=== PATIENT | male | born 1970 | race African-American/Black ===

== ENCOUNTER 2018-01-23 18:02 | Emergency (ER) | payer MEDICAID, OTHER ==
[2018-01-23] MEDS ORDERED: RINGERS SOLUTION,LACTATED 1,000 ML IV ONE (18:21)
[2018-01-23 18:41] LABS: ALANINE AMINOTRANSFERASE 54 U/L (21-72); ALBUMIN 3.8 g/dL (3.5-5.0); ALKALINE PHOSPHATASE 127 U/L (38-126); ASPARTATE AMINO TRANSFERASE 200 U/L (17-59); BILIRUBIN,DIRECT 0.5 mg/dL (0.0-0.4); BILIRUBIN,TOTAL 1.2 mg/dL (0.2-1.3); BLOOD UREA NITROGEN 5 mg/dL (7-20); CALCIUM 9.3 mg/dL (8.4-10.2); CARBON DIOXIDE 20 mmol/L (22-30); CHLORIDE 96 mmol/L (98-107); CREATINE KINASE 194 U/L (55-170); GLUCOSE 164 mg/dL (75-110); LIPASE 333.2 U/L (23-300); POTASSIUM 3.7 mmol/L (3.6-5.0); SODIUM 141.2 mmol/L (137-145)
--- NOTE | 2018-01-23 18:46 | ER Document Report ---
ED General - General Chief Complaint: Heat Exposure Stated Complaint: WEAKNESS Time Seen by Provider: 01/23/18 18:20 Notes: Patient is a 47-year-old male who presents by EMS after apparently having a witnessed seizure just prior to arrival. The patient does not recall any of the events and is unable to provide any additional meaningful the details. States only the last thing that he recalls is being loaded into the back of the EMS truck. He denies any history of prodromal symptoms. He states his last seizure was approximately 3 months ago. He has been taking his Keppra as directed. No missed doses. He states that he typically has a seizure once every several months. The patient does also report that he had diarrhea and nausea yesterday as well as abdominal cramping all of which have since resolved. He denies any symptoms at the time of my assessment. He denies any weakness, numbness, headache, neck pain, chest pain or shortness of breath. He states he feels well and would like to go home. TRAVEL OUTSIDE OF THE [place] IN LAST 30 DAYS: No - Related Data Allergies/Adverse Reactions: morphine [Morphine] Adverse Reaction (Severe, Verified 07/01/15 23:40) resp depression Past Medical History - General Information source: Patient - Social History Smoking Status: Never Smoker Frequency of alcohol use: None Drug Abuse: None Lives with: Family Family History: Reviewed & Not Pertinent - Past Medical History Cardiac Medical History: Reports: Hx Hypertension Neurological Medical History: Reports: Hx Seizures Past Surgical History: Reports: Hx Tonsillectomy - Immunizations Hx Diphtheria, Pertussis, Tetanus Vaccination: Yes Review of Systems - Review of Systems Notes: Constitutional: Negative for fever. HENT: Negative for sore throat. Eyes: Negative for visual changes. Cardiovascular: Negative for chest pain. Respiratory: Negative for shortness of breath. Gastrointestinal: Negative for abdominal pain, vomiting or diarrhea. Genitourinary: Negative for dysuria. Musculoskeletal: Negative for back pain. Skin: Negative for rash. Neurological: Negative for headaches, weakness or numbness. Positive for a seizure 10 point ROS negative except as marked above and in HPI. Physical Exam - Vital signs Vitals: Pulse Ox 96 01/23/18 18:06 Interpretation: Normal Notes: PHYSICAL EXAMINATION: GENERAL: Well-appearing, well-nourished and in no acute distress. HEAD: Atraumatic, normocephalic. EYES: Pupils equal round and reactive to light, extraocular movements intact, sclera anicteric, conjunctiva are normal. ENT: nares patent, oropharynx clear without exudates. Moist mucous membranes. NECK: Normal range of motion, supple without lymphadenopathy LUNGS: Breath sounds clear to auscultation bilaterally and equal. No wheezes rales or rhonchi. HEART: Regular rate and rhythm without murmurs ABDOMEN: Soft, nontender, normoactive bowel sounds. No guarding, no rebound. No masses appreciated. EXTREMITIES: Normal range of motion, no pitting or edema. No cyanosis. NEUROLOGICAL: Face symmetric. Tongue protrudes midline. Extraocular motions intact. Pupils are 2 mm and equally reactive. Normal speech, normal gait. 5 out of 5 strength in both the distal and proximal upper and lower extremities bilaterally. Sensation is grossly intact throughout. Finger to nose testing normal. Pronator drift normal. PSYCH: Normal mood, normal affect. SKIN: Warm, Dry, normal turgor, no rashes or lesions noted. Course - Re-evaluation Re-evalutation: 01/23/18 18:45 Presentation of well-appearing patient after having a seizure. Patient has a known history of seizures. No obvious trigger for today's episode. The patient has returned to baseline without intervention. No focal neurologic deficits. No infectious symptoms, vital sign abnormalities, or evidence of trauma. No indication for laboratories or imaging based on reassuring evaluation and known history of seizures. Patient does complain of feeling dehydrated as he apparently had diarrhea 2 days ago and was out in the heat for the majority of the past 24 hours. Will obtain basic laboratories to ensure that he has not sustained an acute kidney injury or acute rhabdomyolysis. 01/23/18 19:18 Labs do show moderate dehydration, elevation of AST but no additional liver dysfunctions. Patient has tolerated oral intake without difficulty. No vomiting. He denies any abdominal pain. Clinical history and exam are not consistent with an acute hepatitis, cholecystitis, or acute pancreatitis. I have emphasized with the patient that he needs to follow-up with his general doctor for recheck of labs in the next 1 week. Labs overall most consistent with a mild acidosis in the setting of a recent seizure. At this time will discharge with return precautions and follow-up recommendations. Verbal discharge instructions given a the bedside and opportunity for questions given. Medication warnings reviewed. Patient is in agreement with this plan and has verbalized understanding of return precautions and the need for primary care follow-up in the next 24-72 hours. - Vital Signs Vital signs: Temp Pulse Resp BP Pulse Ox 98 F 20 153/114 H 98 01/23/18 18:21 01/23/18 19:39 01/23/18 19:39 01/23/18 19:39 - Laboratory Result Diagrams: 01/23/18 18:13 Laboratory results interpreted by me: 01/23/18 18:13 Chloride 96 L Carbon Dioxide 20 L Anion Gap 25 H BUN 5 L Glucose 164 H Direct Bilirubin 0.5 H AST 200 H Alkaline Phosphatase 127 H Creatine Kinase 194 H Lipase 333.2 H Discharge - Discharge Clinical Impression: Seizure, Dehydration, Elevated AST (SGOT) Condition: Good Disposition: HOME, SELF-CARE Additional Instructions: Today you had a seizure. It is very important that you do not engage in any activities that could result in severe injury should you have a seizure. Specifically, do not drive a vehicle, go into a body of water, take a bath, climb ladders, or operate any heavy machinery until you have been cleared by your neurologist. Please return to the ED immediately if you have multiple seizures close together, develop a severe headache, weakness, numbness, difficulty speaking, have a seizure in which you do not return to normal within 1 hour of the seizure, or have any other symptoms that are concerning to you. Please follow-up with your general doctor regarding your labs. Please have a recheck of your liver function labs and kidney labs within the next 1 week. please also return if you develop nausea, vomiting, abdominal pain, chest pain , shortness of breath or any other symptoms that are worrisome to you.
[2018-01-23 18:48] LABS: ANION GAP 25 (5-19)
[2018-01-23 19:42] VITALS: BP 153/114
== END 2018-01-23 19:47 | disposition home or self-care (01) ==
LOC: ER 18:02
DX: R56.9 Unspecified convulsions (principal); E86.0 Dehydration; R74.0 Nonspecific elevation of levels of transaminase and lactic acid dehydrogenase [LDH]; Z79.899 Other long term (current) drug therapy; I10 Essential (primary) hypertension
CPT/HCPCS: 99284; 96365; 36415; 82550; 83690; 80053; J7120

== ENCOUNTER 2018-05-06 12:47 | Emergency (ER) | payer MEDICAID ==
[2018-05-06] MEDS ORDERED: ONDANSETRON HCL INJ/PF 4 MG/2 ML SDV IV ONE (13:12)
[2018-05-06] MEDS ORDERED: RINGERS SOLUTION,LACTATED 1,000 ML IV PRN (13:12)
[2018-05-06] MEDS ORDERED: LEVETIRACETAM 1000 MG/NACL-ISO 1,000 MG/100 ML RTUPB IV ONE (13:12)
--- NOTE | 2018-05-06 13:14 | ER Document Report ---
ED Medical Screen (RME) - General Chief Complaint: Nausea/Vomiting Stated Complaint: BACK PAIN Time Seen by Provider: 05/06/18 13:11 Mode of Arrival: Ambulatory Information source: Patient Notes: 48-year-old man with a history of seizures, gout, hypertension presented to emergency room with 3 days worth of nausea vomiting and diarrhea. Patient states he does not think he was holding down some of his seizure medicines. Patient reports nausea now. He denies fever. He denies chest pain or abdominal pain. TRAVEL OUTSIDE OF THE [place] IN LAST 30 DAYS: No - Related Data Allergies/Adverse Reactions: morphine [Morphine] Adverse Reaction (Severe, Verified 07/01/15 23:40) resp depression Past Medical History - Past Medical History Cardiac Medical History: Reports: Hx Hypertension Neurological Medical History: Reports: Hx Seizures Renal/ Medical History: Denies: Hx Peritoneal Dialysis Past Surgical History: Reports: Hx Tonsillectomy - Immunizations Hx Diphtheria, Pertussis, Tetanus Vaccination: Yes Physical Exam - Vital signs Vitals: Temp Pulse Resp BP Pulse Ox 97.9 F 84 18 147/100 H 98 05/06/18 12:55 05/06/18 12:55 05/06/18 12:55 05/06/18 12:55 05/06/18 12:55 Course - Vital Signs Vital signs: Temp Pulse Resp BP Pulse Ox 97.9 F 84 18 147/100 H 98 05/06/18 12:55 05/06/18 12:55 05/06/18 12:55 05/06/18 12:55 05/06/18 12:55
[2018-05-06 13:53] LABS: ABSOLUTE LYMPHOCYTES (AUTO) 0.9 10^3/uL (0.5-4.7); ABSOLUTE MONOCYTES (AUTO) 0.5 10^3/uL (0.1-1.4); BASOPHILS % (AUTO) 0.4 % (0-2); HEMATOCRIT 50.6 % (37.9-51.0); HEMOGLOBIN 17.3 g/dL (13.5-17.0); LYMPHOCYTES % (AUTO) 9.1 % (13-45); MEAN CORPUSCULAR HEMOGLOBIN 36.3 pg (27.0-33.4); MEAN CORPUSCULAR HGB CONC 34.3 g/dL (32.0-36.0); MEAN CORPUSCULAR VOLUME 106 fl (80-97); MONOCYTES % (AUTO) 5.3 % (3-13); RED BLOOD COUNT 4.77 10^6/uL (4.35-5.55); RED CELL DISTRIBUTION WIDTH 16.8 % (11.5-14.0); SEGMENTED NEUTROPHILS % (AUTO) 85.2 % (42-78); TOTAL CELLS COUNTED % (AUTO) 100 %; WHITE BLOOD COUNT 9.4 10^3/uL (4.0-10.5)
[2018-05-06 14:43] LABS: PLATELET COUNT 47 10^3/uL (150-450)
[2018-05-06 14:55] LABS: ALANINE AMINOTRANSFERASE 48 U/L (21-72); ALBUMIN 3.5 g/dL (3.5-5.0); ALKALINE PHOSPHATASE 152 U/L (38-126); ANION GAP 17 (5-19); ASPARTATE AMINO TRANSFERASE 179 U/L (17-59); BILIRUBIN,DIRECT 0.5 mg/dL (0.0-0.4); BILIRUBIN,TOTAL 1.7 mg/dL (0.2-1.3); BLOOD UREA NITROGEN 3 mg/dL (7-20); CALCIUM 8.5 mg/dL (8.4-10.2); CARBON DIOXIDE 31 mmol/L (22-30); CHLORIDE 91 mmol/L (98-107); GLUCOSE 100 mg/dL (75-110); SODIUM 138.5 mmol/L (137-145); TOTAL PROTEIN 6.6 g/dL (6.3-8.2)
[2018-05-06 15:00] LABS: POTASSIUM 2.8 mmol/L (3.6-5.0)
--- NOTE | 2018-05-06 15:04 | ER Document Report ---
ED GI/ - General Chief Complaint: Nausea/Vomiting Stated Complaint: BACK PAIN Time Seen by Provider: 05/06/18 13:11 Mode of Arrival: Ambulatory Notes: 48-year-old male who presents today with around 3 days of nausea, vomiting, and diarrhea. He denies any fevers. He denies any abdominal pain. He denies any runny nose, congestion, or cough. Patient also states he has some mild lower back pain he believes secondary to the vomiting. He was seen at his primary care physician's office today and sent here for further evaluation. There was a report that he had some radiation to his right foot with a history of gout. Patient denies any and all pain to the right foot at this time. He denies any weakness or numbness of his legs. Denies any incontinence. Patient believes he may have had some "food poisoning". TRAVEL OUTSIDE OF THE [place] IN LAST 30 DAYS: No - HPI Patient complains to provider of: Other - See above Onset: Other - See above Timing/Duration: Gradual Quality of pain: No pain Severity at maximum: Moderate Severity in ED: None Pain Level: Denies Associated symptoms: Other - See above Exacerbated by: Denies Relieved by: Denies Similar symptoms previously: No Recently seen / treated by doctor: No - Related Data Allergies/Adverse Reactions: morphine [Morphine] Adverse Reaction (Severe, Verified 07/01/15 23:40) resp depression Past Medical History - General Information source: Patient - Social History Smoking Status: Current Every Day Smoker Chew tobacco use (# tins/day): No Frequency of alcohol use: None Drug Abuse: None Family History: Reviewed & Not Pertinent Patient has suicidal ideation: No Patient has homicidal ideation: No - Past Medical History Cardiac Medical History: Reports: Hx Hypertension Neurological Medical History: Reports: Hx Seizures Renal/ Medical History: Denies: Hx Peritoneal Dialysis Past Surgical History: Reports: Hx Tonsillectomy - Immunizations Hx Diphtheria, Pertussis, Tetanus Vaccination: Yes Review of Systems - Review of Systems Constitutional: denies: Fever Respiratory: denies: Short of breath Genitourinary: denies: Dysuria Musculoskeletal: denies: Leg swelling Skin: Other - no hives. denies: Rash Neurological/Psychological: Other - no slurred speech -: Yes All other systems reviewed and negative Physical Exam - Vital signs Vitals: Temp Pulse Resp BP Pulse Ox 97.9 F 84 18 147/100 H 98 05/06/18 12:55 05/06/18 12:55 05/06/18 12:55 05/06/18 12:55 05/06/18 12:55 Notes: Reviewed vital signs and nursing note as charted by RN. CONSTITUTIONAL: Alert and oriented and responds appropriately to questions. Well -appearing; well-nourished HEAD: Normocephalic; atraumatic EYES: PERRL; Conjunctivae clear, sclerae non-icteric ENT: Normal nose; no rhinorrhea; moist mucous membranes NECK: Supple without meningismus; non-tender; no cervical lymphadenopathy CARD: Regular rate and rhythm; no murmurs; symmetric distal pulses RESP: Normal chest excursion without splinting or tachypnea; breath sounds clear and equal bilaterally ABD/GI: Normal bowel sounds; non-distended; soft, nontender to deep palpation of all 4 quadrants of the abdomen BACK: The back appears normal and is non-tender to palpation EXT: Normal ROM in all joints; non-tender to palpation; no edema SKIN: No acute lesions noted NEURO: CN 2-12 intact; 5/5 bilateral upper and lower extremity strength with sensation intact to light touch PSYCH: The patient's mood and manner are appropriate. Grooming and personal hygiene are appropriate. Course - Re-evaluation Re-evalutation: Given the above history and physical examination, we will obtain basic labs, liver panel and lipase, and reassess the patient. I do not believe that the patient requires any imaging of the abdomen at this time given the lack of fever or abdominal discomfort. We will reassess the abdomen. 05/06/18 15:03 Labs as recorded. I will replace the potassium. Patient still denies any pain. 05/06/18 15:36 Labs as recorded. No abdominal pain here. No vomiting here. I am replacing potassium and adding another liter of fluid. 05/06/18 16:58 Patient has some chronically elevated transaminitis and bilirubin. Patient still denies any abdominal pain. No vomiting here. Patient is able to eat at this time. 05/06/18 17:31 Patient still has no abdominal pain. He states he takes potassium tablets at home. We have replaced the patient's potassium and magnesium and provided 2 L of fluid. Patient has chronically elevated bilirubin, low platelets, and transaminitis. We have provided a gram of Keppra. Patient states he does have all his medications at home. Patient still has no focal neurological deficits or weakness of the legs. Patient will be discharged home with strict return precautions and follow-up with the primary care provider as well as a course of antinausea medications. - Vital Signs Vital signs: Temp Pulse Resp BP Pulse Ox 97.9 F 84 18 147/100 H 98 05/06/18 12:55 05/06/18 12:55 05/06/18 12:55 05/06/18 12:55 05/06/18 12:55 - Laboratory Result Diagrams: 05/06/18 13:30 05/06/18 14:20 Laboratory results interpreted by me: 05/06/18 05/06/18 13:30 14:20 Hgb 17.3 H MCV 106 H MCH 36.3 H RDW 16.8 H Plt Count 47 L Seg Neutrophils % 85.2 H Lymphocytes % 9.1 L Potassium 2.8 L* Chloride 91 L Carbon Dioxide 31 H BUN 3 L Magnesium 1.3 L Total Bilirubin 1.7 H Direct Bilirubin 0.5 H AST 179 H Alkaline Phosphatase 152 H Discharge - Discharge Clinical Impression: Nausea vomiting and diarrhea, Low blood potassium, Low magnesium level Condition: Good Disposition: HOME, SELF-CARE Additional Instructions: Come back immediately with any repeat vomiting, diarrhea, blood in the vomit or diarrhea, pain to the abdomen, fevers, or any other acute problems. Please make sure that you take your medications as recorded and please follow-up with your primary care physician for reassessment of your potassium and magnesium levels. Prescriptions: Ondansetron HCl [Zofran 4 mg Tablet] 1 - 2 tab PO Q4H PRN #10 tablet PRN Reason:
[2018-05-06] MEDS ORDERED: POTASSI CL 20 MEQ/50 ML RIDER 20 MEQ/50 ML RTUPB IV ONE (15:35)
[2018-05-06] MEDS ORDERED: NORMAL SALINE 1000 ML 1,000 ML IV ONE (15:36)
[2018-05-06] MEDS ORDERED: MAGNESIUM SULFATE/D5W 1 GM/100 ML RTUPB IV ONE (17:31)
[2018-05-06 19:36] VITALS: BP 152/107
--- NOTE | 2018-05-07 14:09 | EKG REPORT ---
SEVERITY:- OTHERWISE NORMAL ECG - SINUS RHYTHM ATRIAL PREMATURE COMPLEX : Confirmed by: Jesica Kyle 07-May-2018 14:08:01
== END 2018-05-06 19:34 | disposition home or self-care (01) ==
LOC: ER 12:47
DX: R11.2 Nausea with vomiting, unspecified (principal); R19.7 Diarrhea, unspecified; E87.6 Hypokalemia; E83.42 Hypomagnesemia; M54.9 Dorsalgia, unspecified; D69.6 Thrombocytopenia, unspecified; F17.200 Nicotine dependence, unspecified, uncomplicated; I10 Essential (primary) hypertension; Z88.6 Allergy status to analgesic agent
CPT/HCPCS: 93005; 99284; 96375; 96365; 96366; 96367; 36415; 83735; 85025; 80053; 93010; J3475; J2405; J3480; J7030; J7120; J1953

== ENCOUNTER 2018-07-28 08:54 | Inpatient (IN) | payer MEDICAID ==
[2018-07-28] MEDS ORDERED: NORMAL SALINE 1000 ML 1,000 ML IV ONE ×2 (09:33→11:40)
[2018-07-28] MEDS ORDERED: LEVETIRACETAM 1000 MG/NACL-ISO 1,000 MG/100 ML RTUPB IV ONE (09:34)
[2018-07-28] MEDS ORDERED: ONDANSETRON 4 MG TAB.RAPDIS PO ONE (09:34)
--- NOTE | 2018-07-28 09:35 | ER Document Report ---
ED Medical Screen (RME) - General Chief Complaint: Vomiting/Diarrhea Stated Complaint: VOMITING Time Seen by Provider: 07/28/18 09:33 Mode of Arrival: Ambulatory Information source: Patient Notes: This is a 48-year-old man with a history of hypertension (metoprolol, amlodipine), seizures (Keppra) and gout (allopurinol, ibuprofen). Patient presents to the emergency room with nausea, vomiting, diarrhea. He reports nausea now. He states that he is not been holding down his seizure medicines. He does report that he is been having blood in his stool as well. He does report some abdominal cramping. TRAVEL OUTSIDE OF THE [place] IN LAST 30 DAYS: No - Related Data Allergies/Adverse Reactions: morphine [Morphine] Adverse Reaction (Severe, Verified 07/01/15 23:40) resp depression Past Medical History - Past Medical History Cardiac Medical History: Reports: Hx Hypertension Neurological Medical History: Reports: Hx Seizures Renal/ Medical History: Denies: Hx Peritoneal Dialysis Past Surgical History: Reports: Hx Tonsillectomy - Immunizations Hx Diphtheria, Pertussis, Tetanus Vaccination: Yes Physical Exam - Vital signs Vitals: Temp Pulse Resp BP Pulse Ox 98.4 F 136 H 16 140/85 H 100 07/28/18 08:59 07/28/18 08:59 07/28/18 08:59 07/28/18 08:59 07/28/18 08:59 Course - Vital Signs Vital signs: Temp Pulse Resp BP Pulse Ox 98.4 F 136 H 16 140/85 H 100 07/28/18 08:59 07/28/18 08:59 07/28/18 08:59 07/28/18 08:59 07/28/18 08:59
[2018-07-28 10:24] LABS: HEMATOCRIT 32.7 % (37.9-51.0); HEMOGLOBIN 11.1 g/dL (13.5-17.0); MEAN CORPUSCULAR HEMOGLOBIN 35.5 pg (27.0-33.4); MEAN CORPUSCULAR VOLUME 105 fl (80-97); RED BLOOD COUNT 3.13 10^6/uL (4.35-5.55); RED CELL DISTRIBUTION WIDTH 17.4 % (11.5-14.0); WHITE BLOOD COUNT 11.2 10^3/uL (4.0-10.5)
[2018-07-28 10:33] LABS: PLATELET COUNT 78 10^3/uL (150-450)
[2018-07-28] MEDS ORDERED: PANTOPRAZOLE SODIUM 40 MG VIAL IV ONE (10:43)
--- NOTE | 2018-07-28 10:45 | ER Document Report ---
ED General - General Chief Complaint: Vomiting/Diarrhea Stated Complaint: VOMITING Time Seen by Provider: 07/28/18 09:33 Mode of Arrival: Ambulatory TRAVEL OUTSIDE OF THE [place] IN LAST 30 DAYS: No - HPI Notes: Patient is a 48-year-old male that presents to the emergency department for chief complaint of nausea vomiting and diarrhea. Patient reports poor oral intake and decreased appetite for the last 2 weeks. He states for 2 weeks he has had a constant nausea with vomiting. He states he vomits 6-7 times a day. Anytime he eats something he has vomiting. He reports over the last 3 days he has had melanotic diarrhea. He states it is a dark red color. He denies history of GI bleed in the past. He states occasionally he will get it epigastric abdominal discomfort that is achy and mild. He does not currently have any abdominal pain. He denies any lightheadedness or near syncope, palpitations, chest pain and shortness of breath. He denies any blood thinning medications. He denies ever having a history of GI bleeding in the past. Patient states that he does drink alcohol frequently but has not had any in the last 2 weeks. Past Medical History: Seizures, hypertension, gout Past Surgical History: Negative Social History: Daily tobacco, frequent alcohol, denies drug use Family History: Reviewed and noncontributory for presenting illness Allergies: Reviewed, see documented allergy list. REVIEW OF SYSTEMS: CONSTITUTIONAL : No fever No chills No diaphoresis No recent illness EENT: No vision changes No congestion No sore throat CARDIOVASCULAR: No chest pain No palpitations RESPIRATORY: No shortness of breath No cough No difficulty breathing GASTROINTESTINAL: abdominal pain nausea vomiting diarrhea Bloody stools GENITOURINARY: No dysuria No hematuria No difficulty urinating MUSCULOSKELETAL: No back pain No leg pain No arm pain SKIN: No rashes No lesions LYMPHATIC: No swollen, enlarged glands. NEUROLOGICAL: No lightheadedness No headache No weakness No paresthesias PSYCHIATRIC: No anxiety No depression PHYSICAL EXAMINATION: Vital signs reviewed, nursing noted reviewed. GENERAL: Well-appearing, well-nourished and in no acute distress. HEAD: Atraumatic, normocephalic. EYES: Eyes appear normal, extraocular movements intact, scleral icterus, conjunctiva are mildly pale. ENT: nares patent, oropharynx clear without exudates. Mildly dry mucous membranes. NECK: Normal range of motion, supple without lymphadenopathy LUNGS: Breath sounds clear to auscultation bilaterally and equal. No wheezes rales or rhonchi. HEART: Tachycardic rate and regular rhythm without murmurs ABDOMEN: Protuberant, soft, nontender, normoactive bowel sounds. No rebound, guarding, or rigidity. No masses appreciated. EXTREMITIES: Nontender, good range of motion, no pitting or edema. NEUROLOGICAL: No focal neurological deficits. Moves all extremities spontaneously Motor and sensory grossly intact on exam. PSYCH: Normal mood, normal affect. SKIN: Warm, Dry, normal turgor, no rashes or lesions noted on exposed skin - Related Data Allergies/Adverse Reactions: morphine [Morphine] Adverse Reaction (Severe, Verified 07/01/15 23:40) resp depression Past Medical History - General Information source: Patient - Social History Smoking Status: Current Every Day Smoker Chew tobacco use (# tins/day): No Frequency of alcohol use: Occasional Drug Abuse: None Family History: Reviewed & Not Pertinent Patient has suicidal ideation: No Patient has homicidal ideation: No - Past Medical History Cardiac Medical History: Reports: Hx Hypertension Neurological Medical History: Reports: Hx Seizures Renal/ Medical History: Denies: Hx Peritoneal Dialysis Past Surgical History: Reports: Hx Tonsillectomy - Immunizations Hx Diphtheria, Pertussis, Tetanus Vaccination: Yes Physical Exam - Vital signs Vitals: Temp Pulse Resp BP Pulse Ox 98.4 F 136 H 16 140/85 H 100 07/28/18 08:59 07/28/18 08:59 07/28/18 08:59 07/28/18 08:59 07/28/18 08:59 Course - Re-evaluation Re-evalutation: 07/28/18 10:50 Vitals reviewed. Nursing notes reviewed. Patient given IV fluids, Zofran and Protonix for symptomatic management. He did have an episode of emesis in the emergency room that was clear without gross blood or coffee-ground appearance. 07/28/18 12:05 Patient reevaluated. Despite 1 L of IV hydration he is still tachycardic, he will be ordered a second liter of fluids. His blood pressure has remained stable and is currently 111/66. He has not had any bleeding while in the ED. Patient's lab work shows hypokalemia which will be replaced IV and oral. Patient also is hyponatremic. These are consistent with his continued vomiting. Patient's hemoglobin is stable at 11 however chart review shows that he is usually between 15-17 so this is a change for him. I talked to Dr. Sosa who will evaluate him and do EGD/colonoscopy as needed for his GI hemorrhage. Case discussed with Shaina Stacy who will admit him to the hospital for further management. Patient in agreement with this plan and stable at time of admission. Laboratory 07/28/18 07/28/18 07/28/18 09:50 09:50 09:50 WBC 11.2 H RBC 3.13 L Hgb 11.1 L Hct 32.7 L MCV 105 H MCH 35.5 H MCHC 34.0 RDW 17.4 H Plt Count 78 L Total Counted 100 Seg Neutrophils % Not Reportable Seg Neuts % (Manual) 73 Band Neutrophils % 1 L Lymphocytes % Not Reportable Lymphocytes % (Manual) 16 Atypical Lymphs % 7 Monocytes % Not Reportable Monocytes % (Manual) 2 L Eosinophils % Not Reportable Eosinophils % (Manual) 1 Basophils % Not Reportable Basophils % (Manual) 0 Absolute Neutrophils Not Reportable Abs Neuts (Manual) 8.3 H Absolute Lymphocytes Not Reportable Abs Lymphs (Manual) 2.6 Absolute Monocytes Not Reportable Abs Monocytes (Manual) 0.2 Absolute Eosinophils Not Reportable Absolute Eos (Manual) 0.1 Absolute Basophils Not Reportable Abs Basophils (Manual) 0.0 Platelet Comment DECREASED Poikilocytosis 1+ Anisocytosis 1+ Macrocytosis 2+ Target Cells SLIGHT Tear Drop Cells SLIGHT Ovalocytes SLIGHT Sodium 127.6 L Potassium 1.9 L* Chloride 74 L Carbon Dioxide 32 H Anion Gap 22 H BUN 8 Creatinine 0.62 Est GFR ( Amer) > 60 Est GFR (Non-Af Amer) > 60 Glucose 141 H Calcium 7.2 L Total Bilirubin 3.0 H Direct Bilirubin 1.1 H Neonat Total Bilirubin Not Reportable Neonat Direct Bilirubin Not Reportable Neonat Indirect Bili Not Reportable AST 159 H ALT 24 Alkaline Phosphatase 193 H Total Protein 7.0 Albumin 3.7 Lipase 343.8 H Serum Alcohol < 10 Blood Type Antibody Screen 07/28/18 11:16 WBC RBC Hgb Hct MCV MCH MCHC RDW Plt Count Total Counted Seg Neutrophils % Seg Neuts % (Manual) Band Neutrophils % Lymphocytes % Lymphocytes % (Manual) Atypical Lymphs % Monocytes % Monocytes % (Manual) Eosinophils % Eosinophils % (Manual) Basophils % Basophils % (Manual) Absolute Neutrophils Abs Neuts (Manual) Absolute Lymphocytes Abs Lymphs (Manual) Absolute Monocytes Abs Monocytes (Manual) Absolute Eosinophils Absolute Eos (Manual) Absolute Basophils Abs Basophils (Manual) Platelet Comment Poikilocytosis Anisocytosis Macrocytosis Target Cells Tear Drop Cells Ovalocytes Sodium Potassium Chloride Carbon Dioxide Anion Gap BUN Creatinine Est GFR ( Amer) Est GFR (Non-Af Amer) Glucose Calcium Total Bilirubin Direct Bilirubin Neonat Total Bilirubin Neonat Direct Bilirubin Neonat Indirect Bili AST ALT Alkaline Phosphatase Total Protein Albumin Lipase Serum Alcohol Blood Type Cancelled Antibody Screen Cancelled - Vital Signs Vital signs: Temp Pulse Resp BP Pulse Ox 98.4 F 136 H 16 140/85 H 100 07/28/18 08:59 07/28/18 08:59 07/28/18 08:59 07/28/18 08:59 07/28/18 08:59 - Laboratory Result Diagrams: 07/28/18 09:50 07/28/18 09:50 Laboratory results interpreted by me: 07/28/18 07/28/18 09:50 09:50 WBC 11.2 H RBC 3.13 L Hgb 11.1 L Hct 32.7 L MCV 105 H MCH 35.5 H RDW 17.4 H Plt Count 78 L Band Neutrophils % 1 L Monocytes % (Manual) 2 L Abs Neuts (Manual) 8.3 H Sodium 127.6 L Potassium 1.9 L* Chloride 74 L Carbon Dioxide 32 H Anion Gap 22 H Glucose 141 H Calcium 7.2 L Total Bilirubin 3.0 H Direct Bilirubin 1.1 H AST 159 H Alkaline Phosphatase 193 H Lipase 343.8 H Discharge - Discharge Clinical Impression: Hypokalemia, Hyponatremia, Gastrointestinal hemorrhage with melena, Dehydration, Elevated LFTs Condition: Stable Disposition: ADMITTED INPATIENT Admitting Provider: Hospitalist Unit Admitted: [facility]
[2018-07-28 10:47] LABS: ABSOLUTE LYMPHOCYTES# (MANUAL) 2.6 10^3/uL (0.5-4.7); ABSOLUTE MONOCYTES # (MANUAL) 0.2 10^3/uL (0.1-1.4); ABSOLUTE NEUTROPHILS# (MANUAL) 8.3 10^3/uL (1.7-8.2); BAND NEUTROPHILS % (MANUAL) 1 % (3-5); BASOPHILS % (MANUAL) 0 % (0-2); EOSINOPHILS % (MANUAL) 1 % (0-6); LYMPHOCYTES % (MANUAL) 16 % (13-45); MONOCYTES % (MANUAL) 2 % (3-13); SEGMENTED NEUTROPHILS % (MAN) 73 % (42-78); TOTAL CELLS COUNTED 100
[2018-07-28 10:48] LABS: ALANINE AMINOTRANSFERASE 24 U/L (21-72); ALBUMIN 3.7 g/dL (3.5-5.0); ALKALINE PHOSPHATASE 193 U/L (38-126); BILIRUBIN,DIRECT 1.1 mg/dL (0.0-0.4); BLOOD UREA NITROGEN 8 mg/dL (7-20); CALCIUM 7.2 mg/dL (8.4-10.2); GLUCOSE 141 mg/dL (75-110); LIPASE 343.8 U/L (23-300)
[2018-07-28 10:52] LABS: ANISOCYTOSIS 1+; OVALOCYTES SLIGHT; POIKILOCYTOSIS 1+
[2018-07-28 10:53] LABS: PLATELET COMMENT DECREASED; TARGET CELLS SLIGHT; TEAR DROP CELLS SLIGHT
[2018-07-28 11:02] LABS: ASPARTATE AMINO TRANSFERASE 159 U/L (17-59); CARBON DIOXIDE 32 mmol/L (22-30); CHLORIDE 74 mmol/L (98-107); SODIUM 127.6 mmol/L (137-145)
[2018-07-28 11:09] LABS: ANION GAP 22 (5-19)
[2018-07-28 11:11] LABS: POTASSIUM 1.9 mmol/L (3.6-5.0)
[2018-07-28] MEDS ORDERED: POTASSIUM CHLORIDE 20 MEQ/15 ML UDCUP PO ONE (11:40)
[2018-07-28] MEDS: POTASSI CL 20 MEQ/50 ML RIDER 20 MEQ/50 ML RTUPB IV SCH ×5 (11:53→23:10)
[2018-07-28] MEDS ORDERED: NORMAL SALINE 250 ML IV ONE (12:04)
[2018-07-28 12:08] LABS: VENOUS BLOOD BASE EXCESS 8.9 mmol/L; VENOUS BLOOD HCO3 33.8 mmol/L (20-32); VENOUS BLOOD PH 7.47 (7.30-7.42)
[2018-07-28 12:19] LABS: INTERNATIONAL RATION (INR) 1.05; PROTHROMBIN TIME 14.2 SEC (11.4-15.4)
[2018-07-28 12:20] LABS: PARTIAL THROMBOPLASTIN TIME 32.8 SEC (23.5-35.8)
[2018-07-28] MEDS ORDERED: DEXTROSE 40% GEL 15 GM TUBE PO PRN ×2 (12:50)
[2018-07-28] MEDS ORDERED: IPRATROPIUM/ALBUTEROL 0.5-2.5 MG/3 ML AMPUL NEB PRN (12:50)
[2018-07-28] MEDS ORDERED: DEXTROSE 50%-WATER 25 GM/50 ML DISP.SYRIN IV PRN ×2 (12:50)
[2018-07-28] MEDS ORDERED: ACETAMINOPHEN 325 MG TABLET PO PRN (12:50)
[2018-07-28] MEDS ORDERED: NORMAL SALINE 1000 ML 1,000 ML IV PRN (12:50)
[2018-07-28] MEDS ORDERED: GLUCAGON,HUMAN RECOMB 1 MG INJ SUBCUT PRN (12:50)
[2018-07-28] MEDS ORDERED: ONDANSETRON HCL INJ/PF 4 MG/2 ML SDV IV PRN (12:57)
[2018-07-28] MEDS ORDERED: LORAZEPAM INJ 2 MG/1 ML VIAL IV PRN (12:59)
--- NOTE | 2018-07-28 13:35 | PDOC H&P ---
History of Present Illness Admission Date/PCP: 07/28/18 12:23 Patient complains of: nausea, vomiting, diarrhea History of Present Illness: CIERA OVIEDO is a 48 year old male with a past medical history significant for hypertension, seizure disorder, tobacco dependence with continuous use, and alcohol dependence (patient reportedly no longer drinking) who presented to the emergency department today with a complaint of 1-3 weeks of nausea, vomiting, diarrhea. He reports that he has had 7 episodes of emesis today and 2 episodes of diarrhea. He reports epigastric abdominal pain described as sharp and aching that spreads diffusely and is worsened by p.o. intake. He reports that he has not been able to tolerate food, fluids, or medications for several days now. He also reports dark red blood noted in his stools recently. He denies a history of GI bleeding. Evaluation in the emergency department revealed tachycardia (heart rate 130s), mild leukocytosis (WBC 11.2), anemia (hemoglobin 11.1; baseline 15), thrombocytopenia (platelets 78; appears to be chronic), hypernatremia (NA 127.6), hypokalemia (K 1.9), anion gap acidosis (22), and elevated LFTs. Dr. Sosa has already been consulted by the emergency room provider and has agreed to follow with this patient. He is referred to the hospitalist service for admission and management of the above complaints and findings. Past Medical History Cardiac Medical History: Reports: Hyperlipidema, Hypertension Pulmonary Medical History: Reports: None EENT Medical History: Reports: None Neurological Medical History: Reports: Seizures Endocrine Medical History: Reports: None Renal/ Medical History: Reports: None Malignancy Medical History: Reports: None GI Medical History: Reports: Gastroesophageal Reflux Disease Musculoskeltal Medical History: Reports: None Skin Medical History: Reports: None Psychiatric Medical History: Reports: Alcohol Dependency, Tobacco Dependency Traumatic Medical History: Reports: None Hematology: Reports: None Infectious Medical History: Reports: None Past Surgical History Past Surgical History: Reports: Tonsillectomy Social History Information Source: Patient Lives with: Parents Smoking Status: Current Every Day Smoker Cigarettes Packs Per Day: 0.5 Frequency of Alcohol Use: None - per patient; hx of EtOH abuse/dependence Hx Recreational Drug Use: No Hx Prescription Drug Abuse: No - Advance Directive Resuscitation Status: Full Code Surrogate healthcare decision maker:: The patient's mother. Family History Family History: CVA, DM, Hyperlipidemia, Hypertension Parental Family History Reviewed: Yes Children Family History Reviewed: Yes Sibling(s) Family History Reviewed.: Yes Medication/Allergy Home Medications: Levetiracetam [Keppra 500 mg Tablet] 500 mg PO Q12 #60 tablet 12/10/14 Amlodipine Besylate [Norvasc 10 mg Tablet] 10 mg PO DAILY 07/01/15 Lisinopril 20 mg PO BID 07/01/15 Ondansetron HCl [Zofran 4 mg Tablet] 1 - 2 tab PO Q4H PRN #10 tablet 05/06/18 Allergies/Adverse Reactions: morphine [Morphine] Adverse Reaction (Severe, Verified 07/01/15 23:40) resp depression Review of Systems Constitutional: ABSENT: chills, fever(s), headache(s), weight gain, weight loss Eyes: ABSENT: visual disturbances Ears: ABSENT: hearing changes Cardiovascular: ABSENT: chest pain, dyspnea on exertion, edema, orthropnea, palpitations Respiratory: ABSENT: cough, hemoptysis Gastrointestinal: PRESENT: abdominal pain, diarrhea, hematochezia, nausea, vomiting. ABSENT: constipation, hematemesis Genitourinary: ABSENT: dysuria, hematuria Musculoskeletal: ABSENT: joint swelling Integumentary: ABSENT: rash, wounds Neurological: ABSENT: abnormal gait, abnormal speech, confusion, dizziness, focal weakness, syncope Psychiatric: ABSENT: anxiety, depression, homidical ideation, suicidal ideation Endocrine: ABSENT: cold intolerance, heat intolerance, polydipsia, polyuria Hematologic/Lymphatic: ABSENT: easy bleeding, easy bruising Physical Exam Vital Signs: Temp Pulse Resp BP Pulse Ox 98.4 F 136 H 20 111/66 100 07/28/18 08:59 07/28/18 08:59 07/28/18 12:01 07/28/18 12:01 07/28/18 12:01 Intake & Output 07/27/18 07/28/18 07/29/18 06:59 06:59 06:59 Intake Total 1100 Balance 1100 Weight 73.1 kg General appearance: PRESENT: mild distress, well-developed, well-nourished Head exam: PRESENT: atraumatic, normocephalic Eye exam: PRESENT: conjunctiva pink, EOMI, PERRLA, scleral icterus Ear exam: PRESENT: normal external ear exam Mouth exam: PRESENT: dry mucosa, tongue midline Neck exam: ABSENT: carotid bruit, JVD, lymphadenopathy, thyromegaly Respiratory exam: PRESENT: clear to auscultation sulaiman, symmetrical, unlabored. ABSENT: rales, rhonchi, wheezes Cardiovascular exam: PRESENT: RRR, +S1, +S2, tachycardia. ABSENT: diastolic murmur, rubs, systolic murmur Pulses: PRESENT: normal dorsalis pedis pul Vascular exam: PRESENT: normal capillary refill GI/Abdominal exam: PRESENT: hypoactive bowel sounds, soft, tenderness. ABSENT: distended, guarding, mass, organolmegaly, rebound Rectal exam: PRESENT: deferred Extremities exam: PRESENT: full ROM. ABSENT: calf tenderness, clubbing, pedal edema Neurological exam: PRESENT: alert, awake, oriented to person, oriented to place, oriented to time, oriented to situation, CN II-XII grossly intact. ABSENT: motor sensory deficit Psychiatric exam: PRESENT: appropriate affect, normal mood. ABSENT: homicidal ideation, suicidal ideation Skin exam: PRESENT: dry, intact, warm. ABSENT: cyanosis, rash Results Laboratory Results: 07/28/18 09:50 07/28/18 09:50 07/28/18 07/28/18 07/28/18 09:50 09:50 11:16 WBC 11.2 H RBC 3.13 L Hgb 11.1 L Hct 32.7 L MCV 105 H MCH 35.5 H MCHC 34.0 RDW 17.4 H Plt Count 78 L Seg Neutrophils % Not Reportable Lymphocytes % Not Reportable Monocytes % Not Reportable Eosinophils % Not Reportable Basophils % Not Reportable Absolute Neutrophils Not Reportable Absolute Lymphocytes Not Reportable Absolute Monocytes Not Reportable Absolute Eosinophils Not Reportable Absolute Basophils Not Reportable VBG pH VBG pCO2 VBG HCO3 VBG Base Excess Sodium 127.6 L Potassium 1.9 L* Chloride 74 L Carbon Dioxide 32 H Anion Gap 22 H BUN 8 Creatinine 0.62 Est GFR ( Amer) > 60 Est GFR (Non-Af Amer) > 60 Glucose 141 H Calcium 7.2 L Total Bilirubin 3.0 H AST 159 H ALT 24 Alkaline Phosphatase 193 H Total Protein 7.0 Albumin 3.7 Lipase 343.8 H Blood Type Cancelled Antibody Screen Cancelled 07/28/18 11:55 WBC RBC Hgb Hct MCV MCH MCHC RDW Plt Count Seg Neutrophils % Lymphocytes % Monocytes % Eosinophils % Basophils % Absolute Neutrophils Absolute Lymphocytes Absolute Monocytes Absolute Eosinophils Absolute Basophils VBG pH 7.47 H VBG pCO2 48.0 VBG HCO3 33.8 H VBG Base Excess 8.9 Sodium Potassium Chloride Carbon Dioxide Anion Gap BUN Creatinine Est GFR ( Amer) Est GFR (Non-Af Amer) Glucose Calcium Total Bilirubin AST ALT Alkaline Phosphatase Total Protein Albumin Lipase Blood Type Antibody Screen Assessment & Plan - Diagnosis (1) GI bleed Qualifiers: GI bleed type/associated pathology: unspecified gastrointestinal hemorrhage type Qualified Code(s): K92.2 - Gastrointestinal hemorrhage, unspecified Is this a current diagnosis for this admission?: Yes Plan: Patient reports several days of nausea, vomiting, diarrhea with epigastric abdominal pain, and recently noticed dark red blood in stools. He denies previous history of GI bleed, however, does have a history of alcohol abuse/dependence. He denies recent use. Hemoglobin is 11.1 today; baseline 15. Occult stool pending. Patient received Protonix bolus; will start Protonix drip. He is placed in n.p.o. status. Surgery has been consulted; appreciate Dr. Sosa's assistance. He has been type and crossed in anticipation of possible transfusion needs. (2) Anemia Qualifiers: Anemia type: other cause Is this a current diagnosis for this admission?: Yes Plan: Acute blood loss anemia secondary to GI bleed. Management as above. (3) Hypokalemia Is this a current diagnosis for this admission?: Yes Plan: Secondary to nausea, vomiting, diarrhea and poor p.o. intake. EKG demonstrates sinus tachycardia without peak T waves or other acute findings. He has already been ordered p.o potassium and K riders by the ED provider. Will follow serial chemistries and continue to replace as needed. (4) Hyponatremia Is this a current diagnosis for this admission?: Yes Plan: Secondary to nausea, vomiting, diarrhea and poor p.o. intake. Patient has already received 1 L NS bolus by ED provider. Continue maintenance IV fluids. Will monitor serial chemistries. (5) Vomiting and diarrhea Is this a current diagnosis for this admission?: Yes Plan: Gastritis vs GI bleed ves pancreatitis vs EtOH abuse and/or withdrawal. Serum EtOH <10 Lipase elevated to 343.8 Hepatitis panel is pending. Low suspicion for infectious process as the patient is afebrile with a minimally elevated white count and benign abdominal exam. Occult stool pending. NPO Will provide IV fluids and antiemetics as needed. Monitor stool output; will obtain cultures if indicated. (6) Tobacco dependence Is this a current diagnosis for this admission?: Yes Plan: Smoking cessation is encouraged, nicotine replacement therapies are provided. (7) Elevated LFTs Is this a current diagnosis for this admission?: Yes Plan: Likely secondary to hx EtOH abuse. Hepatitis panel is pending. Will continue to monitor; consider ultrasound imaging. (8) History of ETOH abuse Is this a current diagnosis for this admission?: Yes Plan: IV banana bag nightly. IV Ativan as needed for withdrawal symptoms and/or seizures. Observe closely for evidence of withdrawal. - Time Time Spent: 30 to 50 Minutes Smoking Cessation Education: 3 to 10 minutes Medications reviewed and adjusted accordingly: Yes Anticipated discharge: Home Within: within 72 hours - Inpatient Certification Based on my medical assessment, after consideration of the patient's comorbidities, presenting symptoms, or acuity I expect that the services needed warrant INPATIENT care.: Yes I certify that my determination is in accordance with my understanding of Medicare's requirements for reasonable and necessary INPATIENT services [42 CFR 412.3e].: Yes Medical Necessity: Need Close Monitoring Due to Risk of Patient Decompensation, Need For IV Fluids, Need For Continuous Telemetry Monitoring
--- NOTE | 2018-07-28 13:53 | RADIOLOGY REPORT (SQ) ---
EXAM DESCRIPTION: CHEST SINGLE VIEW COMPLETED DATE/TIME: 07/28/2018 1:43 pm REASON FOR STUDY: cough COMPARISON: 07/01/2015. EXAM PARAMETERS: NUMBER OF VIEWS: One view. TECHNIQUE: Single frontal radiographic view of the chest acquired. RADIATION DOSE: NA LIMITATIONS: None. FINDINGS: LUNGS AND PLEURA: No opacities, masses or pneumothorax. No pleural effusion. MEDIASTINUM AND HILAR STRUCTURES: No masses. Contour normal. HEART AND VASCULAR STRUCTURES: Heart normal in size. Normal vasculature. BONES: No acute findings. HARDWARE: None in the chest. OTHER: No other significant finding. IMPRESSION: NO ACUTE RADIOGRAPHIC FINDING IN THE CHEST. TECHNICAL DOCUMENTATION: JOB ID: [id number] [employer]- All Rights Reserved Reading location - IP/workstation name: [email or web address]
[2018-07-28 14:15] LABS: A TYPE INFLUENZA AG NEGATIVE (NEGATIVE); B INFLUENZA AG NEGATIVE (NEGATIVE)
--- NOTE | 2018-07-28 15:03 | RADIOLOGY REPORT (SQ) ---
EXAM DESCRIPTION: U/S ABDOMEN LTD W/DOPPLER COMPLETED DATE/TIME: 07/28/2018 2:34 pm REASON FOR STUDY: elevated bili COMPARISON: None. TECHNIQUE: Dynamic and static grayscale images acquired of the abdomen and recorded on PACS. [place] n[place] selected color Doppler and spectral images recorded. LIMITATIONS: None. FINDINGS: PANCREAS: No masses. Visualized pancreatic duct normal caliber. LIVER: No masses. Echotexture normal. LIVER VASCULATURE: Normal directional flow of the main portal vein and hepatic veins. GALLBLADDER: No stones. Normal wall thickness. No pericholecystic fluid. ULTRASOUND-DETECTED CROWE'S SIGN: Negative. INTRAHEPATIC DUCTS AND COMMON DUCT: CBD and intrahepatic ducts normal caliber. No filling defects. INFERIOR VENA CAVA: Normal flow. AORTA: No aneurysm. RIGHT KIDNEY: Normal size. Normal echogenicity. No solid or suspicious masses. No hydronephrosis. No calcifications. PERITONEAL AND RIGHT PLEURAL SPACE: No ascites or effusions. OTHER: There is a somewhat ill-defined, multi-cystic appearing masslike area seen adjacent to the liz er and gallbladder fossa measuring 5.2 x 4.2 x 4.9 cm. IMPRESSION: There is a somewhat ill-defined, multi-cystic appearing masslike area seen adjacent to t he liver and gallbladder fossa measuring 5.2 x 4.2 x 4.9 cm. This is of uncertain nature. Recommend CT to further evaluate. TECHNICAL DOCUMENTATION: JOB ID: [id number] [employer]- All Rights Reserved Reading location - IP/workstation name: [email or web address]
[2018-07-28 15:21] LABS: ANION GAP 12 (5-19); BLOOD UREA NITROGEN 8 mg/dL (7-20); CARBON DIOXIDE 32 mmol/L (22-30); CHLORIDE 84 mmol/L (98-107); CREATINE KINASE 677 U/L (55-170); GLUCOSE 112 mg/dL (75-110); SODIUM 128.2 mmol/L (137-145)
[2018-07-28 15:30] LABS: POTASSIUM 2.2 mmol/L (3.6-5.0)
[2018-07-28] MEDS ORDERED: CALCIUM GLUCONATE 1,000 MG in DEXTROSE 5%-WATER 50 ML IV ONE (15:33)
[2018-07-28] MEDS ORDERED: CALCIUM GLUCONATE 1000 MG/10 ML INJ IV ONE (16:00)
[2018-07-28] MEDS: MAGNESIUM SULFATE/D5W 1 GM/100 ML RTUPB IV SCH ×2 (16:16→17:53)
[2018-07-28] MEDS ORDERED: NORMAL SALINE 1000 ML 1,000 ML with POTASSIUM CHLORIDE 20 MEQ, MAGNESIUM SULFATE 8 MEQ,... IV SCH ×5 (18:00)
--- NOTE | 2018-07-28 19:09 | RADIOLOGY REPORT (SQ) ---
EXAM DESCRIPTION: CT ABD/PELVIS WITH IV ORAL COMPLETED DATE/TIME: 07/28/2018 6:48 pm REASON FOR STUDY: elevated LFT, lipase, mass of liver/GB on US COMPARISON: Ultrasound 07/28/2018 CT 07/01/2015 TECHNIQUE: CT scan of the abdomen and pelvis performed using helical scanning technique with dynamic intravenous contrast injection. Oral contrast. Images reviewed with lung, soft tissue, and bone win dows. Reconstructed coronal and sagittal MPR images reviewed. Delayed images for evaluation of the ur inary system also acquired. All images stored on PACS. All CT scanners at this facility use dose modulation, iterative reconstruction, and/or weight based d osing when appropriate to reduce radiation dose to as low as reasonably achievable (ALARA). [facility]: Dose Right [facility]: CareDose [facility]: Dose Right [facility]: Teradose 4D [facility]: [employer] CONTRAST TYPE AND DOSE: contrast/concentration: Isovue 350.00 mg/ml; Total Contrast Delivered: 83.0 ml; Total Saline Delivered: 42.7 ml RENAL FUNCTION: BUN 8 creatinine 0.6 RADIATION DOSE: CT Rad equipment meets quality standard of care and radiation dose reduction techniq ues were employed. CTDIvol: 6.0 - 8.2 mGy. DLP: 710 mGy-cm.. LIMITATIONS: None. FINDINGS: LOWER CHEST: No significant findings. No nodules or infiltrates. LIVER: Uniformly hypoattenuating. No hepatic mass. SPLEEN: Normal size. No focal lesions. PANCREAS: There is a 4 x 4 x 7 cm heterogeneous mass that may arise from the head of the pancreas. I t is possible that this mass arises from the duodenum. See image 37 series 3. See images 30 through 40 series 601. See images 30 through 39 series 602. GALLBLADDER: No identified stones by CT criteria. No inflammatory changes to suggest cholecystitis. ADRENAL GLANDS: No significant masses or asymmetry. RIGHT KIDNEY AND URETER: No solid masses. No significant calcifications. No hydronephrosis or hyd roureter. LEFT KIDNEY AND URETER: No solid masses. No significant calcifications. No hydronephrosis or hydr oureter. AORTA AND VESSELS: No aneurysm. No dissection. Renal arteries, SMA, celiac without stenosis. RETROPERITONEUM: No retroperitoneal adenopathy, hemorrhage or masses. BOWEL AND PERITONEAL CAVITY: There is some thickening of the wall of the gastric antrum. Please see discussion above under the heading of pancreas with regard to the duodenum. There is wall thickening in the terminal ileum and in the right colon. There appears to be some degree of wall thickening of the splenic flexure of the colon and the proximal descending colon. APPENDIX: Not identified. PELVIS: No mass. No free fluid. Normal bladder. ABDOMINAL WALL: No masses. No hernias. BONES: Avascular necrosis in the femoral heads. There is a densely sclerotic lesion in the left iliu m that may represent a bone island. OTHER: No other significant finding. IMPRESSION: 1. Large right upper quadrant mass. This may arise from the pancreas. It may arise fr om the duodenum. 2. Fatty infiltration of the liver. 3. Possible inflammatory bowel disease involving the gastric antrum, terminal ileum, and colon. 4. Avascular necrosis of the femoral heads. 5. Sclerotic lesion in the left ilium that likely represents a bone island. TECHNICAL DOCUMENTATION: JOB ID: [id number] Quality ID # [id number]: Final reports with documentation of one or more dose reduction techniques (e.g., Au tomated exposure control, adjustment of the mA and/or kV according to patient size, use of iterative reconstruction technique) 2010 [employer]- All Rights Reserved Reading location - IP/workstation name: [email or web address]
[2018-07-28 19:29] LABS: ANION GAP 11 (5-19); BLOOD UREA NITROGEN 8 mg/dL (7-20); CARBON DIOXIDE 32 mmol/L (22-30); CHLORIDE 83 mmol/L (98-107); GLUCOSE 108 mg/dL (75-110); SODIUM 125.9 mmol/L (137-145)
[2018-07-28 19:50] LABS: CALCIUM 6.2 mg/dL (8.4-10.2); POTASSIUM 2.1 mmol/L (3.6-5.0)
[2018-07-28] MEDS: NORMAL SALINE 100 ML with PANTOPRAZOLE SODIUM 80 MG IV PRN ×2 (20:30)
--- NOTE | 2018-07-28 21:33 | Progress Note ---
Provider Note Provider Note: Events noted. Patient's symptoms and laboratory blood work point toward a more serious condition than initially identified and thought. A recently CT scan reveals a mass in the RUQ either form liver and/or pancreas which is probably the cause of the patient gastrointestinal symptoms. This condition cannot be appropriately treated at this facility due to the lack of several ancillary services. My recommendation is to transfer this patient to a tertiary medical center as soon as possible so this patient's newly diagnosed pancreato-hepatic mass can appropriately diagnosed and treated.
--- NOTE | 2018-07-28 23:02 | EKG REPORT ---
SEVERITY:- ABNORMAL ECG - SINUS TACHYCARDIA VENTRICULAR PREMATURE COMPLEX BIATRIAL ABNORMALITIES CONSIDER RIGHT VENTRICULAR HYPERTROPHY NONSPECIFIC T ABNORMALITIES, LATERAL LEADS : Confirmed by: Jesica Kyle 28-Jul-2018 23:01:27
--- NOTE | 2018-07-28 23:37 | CONSULTATION REPORT E ---
Consultation Report NAME: CIERA OVIEDO : 1970 AGE: 48Y DATE: 07/28/2018 ROOM: 307 A TO: ANDRE DURAN M.D. FROM: BEVERLEY HELM M.D. Requesting Physician REASON FOR CONSULTATION: Anemia. HISTORY OF PRESENT ILLNESS: This is a 48-year-old -British male with a history of hypertension, seizure disorder (last seizure episode 3 months ago), gout; seen in the emergency room for vomiting, diarrhea for 2 weeks with productive cough. He describes the sputum as brown. He has a history of heartburn as well. During the emergency room evaluation the patient was found to be anemic with a hemoglobin and hematocrit of 11.3 and 32.7 respectively. The patient also was found to have diffuse elevation of the liver function tests including total bilirubin 3.0 with indirect 2.0. Elevation of the lipase at 743. Platelet count is decreased to 78. The patient reports a history of heavy drinking in the past but he has been sober for the past 6 months. Finally the patient reports passing maroon colored stools during the past few weeks. According to the review of the records, the patient presented with higher hemoglobin during the past months evaluation about 15 to 16 and the 11.1 hemoglobin identified today is suspicious for a possible gastrointestinal loss of blood. PAST MEDICAL HISTORY: Significant for hypertension, hyperlipidemia, seizure disorder, gout, tonsillectomy. REVIEW OF SYSTEMS: All 12 points have been reviewed and they are negative except for cardiac history significant for hyperlipidemia, hypertension, seizure disorder, GERD, tobaccoism. SOCIAL HISTORY: The patient smokes a half a pack of cigarettes a day. He denies abuse of alcohol for the past 6 months. However, he was a heavy drinker before. Denies any use of drugs. FAMILY HISTORY: Significant for cancer, hyperlipidemia, hypertension, coronary artery disease, diabetes mellitus. ALLERGIES: The patient is allergic to MORPHINE. MEDICATIONS: The patient takes Keppra 500 mg p.o. b.i.d. q.12, Norvasc 10 mg p.o. daily, lisinopril 20 mg p.o. b.i.d., and Zofran 4 mg p.o. every 4 hours p.r.n. for nausea and vomiting. LABORATORY DATA: White blood cell count 11.2, H and H 11.1 and 32.7 respectively, platelet count 78. Sodium low 127, potassium decreased to 1.9, BUN and creatinine 8 and 0.6. Liver profile elevated bilirubin total of 3.0, AST and ALT 159 and 24 respectively, alkaline phosphatase 193. Lipase is 343. Venous blood gas; pH 7.4, pCO2 of 48, pO2 of 33, base excess +8. IMAGING STUDIES: Chest x-ray done today 07/28/2018 shows no acute findings. Ultrasound of the abdomen; ill-defined multicystic mass adjacent to the liver and gallbladder of uncertain nature and CT scan is recommended. Common bile duct and intrahepatic ducts are all normal size. CT scan abdomen and pelvis is pending. PHYSICAL EXAMINATION: VITAL SIGNS: Stable, the patient is afebrile. Temperature 98.4, pulse 136, blood pressure 111/66, pulse oximetry 100% on room air. HEENT: Second through 12 cranial nerves are normal. NECK: Supple without masses. CHEST: Symmetric bilaterally. LUNGS: Clear to auscultation bilaterally. HEART: Regular rhythm and rate. ABDOMEN: Distended, but nontender, soft without surgical scars. EXTREMITIES: The patient moves all 4 extremities equally, symmetrical without deficits. NEUROLOGIC SYSTEM: Motor and sensory intact and equal bilaterally without deficits. SKIN: Warm, dry, intact. ASSESSMENT AND PLAN: 1. Two week history of nausea and vomiting and diarrhea. Diarrhea described with maroon stools. 2. Moderate decrease of the hemoglobin and hematocrit, 11.1 and 32.7 respectively with thrombocytopenia (78,000). 3. Hyponatremia and hypokalemia, 1.9 severe. 4. Elevated liver profile including AST, bilirubin total, alkaline phosphatase, and lipase 743. Ultrasound of the liver demonstrates a mass present in the area between the liver and gallbladder fossa of uncertain nature and a CT scan is recommended. 5. History of alcohol abuse for many years, however, the patient has been sober for the past 6 months. 6. Elevated lipase which could be either acute on chronic or chronic pancreatitis. PLAN: 1. We will plan to perform upper and lower endoscopy once the patient has been medically clear from his symptoms. 2. We will order a CT scan of the abdomen and pelvis with IV or oral contrast to better define this mass present between the liver and the gallbladder. DICTATING PHYSICIAN: ANDRE DURAN M.D. [id number] PHY#: [id number] ID: [id number] JOB#: [id number] ACCT: [id number] cc:ANDRE DURAN M.D. > GEET[place]
[2018-07-29 00:18] LABS: ANION GAP 5 (5-19); BLOOD UREA NITROGEN 8 mg/dL (7-20); CARBON DIOXIDE 36 mmol/L (22-30); CHLORIDE 85 mmol/L (98-107); GLUCOSE 103 mg/dL (75-110); SODIUM 126.1 mmol/L (137-145)
[2018-07-29 00:30] LABS: POTASSIUM 2.3 mmol/L (3.6-5.0)
[2018-07-29] MEDS ORDERED: CALCIUM GLUCONATE 1000 MG/10 ML INJ IV ONE ×3 (01:00→07:16)
[2018-07-29] MEDS: POTASSI CL 20 MEQ/50 ML RIDER 20 MEQ/50 ML RTUPB IV SCH ×5 (01:19→09:32)
[2018-07-29] MEDS ORDERED: LEVETIRACETAM 500 MG/NACL-ISO 500 MG/100 ML RTUPB IV ONE (01:29)
[2018-07-29] MEDS: LEVETIRACETAM 500 MG/NACL-ISO 500 MG/100 ML RTUPB IV SCH ×2 (01:46→09:39)
[2018-07-29] MEDS: MAGNESIUM SULFATE/D5W 1 GM/100 ML RTUPB IV SCH ×2 (02:50→04:43)
[2018-07-29] MEDS ORDERED: MAGNESIUM SULFATE/D5W 1 GM/100 ML RTUPB IV ONE (04:43)
[2018-07-29] MEDS ORDERED: POTASSI CL 20 MEQ/50 ML RIDER 20 MEQ/50 ML RTUPB IV ONE (04:48)
[2018-07-29 04:57] LABS: URINE AMPHETAMINES SCREEN NEGATIVE; URINE BARBITURATES SCREEN NEGATIVE; URINE BENZODIAZEPINES SCREEN NEGATIVE; URINE COCAINE SCREEN NEGATIVE; URINE MARIJUANA (THC) SCREEN NEGATIVE; URINE METHADONE SCREEN NEGATIVE; URINE PHENCYCLIDINE SCREEN NEGATIVE
[2018-07-29 05:06] LABS: MEAN CORPUSCULAR HEMOGLOBIN 35.8 pg (27.0-33.4); MEAN CORPUSCULAR HGB CONC 35.1 g/dL (32.0-36.0); MEAN CORPUSCULAR VOLUME 102 fl (80-97); RED BLOOD COUNT 2.06 10^6/uL (4.35-5.55); RED CELL DISTRIBUTION WIDTH 17.1 % (11.5-14.0); WHITE BLOOD COUNT 6.2 10^3/uL (4.0-10.5)
[2018-07-29 05:16] LABS: ALANINE AMINOTRANSFERASE 31 U/L (21-72); ALBUMIN 2.1 g/dL (3.5-5.0); ALKALINE PHOSPHATASE 109 U/L (38-126); ANION GAP 5 (5-19); ASPARTATE AMINO TRANSFERASE 103 U/L (17-59); BILIRUBIN,DIRECT 0.8 mg/dL (0.0-0.4); BILIRUBIN,TOTAL 1.4 mg/dL (0.2-1.3); BLOOD UREA NITROGEN 7 mg/dL (7-20); CARBON DIOXIDE 34 mmol/L (22-30); CHLORIDE 91 mmol/L (98-107); GLUCOSE 109 mg/dL (75-110); SODIUM 130.3 mmol/L (137-145); TOTAL PROTEIN 4.5 g/dL (6.3-8.2)
[2018-07-29 05:25] LABS: PLATELET COUNT 53 10^3/uL (150-450)
[2018-07-29 05:26] LABS: HEMOGLOBIN 7.4 g/dL (13.5-17.0)
[2018-07-29 05:36] LABS: CALCIUM 6.3 mg/dL (8.4-10.2)
[2018-07-29 05:37] LABS: POTASSIUM 2.5 mmol/L (3.6-5.0)
[2018-07-29] MEDS ORDERED: PANTOPRAZOLE SODIUM 40 MG VIAL IV ONE (05:44)
[2018-07-29] MEDS ORDERED: CALCIUM GLUCONATE 2,222 MG in DEXTROSE 5%-WATER 100 ML IV ONE (05:52)
[2018-07-29] MEDS ORDERED: NORMAL SALINE 250 ML IV PRN ×3 (05:52→08:09)
[2018-07-29] MEDS: NORMAL SALINE 100 ML with PANTOPRAZOLE SODIUM 80 MG IV PRN ×2 (06:19)
[2018-07-29 06:36] LABS: ABSOLUTE EOSINOPHILS # (AUTO) 0.2 10^3/uL (0.0-0.6); ABSOLUTE LYMPHOCYTES (AUTO) 1.6 10^3/uL (0.5-4.7); ABSOLUTE MONOCYTES (AUTO) 0.3 10^3/uL (0.1-1.4); ABSOLUTE NEUT (AUTO) 4.2 10^3/uL (1.7-8.2); BASOPHILS % (AUTO) 0.3 % (0-2); EOSINOPHILS % (AUTO) 2.4 % (0-6); HEMATOCRIT 22.6 % (37.9-51.0); LYMPHOCYTES % (AUTO) 24.9 % (13-45); MEAN CORPUSCULAR HEMOGLOBIN 35.4 pg (27.0-33.4); MEAN CORPUSCULAR HGB CONC 34.2 g/dL (32.0-36.0); MEAN CORPUSCULAR VOLUME 104 fl (80-97); MONOCYTES % (AUTO) 5.4 % (3-13); RED BLOOD COUNT 2.19 10^6/uL (4.35-5.55); RED CELL DISTRIBUTION WIDTH 18.1 % (11.5-14.0); TOTAL CELLS COUNTED % (AUTO) 100 %; WHITE BLOOD COUNT 6.2 10^3/uL (4.0-10.5)
[2018-07-29 07:00] LABS: PLATELET COUNT 55 10^3/uL (150-450)
[2018-07-29 07:01] LABS: ANISOCYTOSIS 3+; HEMOGLOBIN 7.7 g/dL (13.5-17.0); HYPERSEGMENTED NEUTROPHILS PRESENT; POIKILOCYTOSIS SLIGHT
[2018-07-29 07:02] LABS: OVALOCYTES SLIGHT; PLATELET COMMENT DECREASED; TARGET CELLS SLIGHT
--- NOTE | 2018-07-29 08:11 | PDOC PROGRESS REPORT ---
Subjective Progress Note for:: 07/29/18 Reason For Visit: GI BLEED,HYPOKALEMIA,HYPONATREMIA gastric outlet obstruction possible duodenal mass Physical Exam Vital Signs: Temp Pulse Resp BP Pulse Ox 98.5 F 94 16 105/72 93 07/29/18 03:19 07/29/18 03:19 07/29/18 03:19 07/29/18 03:19 07/29/18 03:19 Intake & Output 07/28/18 07/29/18 07/30/18 06:59 06:59 06:59 Intake Total 4261 Output Total 1200 Balance 3061 Weight 79.2 kg General appearance: PRESENT: no acute distress, cooperative Head exam: PRESENT: atraumatic Eye exam: PRESENT: conjunctiva pink Respiratory exam: PRESENT: clear to auscultation sulaiman Cardiovascular exam: PRESENT: RRR GI/Abdominal exam: PRESENT: soft Rectal exam: PRESENT: deferred Extremities exam: PRESENT: full ROM Musculoskeletal exam: PRESENT: full ROM Results Laboratory Results: 07/29/18 05:57 07/29/18 04:18 07/28/18 07/28/18 07/28/18 09:50 09:50 11:16 WBC 11.2 H RBC 3.13 L Hgb 11.1 L Hct 32.7 L MCV 105 H MCH 35.5 H MCHC 34.0 RDW 17.4 H Plt Count 78 L Seg Neutrophils % Not Reportable Lymphocytes % Not Reportable Monocytes % Not Reportable Eosinophils % Not Reportable Basophils % Not Reportable Absolute Neutrophils Not Reportable Absolute Lymphocytes Not Reportable Absolute Monocytes Not Reportable Absolute Eosinophils Not Reportable Absolute Basophils Not Reportable VBG pH VBG pCO2 VBG HCO3 VBG Base Excess Sodium 127.6 L Potassium 1.9 L* Chloride 74 L Carbon Dioxide 32 H Anion Gap 22 H BUN 8 Creatinine 0.62 Est GFR ( Amer) > 60 Est GFR (Non-Af Amer) > 60 Glucose 141 H Calcium 7.2 L Magnesium Total Bilirubin 3.0 H AST 159 H ALT 24 Alkaline Phosphatase 193 H Total Protein 7.0 Albumin 3.7 Lipase 343.8 H Blood Type Cancelled Antibody Screen Cancelled 07/28/18 07/28/18 07/28/18 11:55 12:28 14:52 WBC RBC Hgb Hct MCV MCH MCHC RDW Plt Count Seg Neutrophils % Lymphocytes % Monocytes % Eosinophils % Basophils % Absolute Neutrophils Absolute Lymphocytes Absolute Monocytes Absolute Eosinophils Absolute Basophils VBG pH 7.47 H VBG pCO2 48.0 VBG HCO3 33.8 H VBG Base Excess 8.9 Sodium 128.2 L Potassium 2.2 L* Chloride 84 L Carbon Dioxide 32 H Anion Gap 12 BUN 8 Creatinine 0.60 Est GFR ( Amer) > 60 Est GFR (Non-Af Amer) > 60 Glucose 112 H Calcium 6.0 L* Magnesium 1.0 L* Total Bilirubin AST ALT Alkaline Phosphatase Total Protein Albumin Lipase Blood Type O POSITIVE Antibody Screen NEGATIVE 07/28/18 07/28/18 07/28/18 18:30 22:44 22:44 WBC RBC Hgb Hct MCV MCH MCHC RDW Plt Count Seg Neutrophils % Lymphocytes % Monocytes % Eosinophils % Basophils % Absolute Neutrophils Absolute Lymphocytes Absolute Monocytes Absolute Eosinophils Absolute Basophils VBG pH VBG pCO2 VBG HCO3 VBG Base Excess Sodium 125.9 L 126.1 L Potassium 2.1 L* 2.3 L* Chloride 83 L 85 L Carbon Dioxide 32 H 36 H Anion Gap 11 5 BUN 8 8 Creatinine 0.59 0.61 Est GFR ( Amer) > 60 > 60 Est GFR (Non-Af Amer) > 60 > 60 Glucose 108 103 Calcium 6.2 L* 6.0 L* Magnesium 1.8 Total Bilirubin AST ALT Alkaline Phosphatase Total Protein Albumin Lipase Blood Type Antibody Screen 07/29/18 07/29/18 07/29/18 04:18 04:18 05:57 WBC 6.2 6.2 RBC 2.06 L 2.19 L Hgb 7.4 L D 7.7 L Hct 21.0 L 22.6 L MCV 102 H 104 H MCH 35.8 H 35.4 H MCHC 35.1 34.2 RDW 17.1 H 18.1 H Plt Count 53 L 55 L Seg Neutrophils % 67.0 Lymphocytes % 24.9 Monocytes % 5.4 Eosinophils % 2.4 Basophils % 0.3 Absolute Neutrophils 4.2 Absolute Lymphocytes 1.6 Absolute Monocytes 0.3 Absolute Eosinophils 0.2 Absolute Basophils 0.0 VBG pH VBG pCO2 VBG HCO3 VBG Base Excess Sodium 130.3 L Potassium 2.5 L* Chloride 91 L Carbon Dioxide 34 H Anion Gap 5 BUN 7 Creatinine 0.60 Est GFR ( Amer) > 60 Est GFR (Non-Af Amer) > 60 Glucose 109 Calcium 6.3 L* Magnesium Total Bilirubin 1.4 H AST 103 H ALT 31 Alkaline Phosphatase 109 Total Protein 4.5 L Albumin 2.1 L Lipase Blood Type Antibody Screen 07/28/18 14:52 Creatine Kinase 677 H Impressions: Abdomen/Pelvis CT 07/28/18 00:00 IMPRESSION: 1. Large right upper quadrant mass. This may arise from the pancreas. It may arise from the duodenum. 2. Fatty infiltration of the liver. 3. Possible inflammatory bowel disease involving the gastric antrum, terminal ileum, and colon. 4. Avascular necrosis of the femoral heads. 5. Sclerotic lesion in the left ilium that likely represents a bone island. Abdomen Ultrasound 07/28/18 11:41 IMPRESSION: There is a somewhat ill-defined, multi-cystic appearing masslike area seen adjacent to the liver and gallbladder fossa measuring 5.2 x 4.2 x 4.9 cm. This is of uncertain nature. Recommend CT to further evaluate. Chest X-Ray 07/28/18 13:22 IMPRESSION: NO ACUTE RADIOGRAPHIC FINDING IN THE CHEST. Assessment & Plan - Diagnosis (1) Gastric outlet obstruction Is this a current diagnosis for this admission?: Yes (2) Anemia Qualifiers: Anemia type: other cause Is this a current diagnosis for this admission?: Yes - Inpatient Certification Medical Necessity: Significant Comorbidiites Make Outpatient Treatment Too Risky, Need For IV Fluids, Need for Surgery - Mr. Minor is [id number] male who was admitted to the hospital last night for approximately a 2-week history of inability to have adequate nutrition secondary to chronic nausea and vomiting. CT scan was obtained in the emergency room which showed a questiona ble duodenal mass versus pancreatic mass and thickening of his distal antrum and duodenum. Admitted to the hospital because of hypokalemia secondary to the chronic vomiting and ability to tolerate p.o. No significant past medical history speak of no family history of pancreatic cancer, duodenal tumors or other family history of GI problems. Currently his only complaints are inability to tolerate p.o. with chronic nausea and vomiting intermittent diarrhea that he says is dark in color. After review of the CAT scan it appears he has a partial duodenal obstruction and duodenal wall thickening possibly a pancreatic mass. At this point and it is best to perform an upper endoscopy to assess the duodenum and possible biopsy of the distal stomach and duodenum Patient will start patient on TPN, A PICC line has been ordered for today. The patient is undergoing IV rehydration and electrolyte correction. I discussed the risks and benefits of upper endoscopy with the patient recent proceed and we will probably perform that procedure later today., Risk of Diagnosis Which Will Require Inpati ent Eval/Care/Monitoring
[2018-07-29 08:47] LABS: HEPATITIS A AB IGM Negative (Negative); HEPATITIS B CORE AB IGM Negative (Negative); HEPATITS B SURFACE ANTIGEN Negative (Negative)
[2018-07-29 08:56] VITALS: BP 117/86
[2018-07-29] MEDS ORDERED: DIPHENHYDRAMINE HCL 50 MG/ML VIAL ONE (09:42)
[2018-07-29] MEDS ORDERED: NALOXONE HCL INJ/PF 0.4 MG/1 ML SDV ONE (09:42)
[2018-07-29] MEDS ORDERED: FENTANYL CITRATE INJ/PF 100 MCG/2 ML AMPUL ONE (09:42)
[2018-07-29] MEDS ORDERED: FLUMAZENIL INJ 0.5 MG/5 ML VIAL ONE (09:42)
[2018-07-29] MEDS ORDERED: MIDAZOLAM 2 MG/2 ML INJ ONE (09:42)
[2018-07-29] MEDS ORDERED: ONDANSETRON HCL INJ/PF 4 MG/2 ML SDV ONE (09:42)
[2018-07-29] MEDS ORDERED: EPINEPHRINE INJ 1 MG/10 ML DISP.SYRIN ONE (09:43)
[2018-07-29] MEDS ORDERED: GLUCAGON,HUMAN RECOMB 1 MG INJ ONE (09:43)
[2018-07-29] MEDS ORDERED: NICOTINE 14 MG/24 HR PATCH.TD24 TD SCH (10:00)
--- NOTE | 2018-07-29 10:09 | PDOC TRANSFER SUMMARY ---
General Admission Date/PCP: 07/28/18 12:23 Admission Date: 07/28/18 Transfer Date: 07/29/18 Accepting Facility: [facility] Accepting Physician: Dr. Elder/Dr. Smith Resuscitation Status: Full Code - Transfer Diagnosis (1) GI bleed Is this a current diagnosis for this admission?: Yes (2) Anemia Is this a current diagnosis for this admission?: Yes (3) Hypokalemia Is this a current diagnosis for this admission?: Yes (4) Hyponatremia Is this a current diagnosis for this admission?: Yes (5) Vomiting and diarrhea Is this a current diagnosis for this admission?: Yes (6) Tobacco dependence Is this a current diagnosis for this admission?: Yes (7) Elevated LFTs Is this a current diagnosis for this admission?: Yes (8) History of ETOH abuse Is this a current diagnosis for this admission?: Yes (10) Gastric outlet obstruction Is this a current diagnosis for this admission?: Yes - Transfer Medications Home Medications: Unobtainable 07/28/18 Transfer Medications: Current Medications Acetaminophen (Tylenol 325 Mg Tablet) 650 mg PO Q4HP PRN PRN Reason: FOR PAIN OR TEMP Stop: 08/27/18 12:49 Albuterol/Ipratropium (Duoneb 3 Ml Ampul) 3 ml NEB RTQ8HP PRN PRN Reason: SHORTNESS OF BREATH Stop: 08/27/18 12:49 Dextrose (Dextrose Inj 50% Syringe (25 Gm/50 Ml)) 12.5 gm IV PRN PRN; Protocol PRN Reason: FOR BG 50-69 IN ALERT PATIENT Stop: 08/27/18 12:49 Dextrose (Dextrose Inj 50% Syringe (25 Gm/50 Ml)) 25 gm IV PRN PRN; Protocol PRN Reason: See Label Comments Stop: 08/27/18 12:49 Glucagon (Glucagen Inj 1 Mg Vial) 1 mg SUBCUT PRN PRN; Protocol PRN Reason: Evaluate for BG < 70 Stop: 08/27/18 12:49 Glucose (Glutose 40% Gel 15 Gm Tube) 15 gm PO PRN PRN; Protocol PRN Reason: For BG 50-69 in Alert Patient Stop: 08/27/18 12:49 Glucose (Glutose 40% Gel 15 Gm Tube) 30 gm PO PRN PRN; Protocol PRN Reason: FOR BG < 50 IN ALERT PATIENT Stop: 08/27/18 12:49 Sodium Chloride (Nacl 0.9% 1000 Ml Iv Soln) 1,000 mls @ 125 mls/hr IV CONTINUOUS PRN PRN Reason: THIS MED IS NOT "PRN" Stop: 08/27/18 12:49 Last Admin: 07/29/18 04:42 Dose: 125 mls/hr Documented by: Pantoprazole Sodium 80 mg/ (Sodium Chloride) 100 mls @ 10 mls/hr IV CONTINUOUS PRN PRN Reason: THIS MED IS NOT "PRN" Stop: 07/31/18 12:57 Last Admin: 07/29/18 06:19 Dose: 10 ml/hr, 10 mls/hr Documented by: Levetiracetam (Keppra Rtu 500 Mg/Nacl-Iso 100 Ml Premix) 500 mg in 100 mls @ 400 mls/hr IV Q12 [facility] Stop: 08/27/18 21:59 Last Admin: 07/29/18 09:39 Dose: 400 mls/hr, 400 mls/hr Documented by: Potassium Chloride 20 meq/Magnesium Sulfate 8 meq/Thiamine HCl 100 mg/Multivitamins/Minerals 10 ml/Sodium Chloride 1,023 mls @ 125 mls/hr IV QPM [facility] Stop: 08/27/18 17:59 Last Infusion: 07/29/18 04:53 Dose: Infused Documented by: Sodium Chloride (Nacl 0.9% 250 Ml Iv Soln) 250 mls @ 30 mls/hr IV .DURING TRANSFUSION PRN PRN Reason: THIS MED IS NOT "PRN" Stop: 07/30/18 05:51 Potassium Chloride/Water (Potassium Chloride Yoshi 20 Meq/50 Ml) 20 meq in 50 mls @ 25 mls/hr IV Q2H [facility] Stop: 07/29/18 09:59 Last Admin: 07/29/18 09:32 Dose: 25 mls/hr, 25 mls/hr Documented by: Sodium Chloride (Nacl 0.9% 250 Ml Iv Soln) 250 mls @ 30 mls/hr IV .DURING TRANSFUSION PRN PRN Reason: THIS MED IS NOT "PRN" Stop: 07/30/18 08:08 Sodium Chloride (Nacl 0.9% 250 Ml Iv Soln) 250 mls @ 0 mls/hr IV CONTINUOUS PRN PRN Reason: AFTER EACH UNIT Stop: 07/30/18 08:08 Influenza Virus Vaccine Quadrival (Fluarix Adlt Quad Vac 0.5 Ml Syr) 0. 5 ml IM .DISCHARGE PRN PRN Reason: THIS MED IS NOT "PRN" Stop: 08/28/18 08:07 Lorazepam (Ativan Inj 2 Mg/1 Ml Vial) 2 mg IV Q6HP PRN PRN Reason: withdrawal/seizure activity Stop: 08/04/18 12:58 Nicotine (Nicoderm 14 Mg/24 Hr Transdermal Patch) 1 each TD DAILY OSWALDO Stop: 08/28/18 09:59 Last Admin: 07/29/18 09:37 Dose: 1 each Documented by: Ondansetron HCl (Zofran Inj/Pf 4 Mg/2 Ml Sdv) 4 mg IV Q6HP PRN PRN Reason: FOR NAUSEA/VOMITING Stop: 08/27/18 12:56 Sodium Chloride (Saline Flush 2.5 Ml Monoject Prefil Syrin) 2.5 ml IV Q8 [facility] Stop: 08/27/18 13:59 Last Admin: 07/29/18 05:33 Dose: Not Given Documented by: - Allergies Allergies/Adverse Reactions: morphine [Morphine] Adverse Reaction (Severe, Verified 07/01/15 23:40) resp depression Hospital Course Hospital Course: H&P: CIERA OVIEDO is a 48 year old male with a past medical history significant for hypertension, seizure disorder, tobacco dependence with continuous use, and alcohol dependence (patient reportedly no longer drinking) who presented to the emergency department today with a complaint of 1-3 weeks of nausea, vomiting, diarrhea. He reports that he has had 7 episodes of emesis today and 2 episodes of diarrhea. He reports epigastric abdominal pain described as sharp and aching that spreads diffusely and is worsened by p.o. intake. He reports that he has not been able to tolerate food, fluids, or medications for several days now. He also reports dark red blood noted in his stools recently. He denies a history of GI bleeding. Evaluation in the emergency department revealed tachycardia (heart rate 130s), mild leukocytosis (WBC 11.2), anemia (hemoglobin 11.1; baseline 15), thrombo cytopenia (platelets 78; appears to be chronic), hypernatremia (NA 127.6), hypokalemia (K 1.9), anion gap acidosis (22), and elevated LFTs. Dr. Sosa has already been consulted by the emergency room provider and has agreed to follow with this patient. He is referred to the hospitalist service for admission and management of the above complaints and findings. Course: Overnight, the patient was provided IV fluids and electrolyte replacement. At time of transfer he had received a total of 240 mEq's of potassium (40 orally) with improvement in potassium from 1.9-2.5. Additionally he received 5 gm of calcium gluconate; calcium remains unchanged at 6.3. Magnesium has been repleted. He was started on IV Protonix drip, IV Keppra as he is unable to tolerate his home dose p.o. medication, and CIWA protocol. Serum EtOH was negative on admission, patient reports he has been sober for 6 months but does have a significant history of EtOH abuse and dependence. Right upper quadrant ultrasound and follow-up contrasted CT of the abdomen and pelvis revealed a large (4 x 4 x 7 cm) RUQ heterogeneous mass arising from the pancreas or possibly duodenum with fatty infiltration of the liver and inflammatory bowel disease involving the gastric antrum, terminal ileum, and c olon. Surgical services was consulted for duodenal/pancreatic mass and gastric outlet obstruction; recommends transferring the patient to a tertiary Medical Center as soon as possible so that the newly diagnosed pancreatic hepatic mass can be appropriately diagnosed and treated as the patient will likely require multiple ancillary services not available at our facility. [facility] was contacted; spoke with Dr. Elder who has graciously agreed to accept this patient with the attending of Dr. Smith. At time of transfer, the patient is in stable condition, alert and oriented, maintaining oxygen saturations on room air, and hemodynamically stable. However, his hemoglobin has been noted to drop to 7.4 from 11.1 overnight; of note, he has receive approximately 4 L of IV fluids and electrolyte replacement. Dr. Elder has been made aware of his downward trend in hemoglobin; anticipate transfusion upon arrival to their facility. Physical Exam Vital Signs: Temp Pulse Resp BP Pulse Ox 98.1 F 87 18 117/86 H 97 07/29/18 08:08 07/29/18 08:18 07/29/18 08:18 07/29/18 08:08 07/29/18 08:18 Intake & Output 07/28/18 07/29/1807/30/19 06:59 06:59 06:59 Intake Total 4361 50 Output Total 1200 Balance 3161 50 Weight 79.2 kg General appearance: PRESENT: no acute distress, cooperative, disheveled, well- developed, well-nourished Head exam: PRESENT: atraumatic, normocephalic Eye exam: PRESENT: conjunctiva pink, EOMI, PERRLA. ABSENT: scleral icterus Ear exam: PRESENT: normal external ear exam Mouth exam: PRESENT: dry mucosa, tongue midline Neck exam: ABSENT: carotid bruit, JVD, lymphadenopathy, thyromegaly Respiratory exam: PRESENT: clear to auscultation sulaiman, symmetrical, unlabored. ABSENT: rales, rhonchi, wheezes Cardiovascular exam: PRESENT: RRR, +S1, +S2. ABSENT: diastolic murmur, rubs, systolic murmur Pulses: PRESENT: normal dorsalis pedis pul Vascular exam: PRESENT: normal capillary refill GI/Abdominal exam: PRESENT: distended, firm, hypoactive bowel sounds. ABSENT: guarding, mass, organolmegaly, rebound, tenderness Rectal exam: PRESENT: deferred Extremities exam: PRESENT: full ROM. ABSENT: calf tenderness, clubbing, pedal edema Neurological exam: PRESENT: alert, awake, oriented to person, oriented to place, oriented to time, oriented to situation, CN II-XII grossly intact. ABSENT: motor sensory deficit Psychiatric exam: PRESENT: appropriate affect, normal mood. ABSENT: homicidal ideation, suicidal ideation Skin exam: PRESENT: dry, intact, warm. ABSENT: cyanosis, rash Results Laboratory Results: 07/29/18 05:57 07/29/18 04:18 07/28/18 07/28/18 07/28/18 09:50 09:50 11:16 WBC 11.2 H RBC 3.13 L Hgb 11.1 L Hct 32.7 L MCV 105 H MCH 35.5 H MCHC 34.0 RDW 17.4 H Plt Count 78 L Seg Neutrophils % Not Reportable Lymphocytes % Not Reportable Monocytes % Not Reportable Eosinophils % Not Reportable Basophils % Not Reportable Absolute Neutrophils Not Reportable Absolute Lymphocytes Not Reportable Absolute Monocytes Not Reportable Absolute Eosinophils Not Reportable Absolute Basophils Not Reportable VBG pH VBG pCO2 VBG HCO3 VBG Base Excess Sodium 127.6 L Potassium 1.9 L* Chloride 74 L Carbon Dioxide 32 H Anion Gap 22 H BUN 8 Creatinine 0.62 Est GFR ( Amer) > 60 Est GFR (Non-Af Amer) > 60 Glucose 141 H Calcium 7.2 L Magnesium Total Bilirubin 3.0 H AST 159 H ALT 24 Alkaline Phosphatase 193 H Total Protein 7.0 Albumin 3.7 Lipase 343.8 H Blood Type Cancelled Antibody Screen Cancelled 07/28/18 07/28/18 07/28/18 11:55 12:28 14:52 WBC RBC Hgb Hct MCV MCH MCHC RDW Plt Count Seg Neutrophils % Lymphocytes % Monocytes % Eosinophils % Basophils % Absolute Neutrophils Absolute Lymphocytes Absolute Monocytes Absolute Eosinophils Absolute Basophils VBG pH 7.47 H VBG pCO2 48.0 VBG HCO3 33.8 H VBG Base Excess 8.9 Sodium 128.2 L Potassium 2.2 L* Chloride 84 L Carbon Dioxide 32 H Anion Gap 12 BUN 8 Creatinine 0.60 Est GFR ( Amer) > 60 Est GFR (Non-Af Amer) > 60 Glucose 112 H Calcium 6.0 L* Magnesium 1.0 L* Total Bilirubin AST ALT Alkaline Phosphatase Total Protein Albumin Lipase Blood Type O POSITIVE Antibody Screen NEGATIVE 07/28/18 07/28/18 07/28/18 18:30 22:44 22:44 WBC RBC Hgb Hct MCV MCH MCHC RDW Plt Count Seg Neutrophils % Lymphocytes % Monocytes % Eosinophils % Basophils % Absolute Neutrophils Absolute Lymphocytes Absolute Monocytes Absolute Eosinophils Absolute Basophils VBG pH VBG pCO2 VBG HCO3 VBG Base Excess Sodium 125.9 L 126.1 L Potassium 2.1 L* 2.3 L* Chloride 83 L 85 L Carbon Dioxide 32 H 36 H Anion Gap 11 5 BUN 8 8 Creatinine 0.59 0.61 Est GFR ( Amer) > 60 > 60 Est GFR (Non-Af Amer) > 60 > 60 Glucose 108 103 Calcium 6.2 L* 6.0 L* Magnesium 1.8 Total Bilirubin AST ALT Alkaline Phosphatase Total Protein Albumin Lipase Blood Type Antibody Screen 07/29/18 07/29/18 07/29/18 04:18 04:18 05:57 WBC 6.2 6.2 RBC 2.06 L 2.19 L Hgb 7.4 L D 7.7 L Hct 21.0 L 22.6 L MCV 102 H 104 H MCH 35.8 H 35.4 H MCHC 35.1 34.2 RDW 17.1 H 18.1 H Plt Count 53 L 55 L Seg Neutrophils % 67.0 Lymphocytes % 24.9 Monocytes % 5.4 Eosinophils % 2.4 Basophils % 0.3 Absolute Neutrophils 4.2 Absolute Lymphocytes 1.6 Absolute Monocytes 0.3 Absolute Eosinophils 0.2 Absolute Basophils 0.0 VBG pH VBG pCO2 VBG HCO3 VBG Base Excess Sodium 130.3 L Potassium 2.5 L* Chloride 91 L Carbon Dioxide 34 H Anion Gap 5 BUN 7 Creatinine 0.60 Est GFR ( Amer) > 60 Est GFR (Non-Af Amer) > 60 Glucose 109 Calcium 6.3 L* Magnesium Total Bilirubin 1.4 H AST 103 H ALT 31 Alkaline Phosphatase 109 Total Protein 4.5 L Albumin 2.1 L Lipase Blood Type Antibody Screen 07/28/18 14:52 Creatine Kinase 677 H Impressions: Abdomen/Pelvis CT 07/28/18 00:00 IMPRESSION: 1. Large right upper quadrant mass. This may arise from the pancreas. It may arise from the duodenum. 2. Fatty infiltration of the liver. 3. Possible inflammatory bowel disease involving the gastric antrum, terminal ileum, and colon. 4. Avascular necrosis of the femoral heads. 5. Sclerotic lesion in the left ilium that likely represents a bone island. Abdomen Ultrasound 07/28/18 11:41 IMPRESSION: There is a somewhat ill-defined, multi-cystic appearing masslike area seen adjacent to the liver and gallbladder fossa measuring 5.2 x 4.2 x 4.9 cm. This is of uncertain nature. Recommend CT to further evaluate. Chest X-Ray 07/28/18 13:22 IMPRESSION: NO ACUTE RADIOGRAPHIC FINDING IN THE CHEST. Plan Discharge Plan: Transfer to [facility] under the care of Dr. Elder and Dr. Smith. Time Spent: Greater than 30 Minutes
[2018-07-29 12:07] LABS: HEPATITIS C VIRUS ANTIBODY <0.1 s/co ratio (0.0-0.9)
== END 2018-07-29 10:20 | disposition short-term general hospital (02) | DRG 378 ==
LOC: ER 08:54 → EH 12:23 → 3N 21:25
PROVIDERS: ADMIT Internal Medicine; ATTEND Internal Medicine
DX: K92.1 Melena (principal); K31.1 Adult hypertrophic pyloric stenosis; E87.1 Hypo-osmolality and hyponatremia; D62 Acute posthemorrhagic anemia; E87.6 Hypokalemia; I10 Essential (primary) hypertension; G40.909 Epilepsy, unspecified, not intractable, without status epilepticus; F10.21 Alcohol dependence, in remission; D69.6 Thrombocytopenia, unspecified; M10.9 Gout, unspecified; E78.00 Pure hypercholesterolemia, unspecified; K21.9 Gastro-esophageal reflux disease without esophagitis; F17.210 Nicotine dependence, cigarettes, uncomplicated; Z71.6 Tobacco abuse counseling; Z79.899 Other long term (current) drug therapy; Z88.6 Allergy status to analgesic agent; Z80.9 Family history of malignant neoplasm, unspecified; Z82.49 Family history of ischemic heart disease and other diseases of the circulatory system; Z83.3 Family history of diabetes mellitus; Z84.89 Family history of other specified conditions
CPT/HCPCS: 36415; 71045; 74177; 76705; 80048; 80053; 80074; 80076; 80307; 82550; 82803; 83690; 83735; 85025; 85027; 85610; 85730; 86850; 86900; 86901; 86920; 87804; 93005; 93010; 93976; 96361; 96365; 96375; 99285; J0171; J0610; J1200; J1610; J1953; J2250; J2310; J2405; J3010; J3411; J3475; J3480; J3490; J7030; J7050; S0119; S0164

== ENCOUNTER 2018-09-16 13:16 | Inpatient (IN) | payer MEDICAID ==
[2018-09-16 15:03] LABS: APPEARANCE,URINE SLIGHTLY-CLOUDY; BILIRUBIN,URINE NEGATIVE (NEGATIVE); GLUCOSE, URINE NEGATIVE (NEGATIVE); KETONES,URINE NEGATIVE (NEGATIVE); LEUKOCYTE ESTERASE,URINE NEGATIVE (NEGATIVE); NITRITE,URINE NEGATIVE (NEGATIVE); PROTEIN,URINE NEGATIVE (NEGATIVE); URINE SPECIFIC GRAVITY 1.011
[2018-09-16 15:04] LABS: COLOR,URINE YELLOW
[2018-09-16] MEDS ORDERED: NORMAL SALINE 1000 ML 1,000 ML IV ONE (15:10)
[2018-09-16] MEDS ORDERED: ONDANSETRON HCL INJ/PF 4 MG/2 ML SDV IV ONE (15:17)
--- NOTE | 2018-09-16 15:18 | ER Document Report ---
ED GI/ - General Chief Complaint: Abdominal Pain Stated Complaint: VOMITING Time Seen by Provider: 09/16/18 15:08 Mode of Arrival: Ambulatory Information source: Patient Notes: 38-year-old male presents to ED for complaint of nausea vomiting and diarrhea times 5 days. He states he has not been able to keep any food or fluids down he continually vomits. He states he has been drinking 7-Up and Pepsi. He states he is tried Ensure he is tried multiple things and is not been able to keep them down. He states his vomiting has been getting progressively worse and he has been getting aggressively weaker. He was recently seen in the emergency room and transferred to [place] for GI bleed. He states there has been no blood in his urine or vomit or diarrhea during these 5 days. He states he has called his site identification specialist multiple times but they have not answered him. He states he does have a follow-up appointment on Wednesday with a site identification specialist. She has not had any vomiting since he has been in the emergency room as yet. TRAVEL OUTSIDE OF THE [place] IN LAST 30 DAYS: No - HPI Patient complains to provider of: Abdominal pain, Diarrhea, Vomiting Onset: Other - 5 days Timing/Duration: Intermittent Quality of pain: Cramping, Other - Burning in his throat from where he was intubated Severity at maximum: Moderate Severity in ED: Moderate Pain Level: 4 Location: Epigastric, LUQ, LLQ, RUQ, RLQ, Other - Sore throat since July when he was intubated Associated symptoms: Diarrhea, Nausea, Vomiting. denies: Blood in emesis, Blood in stool Exacerbated by: Denies Relieved by: Denies Similar symptoms previously: Yes Recently seen / treated by doctor: No - Related Data Allergies/Adverse Reactions: morphine [Morphine] Adverse Reaction (Severe, Verified 09/16/18 13:18) resp depression Past Medical History - General Information source: Patient - Social History Smoking Status: Current Every Day Smoker Cigarette use (# per day): Yes - 1/3 pack/day Smoking Education Provided: Yes - 4 minutes, states he is trying to stop Frequency of alcohol use: States none since July Drug Abuse: None Lives with: Family Family History: CVA, DM, Hyperlipidemia, Hypertension Patient has suicidal ideation: No Patient has homicidal ideation: No - Past Medical History Cardiac Medical History: Reports: Hx Hypercholesterolemia, Hx Hypertension Pulmonary Medical History: Reports: None EENT Medical History: Reports: None Neurological Medical History: Reports: Hx Seizures Renal/ Medical History: Reports: None Malignancy Medical History: Reports None GI Medical History: Reports: Hx Gastritis, Hx Gastroesophageal Reflux Disease, Hx Colonoscopy, Hx Endoscopy, Other - GI bleed in July Musculoskeletal Medical History: Reports None Skin Medical History: Reports None Psychiatric Medical History: Reports: None Traumatic Medical History: Reports: None Infectious Medical History: Reports: None Past Surgical History: Reports: Hx Tonsillectomy - Immunizations Hx Diphtheria, Pertussis, Tetanus Vaccination: Yes Review of Systems - Review of Systems Constitutional: No symptoms reported EENT: Throat pain Cardiovascular: No symptoms reported Respiratory: No symptoms reported Gastrointestinal: Abdominal pain, Diarrhea, Nausea, Vomiting Genitourinary: No symptoms reported Male Genitourinary: No symptoms reported Musculoskeletal: No symptoms reported Skin: No symptoms reported Hematologic/Lymphatic: No symptoms reported Neurological/Psychological: No symptoms reported Physical Exam - Vital signs Vitals: Temp Pulse Resp BP Pulse Ox 97.9 F 103 H 16 131/95 H 100 09/16/18 13:38 09/16/18 13:38 09/16/18 13:38 09/16/18 13:38 09/16/18 13:38 Interpretation: Normal - General General appearance: Appears well, Alert - HEENT Head: Normocephalic, Atraumatic Eyes: Normal Pupils: PERRL - Respiratory Respiratory status: No respiratory distress Chest status: Nontender Breath sounds: Normal Chest palpation: Normal - Cardiovascular Rhythm: Regular Heart sounds: Normal auscultation Murmur: No - Abdominal Inspection: Normal Distension: No distension Bowel sounds: Normal Tenderness: Nontender Organomegaly: No organomegaly - Back Back: Normal, Nontender - Extremities General upper extremity: Normal inspection, Nontender, Normal color, Normal ROM, Normal temperature General lower extremity: Normal inspection, Nontender, Normal color, Normal ROM, Normal temperature, Normal weight bearing. No: Minesh's sign - Neurological Neuro grossly intact: Yes Cognition: Normal Orientation: AAOx4 [place] Coma Scale Eye Opening: Spontaneous [place] Coma Scale Verbal: Oriented [place] Coma Scale Motor: Obeys Commands [place] Coma Scale Total: 15 Speech: Normal Motor strength normal: LUE, RUE, LLE, RLE Sensory: Normal - Psychological Associated symptoms: Normal affect, Normal mood - Skin Skin Temperature: Warm Skin Moisture: Dry Skin Color: Normal Course - Re-evaluation Re-evalutation: 09/17/18 02:53 Dr. Mittal was consulted this afternoon concerning the potassium of 2.2 but the other lab works on this gentleman with nausea vomiting and diarrhea. Patient was being treated with IV fluids and K riders when I consulted the doctor for admission. He accepted the patient for admission for hypokalemia nausea vomiting and diarrhea. He was admitted to a medical floor but then upgraded to telemetry due to the fact that he needs to be on monitors for K riders. Patient was treated with Zofran as well as IV fluids while in the emergency room. He is since been admitted to the hospital. - Vital Signs Vital signs: Temp Pulse Resp BP Pulse Ox 98.6 F 104 H 16 115/88 H 100 09/16/18 23:01 09/16/18 15:19 09/17/18 00:01 09/17/18 00:01 09/17/18 00:01 - Laboratory Result Diagrams: 09/16/18 15:45 09/16/18 22:45 Laboratory results interpreted by me: 09/16/18 09/16/18 09/16/18 14:20 15:45 15:45 RBC 3.66 L Hgb 12.2 L Hct 35.5 L RDW 23.4 H Plt Count 84 L Sodium 130.2 L Potassium 2.2 L* Chloride 81 L Carbon Dioxide 34 H BUN < 2 L Glucose 112 H Calcium 7.4 L AST 90 H Alkaline Phosphatase 155 H Albumin 3.1 L Urine Urobilinogen 2.0 H - Diagnostic Test Radiology reviewed: Image reviewed, Reports reviewed Discharge - Discharge Clinical Impression: Vomiting and diarrhea, Hypokalemia Disposition: ADMITTED INPATIENT Admitting Provider: Vito cross Unit Admitted: Medical Floor
[2018-09-16 16:05] LABS: ABSOLUTE EOSINOPHILS # (AUTO) 0.1 10^3/uL (0.0-0.6); ABSOLUTE LYMPHOCYTES (AUTO) 1.8 10^3/uL (0.5-4.7); ABSOLUTE MONOCYTES (AUTO) 0.5 10^3/uL (0.1-1.4); ABSOLUTE NEUT (AUTO) 7.8 10^3/uL (1.7-8.2); BASOPHILS % (AUTO) 0.4 % (0-2); EOSINOPHILS % (AUTO) 1.4 % (0-6); HEMATOCRIT 35.5 % (37.9-51.0); HEMOGLOBIN 12.2 g/dL (13.5-17.0); LYMPHOCYTES % (AUTO) 17.3 % (13-45); MEAN CORPUSCULAR HEMOGLOBIN 33.4 pg (27.0-33.4); MEAN CORPUSCULAR HGB CONC 34.4 g/dL (32.0-36.0); MEAN CORPUSCULAR VOLUME 97 fl (80-97); MONOCYTES % (AUTO) 4.5 % (3-13); RED BLOOD COUNT 3.66 10^6/uL (4.35-5.55); RED CELL DISTRIBUTION WIDTH 23.4 % (11.5-14.0); SEGMENTED NEUTROPHILS % (AUTO) 76.4 % (42-78); TOTAL CELLS COUNTED % (AUTO) 100 %; WHITE BLOOD COUNT 10.2 10^3/uL (4.0-10.5)
[2018-09-16 16:06] LABS: PLATELET COUNT 84 10^3/uL (150-450)
[2018-09-16 16:15] LABS: ALANINE AMINOTRANSFERASE 23 U/L (21-72); ALBUMIN 3.1 g/dL (3.5-5.0); ALKALINE PHOSPHATASE 155 U/L (38-126); ANION GAP 15 (5-19); ASPARTATE AMINO TRANSFERASE 90 U/L (17-59); BILIRUBIN,DIRECT 0.2 mg/dL (0.0-0.4); BILIRUBIN,TOTAL 0.6 mg/dL (0.2-1.3); CALCIUM 7.4 mg/dL (8.4-10.2); CARBON DIOXIDE 34 mmol/L (22-30); CHLORIDE 81 mmol/L (98-107); GLUCOSE 112 mg/dL (75-110); SODIUM 130.2 mmol/L (137-145); TOTAL PROTEIN 6.3 g/dL (6.3-8.2)
[2018-09-16 16:16] LABS: BLOOD UREA NITROGEN < 2 mg/dL (7-20)
[2018-09-16 16:18] LABS: POTASSIUM 2.2 mmol/L (3.6-5.0)
[2018-09-16] MEDS: POTASSI CL 20 MEQ/50 ML RIDER 20 MEQ/50 ML RTUPB IV SCH ×3 (17:08→21:22)
[2018-09-16] MEDS ORDERED: ACETAMINOPHEN 325 MG TABLET PO PRN (19:17)
[2018-09-16] MEDS ORDERED: ONDANSETRON HCL INJ/PF 4 MG/2 ML SDV IV PRN (19:17)
[2018-09-16] MEDS ORDERED: TEMAZEPAM 7.5 MG CAPSULE PO PRN (19:17)
[2018-09-16] MEDS ORDERED: NORMAL SALINE 1000 ML 1,000 ML IV PRN (19:17)
[2018-09-16] MEDS ORDERED: OXYCODONE-ACETAMINOPHEN 5-325 MG TABLET PO PRN (19:17)
--- NOTE | 2018-09-16 19:52 | PDOC H&P ---
History of Present Illness Admission Date/PCP: September 16, 2018 Patient complains of: Intractable nausea, vomiting and diarrhea History of Present Illness: CIERA OVIEDO is a 48 year old male who was recently admitted to [facility] July 28, 2018 and was subsequently transferred to [facility] for an upper GI bleed. The patient reports that over the last 4-5 days he has been having increasing nausea, vomiting and diarrhea. He cannot tolerate soups, yogurt or clear liquids. He reports having chills but no fever. He admits to waking up sweaty. He denies palpitations but states that when he bends over and stands up he becomes very lightheaded. He admits that his cousin, with whom he has regular contact, has the same symptoms. He also reports having a cough productive of yellow sputum. Past Medical History Cardiac Medical History: Reports: Hyperlipidema, Hypertension Pulmonary Medical History: Reports: None EENT Medical History: Reports: None Neurological Medical History: Reports: Seizures Renal/ Medical History: Reports: None Malignancy Medical History: Reports: None GI Medical History: Reports: Gastroesophageal Reflux Disease, Other - GI bleed in July Musculoskeltal Medical History: Reports: None Skin Medical History: Reports: None Psychiatric Medical History: Reports: None, Alcohol Dependency, Tobacco Dependency Traumatic Medical History: Reports: None Infectious Medical History: Reports: None Past Surgical History Past Surgical History: Reports: Tonsillectomy Social History Information Source: Patient Lives with: Family Smoking Status: Current Every Day Smoker Frequency of Alcohol Use: None - per patient; hx of EtOH abuse/dependence Amount of Alcoholic Beverages Per Day: Patient admitted to tn that yesterday he had whiskey with tea and honey Last Alcohol Use: 09/15/18 Hx Recreational Drug Use: No Drugs: None Hx Prescription Drug Abuse: No - Advance Directive Resuscitation Status: Full Code Surrogate healthcare decision maker:: The patient does not have a healthcare proxy. His mother would be the designated decision maker. Family History Family History: CVA, DM, Hyperlipidemia, Hypertension Parental Family History Reviewed: Yes Children Family History Reviewed: NA Sibling(s) Family History Reviewed.: Yes Medication/Allergy Home Medications: Unobtainable 07/28/18 Allergies/Adverse Reactions: morphine [Morphine] Adverse Reaction (Severe, Verified 09/16/18 13:18) resp depression Review of Systems Constitutional: PRESENT: fatigue, night sweats, weakness Eyes: ABSENT: visual disturbances Ears: ABSENT: hearing changes Nose, Mouth, and Throat: PRESENT: sore throat. ABSENT: mouth pain Cardiovascular: ABSENT: chest pain, edema, palpitations Respiratory: PRESENT: cough, sputum. ABSENT: hemoptysis Gastrointestinal: PRESENT: abdominal pain, diarrhea, nausea, vomiting Genitourinary: ABSENT: dysuria, hematuria Musculoskeletal: ABSENT: joint swelling Integumentary: ABSENT: erythema, lesions, rash Neurological: ABSENT: abnormal movements, abnormal speech, confusion, memory loss, tremor(s) Psychiatric: ABSENT: anxiety, depression Endocrine: ABSENT: cold intolerance, heat intolerance Hematologic/Lymphatic: ABSENT: easy bleeding, easy bruising Physical Exam Vital Signs: Temp Pulse Resp BP Pulse Ox 97.9 F 104 H 16 131/95 H 100 09/16/18 13:38 09/16/18 15:19 09/16/18 13:38 09/16/18 13:38 09/16/18 13:38 Intake & Output 09/15/18 09/16/18 09/17/18 06:59 06:59 06:59 Intake Total 1044 Balance 1044 Weight 69 kg General appearance: PRESENT: no acute distress, cooperative, well-developed Head exam: PRESENT: normocephalic Eye exam: PRESENT: conjunctiva pink, EOMI, scleral icterus - Dirty sclera Ear exam: PRESENT: normal external ear exam Mouth exam: PRESENT: moist, tongue midline, other - Thick white coating on tongue Teeth exam: ABSENT: dental tenderness Neck exam: PRESENT: full ROM. ABSENT: carotid bruit, JVD, lymphadenopathy Respiratory exam: PRESENT: clear to auscultation sulaiman, symmetrical, unlabored. ABSENT: accessory muscle use, rales, rhonchi, wheezes Cardiovascular exam: PRESENT: RRR, +S1, +S2. ABSENT: systolic murmur GI/Abdominal exam: PRESENT: normal bowel sounds, soft, tenderness. ABSENT: distended, guarding Rectal exam: PRESENT: deferred Gentrourinary exam: ABSENT: indwelling catheter Extremities exam: ABSENT: pedal edema, tenderness Musculoskeletal exam: PRESENT: ambulatory, normal inspection Neurological exam: PRESENT: alert, awake, oriented to person, oriented to place, oriented to time, oriented to situation, CN II-XII grossly intact Psychiatric exam: PRESENT: appropriate affect, normal mood. ABSENT: agitated, anxious Focused psych exam: ABSENT: delusional, restlessness Skin exam: PRESENT: dry, warm. ABSENT: rash Results Laboratory Results: 09/16/18 15:45 09/16/18 15:45 09/16/18 09/16/18 09/16/18 14:20 15:45 15:45 WBC 10.2 RBC 3.66 L Hgb 12.2 L Hct 35.5 L MCV 97 MCH 33.4 MCHC 34.4 RDW 23.4 H Plt Count 84 L Seg Neutrophils % 76.4 Lymphocytes % 17.3 Monocytes % 4.5 Eosinophils % 1.4 Basophils % 0.4 Absolute Neutrophils 7.8 Absolute Lymphocytes 1.8 Absolute Monocytes 0.5 Absolute Eosinophils 0.1 Absolute Basophils 0.0 Sodium 130.2 L Potassium 2.2 L* Chloride 81 L Carbon Dioxide 34 H Anion Gap 15 BUN < 2 L Creatinine 0.69 Est GFR ( Amer) > 60 Est GFR (Non-Af Amer) > 60 Glucose 112 H Calcium 7.4 L Total Bilirubin 0.6 AST 90 H ALT 23 Alkaline Phosphatase 155 H Total Protein 6.3 Albumin 3.1 L Urine Color YELLOW Urine Appearance SLIGHTLY-CLOUDY Urine pH 6.0 Ur Specific [place] 1.011 Urine Protein NEGATIVE Urine Glucose (UA) NEGATIVE Urine Ketones NEGATIVE Urine Blood NEGATIVE Urine Nitrite NEGATIVE Ur Leukocyte Esterase NEGATIVE Urine WBC (Auto) 13 Urine RBC (Auto) 1 Stool Occult Blood Stool for White Cells 09/16/18 09/16/18 16:45 16:45 WBC RBC Hgb Hct MCV MCH MCHC RDW Plt Count Seg Neutrophils % Lymphocytes % Monocytes % Eosinophils % Basophils % Absolute Neutrophils Absolute Lymphocytes Absolute Monocytes Absolute Eosinophils Absolute Basophils Sodium Potassium Chloride Carbon Dioxide Anion Gap BUN Creatinine Est GFR ( Amer) Est GFR (Non-Af Amer) Glucose Calcium Total Bilirubin AST ALT Alkaline Phosphatase Total Protein Albumin Urine Color Urine Appearance Urine pH Ur Specific [place] Urine Protein Urine Glucose (UA) Urine Ketones Urine Blood Urine Nitrite Ur Leukocyte Esterase Urine WBC (Auto) Urine RBC (Auto) Stool Occult Blood NEGATIVE Stool for White Cells NO WBCs SEEN Assessment & Plan - Diagnosis (1) Vomiting and diarrhea Is this a current diagnosis for this admission?: Yes Plan: Patient was recently treated in [place]. He is unsure of exactly what went on but he did state that they "operated on my throat". He does have a history of alcoholism. It may have been related to esophageal varices. He has been trying to eat soft foods and liquids. Unfortunately 5 days ago he began to feel poorly. He did have a cousin with similar symptoms who he is intact with. It may very well be a viral illness although 5 days is an extended period of time. He will receive aggressive fluids tonight. Will have potassium repletion by IV. He is already had 20 mEq and I have ordered 40 mEq more. He cannot reliably take potassium by mouth with his current nausea and vomiting. It can be very hard on the stomach. I have also added a proton pump inhibitor (Prevacid 30 mg twice daily). Lastly, the patient did admit to having a drink yesterday. The initial symptomatology preceded the drink. I have ordered a lipase in the event that there was previous alcohol consumption or with a history of alcoholism does he have a chronic low-grade pancreatitis. (2) Hypokalemia Is this a current diagnosis for this admission?: Yes Plan: Secondary to the vomiting, diarrhea and markedly limited oral intake. Replete potassium as noted above. Recheck potassium level tonight and in the morning. (3) Hyponatremia Is this a current diagnosis for this admission?: Yes Plan: Aggressive repletion of fluids with normal saline. This should help correct the mild hyponatremia. (4) Thrush Is this a current diagnosis for this admission?: Yes Plan: The patient's tongue had a thick white coating. He was not complaining of burning on a swallow so it is unlikely that he has Thea esophagitis. I have ordered nystatin swish and expectorate 4 times a day. (5) Cough Is this a current diagnosis for this admission?: Yes Plan: The patient also reports a cough productive of yellow sputum. He does not have an elevated white blood cell count however with all of the vomiting he could have aspirated. I have ordered a single view chest x-ray. - Time Time Spent: 50 to 70 Minutes Smoking Cessation Education: 3 to 10 minutes Medications reviewed and adjusted accordingly: Yes Anticipated discharge: Home Within: within 48 hours
--- NOTE | 2018-09-16 20:29 | RADIOLOGY REPORT (SQ) ---
EXAM DESCRIPTION: XR CHEST 1 VIEW COMPLETED DATE/TME: 09/16/2018 00:00 CLINICAL HISTORY: Productive cough COMPARISON: July 28, 2018 FINDINGS: Cardiac silhouette is within normal limits. EKG leads project over the chest. There is no focal parenchymal or pleural disease. There is no acute osseous process visualized. IMPRESSION: No evidence of acute cardiopulmonary disease.
[2018-09-16] MEDS: LEVETIRACETAM 500 MG TABLET PO SCH (21:22)
[2018-09-16 23:39] LABS: ANION GAP 15 (5-19); CARBON DIOXIDE 28 mmol/L (22-30); CHLORIDE 86 mmol/L (98-107); GLUCOSE 98 mg/dL (75-110); SODIUM 128.7 mmol/L (137-145)
[2018-09-16 23:44] LABS: BLOOD UREA NITROGEN < 2 mg/dL (7-20)
[2018-09-17 00:50] LABS: CALCIUM 6.2 mg/dL (8.4-10.2)
[2018-09-17] MEDS ORDERED: DEXTROSE 5%-NORMAL SALINE 1,000 ML with POTASSIUM CHLORIDE 40 MEQ IV PRN ×2 (01:30)
[2018-09-17] MEDS: POTASSI CL 20 MEQ/50 ML RIDER 20 MEQ/50 ML RTUPB IV SCH ×3 (01:55→23:46)
[2018-09-17] MEDS: POTASSI CL 40 MEQ/D5-1/2NS 1L 1000 ML IV PRN ×4 (02:56→16:46)
[2018-09-17 05:51] LABS: HEMATOCRIT 25.6 % (37.9-51.0); MEAN CORPUSCULAR HEMOGLOBIN 33.8 pg (27.0-33.4); MEAN CORPUSCULAR HGB CONC 34.3 g/dL (32.0-36.0); MEAN CORPUSCULAR VOLUME 99 fl (80-97); RED CELL DISTRIBUTION WIDTH 23.5 % (11.5-14.0); WHITE BLOOD COUNT 8.3 10^3/uL (4.0-10.5)
[2018-09-17 05:52] LABS: HEMOGLOBIN 8.8 g/dL (13.5-17.0)
[2018-09-17 05:53] LABS: PLATELET COUNT 46 10^3/uL (150-450)
[2018-09-17 05:58] LABS: ANION GAP 13 (5-19); CARBON DIOXIDE 26 mmol/L (22-30); CHLORIDE 89 mmol/L (98-107); GLUCOSE 119 mg/dL (75-110); SODIUM 127.9 mmol/L (137-145)
[2018-09-17 06:02] LABS: BLOOD UREA NITROGEN < 2 mg/dL (7-20)
[2018-09-17] MEDS: LANSOPRAZOLE 30 MG TAB.RAP.DR PO SCH ×2 (06:34→16:46)
[2018-09-17] MEDS ORDERED: MAGNESIUM SULFATE 4 GM/D5W 100 ML IV ONE (06:45)
[2018-09-17] MEDS: MAGNESIUM SULFATE 1 GM/D5W 100 ML IV SCH ×4 (08:06→12:10)
[2018-09-17] MEDS: LEVETIRACETAM 500 MG TABLET PO SCH ×2 (09:57→21:29)
[2018-09-17] MEDS: LISINOPRIL 10 MG TABLET PO SCH (09:57)
[2018-09-17] MEDS: MULTIVITAMINS W-IRON TABLET, CHEWABLE PO SCH (09:58)
[2018-09-17] MEDS: AMLODIPINE BESYLATE 10 MG TABLET PO SCH (09:58)
[2018-09-17] MEDS: NYSTATIN 500000 UNIT/5 ML UDCUP PO SCH ×3 (11:13→16:46)
--- NOTE | 2018-09-17 12:31 | EKG REPORT ---
SEVERITY:- ABNORMAL ECG - SINUS RHYTHM PROLONGED QT INTERVAL : Confirmed by: Samantha Smalls MD 17-Sep-2018 12:30:40
[2018-09-17 17:01] LABS: ALBUMIN 2.3 g/dL (3.5-5.0); ANION GAP 10 (5-19); CARBON DIOXIDE 28 mmol/L (22-30); CHLORIDE 92 mmol/L (98-107); SODIUM 130.2 mmol/L (137-145)
[2018-09-17 17:11] LABS: BLOOD UREA NITROGEN < 2 mg/dL (7-20)
[2018-09-17 17:20] LABS: CALCIUM 6.6 mg/dL (8.4-10.2); GLUCOSE 67 mg/dL (75-110); POTASSIUM 2.3 mmol/L (3.6-5.0)
[2018-09-17] MEDS ORDERED: MAGNESIUM SULFATE/D5W 1 GM/100 ML RTUPB IV ONE (17:38)
[2018-09-17] MEDS ORDERED: CALCIUM GLUCONATE 1,000 MG in DEXTROSE 5%-WATER 50 ML IV ONE ×2 (17:38→20:00)
[2018-09-17] MEDS ORDERED: POTASSI CL 20 MEQ/50 ML RIDER 20 MEQ/50 ML RTUPB IV SCH (18:00)
--- NOTE | 2018-09-17 18:03 | PDOC PROGRESS REPORT ---
Subjective Progress Note for:: 09/17/18 Subjective:: 48-year-old male admitted [facility] intractable nausea, vomiting and significant electrolyte derangements. The patient was seen this morning on rounds, he is resting comfortably in bed on room air. He is able to tolerate clear liquids at this time. He endorses mild epigastric pain, (+) tender to palpation on assessment. Abdomen is otherwise soft and nondistended. Positive bowel sounds. Mucous membranes are pink and moist, good skin turgor. He continues to receive maintenance IVF. Plan to advance diet as tolerated. Electrolytes remain significantly depleted, will require continuous IV replenishment. Serial BMPs. If potassium, calcium and magnesium returned to normal limits, plan for discharge tomorrow. Reason For Visit: HYPOKALEMIA, HYPOMAGNESEMIA,ANEMIA Physical Exam Vital Signs: Temp Pulse Resp BP Pulse Ox 98.3 F 91 18 115/75 100 09/17/18 14:59 09/17/18 14:59 09/17/18 14:59 09/17/18 14:59 09/17/18 14:59 Intake & Output 09/16/18 09/17/18 09/18/18 06:59 06:59 07:59 Intake Total 2136 2903 Balance 2136 2903 Weight 72.6 kg General appearance: PRESENT: no acute distress, well-developed, well-nourished Eye exam: PRESENT: conjunctiva pink, PERRLA Mouth exam: PRESENT: moist, tongue midline Teeth exam: PRESENT: poor dentation Neck exam: PRESENT: full ROM Respiratory exam: PRESENT: clear to auscultation sulaiman, symmetrical, unlabored Cardiovascular exam: PRESENT: RRR Pulses: PRESENT: normal radial pulses, normal dorsalis pedis pul Vascular exam: PRESENT: normal capillary refill GI/Abdominal exam: PRESENT: normal bowel sounds, soft, tenderness - Epigastric tenderness. ABSENT: distended Rectal exam: PRESENT: deferred Extremities exam: PRESENT: full ROM. ABSENT: pedal edema Musculoskeletal exam: PRESENT: ambulatory, full ROM, normal inspection Neurological exam: PRESENT: alert, awake, oriented to person, oriented to place, oriented to time, oriented to situation Psychiatric exam: PRESENT: appropriate affect Skin exam: PRESENT: dry, intact, normal color Results Laboratory Results: 09/17/18 05:15 09/17/18 16:16 09/16/18 09/16/18 09/17/18 15:45 22:45 05:15 WBC 8.3 RBC 2.60 L Hgb 8.8 L D Hct 25.6 L MCV 99 H MCH 33.8 H MCHC 34.3 RDW 23.5 H Plt Count 46 L Sodium 128.7 L Potassium 2.0 L* Chloride 86 L Carbon Dioxide 28 Anion Gap 15 BUN < 2 L Creatinine 0.62 Est GFR ( Amer) > 60 Est GFR (Non-Af Amer) > 60 Glucose 98 Calcium 6.2 L* Ionized Calcium Zackery Magnesium Albumin Lipase 140.5 PTH Intact 09/17/18 09/17/18 09/17/18 05:15 05:15 10:27 WBC RBC Hgb Hct MCV MCH MCHC RDW Plt Count Sodium 127.9 L Potassium 2.0 L* Chloride 89 L Carbon Dioxide 26 Anion Gap 13 BUN < 2 L Creatinine 0.58 Est GFR ( Amer) > 60 Est GFR (Non-Af Amer) > 60 Glucose 119 H Calcium 6.0 L* Ionized Calcium Zackery Magnesium 0.7 L* Albumin 1.9 L Lipase PTH Intact 107.5 H 09/17/18 09/17/18 10:27 16:16 WBC RBC Hgb Hct MCV MCH MCHC RDW Plt Count Sodium 130.2 L Potassium 2.3 L* Chloride 92 L Carbon Dioxide 28 Anion Gap 10 BUN < 2 L Creatinine 0.55 Est GFR ( Amer) > 60 Est GFR (Non-Af Amer) > 60 Glucose 67 L Calcium 6.6 L* Ionized Calcium Zackery 0.88 L Magnesium 1.9 D Albumin 2.3 L Lipase PTH Intact Impressions: Chest X-Ray 09/16/18 00:00 IMPRESSION: No evidence of acute cardiopulmonary disease. Assessment & Plan - Diagnosis (1) Vomiting and diarrhea Is this a current diagnosis for this admission?: Yes Plan: Resolved. Patient tolerating clear liquid diet Advance as tolerated (2) Dehydration Is this a current diagnosis for this admission?: Yes Plan: Secondary to poor oral intake Continue maintenance IVF Creatinine<1.0 no evidence of JALEN (3) Hypomagnesemia Is this a current diagnosis for this admission?: Yes Plan: Likely secondary to poor oral intake IV Magnesium replacement Serial BMP (4) Hypocalcemia Is this a current diagnosis for this admission?: Yes Plan: Secondary to poor PO intake In relation to HYPOmagnesemia Corrected Calcium for low albumin is 7.9 Calcium gluconate 1G IV x 1 today (5) Hypokalemia Is this a current diagnosis for this admission?: Yes Plan: Secondary to poor PO intake Replace magnesium before/while replacing potassium for maximum effect Serial BMPs - Time Time Spent with patient: 15-24 minutes Medications reviewed and adjusted accordingly: Yes Anticipated discharge: Home - Inpatient Certification Based on my medical assessment, after consideration of the patient's comorbidities, presenting symptoms, or acuity I expect that the services needed warrant INPATIENT care.: Yes I certify that my determination is in accordance with my understanding of Medicare's requirements for reasonable and necessary INPATIENT services [42 CFR 412.3e].: Yes Medical Necessity: Need For Continuous Telemetry Monitoring, Risk of Complicatio n if Not Cared For in Hospital - Plan Summary Plan Summary: Unclear at this time why the patient's electrolytes are so deranged. It appears he was admitted for the same complaint, and was suffering the same electrolyte abnormalities, back in and further back into 2015. Often associated with drinking ETOH prior to the admission and the patient goes 4-5 days without eating.
[2018-09-18] MEDS: POTASSI CL 20 MEQ/50 ML RIDER 20 MEQ/50 ML RTUPB IV SCH ×3 (01:47→11:25)
[2018-09-18] MEDS: LANSOPRAZOLE 30 MG TAB.RAP.DR PO SCH ×2 (05:33→17:03)
[2018-09-18] MEDS: POTASSI CL 40 MEQ/D5-1/2NS 1L 1000 ML IV PRN ×4 (06:55→22:39)
[2018-09-18 07:54] LABS: HEMATOCRIT 25.1 % (37.9-51.0); HEMOGLOBIN 8.5 g/dL (13.5-17.0); MEAN CORPUSCULAR HEMOGLOBIN 33.1 pg (27.0-33.4); MEAN CORPUSCULAR HGB CONC 33.9 g/dL (32.0-36.0); MEAN CORPUSCULAR VOLUME 98 fl (80-97); RED BLOOD COUNT 2.57 10^6/uL (4.35-5.55); RED CELL DISTRIBUTION WIDTH 23.2 % (11.5-14.0)
[2018-09-18 08:02] LABS: ALANINE AMINOTRANSFERASE 17 U/L (21-72); ALBUMIN 1.8 g/dL (3.5-5.0); ALKALINE PHOSPHATASE 114 U/L (38-126); ANION GAP 9 (5-19); ASPARTATE AMINO TRANSFERASE 72 U/L (17-59); BILIRUBIN,DIRECT 0.1 mg/dL (0.0-0.4); BILIRUBIN,TOTAL 0.1 mg/dL (0.2-1.3); CARBON DIOXIDE 25 mmol/L (22-30); CHLORIDE 97 mmol/L (98-107); GLUCOSE 94 mg/dL (75-110); SODIUM 131.4 mmol/L (137-145); TOTAL PROTEIN 4.2 g/dL (6.3-8.2)
[2018-09-18 08:11] LABS: BLOOD UREA NITROGEN < 2 mg/dL (7-20)
[2018-09-18 08:12] LABS: PLATELET COUNT 42 10^3/uL (150-450); POTASSIUM 2.4 mmol/L (3.6-5.0)
[2018-09-18 08:13] LABS: CALCIUM 6.7 mg/dL (8.4-10.2)
[2018-09-18] MEDS ORDERED: ALBUMIN HUMAN 12.5 GM/50 ML RTUINJ IV ONE ×2 (09:07→13:15)
[2018-09-18] MEDS: MULTIVITAMINS W-IRON TABLET, CHEWABLE PO SCH (09:32)
[2018-09-18] MEDS: LISINOPRIL 10 MG TABLET PO SCH (09:32)
[2018-09-18] MEDS: NYSTATIN 500000 UNIT/5 ML UDCUP PO SCH ×3 (09:32→17:03)
[2018-09-18] MEDS: AMLODIPINE BESYLATE 10 MG TABLET PO SCH (09:32)
[2018-09-18] MEDS: LEVETIRACETAM 500 MG TABLET PO SCH ×2 (09:32→22:35)
--- NOTE | 2018-09-18 12:25 | EKG REPORT ---
SEVERITY:- ABNORMAL ECG - SINUS RHYTHM PROLONGED QT INTERVAL : Confirmed by: Samantha Smalls MD 18-Sep-2018 12:25:06
[2018-09-18] MEDS: MAGNESIUM SULFATE/D5W 1 GM/100 ML RTUPB IV SCH ×4 (14:35→15:36)
[2018-09-18 17:34] LABS: ALANINE AMINOTRANSFERASE 21 U/L (21-72); ALBUMIN 2.4 g/dL (3.5-5.0); ALKALINE PHOSPHATASE 128 U/L (38-126); ANION GAP 8 (5-19); ASPARTATE AMINO TRANSFERASE 93 U/L (17-59); BILIRUBIN,DIRECT 0.2 mg/dL (0.0-0.4); BILIRUBIN,TOTAL 0.2 mg/dL (0.2-1.3); CARBON DIOXIDE 25 mmol/L (22-30); CHLORIDE 98 mmol/L (98-107); GLUCOSE 112 mg/dL (75-110); SODIUM 130.8 mmol/L (137-145); TOTAL PROTEIN 5.1 g/dL (6.3-8.2)
[2018-09-18 17:40] LABS: BLOOD UREA NITROGEN < 2 mg/dL (7-20)
[2018-09-18 17:42] LABS: CALCIUM 6.8 mg/dL (8.4-10.2)
[2018-09-18] MEDS ORDERED: POTASSIUM CHLORIDE 10 MEQ CAPSULE.ER PO ONE (18:00)
[2018-09-19] MEDS: POTASSI CL 40 MEQ/D5-1/2NS 1L 1000 ML IV PRN ×2 (02:40→06:41)
--- NOTE | 2018-09-19 05:21 | PDOC PROGRESS REPORT ---
Subjective Progress Note for:: 09/18/18 Subjective:: 48-year-old male admitted to [facility] intractable nausea, vomiting and significant electrolyte derangements. The patient was seen this morning on rounds, he is resting comfortably in bed on room air. He is able to tolerate clear liquids at this time. He endorses mild epigastric pain, (+) tender to palpation on assessment. Abdomen is otherwise soft and nondistended. Positive bowel sounds. Mucous membranes are pink and moist, good skin turgor. He continues to receive maintenance IVF. Plan to advance diet as tolerated. Electrolytes remain significantly depleted, will require continuous IV replenishment. Serial BMPs. Magnesium and calcium have improved, patient remains hypokalemic. States he used to take potassium supplements but his PCP told him "he didn't need them anymore." Reason For Visit: HYPOKALEMIA, HYPOMAGNESEMIA,ANEMIA Physical Exam Vital Signs: Temp Pulse Resp BP Pulse Ox 99.0 F 96 16 96/72 L 100 09/19/18 03:29 09/19/18 03:29 09/19/18 03:29 09/19/18 03:29 09/19/18 03:29 Intake & Output 09/17/18 09/18/18 09/19/18 05:59 06:59 06:59 Intake Total 4656 Output Total 1100 Balance 3556 Weight 72.3 kg General appearance: PRESENT: no acute distress, well-developed, well-nourished Eye exam: PRESENT: conjunctiva pink, PERRLA Mouth exam: PRESENT: moist, tongue midline Teeth exam: PRESENT: poor dentation Neck exam: PRESENT: full ROM Respiratory exam: PRESENT: clear to auscultation sulaiman, symmetrical, unlabored Cardiovascular exam: PRESENT: RRR Pulses: PRESENT: normal radial pulses, normal dorsalis pedis pul Vascular exam: PRESENT: normal capillary refill GI/Abdominal exam: PRESENT: soft. ABSENT: distended, tenderness Rectal exam: PRESENT: deferred Extremities exam: PRESENT: full ROM Musculoskeletal exam: PRESENT: ambulatory, full ROM Neurological exam: PRESENT: alert, awake, oriented to person, oriented to place, oriented to time, oriented to situation Psychiatric exam: PRESENT: appropriate affect Skin exam: PRESENT: dry, intact, normal color Results Laboratory Results: 09/18/18 06:26 09/18/18 17:08 09/18/18 09/18/1819 06:26 06:26 17:08 WBC 7.0 RBC 2.57 L Hgb 8.5 L Hct 25.1 L MCV 98 H MCH 33.1 MCHC 33.9 RDW 23.2 H Plt Count 42 L Sodium 131.4 L 130.8 L Potassium 2.4 L* 3.0 L* Chloride 97 L 98 Carbon Dioxide 25 25 Anion Gap 9 8 BUN < 2 L < 2 L Creatinine 0.50 L 0.48 L Est GFR ( Amer) > 60 > 60 Est GFR (Non-Af Amer) > 60 > 60 Glucose 94 112 H Calcium 6.7 L* 6.8 L* Magnesium 1.8 2.2 Total Bilirubin 0.1 L 0.2 AST 72 H 93 H ALT 17 L 21 Alkaline Phosphatase 114 128 H Total Protein 4.2 L 5.1 L Albumin 1.8 L 2.4 L Impressions: Chest X-Ray 09/16/18 00:00 IMPRESSION: No evidence of acute cardiopulmonary disease. Status: Imported from PACS Assessment & Plan - Diagnosis (1) Vomiting and diarrhea Is this a current diagnosis for this admission?: Yes Plan: Resolved. Patient tolerating PO diet (2) Dehydration Is this a current diagnosis for this admission?: Yes Plan: Secondary to poor oral intake Continue maintenance IVF Creatinine<1.0 no evidence of JALEN (3) Hypomagnesemia Is this a current diagnosis for this admission?: Yes Plan: Likely secondary to poor oral intake IV Magnesium replacement Serial BMP (4) Hypocalcemia Is this a current diagnosis for this admission?: Yes Plan: Secondary to poor PO intake In relation to HYPOmagnesemia Corrected Calcium for low albumin is 8.4 S/p Calcium gluconate yesterday, do not need to continue (5) Hypokalemia Is this a current diagnosis for this admission?: Yes Plan: Secondary to poor PO intake Magnesium levels adequate Patient will require PO potassium upon discharge Serial BMPs - Time Time Spent with patient: 15-24 minutes Medications reviewed and adjusted accordingly: Yes Anticipated discharge: Home - Inpatient Certification Based on my medical assessment, after consideration of the patient's comorbidities, presenting symptoms, or acuity I expect that the services needed warrant INPATIENT care.: Yes I certify that my determination is in accordance with my understanding of Medicare's requirements for reasonable and necessary INPATIENT services [42 CFR 412.3e].: Yes Medical Necessity: Risk of Complication if Not Cared For in Hospital
[2018-09-19] MEDS: LANSOPRAZOLE 30 MG TAB.RAP.DR PO SCH (05:37)
[2018-09-19] MEDS: LISINOPRIL 10 MG TABLET PO SCH (09:43)
[2018-09-19] MEDS: MULTIVITAMINS W-IRON TABLET, CHEWABLE PO SCH (09:43)
[2018-09-19] MEDS: LEVETIRACETAM 500 MG TABLET PO SCH (09:43)
[2018-09-19] MEDS: AMLODIPINE BESYLATE 10 MG TABLET PO SCH (09:43)
[2018-09-19] MEDS: NYSTATIN 500000 UNIT/5 ML UDCUP PO SCH (09:44)
[2018-09-19 09:45] LABS: ABSOLUTE EOSINOPHILS # (AUTO) 0.1 10^3/uL (0.0-0.6); ABSOLUTE LYMPHOCYTES (AUTO) 2.5 10^3/uL (0.5-4.7); ABSOLUTE MONOCYTES (AUTO) 0.7 10^3/uL (0.1-1.4); ABSOLUTE NEUT (AUTO) 4.9 10^3/uL (1.7-8.2); BASOPHILS % (AUTO) 0.5 % (0-2); EOSINOPHILS % (AUTO) 1.3 % (0-6); HEMATOCRIT 29.2 % (37.9-51.0); HEMOGLOBIN 9.6 g/dL (13.5-17.0); LYMPHOCYTES % (AUTO) 30.3 % (13-45); MEAN CORPUSCULAR HEMOGLOBIN 32.7 pg (27.0-33.4); MEAN CORPUSCULAR HGB CONC 32.8 g/dL (32.0-36.0); MEAN CORPUSCULAR VOLUME 100 fl (80-97); MONOCYTES % (AUTO) 8.9 % (3-13); RED BLOOD COUNT 2.93 10^6/uL (4.35-5.55); RED CELL DISTRIBUTION WIDTH 23.6 % (11.5-14.0); TOTAL CELLS COUNTED % (AUTO) 100 %; WHITE BLOOD COUNT 8.3 10^3/uL (4.0-10.5)
[2018-09-19 09:58] LABS: ALANINE AMINOTRANSFERASE 24 U/L (21-72); ALBUMIN 2.2 g/dL (3.5-5.0); ALKALINE PHOSPHATASE 112 U/L (38-126); ANION GAP 8 (5-19); ASPARTATE AMINO TRANSFERASE 95 U/L (17-59); BILIRUBIN,DIRECT 0.2 mg/dL (0.0-0.4); BILIRUBIN,TOTAL 0.2 mg/dL (0.2-1.3); CALCIUM 7.4 mg/dL (8.4-10.2); CARBON DIOXIDE 23 mmol/L (22-30); CHLORIDE 103 mmol/L (98-107); GLUCOSE 113 mg/dL (75-110); POTASSIUM 3.7 mmol/L (3.6-5.0); SODIUM 133.7 mmol/L (137-145)
[2018-09-19 10:03] LABS: BLOOD UREA NITROGEN < 2 mg/dL (7-20)
[2018-09-19 10:33] LABS: PLATELET COUNT 57 10^3/uL (150-450)
[2018-09-19 12:00] VITALS: BP 96/72
--- NOTE | 2018-09-27 12:12 | PDOC DISCHARGE SUMMARY ---
General - Admit/Disc Date/PCP Admission Date/Primary Care Provider: 09/17/18 07:54 Discharge Date: 09/19/18 - Discharge Diagnosis (1) Vomiting and diarrhea Is this a current diagnosis for this admission?: Yes (2) Dehydration Is this a current diagnosis for this admission?: Yes (3) Hypomagnesemia Is this a current diagnosis for this admission?: Yes (4) Hypocalcemia Is this a current diagnosis for this admission?: Yes (5) Hypokalemia Is this a current diagnosis for this admission?: Yes - Additional Information Resuscitation Status: Full Code Discharge Diet: As Tolerated Discharge Activity: Activity As Tolerated Prescriptions: Potassium Chloride 20 meq PO DAILY #30 tablet.er Home Medications: Amlodipine Besylate [Norvasc 10 mg Tablet] 10 mg PO DAILY 09/17/18 Levetiracetam [Keppra 500 mg Tablet] 500 mg PO Q12 09/17/18 Lisinopril [Prinivil 10 mg Tablet] 20 mg PO DAILY 09/17/18 Pantoprazole Sodium [Protonix] 40 mg PO DAILY 09/17/18 Potassium Chloride 20 meq PO DAILY #30 tablet.er 09/19/18 History of Present Illness History of Present Illness: CIERA OVIEDO is a 48 year old male who was recently admitted to [facility] July 28, 2018 and was subsequently transferred to [facility] for an upper GI bleed. The patient reports that over the last 4-5 days he has been having increasing nausea, vomiting and diarrhea. He cannot tolerate soups, yogurt or clear liquids. He reports having chills but no fever. He admits to waking up sweaty. He denies palpitations but states that when he bends over and stands up he becomes very lightheaded. He admits that his cousin, with whom he has regular contact, has the same symptoms. He also reports having a cough productive of yellow sputum. Hospital Course Hospital Course: 48-year-old male admitted to [facility] intractable nausea, vomiting and significant electrolyte derangements. The patient admitted that he had been sober "for a while" but admits to Etoh intake approximately 1 week prior to hospitalization. Following his ETOH intake, the patient had difficulty tolerating food for approx. 4-5 days. He presented to [facility] with severe HYPOkalemia (2.2), HYPOcalcemia (6.0), HYPOmagnesemia (0.7) and HYPOalbuminemia (1.9). He was treated with IV and PO replacement of his electrolytes. Additionally, he was given IV albumin for repletion until he was able to tolerate a PO diet. Of note, the patient has been admitted for this same complaint in July 2018 and again in 2014. Family indicated that the patient is not sober, that he continues to drink ETOH (unknown amount) on a regular basis. On hospital day #3 the patient was able to tolerate a regular diet, and by hospital day #4 the patient's electrolytes had returned to an acceptable range. The patient was sent home with a prescription for PO KCl. His electrolyte abnormalities and HYPOalbuminemia are likely stemming from severe malnutrition stemming from ETOH use. The patient was counseled on the importance of eating a nutritious diet. He stated understanding. For more information regarding this patient's hospitalization, please refer to the EMR. Physical Exam Vital Signs: Temp Pulse Resp BP Pulse Ox 98.3 F 89 16 96/72 L 100 09/19/18 11:58 09/19/18 11:58 09/19/18 11:58 09/19/18 11:58 09/19/18 11:58 Results Laboratory Results: 09/19/18 08:13 09/19/18 08:13 Impressions: Chest X-Ray 09/16/18 00:00 IMPRESSION: No evidence of acute cardiopulmonary disease. Status: Imported from PACS Qualifiers - * PATIENT BEING DISCHARGED WITH ANY OF THE FOLLOWING DIAGNOSIS: No
== END 2018-09-19 12:21 | disposition home or self-care (01) | DRG 640 ==
LOC: ER 13:16 → EH 19:27 → INTOOBSV 19:27 → 4W 09-17 01:08 → OBSVTOIN 09-17 07:54
PROVIDERS: ADMIT Emergency Medicine; ATTEND Emergency Medicine
DX: E87.6 Hypokalemia (principal); E43 Unspecified severe protein-calorie malnutrition; B37.0 Candidal stomatitis; E83.42 Hypomagnesemia; D64.9 Anemia, unspecified; E86.0 Dehydration; E78.5 Hyperlipidemia, unspecified; I10 Essential (primary) hypertension; K21.9 Gastro-esophageal reflux disease without esophagitis; F10.20 Alcohol dependence, uncomplicated; E83.51 Hypocalcemia; F17.210 Nicotine dependence, cigarettes, uncomplicated; Z88.6 Allergy status to analgesic agent; Z82.3 Family history of stroke; Z83.3 Family history of diabetes mellitus; Z82.49 Family history of ischemic heart disease and other diseases of the circulatory system
CPT/HCPCS: 36415; 71045; 80048; 80053; 81001; 82040; 82272; 82330; 82962; 83690; 83735; 83970; 85025; 85027; 89055; 93005; 93010; 96361; 96365; 96366; 96375; 99285; 99406; J0610; J2405; J3475; J3480; J3490; J7030; P9047

== ENCOUNTER 2018-09-29 09:05 | Inpatient (IN) | payer MEDICAID ==
[2018-09-29] MEDS ORDERED: ONDANSETRON HCL INJ/PF 4 MG/2 ML SDV IV ONE (09:45)
[2018-09-29] MEDS ORDERED: NORMAL SALINE 1000 ML 1,000 ML IV ONE ×4 (09:45→11:58)
--- NOTE | 2018-09-29 10:14 | ER Document Report ---
ED General - General Chief Complaint: Nausea/Vomiting/Diarrhea Stated Complaint: VOMITING Time Seen by Provider: 09/29/18 09:14 Primary Care Provider: SHEILA SILVESTRE PA-C [Primary Care Provider] - Follow up as needed TRAVEL OUTSIDE OF THE [place] IN LAST 30 DAYS: No - HPI Notes: Patient presents to the emergency department for evaluation of nausea, vomiting, diarrhea, abdominal pain. Symptoms have been going on for the last 4-5 days. He states he has had a episodes of nonbloody, nonbilious emesis. Vomit looks mostly like what he has tried to ingest. He has had watery diarrhea, denies any blood in his stool. He has some abdominal pain that he describes as a soreness, he believes this is from vomiting. He states he has had a cough, as well as some chills. Still urinating, last time was 50 minutes prior to arrival. - Related Data Allergies/Adverse Reactions: No Known Allergies Allergy (Unverified 09/29/18 09:07) Past Medical History - General Information source: Patient - Social History Smoking Status: Current Every Day Smoker Frequency of alcohol use: Former Family History: CVA, DM, Hyperlipidemia, Hypertension Patient has suicidal ideation: No Patient has homicidal ideation: No - Past Medical History Cardiac Medical History: Reports: Hx Hypercholesterolemia, Hx Hypertension Neurological Medical History: Reports: Hx Seizures Renal/ Medical History: Denies: Hx Peritoneal Dialysis GI Medical History: Reports: Hx Gastritis, Hx Gastroesophageal Reflux Disease, Hx Colonoscopy, Hx Endoscopy Psychiatric Medical History: Denies: Hx Depression Past Surgical History: Reports: Hx Tonsillectomy - Immunizations Hx Diphtheria, Pertussis, Tetanus Vaccination: Yes Review of Systems - Review of Systems Constitutional: No symptoms reported EENT: No symptoms reported Cardiovascular: No symptoms reported Respiratory: Cough Gastrointestinal: See HPI Genitourinary: No symptoms reported Skin: No symptoms reported Neurological/Psychological: No symptoms reported Physical Exam - Vital signs Vitals: Temp Pulse Resp BP Pulse Ox 98.6 F 146 H 20 116/88 H 99 09/29/18 09:19 09/29/18 09:19 09/29/18 09:19 09/29/18 09:19 09/29/18 09:19 - Notes Notes: Vital signs reviewed, please refer to chart. Patient is normocephalic, atraumatic. Pupils equal round, reactive to light. Neck is supple without meningismus. Heart is tachycardic with normal S1-S2. Lungs are clear to auscultation bilaterally. Abdomen is soft, nontender, normoactive bowel sounds throughout. Extremities without cyanosis, clubbing, edema. Peripheral pulses are equal. Skin is warm and dry. Patient is awake, alert, neurological exam is nonfocal. Course - Re-evaluation Re-evalutation: 09/29/18 12:09 Patient presents emergency department for evaluation of nausea, vomiting, diarrhea. He is tachycardic on arrival. He is given IV fluids once IV is established. Laboratory investigation revealed significant hypokalemia. Magnesium was added to the patient's labs. He was given IV potassium as he had not been tolerating oral. The patient states he was being compliant with his medications at home until he was vomiting again. The use of any alcohol since his last admission to the hospital. Given the profound hypokalemia, as well as his continued nausea, will admit the patient for further care. I spoke with at noon regarding this admission, will call Dr. uAgustin for further e valuation and orders. 09/29/18 12:[address] Augustin regarding this admission. He did ask that imaging of the abdomen be ordered. Given that his creatinine is normal, will order a CT scan of the abdomen and pelvis with IV contrast. Will admit for further care. - Vital Signs Vital signs: Temp Pulse Resp BP Pulse Ox 98.6 F 146 H 20 116/88 H 99 09/29/18 09:19 09/29/18 09:19 09/29/18 09:19 09/29/18 09:19 09/29/18 09:19 - Laboratory Result Diagrams: 09/29/18 10:29 09/29/18 10:29 Laboratory results interpreted by me: 09/29/18 09/29/18 09/29/18 10:29 10:29 10:29 WBC 12.7 H RBC 3.44 L Hgb 11.3 L Hct 34.1 L MCV 99 H RDW 22.2 H Seg Neutrophils % 81.7 H Absolute Neutrophils 10.4 H Sodium 134.9 L Potassium 2.3 L* Chloride 94 L BUN < 2 L Calcium 8.1 L Magnesium 0.9 L* Direct Bilirubin 0.5 H AST 97 H Alkaline Phosphatase 194 H Total Protein 6.1 L Albumin 2.7 L - EKG Interpretation by Me Additional EKG results interpreted by me: 09/29/18 12:08 Sinus tachycardia with a rate of 123 bpm. Normal axis and intervals, nonspecific ST changes. No acute changes concerning for ischemia or infarction. Discharge - Discharge Clinical Impression: Nausea & vomiting, Diarrhea, Hypokalemia, Hypomagnesemia Condition: Stable Disposition: ADMITTED INPATIENT Admitting Provider: Hospitalist - Dr. Augustin Unit Admitted: Telemetry Referrals: SHEILA SILVESTRE PA-C [Primary Care Provider] - Follow up as needed
[2018-09-29 10:41] LABS: ABSOLUTE BASOPHILS # (AUTO) 0.1 10^3/uL (0.0-0.2); ABSOLUTE EOSINOPHILS # (AUTO) 0.1 10^3/uL (0.0-0.6); ABSOLUTE LYMPHOCYTES (AUTO) 1.7 10^3/uL (0.5-4.7); ABSOLUTE MONOCYTES (AUTO) 0.5 10^3/uL (0.1-1.4); ABSOLUTE NEUT (AUTO) 10.4 10^3/uL (1.7-8.2); BASOPHILS % (AUTO) 0.5 % (0-2); EOSINOPHILS % (AUTO) 0.8 % (0-6); HEMATOCRIT 34.1 % (37.9-51.0); HEMOGLOBIN 11.3 g/dL (13.5-17.0); LYMPHOCYTES % (AUTO) 13.2 % (13-45); MEAN CORPUSCULAR HEMOGLOBIN 32.9 pg (27.0-33.4); MEAN CORPUSCULAR HGB CONC 33.2 g/dL (32.0-36.0); MEAN CORPUSCULAR VOLUME 99 fl (80-97); MONOCYTES % (AUTO) 3.8 % (3-13); PLATELET COUNT 183 10^3/uL (150-450); RED BLOOD COUNT 3.44 10^6/uL (4.35-5.55); RED CELL DISTRIBUTION WIDTH 22.2 % (11.5-14.0); SEGMENTED NEUTROPHILS % (AUTO) 81.7 % (42-78); TOTAL CELLS COUNTED % (AUTO) 100 %; WHITE BLOOD COUNT 12.7 10^3/uL (4.0-10.5)
[2018-09-29 10:51] LABS: A TYPE INFLUENZA AG NEGATIVE (NEGATIVE); B INFLUENZA AG NEGATIVE (NEGATIVE)
[2018-09-29 11:05] LABS: ALANINE AMINOTRANSFERASE 38 U/L (21-72); ALBUMIN 2.7 g/dL (3.5-5.0); ALKALINE PHOSPHATASE 194 U/L (38-126); ANION GAP 19 (5-19); ASPARTATE AMINO TRANSFERASE 97 U/L (17-59); BILIRUBIN,DIRECT 0.5 mg/dL (0.0-0.4); CALCIUM 8.1 mg/dL (8.4-10.2); CARBON DIOXIDE 22 mmol/L (22-30); CHLORIDE 94 mmol/L (98-107); GLUCOSE 109 mg/dL (75-110); LIPASE 101.9 U/L (23-300); SODIUM 134.9 mmol/L (137-145); TOTAL PROTEIN 6.1 g/dL (6.3-8.2)
[2018-09-29 11:10] LABS: BLOOD UREA NITROGEN < 2 mg/dL (7-20)
[2018-09-29 11:11] LABS: POTASSIUM 2.3 mmol/L (3.6-5.0)
[2018-09-29] MEDS: POTASSI CL 20 MEQ/50 ML RIDER 20 MEQ/50 ML RTUPB IV SCH ×3 (12:30→17:03)
[2018-09-29] MEDS: MAGNESIUM SULFATE/D5W 1 GM/100 ML RTUPB IV SCH ×2 (12:30→13:54)
--- NOTE | 2018-09-29 13:13 | PDOC H&P ---
History of Present Illness Admission Date/PCP: SHEILA SILVESTRE PA-C Patient complains of: Nausea vomiting and abdominal pains for the last 4 days History of Present Illness: CIERA OVIEDO is a 48 year old male the past medical history of hypertension, seizure disorder/hyperlipidemia, gastroesophageal reflux disease and history of GI bleed in July came to the emergency room with complaints of nausea vomiting's and diarrhea for the last several days. Is vomiting everything is unable to keep anything down except for occasional Gatorade and vomitus looks like yellowish mucus according to the patient denies any chest pain shortness of breath denies any dizzy spells denies any lightheadedness. He is also complaining of diarrhea everything he is taking in coming out right away denies any blood in the stool. No fevers and headaches. In the ER potassium is found to be 2.3 and magnesium is 0.9 medical consult was called for admission. Past Medical History Cardiac Medical History: Reports: Hyperlipidema, Hypertension Neurological Medical History: Reports: Seizures GI Medical History: Reports: Gastroesophageal Reflux Disease Psychiatric Medical History: Denies: Depression Past Surgical History Past Surgical History: Reports: Tonsillectomy Social History Information Source: Patient Smoking Status: Current Every Day Smoker Frequency of Alcohol Use: Occasional Hx Recreational Drug Use: No - denies Drugs: None Hx Prescription Drug Abuse: No - denies - Advance Directive Resuscitation Status: Full Code Family History Family History: CVA, DM, Hyperlipidemia, Hypertension Parental Family History Reviewed: Yes - Mother with a stroke and diabetes father with hypertension Children Family History Reviewed: Yes Sibling(s) Family History Reviewed.: Yes Medication/Allergy Home Medications: Amlodipine Besylate [Norvasc 10 mg Tablet] 10 mg PO DAILY 09/17/18 Levetiracetam [Keppra 500 mg Tablet] 500 mg PO Q12 09/17/18 Lisinopril [Prinivil 10 mg Tablet] 20 mg PO DAILY 09/17/18 Pantoprazole Sodium [Protonix] 40 mg PO DAILY 09/17/18 Potassium Chloride 20 meq PO DAILY #30 tablet.er 09/19/18 Allergies/Adverse Reactions: No Known Allergies Allergy (Unverified 09/29/18 09:07) Review of Systems Constitutional: PRESENT: as per HPI Eyes: ABSENT: visual disturbances Ears: ABSENT: hearing changes Cardiovascular: ABSENT: chest pain, dyspnea on exertion, edema, orthropnea, palpitations Gastrointestinal: PRESENT: diarrhea, hematemesis, hematochezia, nausea, vomiting Genitourinary: ABSENT: dysuria, hematuria Musculoskeletal: ABSENT: joint swelling Integumentary: ABSENT: rash, wounds Neurological: PRESENT: dizziness Psychiatric: ABSENT: anxiety, depression, homidical ideation, suicidal ideation Physical Exam Vital Signs: Temp Pulse Resp BP Pulse Ox 98.6 F 146 H 20 116/88 H 99 09/29/18 09:19 09/29/18 09:19 09/29/18 09:19 09/29/18 09:19 09/29/18 09:19 Intake & Output 09/28/18 09/29/18 09/30/18 06:59 06:59 06:59 Intake Total 1000 Balance 1000 Weight 69.1 kg General appearance: PRESENT: no acute distress Head exam: PRESENT: atraumatic Eye exam: PRESENT: PERRLA Ear exam: PRESENT: normal external ear exam Neck exam: ABSENT: carotid bruit, JVD, lymphadenopathy, thyromegaly Respiratory exam: PRESENT: clear to auscultation sulaiman. ABSENT: rales, rhonchi, wheezes Cardiovascular exam: PRESENT: RRR. ABSENT: diastolic murmur, rubs, systolic murmur GI/Abdominal exam: PRESENT: normal bowel sounds, soft. ABSENT: distended, guarding, mass, organolmegaly, rebound, tenderness Extremities exam: PRESENT: full ROM. ABSENT: calf tenderness, clubbing, pedal edema Neurological exam: PRESENT: alert, awake, oriented to person, oriented to place, oriented to time, oriented to situation, CN II-XII grossly intact. ABSENT: motor sensory deficit Psychiatric exam: PRESENT: appropriate affect, normal mood. ABSENT: homicidal ideation, suicidal ideation Results Laboratory Results: 09/29/18 10:29 09/29/18 10:29 09/29/18 09/29/18 09/29/18 10:29 10:29 10:29 WBC 12.7 H RBC 3.44 L Hgb 11.3 L Hct 34.1 L MCV 99 H MCH 32.9 MCHC 33.2 RDW 22.2 H Plt Count 183 Seg Neutrophils % 81.7 H Lymphocytes % 13.2 Monocytes % 3.8 Eosinophils % 0.8 Basophils % 0.5 Absolute Neutrophils 10.4 H Absolute Lymphocytes 1.7 Absolute Monocytes 0.5 Absolute Eosinophils 0.1 Absolute Basophils 0.1 Sodium 134.9 L Potassium 2.3 L* Chloride 94 L Carbon Dioxide 22 Anion Gap 19 BUN < 2 L Creatinine 0.61 Est GFR ( Amer) > 60 Est GFR (Non-Af Amer) > 60 Glucose 109 Calcium 8.1 L Magnesium 0.9 L* Total Bilirubin 1.0 AST 97 H ALT 38 Alkaline Phosphatase 194 H Total Protein 6.1 L Albumin 2.7 L Lipase 101.9 Assessment and Plan - Diagnosis (1) Hypokalemia Is this a current diagnosis for this admission?: Yes Plan: 09 29 2018 patient is going to be admitted to [facility] to start him on K rider 40 mg twice a day. To do the serial EKGs to look for any EKG changes. We are going to check for the urine potassium. To start him on nausea medication Zofran/Phenergan GI prophylaxis. DVT prophylaxis will be provided. Hypomagnesia Sameera will be corrected with 4 g of IV magnesium today. To put the patient on IV fluids normal saline at 75 cc/h. Patient is a full code. (2) Hypomagnesemia Is this a current diagnosis for this admission?: Yes Plan: 09/29/2018 admission magnesium level is 0.9. We are going to supplement with 4 g of IV magnesium today. (3) Nausea & vomiting Is this a current diagnosis for this admission?: Yes Plan: 09/29/2018 patient is admitted with nausea vomiting and diarrhea may be secondary to GERD. May be secondary to acute on chronic gastritis. Plan to put him on famotidine. To give Zofran 4 mg IV every 6 as needed. Start the patient on Lomotil for loose stools. (4) Seizure Is this a current diagnosis for this admission?: No Plan: 09/29/2018 patient has a chronic history of seizure disorder on Keppra at home be going to resume the medication here in the hospital. (5) Anemia Qualifiers: Anemia type: other cause Is this a current diagnosis for this admission?: No Plan: 09/29/2018-patient has history of anemia he was transferred from here to [facility] for a GI bleed in July of this year. Hemoglobin and admission is 11.3. Plan to check the hemoglobin tomorrow. (6) Hyponatremia Is this a current diagnosis for this admission?: Yes Plan: 09/29/2018 serum sodium level is 134 hyponatremia may be secondary to nausea and vomitings. (7) Hypertension Is this a current diagnosis for this admission?: No Plan: 09/29/2018 patient is given the history of hypertension his latest blood pressure is 96/72. Antihypertensive will be on hold. To start on normal saline at 75 cc/h. - Time Time Spent with patient: 15-24 minutes Smoking Cessation Education: over 10 minutes Medications reviewed and adjusted accordingly: Yes Anticipated discharge: Home
[2018-09-29] MEDS ORDERED: ACETAMINOPHEN 325 MG TABLET PO PRN (13:14)
[2018-09-29] MEDS ORDERED: PROMETHAZINE HCL INJ 25 MG/1 ML VIAL IV PRN (13:14)
[2018-09-29] MEDS ORDERED: ONDANSETRON HCL INJ/PF 4 MG/2 ML SDV IV PRN (13:14)
--- NOTE | 2018-09-29 13:34 | RADIOLOGY REPORT (SQ) ---
EXAM DESCRIPTION: CT ABD/PELVIS WITH IV ONLY COMPLETED DATE/TIME: 09/29/2018 1:21 pm REASON FOR STUDY: abdominal pain, N/V/D COMPARISON: 07/28/2018 TECHNIQUE: CT scan of the abdomen and pelvis performed using helical scanning technique with dynamic intravenous contrast injection. No oral contrast. Images reviewed with lung, soft tissue, and bone windows. Reconstructed coronal and sagittal MPR images reviewed. Delayed images for evaluation of the urinary system also acquired. All images stored on PACS. All CT scanners at this facility use dose modulation, iterative reconstruction, and/or weight based d osing when appropriate to reduce radiation dose to as low as reasonably achievable (ALARA). [facility]: Dose Right [facility]: CareDose [facility]: Dose Right [facility]: Teradose 4D [facility]: Ziebel CONTRAST TYPE AND DOSE: contrast/concentration: Isovue 350.00 mg/ml; Total Contrast Delivered: 79.0 ml; Total Saline Delivered: 68.0 ml RENAL FUNCTION: None required. The patient is less than 50 years old. RADIATION DOSE: CT Rad equipment meets quality standard of care and radiation dose reduction techniq ues were employed. CTDIvol: 5.6 - 7.4 mGy. DLP: 661 mGy-cm.. LIMITATIONS: None. FINDINGS: LOWER CHEST: No significant findings. No nodules or infiltrates. LIVER: Normal size. No masses. No dilated ducts. Hepatic steatosis. SPLEEN: Normal size. No focal lesions. PANCREAS: Redemonstrated fluid attenuation lesion of the pancreatic head measuring 4.4 by 3.5 x 2.8 c m. No pancreatic or biliary ductal dilation GALLBLADDER: No identified stones by CT criteria. No inflammatory changes to suggest cholecystitis. ADRENAL GLANDS: No significant masses or asymmetry. RIGHT KIDNEY AND URETER: No solid masses. No significant calcifications. No hydronephrosis or hyd roureter. LEFT KIDNEY AND URETER: No solid masses. No significant calcifications. No hydronephrosis or hydr oureter. AORTA AND VESSELS: No aneurysm. No dissection. Renal arteries, SMA, celiac without stenosis. RETROPERITONEUM: No retroperitoneal adenopathy, hemorrhage or masses. BOWEL AND PERITONEAL CAVITY: Diffusely thickened sigmoid colon and rectum. APPENDIX: Normal. PELVIS: No mass. No free fluid. Normal bladder. ABDOMINAL WALL: No masses. No hernias. BONES: Avascular necrosis of the bilateral femoral heads. OTHER: No other significant finding. IMPRESSION: 1. Redemonstrated fluid attenuation lesion of the pancreatic head measuring 4 x 4 x 3.5 x 2.8 cm, highly concerning for mass. Recommend multiphasic contrast-enhanced MRI to further evalua te. 2. Diffusely thickened sigmoid colon and rectum, in keeping with infectious or inflammatory colitis. 3. Avascular necrosis of the bilateral femoral heads. 4. Hepatic steatosis. TECHNICAL DOCUMENTATION: JOB ID: [id number] Quality ID # [id number]: Final reports with documentation of one or more dose reduction techniques (e.g., Au tomated exposure control, adjustment of the mA and/or kV according to patient size, use of iterative reconstruction technique) 2010 [employer]- All Rights Reserved Reading location - IP/workstation name: [email or web address]
[2018-09-29 14:09] LABS: CREATINE KINASE MB 0.87 ng/mL (<4.55)
[2018-09-29 14:14] LABS: TROPONIN I < 0.012 ng/mL
[2018-09-29] MEDS ORDERED: MAGNESIUM SULFATE 4 GM/100 ML RTUPB IV ONE (15:00)
--- NOTE | 2018-09-29 15:24 | RADIOLOGY REPORT (SQ) ---
EXAM DESCRIPTION: CHEST SINGLE VIEW COMPLETED DATE/TIME: 09/29/2018 2:06 pm REASON FOR STUDY: shortness of breath COMPARISON: Chest films 09/16/2018, 05/28/2019 EXAM PARAMETERS: NUMBER OF VIEWS: One view. TECHNIQUE: Single frontal radiographic view of the chest acquired. RADIATION DOSE: NA LIMITATIONS: None. FINDINGS: LUNGS AND PLEURA: No opacities, masses or pneumothorax. No pleural effusion. MEDIASTINUM AND HILAR STRUCTURES: No masses. Contour normal. HEART AND VASCULAR STRUCTURES: Heart normal in size. Normal vasculature. BONES: No acute findings. HARDWARE: None in the chest. OTHER: No other significant finding. IMPRESSION: NO ACUTE RADIOGRAPHIC FINDING IN THE CHEST. TECHNICAL DOCUMENTATION: JOB ID: [id number] [employer]- All Rights Reserved Reading location - IP/workstation name: [email or web address]
[2018-09-29 17:03] LABS: APPEARANCE,URINE CLEAR; BILIRUBIN,URINE NEGATIVE (NEGATIVE); COLOR,URINE YELLOW; GLUCOSE, URINE NEGATIVE (NEGATIVE); KETONES,URINE NEGATIVE (NEGATIVE); LEUKOCYTE ESTERASE,URINE NEGATIVE (NEGATIVE); NITRITE,URINE NEGATIVE (NEGATIVE); PROTEIN,URINE NEGATIVE (NEGATIVE); URINE SPECIFIC GRAVITY > 1.060
[2018-09-29] MEDS ORDERED: MAGNESIUM SULFATE 4 GM/D5W 100 ML IV ONE (18:00)
[2018-09-29 20:30] LABS: TROPONIN I < 0.012 ng/mL
[2018-09-29] MEDS: FAMOTIDINE INJ/PF 20 MG/2 ML SDV IV SCH (21:42)
[2018-09-29] MEDS: LEVETIRACETAM 500 MG TABLET PO SCH (21:42)
[2018-09-29] MEDS: NORMAL SALINE 1000 ML 1,000 ML IV PRN (22:16)
--- NOTE | 2018-09-29 22:44 | EKG REPORT ---
SEVERITY:- BORDERLINE ECG - SINUS TACHYCARDIA BORDERLINE T ABNORMALITIES, LATERAL LEADS : Confirmed by: Jesica Kyle 29-Sep-2018 22:44:04
[2018-09-30 02:29] LABS: CREATINE KINASE MB 0.65 ng/mL (<4.55)
[2018-09-30 02:37] LABS: TROPONIN I < 0.012 ng/mL
[2018-09-30 06:49] LABS: ABSOLUTE EOSINOPHILS # (AUTO) 0.2 10^3/uL (0.0-0.6); ABSOLUTE LYMPHOCYTES (AUTO) 1.9 10^3/uL (0.5-4.7); ABSOLUTE MONOCYTES (AUTO) 0.4 10^3/uL (0.1-1.4); ABSOLUTE NEUT (AUTO) 6.4 10^3/uL (1.7-8.2); BASOPHILS % (AUTO) 0.2 % (0-2); HEMATOCRIT 26.3 % (37.9-51.0); LYMPHOCYTES % (AUTO) 21.3 % (13-45); MEAN CORPUSCULAR HEMOGLOBIN 34.1 pg (27.0-33.4); MEAN CORPUSCULAR VOLUME 98 fl (80-97); MONOCYTES % (AUTO) 4.1 % (3-13); PLATELET COUNT 139 10^3/uL (150-450); RED CELL DISTRIBUTION WIDTH 22.1 % (11.5-14.0); SEGMENTED NEUTROPHILS % (AUTO) 72.4 % (42-78); TOTAL CELLS COUNTED % (AUTO) 100 %; WHITE BLOOD COUNT 8.8 10^3/uL (4.0-10.5)
[2018-09-30 07:10] LABS: ALANINE AMINOTRANSFERASE 37 U/L (21-72); ALBUMIN 2.1 g/dL (3.5-5.0); ALKALINE PHOSPHATASE 160 U/L (38-126); ANION GAP 8 (5-19); ASPARTATE AMINO TRANSFERASE 66 U/L (17-59); BILIRUBIN,DIRECT 0.3 mg/dL (0.0-0.4); BILIRUBIN,TOTAL 0.6 mg/dL (0.2-1.3); CALCIUM 7.3 mg/dL (8.4-10.2); CARBON DIOXIDE 27 mmol/L (22-30); CHLORIDE 100 mmol/L (98-107); CHOLESTEROL 85.52 mg/dL (0-200); GLUCOSE 88 mg/dL (75-110); SODIUM 134.8 mmol/L (137-145); TOTAL PROTEIN 5.1 g/dL (6.3-8.2); TRIGLYCERIDES 73 mg/dL (<150)
[2018-09-30 07:12] LABS: HEMOGLOBIN 9.2 g/dL (13.5-17.0)
[2018-09-30 07:20] LABS: DIRECT LDL 55 mg/dL (<100)
[2018-09-30 07:23] LABS: BLOOD UREA NITROGEN < 2 mg/dL (7-20)
[2018-09-30 07:25] LABS: POTASSIUM 2.5 mmol/L (3.6-5.0)
--- NOTE | 2018-09-30 08:22 | PDOC PROGRESS REPORT ---
Subjective Progress Note for:: 09/30/18 Subjective:: 48-year-old male admitted for nausea and vomitings diarrhea hypokalemia and hypomagnesemia. CT scan of the abdomen pelvis was done yesterday with contrast found to have a pancreatic mass, inflammatory colitis, avascular necrosis of the bilateral femoral heads. Consultation with the surgeon, consultation with Dr. Brandon was requested. Plan is to do the MRI of the abdomen with contrast. Started on IV antibiotic therapy. Blood cultures are already requested. Patient is afebrile T-max is 98.3 no acute events in the last 24 hours. Potassium is still 2.5 which is going to be supplemented. Reason For Visit: HYPOKALEMIA Physical Exam Vital Signs: Temp Pulse Resp BP Pulse Ox 98.3 F 91 18 105/78 100 09/30/18 03:22 09/30/18 07:00 09/30/18 03:22 09/30/18 03:22 09/30/18 03:22 Intake & Output 09/29/18 09/30/18 10/01/18 06:59 06:59 06:59 Intake Total 1450 Output Total 600 Balance 850 Weight 74.3 kg General appearance: PRESENT: no acute distress Head exam: PRESENT: atraumatic Eye exam: PRESENT: PERRLA Neck exam: ABSENT: carotid bruit, JVD, lymphadenopathy, thyromegaly Respiratory exam: PRESENT: clear to auscultation sulaiman. ABSENT: rales, rhonchi, wheezes Cardiovascular exam: PRESENT: RRR. ABSENT: diastolic murmur, rubs, systolic murmur GI/Abdominal exam: PRESENT: normal bowel sounds, soft. ABSENT: distended, guarding, mass, organolmegaly, rebound, tenderness Extremities exam: PRESENT: full ROM. ABSENT: calf tenderness, clubbing, pedal edema Neurological exam: PRESENT: alert, awake, oriented to person, oriented to place, oriented to time, oriented to situation, CN II-XII grossly intact. ABSENT: motor sensory deficit Psychiatric exam: PRESENT: appropriate affect, normal mood. ABSENT: homicidal ideation, suicidal ideation Results Laboratory Results: 09/30/18 06:12 09/30/18 06:12 09/29/18 09/29/18 09/29/18 10:29 10:29 10:29 WBC 12.7 H RBC 3.44 L Hgb 11.3 L Hct 34.1 L MCV 99 H MCH 32.9 MCHC 33.2 RDW 22.2 H Plt Count 183 Seg Neutrophils % 81.7 H Lymphocytes % 13.2 Monocytes % 3.8 Eosinophils % 0.8 Basophils % 0.5 Absolute Neutrophils 10.4 H Absolute Lymphocytes 1.7 Absolute Monocytes 0.5 Absolute Eosinophils 0.1 Absolute Basophils 0.1 Sodium 134.9 L Potassium 2.3 L* Chloride 94 L Carbon Dioxide 22 Anion Gap 19 BUN < 2 L Creatinine 0.61 Est GFR ( Amer) > 60 Est GFR (Non-Af Amer) > 60 Glucose 109 Calcium 8.1 L Magnesium 0.9 L* Total Bilirubin 1.0 AST 97 H ALT 38 Alkaline Phosphatase 194 H Total Protein 6.1 L Albumin 2.7 L Triglycerides Cholesterol LDL Cholesterol Direct VLDL Cholesterol HDL Cholesterol Lipase 101.9 TSH Urine Color Urine Appearance Urine pH Ur Specific [place] Urine Protein Urine Glucose (UA) Urine Ketones Urine Blood Urine Nitrite Ur Leukocyte Esterase Urine WBC (Auto) Urine RBC (Auto) 09/29/18 09/30/18 09/30/18 16:18 06:12 06:12 WBC 8.8 RBC 2.70 L Hgb 9.2 L D Hct 26.3 L MCV 98 H MCH 34.1 H MCHC 35.0 RDW 22.1 H Plt Count 139 L Seg Neutrophils % 72.4 Lymphocytes % 21.3 Monocytes % 4.1 Eosinophils % 2.0 Basophils % 0.2 Absolute Neutrophils 6.4 Absolute Lymphocytes 1.9 Absolute Monocytes 0.4 Absolute Eosinophils 0.2 Absolute Basophils 0.0 Sodium 134.8 L Potassium 2.5 L* Chloride 100 Carbon Dioxide 27 Anion Gap 8 BUN < 2 L Creatinine 0.54 Est GFR ( Amer) > 60 Est GFR (Non-Af Amer) > 60 Glucose 88 Calcium 7.3 L Magnesium 2.1 D Total Bilirubin 0.6 AST 66 H ALT 37 Alkaline Phosphatase 160 H Total Protein 5.1 L Albumin 2.1 L Triglycerides 73 Cholesterol 85.52 LDL Cholesterol Direct 55 VLDL Cholesterol 15.0 HDL Cholesterol 36 L Lipase TSH Urine Color YELLOW Urine Appearance CLEAR Urine pH 7.0 Ur Specific [place] > 1.060 Urine Protein NEGATIVE Urine Glucose (UA) NEGATIVE Urine Ketones NEGATIVE Urine Blood NEGATIVE Urine Nitrite NEGATIVE Ur Leukocyte Esterase NEGATIVE Urine WBC (Auto) 1 Urine RBC (Auto) 3 09/30/18 06:12 WBC RBC Hgb Hct MCV MCH MCHC RDW Plt Count Seg Neutrophils % Lymphocytes % Monocytes % Eosinophils % Basophils % Absolute Neutrophils Absolute Lymphocytes Absolute Monocytes Absolute Eosinophils Absolute Basophils Sodium Potassium Chloride Carbon Dioxide Anion Gap BUN Creatinine Est GFR ( Amer) Est GFR (Non-Af Amer) Glucose Calcium Magnesium Total Bilirubin AST ALT Alkaline Phosphatase Total Protein Albumin Triglycerides Cholesterol LDL Cholesterol Direct VLDL Cholesterol HDL Cholesterol Lipase TSH 1.59 Urine Color Urine Appearance Urine pH Ur Specific [place] Urine Protein Urine Glucose (UA) Urine Ketones Urine Blood Urine Nitrite Ur Leukocyte Esterase Urine WBC (Auto) Urine RBC (Auto) 09/29/18 09/29/18 09/30/18 10:29 19:35 01:39 CK-MB (CK-2) 0.87 0.80 0.65 Troponin I < 0.012 < 0.012 < 0.012 Impressions: Abdomen/Pelvis CT 09/29/18 00:00 IMPRESSION: 1. Redemonstrated fluid attenuation lesion of the pancreatic head measuring 4 x 4 x 3.5 x 2.8 cm, highly concerning for mass. Recommend multiphasic contrast-enhanced MRI to further evaluate. 2. Diffusely thickened sigmoid colon and rectum, in keeping with infectious or inflammatory colitis. 3. Avascular necrosis of the bilateral femoral heads. 4. Hepatic steatosis. Chest X-Ray 09/29/18 13:16 IMPRESSION: NO ACUTE RADIOGRAPHIC FINDING IN THE CHEST. Assessment and Plan - Diagnosis (1) Hypokalemia Is this a current diagnosis for this admission?: Yes Plan: 09 29 2018 patient is going to be admitted to [facility] to start him on K rider 40 mg twice a day. To do the serial EKGs to look for any EKG changes. We are going to check for the urine potassium. To start him on nausea medication Zo javad/Phenergan GI prophylaxis. DVT prophylaxis will be provided. Hypomagnesia Sameera will be corrected with 4 g of IV magnesium today. To put the patient on IV fluids normal saline at 75 cc/h. Patient is a full code. 09/30/2018-patient's potassium is still 2.5 we going to give 20 mEq of IV potassium 3 bags and also start him on potassium 40 mg p.o. twice a day. To recheck his potassium levels tomorrow. And is asymptomatic. Hyperkalemia may be secondary to chronic diarrhea. (2) Hypomagnesemia Is this a current diagnosis for this admission?: Yes Plan: 09/29/2018 admission magnesium level is 0.9. We are going to supplement with 4 g of IV magnesium today. 09/29/2018 patient is admitted with magnesium level of 0.9 he received 2 g of IV magnesium in the emergency room magnesium level today is 2.1 plan is to give p.o. magnesium 800 mg 3 times a day. (3) Nausea & vomiting Is this a current diagnosis for this admission?: Yes Plan: 09/29/2018 patient is admitted with nausea vomiting and diarrhea may be secondary to GERD. May be secondary to acute on chronic gastritis. Plan to put him on famotidine. To give Zofran 4 mg IV every 6 as needed. Start the patient on Lomotil for loose stools. 09/30/2018-patient was admitted with nausea vomiting and diarrhea most likely secondary to gastroparesis reflux disease and inflammatory colitis. Started on IV antibiotic therapy blood cultures are requested. Found to have a pancreatic mass. No nausea no vomiting since the admission. (4) Seizure Is this a current diagnosis for this admission?: No Plan: 09/29/2018 patient has a chronic history of seizure disorder on Keppra at home be going to resume the medication here in the hospital. 09/30/2018-patient has history of seizure disorder on Keppra plan is to continue Keppra while he was in the hospital. (5) Anemia Qualifiers: Anemia type: other cause Is this a current diagnosis for this admission?: No Plan: 09/29/2018-patient has history of anemia he was transferred from here to [facility] for a GI bleed in July of this year. Hemoglobin and admission is 11.3. Plan to check the hemoglobin tomorrow. 09/30/2018-patient has history of chronic anemia most likely secondary to chronic gastritis. Patient hemoglobin today is 9.2 on admission it was 11.3 plan is to recheck his hemoglobin tomorrow consultation with Dr. Brandon was requested. (6) Hyponatremia Is this a current diagnosis for this admission?: Yes Plan: 09/29/2018 serum sodium level is 134 hyponatremia may be secondary to nausea and vomitings. 09/30/2018 patient serum M level is at 134.8 hyponatremia may be secondary to poor oral intake associated with nausea and vomitings. (7) Hypertension Is this a current diagnosis for this admission?: No Plan: 09/29/2018 patient is given the history of hypertension his latest blood pressure is 96/72. Antihypertensive will be on hold. To start on normal saline at 75 cc/h. 09/30/2018 patient has history of hypertension blood pressure medications on hold blood pressure today is 105/78 plan is to continue to closely monitor his blood pressures. (8) Colitis Is this a current diagnosis for this admission?: Yes Plan: 09/30/2018 CT scan shows patient might have colitis possible inflammatory/infectious colitis consultation with surgery was done. Started on IV antibiotics Cipro 400 mg IV daily and Flagyl for 500 mg IV 4 times daily and blood cultures are requested. Surgical consult was requested. (9) Pancreatic mass Is this a current diagnosis for this admission?: Yes Plan: 09/30/2018 CT scan of the abdomen pelvis shows pancreatic mass consultation with Dr. Brandon was requested. CA 199 was requested. CEA levels are requested. As per Dr. Brandon's request MRI of the abdomen with contrast is going to be done and the CT chest with contrast will be done to rule out any any metastases. (10) Avascular necrosis of bone of hip Is this a current diagnosis for this admission?: Yes Plan: 09/30/2018 found to have avascular necrosis of the bilateral femoral heads on CT. Cause is unknown. Consultation with Dr. Brandon was requested. - Time Time Spent with patient: 35 or more minutes Smoking Cessation Education: over 10 minutes Anticipated discharge: Home
[2018-09-30] MEDS: POTASSIUM CHLORIDE 20 MEQ/50 ML RTU IV SCH ×3 (08:34→12:36)
--- NOTE | 2018-09-30 08:57 | PDOC CONSULTATION ---
Consultation Consult Date: 09/30/18 Attending physician:: MANJU LANDAVERDE Consult reason:: Pancreatic mass History of Present Illness Admission Date/PCP: 09/29/18 13:02 SHEILA SILVESTRE PA-C Patient complains of: Nausea vomiting diarrhea History of Present Illness: CIERA OVIEDO is a 48 year old male who presents with about a 4-week history of nausea vomiting diarrhea. Started about 4 weeks ago, it went on for a few days and he presented to the ED was admitted for a few days here. Was hydrated aggressively along with electrolyte replacement and then discharged home because he was feeling better. He went home and was home for about 1 week and then again the nausea and vomiting began. He notes that the vomiting initially started about 1 hour after eating. Once it started however nothing stayed down for that long. At the same time he was having profuse diarrhea. He tells me over the last month he has lost 50 pounds. He denies any severe pain anywhere. He had CT of the abdomen pelvis which indicated a 4 by 3.5 x 2.5 cm mass in the head of the pancreas. No lesions in the liver. No retroperitoneal adenopathy. Past Medical History Cardiac Medical History: Reports: Hyperlipidema, Hypertension Neurological Medical History: Reports: Seizures GI Medical History: Reports: Gastroesophageal Reflux Disease Psychiatric Medical History: Reports: Depression Past Surgical History Past Surgical History: Reports: Tonsillectomy Social History Information Source: Patient Smoking Status: Current Some Day Smoker Cigarettes Packs Per Day: 5 Number of Years Smokin Last Time Smoked: this morning Frequency of Alcohol Use: Occasional Hx Recreational Drug Use: No Drugs: None Hx Prescription Drug Abuse: No - Advance Directive Resuscitation Status: Full Code Family History Family History: CVA, DM, Hyperlipidemia, Hypertension Parental Family History Reviewed: Yes Children Family History Reviewed: Yes Sibling(s) Family History Reviewed.: Yes Medication/Allergy Home Medications: Amlodipine Besylate [Norvasc 10 mg Tablet] 10 mg PO DAILY 09/17/18 Levetiracetam [Keppra 500 mg Tablet] 500 mg PO Q12 09/17/18 Lisinopril [Prinivil 10 mg Tablet] 20 mg PO DAILY 09/17/18 Pantoprazole Sodium [Protonix] 40 mg PO DAILY 09/17/18 Potassium Chloride 20 meq PO DAILY #30 tablet.er 09/19/18 Allergies/Adverse Reactions: No Known Allergies Allergy (Unverified 09/29/18 09:07) Review of Systems Constitutional: PRESENT: anorexia, fatigue, weakness, weight loss Gastrointestinal: PRESENT: diarrhea, nausea, vomiting Musculoskeletal: ABSENT: joint swelling Neurological: ABSENT: abnormal gait, abnormal speech, confusion, dizziness, focal weakness, syncope Psychiatric: PRESENT: anxiety Physical Exam Vital Signs: Temp Pulse Resp BP Pulse Ox 98.3 F 91 18 105/78 100 09/30/18 03:22 09/30/18 07:00 09/30/18 03:22 09/30/18 03:22 09/30/18 03:22 Intake & Output 09/29/18 09/30/18 10/01/18 06:59 06:59 06:59 Intake Total 1450 Output Total 600 Balance 850 Weight 74.3 kg General appearance: PRESENT: no acute distress, well-developed, well-nourished Head exam: PRESENT: atraumatic, normocephalic Eye exam: PRESENT: conjunctiva pink, EOMI, PERRLA. ABSENT: scleral icterus Ear exam: PRESENT: normal external ear exam Mouth exam: PRESENT: moist, tongue midline Neck exam: ABSENT: carotid bruit, JVD, lymphadenopathy, thyromegaly Respiratory exam: PRESENT: clear to auscultation sulaiman. ABSENT: rales, rhonchi, wheezes Cardiovascular exam: PRESENT: RRR. ABSENT: diastolic murmur, rubs, systolic murmur Pulses: PRESENT: normal dorsalis pedis pul Vascular exam: PRESENT: normal capillary refill GI/Abdominal exam: PRESENT: normal bowel sounds, soft. ABSENT: distended, guarding, mass, organolmegaly, rebound, tenderness Rectal exam: PRESENT: deferred Extremities exam: PRESENT: full ROM. ABSENT: calf tenderness, clubbing, pedal edema Neurological exam: PRESENT: alert, awake, oriented to person, oriented to place, oriented to time, oriented to situation, CN II-XII grossly intact. ABSENT: motor sensory deficit Psychiatric exam: PRESENT: appropriate affect, normal mood. ABSENT: homicidal ideation, suicidal ideation Skin exam: PRESENT: dry, intact, warm. ABSENT: cyanosis, rash Results Laboratory Results: 09/30/18 06:12 09/30/18 06:12 09/29/18 09/29/18 09/29/18 10:29 10:29 10:29 WBC 12.7 H RBC 3.44 L Hgb 11.3 L Hct 34.1 L MCV 99 H MCH 32.9 MCHC 33.2 RDW 22.2 H Plt Count 183 Seg Neutrophils % 81.7 H Lymphocytes % 13.2 Monocytes % 3.8 Eosinophils % 0.8 Basophils % 0.5 Absolute Neutrophils 10.4 H Absolute Lymphocytes 1.7 Absolute Monocytes 0.5 Absolute Eosinophils 0.1 Absolute Basophils 0.1 Sodium 134.9 L Potassium 2.3 L* Chloride 94 L Carbon Dioxide 22 Anion Gap 19 BUN < 2 L Creatinine 0.61 Est GFR ( Amer) > 60 Est GFR (Non-Af Amer) > 60 Glucose 109 Calcium 8.1 L Magnesium 0.9 L* Total Bilirubin 1.0 AST 97 H ALT 38 Alkaline Phosphatase 194 H Total Protein 6.1 L Albumin 2.7 L Triglycerides Cholesterol LDL Cholesterol Direct VLDL Cholesterol HDL Cholesterol Lipase 101.9 TSH Urine Color Urine Appearance Urine pH Ur Specific [place] Urine Protein Urine Glucose (UA) Urine Ketones Urine Blood Urine Nitrite Ur Leukocyte Esterase Urine WBC (Auto) Urine RBC (Auto) 09/29/18 09/30/18 09/30/18 16:18 06:12 06:12 WBC 8.8 RBC 2.70 L Hgb 9.2 L D Hct 26.3 L MCV 98 H MCH 34.1 H MCHC 35.0 RDW 22.1 H Plt Count 139 L Seg Neutrophils % 72.4 Lymphocytes % 21.3 Monocytes % 4.1 Eosinophils % 2.0 Basophils % 0.2 Absolute Neutrophils 6.4 Absolute Lymphocytes 1.9 Absolute Monocytes 0.4 Absolute Eosinophils 0.2 Absolute Basophils 0.0 Sodium 134.8 L Potassium 2.5 L* Chloride 100 Carbon Dioxide 27 Anion Gap 8 BUN < 2 L Creatinine 0.54 Est GFR ( Amer) > 60 Est GFR (Non-Af Amer) > 60 Glucose 88 Calcium 7.3 L Magnesium 2.1 D Total Bilirubin 0.6 AST 66 H ALT 37 Alkaline Phosphatase 160 H Total Protein 5.1 L Albumin 2.1 L Triglycerides 73 Cholesterol 85.52 LDL Cholesterol Direct 55 VLDL Cholesterol 15.0 HDL Cholesterol 36 L Lipase TSH Urine Color YELLOW Urine Appearance CLEAR Urine pH 7.0 Ur Specific [place] > 1.060 Urine Protein NEGATIVE Urine Glucose (UA) NEGATIVE Urine Ketones NEGATIVE Urine Blood NEGATIVE Urine Nitrite NEGATIVE Ur Leukocyte Esterase NEGATIVE Urine WBC (Auto) 1 Urine RBC (Auto) 3 09/30/18 06:12 WBC RBC Hgb Hct MCV MCH MCHC RDW Plt Count Seg Neutrophils % Lymphocytes % Monocytes % Eosinophils % Basophils % Absolute Neutrophils Absolute Lymphocytes Absolute Monocytes Absolute Eosinophils Absolute Basophils Sodium Potassium Chloride Carbon Dioxide Anion Gap BUN Creatinine Est GFR ( Amer) Est GFR (Non-Af Amer) Glucose Calcium Magnesium Total Bilirubin AST ALT Alkaline Phosphatase Total Protein Albumin Triglycerides Cholesterol LDL Cholesterol Direct VLDL Cholesterol HDL Cholesterol Lipase TSH 1.59 Urine Color Urine Appearance Urine pH Ur Specific [place] Urine Protein Urine Glucose (UA) Urine Ketones Urine Blood Urine Nitrite Ur Leukocyte Esterase Urine WBC (Auto) Urine RBC (Auto) 09/29/18 09/29/18 09/30/18 10:29 19:35 01:39 CK-MB (CK-2) 0.87 0.80 0.65 Troponin I < 0.012 < 0.012 < 0.012 Impressions: Abdomen/Pelvis CT 09/29/18 00:00 IMPRESSION: 1. Redemonstrated fluid attenuation lesion of the pancreatic head measuring 4 x 4 x 3.5 x 2.8 cm, highly concerning for mass. Recommend multiphasic contrast-enhanced MRI to further evaluate. 2. Diffusely thickened sigmoid colon and rectum, in keeping with infectious or inflammatory colitis. 3. Avascular necrosis of the bilateral femoral heads. 4. Hepatic steatosis. Chest X-Ray 09/29/18 13:16 IMPRESSION: NO ACUTE RADIOGRAPHIC FINDING IN THE CHEST. Status: Image reviewed by me Assessment & Plan - Diagnosis (1) Pancreatic mass Is this a current diagnosis for this admission?: Yes Plan: Concerning for primary pancreatic cancer, completion of staging that can be done in house will be liver MRI as well as CT of the chest. CA-19-9 is pending. I discussed his case with Dr. Albert Mendez who is our surgical oncologist, who will be seeing him this weekend once we have staging complete. Continue with aggressive hydration. Continue with pain control. Will discuss further with patient once we have information back. Of note, he does not want any of his family to know about this issue, he lives with his mom but he does not want her to know. I have asked him to think about this decision, because I believe he will need help at home. We will revisit this as time goes on. - Time Time Spent: Greater than 70 Minutes - Inpatient Certification Based on my medical assessment, after consideration of the patient's comorbidities, presenting symptoms, or acuity I expect that the services needed warrant INPATIENT care.: Yes I certify that my determination is in accordance with my understanding of Medicare's requirements for reasonable and necessary INPATIENT services [42 CFR 412.3e].: Yes Medical Necessity: Need For IV Fluids, Need for Surgery, Risk of Complication if Not Cared For in Hospital
[2018-09-30] MEDS: POTASSIUM CHLORIDE 10 MEQ CAPSULE.ER PO SCH ×2 (09:25→21:38)
[2018-09-30] MEDS: LISINOPRIL 10 MG TABLET PO SCH (09:25)
[2018-09-30] MEDS: FAMOTIDINE INJ/PF 20 MG/2 ML SDV IV SCH ×2 (09:26→21:34)
[2018-09-30] MEDS: MAGNESIUM OXIDE 400 MG TABLET PO SCH ×3 (09:26→17:06)
[2018-09-30] MEDS: LEVETIRACETAM 500 MG TABLET PO SCH ×2 (09:26→21:38)
[2018-09-30] MEDS: ENOXAPARIN SODIUM INJ 40 MG/0.4 ML DISP.SYRIN SUBCUT SCH (09:28)
[2018-09-30] MEDS ORDERED: CIPROFLOXACIN 400 MG/D5W RTU 400 MG/200 ML RTUPB IV SCH ×2 (10:00→13:00)
[2018-09-30] MEDS ORDERED: METRONIDAZOLE 500 MG/NS RTU 500 MG/100 ML RTUPB IV SCH ×2 (12:00→15:00)
[2018-09-30] MEDS: NORMAL SALINE 1000 ML 1,000 ML IV PRN (12:37)
--- NOTE | 2018-09-30 14:12 | RADIOLOGY REPORT (SQ) ---
EXAM DESCRIPTION: MRI ABDOMEN COMBO COMPLETED DATE/TIME: 09/30/2018 1:49 pm REASON FOR STUDY: Okaypancreatic mass COMPARISON: CT abdomen pelvis dating back to 07/01/2015 TECHNIQUE: Multiplanar multisequence imaging performed without and with contrast including sagittal, axial and coronal T2, axial T1, axial gradient fat sat T1, axial, sagittal and coronal fat sat T1 po st contrast. CONTRAST TYPE AND DOSE: 20 mL Dotarem. RENAL FUNCTION: Not indicated. ACR Type II contrast agent associated with few, if any, unconfounded cases of NSF LIMITATIONS: None. FINDINGS: LIVER: Normal size. No masses. No dilated ducts. CBD normal. SPLEEN: Normal size. No focal lesions. PANCREAS: The majority the pancreas demonstrates normal signal intensity and enhancement. The previo usly described mass adjacent to the head of the pancreas is again noted. It demonstrates cystic comp onents. The lesion demonstrates heterogeneous enhancement. The mass abuts the portal vein but does not invade the portal vein. GALLBLADDER: No masses. No stones. No gallbladder wall thickening or pericholecystic fluid. ADRENAL GLANDS: No significant masses or asymmetry. RIGHT KIDNEY AND URETER: No masses. No hydronephrosis. LEFT KIDNEY AND URETER: No masses. No hydronephrosis. AORTA AND VESSELS: No aneurysm. No dissection. Renal arteries, SMA, celiac without stenosis. RETROPERITONEUM: No retroperitoneal adenopathy, hemorrhage or masses. BOWEL: No visualized masses. No inflammation. No significant dilatation. ABDOMINAL WALL AND PERITONEUM: No hernias. No free fluid. BONES: No acute or significant findings. OTHER: No other significant finding. IMPRESSION: Heterogeneous enhancing mass adjacent to the pancreatic head. More than likely this is a primary duodenum wall lesion rather than pancreatic lesion. Correlation with upper endoscopy is re commended. TECHNICAL DOCUMENTATION: JOB ID: [id number] [employer]- All Rights Reserved Reading location - IP/workstation name: [email or web address]
--- NOTE | 2018-09-30 14:18 | RADIOLOGY REPORT (SQ) ---
EXAM DESCRIPTION: CT CHEST WITH COMPLETED DATE/TIME: 09/30/2018 2:06 pm REASON FOR STUDY: mets COMPARISON: Chest x-ray dated 09/29/2018 TECHNIQUE: CT scan of the chest performed using helical scanning technique with dynamic intravenous contrast injection. Images reviewed with lung, soft tissue and bone windows. Reconstructed coronal and sagittal MPR and MIP images reviewed. All images stored on PACS. All CT scanners at this facility use dose modulation, iterative reconstruction, and/or weight based d osing when appropriate to reduce radiation dose to as low as reasonably achievable (ALARA). [facility]: Dose Right [facility]: CareDose [facility]: Dose Right [facility]: Teradose 4D [facility]: CEED Tech CONTRAST TYPE AND DOSE: contrast/concentration: Isovue 350.00 mg/ml; Total Contrast Delivered: 80.0 ml; Total Saline Delivered: 55.0 ml RENAL FUNCTION: BUN was sent to, creatinine 0.54 RADIATION DOSE: CT Rad equipment meets quality standard of care and radiation dose reduction techniq ues were employed. CTDIvol: 5.2 mGy. DLP: 210 mGy-cm. . LIMITATIONS: None. FINDINGS: LUNGS AND PLEURA: There is basilar atelectasis. No effusions. No parenchymal nodules. HILAR AND MEDIASTINAL STRUCTURES: There are small nonspecific mediastinal nodes most likely reactive. HEART AND VASCULAR STRUCTURES: No aneurysm or dissection. No central pulmonary emboli. No pericardi al effusion. HARDWARE: None in the chest. UPPER ABDOMEN: There is fatty infiltration of liver. THYROID AND OTHER SOFT TISSUES: No masses. No adenopathy. BONES: No significant finding. OTHER: No other significant finding. IMPRESSION: Basilar atelectasis. No other significant findings in the chest. TECHNICAL DOCUMENTATION: JOB ID: [id number] Quality ID # [id number]: Final reports with documentation of one or more dose reduction techniques (e.g., Au tomated exposure control, adjustment of the mA and/or kV according to patient size, use of iterative reconstruction technique) 2010 [employer]- All Rights Reserved Reading location - IP/workstation name: [email or web address]
[2018-09-30] MEDS: METRONIDAZOLE 500 MG/NS RTU 500 MG/100 ML RTUPB IV SCH (17:06)
[2018-09-30] MEDS: CIPROFLOXACIN 400 MG/D5W RTU 400 MG/200 ML RTUPB IV SCH (21:28)
[2018-10-01] MEDS: METRONIDAZOLE 500 MG/NS RTU 500 MG/100 ML RTUPB IV SCH ×4 (05:12→17:22)
[2018-10-01] MEDS: NORMAL SALINE 1000 ML 1,000 ML IV PRN (05:13)
[2018-10-01] MEDS ORDERED: DEXTROSE 40% GEL 15 GM TUBE PO PRN ×2 (07:53)
[2018-10-01] MEDS ORDERED: GLUCAGON,HUMAN RECOMB 1 MG INJ SUBCUT PRN (07:53)
[2018-10-01] MEDS ORDERED: DEXTROSE 50%-WATER 25 GM/50 ML DISP.SYRIN IV PRN ×2 (07:53)
[2018-10-01 08:06] LABS: ABSOLUTE EOSINOPHILS # (AUTO) 0.1 10^3/uL (0.0-0.6); ABSOLUTE LYMPHOCYTES (AUTO) 1.4 10^3/uL (0.5-4.7); ABSOLUTE MONOCYTES (AUTO) 0.3 10^3/uL (0.1-1.4); ABSOLUTE NEUT (AUTO) 4.2 10^3/uL (1.7-8.2); BASOPHILS % (AUTO) 0.5 % (0-2); EOSINOPHILS % (AUTO) 2.4 % (0-6); HEMATOCRIT 21.8 % (37.9-51.0); LYMPHOCYTES % (AUTO) 22.4 % (13-45); MEAN CORPUSCULAR HEMOGLOBIN 33.1 pg (27.0-33.4); MEAN CORPUSCULAR HGB CONC 33.7 g/dL (32.0-36.0); MEAN CORPUSCULAR VOLUME 98 fl (80-97); MONOCYTES % (AUTO) 5.7 % (3-13); RED BLOOD COUNT 2.21 10^6/uL (4.35-5.55); RED CELL DISTRIBUTION WIDTH 22.2 % (11.5-14.0); TOTAL CELLS COUNTED % (AUTO) 100 %
[2018-10-01 08:19] LABS: ALANINE AMINOTRANSFERASE 29 U/L (21-72); ALBUMIN 1.6 g/dL (3.5-5.0); ALKALINE PHOSPHATASE 110 U/L (38-126); ANION GAP 8 (5-19); ASPARTATE AMINO TRANSFERASE 69 U/L (17-59); BILIRUBIN,DIRECT 0.3 mg/dL (0.0-0.4); BILIRUBIN,TOTAL 0.3 mg/dL (0.2-1.3); CARBON DIOXIDE 20 mmol/L (22-30); CHLORIDE 109 mmol/L (98-107); GLUCOSE 83 mg/dL (75-110); SODIUM 136.7 mmol/L (137-145); TOTAL PROTEIN 3.8 g/dL (6.3-8.2)
--- NOTE | 2018-10-01 08:23 | PDOC CONSULTATION ---
Consultation Consult Date: 10/01/18 Consult reason:: possible pancreatic mass History of Present Illness Admission Date/PCP: 09/29/18 13:02 SHEILA SILVESTRE PA-C History of Present Illness: CIERA OVIEDO is a 48 year old male with a 4 mo hx of wt loss and progressive nausea,vomiting Past Medical History Cardiac Medical History: Reports: Hyperlipidema, Hypertension EENT Medical History: Reports: None Neurological Medical History: Reports: Seizures Malignancy Medical History: Reports: None GI Medical History: Reports: None, Gastroesophageal Reflux Disease Musculoskeltal Medical History: Reports: None Psychiatric Medical History: Reports: Depression Past Surgical History Past Surgical History: Reports: Tonsillectomy Social History Smoking Status: Current Some Day Smoker Cigarettes Packs Per Day: 5 Number of Years Smokin Last Time Smoked: this morning Frequency of Alcohol Use: Occasional Hx Recreational Drug Use: No Drugs: None Hx Prescription Drug Abuse: No - Advance Directive Resuscitation Status: Full Code Family History Family History: CVA, DM, Hyperlipidemia, Hypertension Parental Family History Reviewed: No Children Family History Reviewed: No Sibling(s) Family History Reviewed.: No Medication/Allergy Home Medications: Amlodipine Besylate [Norvasc 10 mg Tablet] 10 mg PO DAILY 09/17/18 Levetiracetam [Keppra 500 mg Tablet] 500 mg PO Q12 09/17/18 Lisinopril [Prinivil 10 mg Tablet] 20 mg PO DAILY 09/17/18 Pantoprazole Sodium [Protonix] 40 mg PO DAILY 09/17/18 Potassium Chloride 20 meq PO DAILY #30 tablet.er 09/19/18 Allergies/Adverse Reactions: No Known Allergies Allergy (Unverified 09/29/18 09:07) Review of Systems Constitutional: PRESENT: weight loss Eyes: PRESENT: as per HPI Ears: PRESENT: as per HPI Nose, Mouth, and Throat: PRESENT: as per HPI Cardiovascular: PRESENT: other - no chest pain hx of reflux Respiratory: PRESENT: other - no shortness of breath Gastrointestinal: PRESENT: abdominal pain - mild abd pain after eating nausea after meals wt loss, bloating Genitourinary: PRESENT: other - no c/o hematuria, freq, dysuria Musculoskeletal: PRESENT: other - generalized weakness Integumentary: PRESENT: other - no rashes Neurological: PRESENT: other - no weakness, confusion, hx of seizures, no memory loss, no abnormal gait Endocrine: PRESENT: other - no cold or heat intolerance Hematologic/Lymphatic: PRESENT: other - no lymphadenopathy Allergic/Immunologic: PRESENT: other - no medication allergies Physical Exam Vital Signs: Temp Pulse Resp BP Pulse Ox 98.1 F 96 18 107/74 99 10/01/18 04:41 10/01/18 04:41 10/01/18 04:41 10/01/18 04:41 10/01/18 04:41 Intake & Output 09/30/18 10/01/18 10/02/18 06:59 06:59 06:59 Intake Total 1450 5302 Output Total 600 Balance 850 5302 Weight 74.3 kg 75.8 kg General appearance: PRESENT: no acute distress Head exam: PRESENT: atraumatic Eye exam: PRESENT: conjunctiva pink Ear exam: PRESENT: other Mouth exam: PRESENT: moist Neck exam: PRESENT: full ROM Respiratory exam: PRESENT: clear to auscultation sulaiman, symmetrical Cardiovascular exam: PRESENT: RRR Pulses: PRESENT: normal carotid pulses, normal radial pulses, normal femoral pulses GI/Abdominal exam: PRESENT: soft Rectal exam: PRESENT: deferred Extremities exam: PRESENT: full ROM Musculoskeletal exam: PRESENT: ambulatory Neurological exam: PRESENT: alert, awake, oriented to person, oriented to place, oriented to time, oriented to situation Psychiatric exam: PRESENT: appropriate affect, depressed Skin exam: PRESENT: dry Results Laboratory Results: 09/29/18 09/29/18 09/30/18 10:29 19:35 01:39 CK-MB (CK-2) 0.87 0.80 0.65 Troponin I < 0.012 < 0.012 < 0.012 Impressions: Abdomen/Pelvis CT 09/29/18 00:00 IMPRESSION: 1. Redemonstrated fluid attenuation lesion of the pancreatic head measuring 4 x 4 x 3.5 x 2.8 cm, highly concerning for mass. Recommend multiphasic contrast-enhanced MRI to further evaluate. 2. Diffusely thickened sigmoid colon and rectum, in keeping with infectious or inflammatory colitis. 3. Avascular necrosis of the bilateral femoral heads. 4. Hepatic steatosis. Chest X-Ray 09/29/18 13:16 IMPRESSION: NO ACUTE RADIOGRAPHIC FINDING IN THE CHEST. Abdomen MRI 09/30/18 00:00 IMPRESSION: Heterogeneous enhancing mass adjacent to the pancreatic head. More than likely this is a primary duodenum wall lesion rather than pancreatic lesion. Correlation with upper endoscopy is recommended. Chest CT 09/30/18 00:00 IMPRESSION: Basilar atelectasis. No other significant findings in the chest. Assessment & Plan - Diagnosis (3) Nausea & vomiting Is this a current diagnosis for this admission?: Yes - Inpatient Certification Medical Necessity: Need For IV Fluids, Need for Surgery - Plan Summary Plan Summary: 48 y/o male ;with progressive nausea, vomiting and wt loss over last 3-4 mos approx 50lb wt loss recently admitted and discharged about 3 wks ago for similar sx, only to return 2 days ago with with continued nausea pt obtained ct scan of abd on admission showing mass in ruq contiguous with the pancreatic head although no elevated lft's or dilated bile or pancreatic duct seen on ct. eval of the ct scan suggests that mass may be originating from duodenum and encroaching on pancreatic head. also of note is mass is abutting and possibly eroding into the portal vein. mass in compressing the 2nd portion of the duodenum causing near obstruction, resulting in the nausea, vomiting, wt loss recommmend. pt will need upper endososcopy to eval for the mass, and biopsy if it proves malignant , will discuss with oncology for poss neoadjuvent chemo prior to any planned resection, as it appears to involve portal vein. pt will prob need gastrojejunostomy (laparoscopic) as a temporary measure to bypass the obstruction and allow him to eat during any planned chemorx. current plan is to endoscope pt (was planning on today, however pt ate breakfast). will start po clear liquids this morning and npo after midnight and plan on upper endosocpy in am.
[2018-10-01 08:26] LABS: BLOOD UREA NITROGEN < 2 mg/dL (7-20)
[2018-10-01 08:28] LABS: CALCIUM 6.4 mg/dL (8.4-10.2)
[2018-10-01 08:29] LABS: POTASSIUM 2.4 mmol/L (3.6-5.0)
[2018-10-01 08:38] LABS: HEMOGLOBIN 7.3 g/dL (13.5-17.0)
[2018-10-01 08:39] LABS: PLATELET COUNT 94 10^3/uL (150-450)
[2018-10-01] MEDS ORDERED: NORMAL SALINE 250 ML IV PRN ×2 (08:42)
--- NOTE | 2018-10-01 08:59 | PDOC PROGRESS REPORT ---
Subjective Progress Note for:: 10/01/18 Subjective:: 48-year-old male admitted for nausea and vomitings diarrhea hypokalemia and hypomagnesemia. CT scan of the abdomen pelvis was done yesterday with contrast found to have a pancreatic mass, inflammatory colitis, avascular necrosis of the bilateral femoral heads. Consultation with the surgeon, consultation with Dr. Brandon was requested. Plan is to do the MRI of the abdomen with contrast. Started on IV antibiotic therapy. Blood cultures are already requested. Patient is afebrile T-max is 98.3 no acute events in the last 24 hours. Potassium is still 2.5 which is going to be supplemented. 10/01/2018-no acute events in the last 24 hours. Patient is afebrile. Albumin came back as 1.6, magnesium is 1.4, potassium is 2.4, hemoglobin is 7.0. Dr. Mendez actually plan to do the EGD today and the biopsy of the duodenal mass. he reviewed the CAT scan with me he thinks it is a duodenal mass not a pancreatic mass and wants to do the biopsy tomorrow. Patient unfortunately eat breakfast so he will be on clear liquids from today and before from midnight NPO and EGD tomorrow. In the meantime will supplement the electrolyte abnormalities. Patient is comfortably in the bed denies any complaints. Reason For Visit: HYPOKALEMIA Physical Exam Vital Signs: Temp Pulse Resp BP Pulse Ox 98.1 F 96 18 107/74 99 10/01/18 04:41 10/01/18 04:41 10/01/18 04:41 10/01/18 04:41 10/01/18 04:41 Intake & Output 09/30/18 10/01/18 10/02/18 06:59 06:59 06:59 Intake Total 1450 5302 Output Total 600 Balance 850 5302 Weight 74.3 kg 75.8 kg General appearance: PRESENT: no acute distress Head exam: PRESENT: atraumatic Eye exam: PRESENT: PERRLA Mouth exam: PRESENT: moist, tongue midline Neck exam: ABSENT: carotid bruit, JVD, lymphadenopathy, thyromegaly Respiratory exam: PRESENT: clear to auscultation sulaiman. ABSENT: rales, rhonchi, wheezes Cardiovascular exam: PRESENT: RRR. ABSENT: diastolic murmur, rubs, systolic murmur Pulses: PRESENT: normal dorsalis pedis pul GI/Abdominal exam: PRESENT: normal bowel sounds, soft. ABSENT: distended, guarding, mass, organolmegaly, rebound, tenderness Extremities exam: PRESENT: full ROM. ABSENT: calf tenderness, clubbing, pedal edema Neurological exam: PRESENT: alert, awake, oriented to person, oriented to place, oriented to time, oriented to situation, CN II-XII grossly intact. ABSENT: motor sensory deficit Psychiatric exam: PRESENT: appropriate affect, normal mood. ABSENT: homicidal ideation, suicidal ideation Results Laboratory Results: 10/01/18 07:10 10/01/18 07:10 10/01/18 10/01/18 07:10 07:10 WBC 6.0 RBC 2.21 L Hgb 7.3 L Hct 21.8 L MCV 98 H MCH 33.1 MCHC 33.7 RDW 22.2 H Plt Count 94 L Seg Neutrophils % 69.0 Lymphocytes % 22.4 Monocytes % 5.7 Eosinophils % 2.4 Basophils % 0.5 Absolute Neutrophils 4.2 Absolute Lymphocytes 1.4 Absolute Monocytes 0.3 Absolute Eosinophils 0.1 Absolute Basophils 0.0 Sodium 136.7 L Potassium 2.4 L* Chloride 109 H Carbon Dioxide 20 L Anion Gap 8 BUN < 2 L Creatinine 0.40 L Est GFR ( Amer) > 60 Est GFR (Non-Af Amer) > 60 Glucose 83 Calcium 6.4 L* Magnesium 1.4 L Total Bilirubin 0.3 AST 69 H ALT 29 Alkaline Phosphatase 110 Total Protein 3.8 L Albumin 1.6 L 09/29/18 16:18 Clean Catch Midstream Urine Culture - Final Escherichia Coli 09/29/18 09/29/18 09/30/18 10:29 19:35 01:39 CK-MB (CK-2) 0.87 0.80 0.65 Troponin I < 0.012 < 0.012 < 0.012 Impressions: Abdomen/Pelvis CT 09/29/18 00:00 IMPRESSION: 1. Redemonstrated fluid attenuation lesion of the pancreatic head measuring 4 x 4 x 3.5 x 2.8 cm, highly concerning for mass. Recommend multiphasic contrast-enhanced MRI to further evaluate. 2. Diffusely thickened sigmoid colon and rectum, in keeping with infectious or inflammatory colitis. 3. Avascular necrosis of the bilateral femoral heads. 4. Hepatic steatosis. Chest X-Ray 09/29/18 13:16 IMPRESSION: NO ACUTE RADIOGRAPHIC FINDING IN THE CHEST. Abdomen MRI 09/30/18 00:00 IMPRESSION: Heterogeneous enhancing mass adjacent to the pancreatic head. More than likely this is a primary duodenum wall lesion rather than pancreatic lesion. Correlation with upper endoscopy is recommended. Chest CT 09/30/18 00:00 IMPRESSION: Basilar atelectasis. No other significant findings in the chest. Assessment and Plan - Diagnosis (1) Hypokalemia Is this a current diagnosis for this admission?: Yes Plan: 09 29 2018 patient is going to be admitted to [facility] to start him on K rider 40 mg twice a day. To do the serial EKGs to look for any EKG changes. We are going to check for the urine potassium. To start him on nausea medication Zofran/Phenergan GI prophylaxis. DVT prophylaxis will be provided. Hypomagnesia Sameera will be corrected with 4 g of IV magnesium today. To put the patient on IV fluids normal saline at 75 cc/h. Patient is a full code. 09/30/2018-patient's potassium is still 2.5 we going to give 20 mEq of IV potassium 3 bags and also start him on potassium 40 mg p.o. twice a day. To recheck his potassium levels tomorrow. And is asymptomatic. Hyperkalemia may be secondary to chronic diarrhea. 10/01/2018 potassium level today is 2.4 despite IV supplementations he is going to receive a total of 160 mg of potassium today. We going to recheck the potassium this afternoon. It is tachycardic with heart rate is going up to 140s-150s with minimal activity it may be secondary to electrolyte abn ormalities. (2) Hypomagnesemia Is this a current diagnosis for this admission?: Yes Plan: 09/29/2018 admission magnesium level is 0.9. We are going to supplement with 4 g of IV magnesium today. 09/30/2018 patient is admitted with magnesium level of 0.9 he received 2 g of IV magnesium in the emergency room magnesium level today is 2.1 plan is to give p.o. magnesium 800 mg 3 times a day. 10/01/2018 magnesium level is improved to 1.4 today he received a total of 2 g of IV magnesium we plan to give 4 g of IV magnesium today. And is to recheck magnesium levels in the morning. (3) Nausea & vomiting Is this a current diagnosis for this admission?: Yes Plan: 09/29/2018 patient is admitted with nausea vomiting and diarrhea may be secondary to GERD. May be secondary to acute on chronic gastritis. Plan to put him on famotidine. To give Zofran 4 mg IV every 6 as needed. Start the patient on Lomotil for loose stools. 09/30/2018-patient was admitted with nausea vomiting and diarrhea most likely secondary to gastroparesis reflux disease and inflammatory colitis. Started on IV antibiotic therapy blood cultures are requested. Found to have a pancreatic mass. No nausea no vomiting since the admission. 10/01/2018-nausea and vomitings are resolving. He is receiving Phenergan on regular basis. (4) Seizure Is this a current diagnosis for this admission?: No Plan: 09/29/2018 patient has a chronic history of seizure disorder on Keppra at home be going to resume the medication here in the hospital. 09/30/2018-patient has history of seizure disorder on Keppra plan is to continue Keppra while he was in the hospital. 10/01/2018-patient has history of seizure disorder on Keppra plan is to continue the medication during the hospital stay. (5) Anemia Qualifiers: Anemia type: other cause Is this a current diagnosis for this admission?: No Plan: 09/29/2018-patient has history of anemia he was transferred from here to [facility] for a GI bleed in July of this year. Hemoglobin and admission is 11.3. Plan to check the hemoglobin tomorrow. 09/30/2018-patient has history of chronic anemia most likely secondary to chronic gastritis. Patient hemoglobin today is 9.2 on admission it was 11.3 plan is to recheck his hemoglobin tomorrow consultation with Dr. Brandon was requested. 10/01/2018-patient has history of chronic anemia most likely secondary to chronic gastritis. On admission hemoglobin is 11.3 dropped to 7.0 today plan to do type and crossmatch and transfuse 2 units of PRBC. (6) Hyponatremia Is this a current diagnosis for this admission?: Yes Plan: 09/29/2018 serum sodium level is 134 hyponatremia may be secondary to nausea and vomitings. 09/30/2018 patient serum M level is at 134.8 hyponatremia may be secondary to poor oral intake associated with nausea and vomitings. 10/01/2018-serum sodium level today is 136.7 hyponatremia due to poor oral intake is resolving. (7) Hypertension Is this a current diagnosis for this admission?: No Plan: 09/29/2018 patient is given the history of hypertension his latest blood pressure is 96/72. Antihypertensive will be on hold. To start on normal saline at 75 cc/h. 09/30/2018 patient has history of hypertension blood pressure medications on hold blood pressure today is 105/78 plan is to continue to closely monitor his blood pressures. 10/01/2018-patient has history of hypertension blood pressure today is 107/74 on the softer side antihypertensives are on hold. Plan to check the blood pressures every shift. (8) Colitis Is this a current diagnosis for this admission?: Yes Plan: 09/30/2018 CT scan shows patient might have colitis possible inflammatory/infectious colitis consultation with surgery was done. Started on IV antibiotics Cipro 400 mg IV daily and Flagyl for 500 mg IV 4 times daily and blood cultures are requested. Surgical consult was requested. 10/01/2018-CT scan of the abdomen indicates possible inflammatory/infectious colitis started on IV Cipro 400 mg twice a day and Flagyl 500 mg IV every 6 hours. Cultures are negative but urine culture is positive for E. coli sensitive to ciprofloxacin. (9) Pancreatic mass Is this a current diagnosis for this admission?: Yes Plan: 09/30/2018 CT scan of the abdomen pelvis shows pancreatic mass consultation with Dr. Brandon was requested. CA 199 was requested. CEA levels are requested. As per Dr. Brandon's request MRI of the abdomen with contrast is going to be don e and the CT chest with contrast will be done to rule out any any metastases. 10/01/2018-Dr. Mendez reviewed the CT scan results with the pattern hanger and also with me he explained to me that a duodenal mass compressing the duodenum and patients need EGD and possible biopsy .. He ruled out pancreatic mass. (10) Avascular necrosis of bone of hip Is this a current diagnosis for this admission?: Yes Plan: 09/30/2018 found to have avascular necrosis of the bilateral femoral heads on CT. Cause is unknown. Consultation with Dr. Brandon was requested. 10/01/2018 CT scan of the abdomen shows avascular necrosis of the bilateral femoral heads on CT. Consultation with Dr. Brandon was requested. (11) Hypoalbuminemia Is this a current diagnosis for this admission?: Yes Plan: 3 03/03/2019 albumin levels came back as 1.6 today. Hypoalbuminemia most likely secondary to nausea vomiting and poor oral intake. Plan to give albumin 50 g IV today. To recheck the albumin levels tomorrow. (12) Hypocalcemia Is this a current diagnosis for this admission?: Yes Plan: 10/01/2018-serum calcium level is 6.4 today and albumin is 1.6 corrected calcium is close 8. Hypocalcemia may be secondary to poor oral intake. - Time Time Spent with patient: 25-34 minutes Smoking Cessation Education: over 10 minutes Medications reviewed and adjusted accordingly: Yes Anticipated discharge: Home
[2018-10-01] MEDS: ENOXAPARIN SODIUM INJ 40 MG/0.4 ML DISP.SYRIN SUBCUT SCH (09:25)
[2018-10-01] MEDS ORDERED: MAGNESIUM SULFATE 4 GM/100 ML RTUPB IV ONE (10:30)
[2018-10-01] MEDS: LISINOPRIL 10 MG TABLET PO SCH (10:55)
[2018-10-01] MEDS: LEVETIRACETAM 500 MG TABLET PO SCH ×2 (10:55→21:44)
[2018-10-01] MEDS: FAMOTIDINE INJ/PF 20 MG/2 ML SDV IV SCH ×2 (10:55→21:43)
[2018-10-01] MEDS: MAGNESIUM OXIDE 400 MG TABLET PO SCH ×3 (10:55→17:21)
[2018-10-01] MEDS: POTASSIUM CHLORIDE 10 MEQ CAPSULE.ER PO SCH ×2 (10:55→21:43)
[2018-10-01] MEDS: CIPROFLOXACIN 400 MG/D5W RTU 400 MG/200 ML RTUPB IV SCH ×2 (10:56→21:43)
[2018-10-01] MEDS: ALBUMIN HUMAN 12.5 GM/50 ML RTUINJ IV SCH ×4 (10:57→14:06)
[2018-10-01] MEDS: POTASSI CL 20 MEQ/50 ML RIDER 20 MEQ/50 ML RTUPB IV SCH ×6 (10:58→21:44)
[2018-10-01] MEDS: CHOLECALCIFEROL (D3) 1,000 UNIT TABLET PO SCH (11:56)
[2018-10-02] MEDS: METRONIDAZOLE 500 MG/NS RTU 500 MG/100 ML RTUPB IV SCH ×5 (00:44→23:42)
[2018-10-02 00:57] LABS: POTASSIUM 3.7 mmol/L (3.6-5.0)
[2018-10-02] MEDS: POTASSI CL 20 MEQ/50 ML RIDER 20 MEQ/50 ML RTUPB IV SCH ×2 (01:12→03:32)
[2018-10-02] MEDS: MAGNESIUM SULFATE 1 GM/D5W 100 ML IV SCH ×2 (01:13→02:28)
[2018-10-02 06:30] LABS: ABSOLUTE EOSINOPHILS # (AUTO) 0.1 10^3/uL (0.0-0.6); ABSOLUTE LYMPHOCYTES (AUTO) 1.7 10^3/uL (0.5-4.7); ABSOLUTE MONOCYTES (AUTO) 0.5 10^3/uL (0.1-1.4); ABSOLUTE NEUT (AUTO) 4.4 10^3/uL (1.7-8.2); BASOPHILS % (AUTO) 0.3 % (0-2); HEMATOCRIT 30.6 % (37.9-51.0); LYMPHOCYTES % (AUTO) 25.4 % (13-45); MEAN CORPUSCULAR HEMOGLOBIN 32.7 pg (27.0-33.4); MEAN CORPUSCULAR HGB CONC 34.1 g/dL (32.0-36.0); MEAN CORPUSCULAR VOLUME 96 fl (80-97); MONOCYTES % (AUTO) 7.7 % (3-13); RED BLOOD COUNT 3.18 10^6/uL (4.35-5.55); RED CELL DISTRIBUTION WIDTH 21.4 % (11.5-14.0); SEGMENTED NEUTROPHILS % (AUTO) 64.6 % (42-78); TOTAL CELLS COUNTED % (AUTO) 100 %; WHITE BLOOD COUNT 6.9 10^3/uL (4.0-10.5)
[2018-10-02 06:43] LABS: ALANINE AMINOTRANSFERASE 32 U/L (21-72); ALBUMIN 2.2 g/dL (3.5-5.0); ALKALINE PHOSPHATASE 116 U/L (38-126); ANION GAP 8 (5-19); ASPARTATE AMINO TRANSFERASE 85 U/L (17-59); BILIRUBIN,DIRECT 0.4 mg/dL (0.0-0.4); BILIRUBIN,TOTAL 0.7 mg/dL (0.2-1.3); CALCIUM 8.1 mg/dL (8.4-10.2); CARBON DIOXIDE 19 mmol/L (22-30); CHLORIDE 110 mmol/L (98-107); GLUCOSE 81 mg/dL (75-110); POTASSIUM 3.9 mmol/L (3.6-5.0); SODIUM 137.2 mmol/L (137-145); TOTAL PROTEIN 4.8 g/dL (6.3-8.2)
[2018-10-02 06:46] LABS: BLOOD UREA NITROGEN < 2 mg/dL (7-20)
[2018-10-02 07:21] LABS: HEMOGLOBIN 10.4 g/dL (13.5-17.0)
[2018-10-02 07:22] LABS: PLATELET COUNT 80 10^3/uL (150-450)
--- NOTE | 2018-10-02 08:14 | PDOC PROGRESS REPORT ---
Subjective Progress Note for:: 10/02/18 Subjective:: 48-year-old male admitted for nausea and vomitings diarrhea hypokalemia and hypomagnesemia. CT scan of the abdomen pelvis was done yesterday with contrast found to have a pancreatic mass, inflammatory colitis, avascular necrosis of the bilateral femoral heads. Consultation with the surgeon, consultation with Dr. Brandon was requested. Plan is to do the MRI of the abdomen with contrast. Started on IV antibiotic therapy. Blood cultures are already requested. Patient is afebrile T-max is 98.3 no acute events in the last 24 hours. Potassium is still 2.5 which is going to be supplemented. 10/01/2018-no acute events in the last 24 hours. Patient is afebrile. Albumin came back as 1.6, magnesium is 1.4, potassium is 2.4, hemoglobin is 7.0. Dr. Mendez actually plan to do the EGD today and the biopsy of the duodenal mass. he reviewed the CAT scan with me he thinks it is a duodenal mass not a pancreatic mass and wants to do the biopsy tomorrow. Patient unfortunately eat breakfast so he will be on clear liquids from today and before from midnight NPO and EGD tomorrow. In the meantime will supplement the electrolyte abnormalities. Patient is comfortably in the bed denies any complaints. 10/02/2018-no acute events in the last 24 hours. Patient is afebrile. Potassium level came up to 3.9. Magnesium is 2.1. Albumin is improved to 2.2. Hem oglobin is 10.4. pt Is n.p.o. for EGD under biopsy of the duodenal mass. Patient's platelet count is dropped to 80,000 due to unknown reasons discussed with Dr. Mendez. Reason For Visit: HYPOKALEMIA Physical Exam Vital Signs: Temp Pulse Resp BP Pulse Ox 97.5 F 87 16 117/86 H 98 10/02/18 04:27 10/02/18 04:27 10/02/18 04:27 10/02/18 04:27 10/02/18 04:27 Intake & Output 10/01/18 10/02/18 10/03/18 06:59 06:59 06:59 Intake Total 5302 5264 0 Output Total 900 Balance 5302 4364 0 Weight 75.8 kg 78.7 kg General appearance: PRESENT: no acute distress, well-developed, well-nourished Mouth exam: PRESENT: moist, tongue midline Neck exam: ABSENT: carotid bruit, JVD, lymphadenopathy, thyromegaly Cardiovascular exam: PRESENT: RRR. ABSENT: diastolic murmur, rubs, systolic murmur GI/Abdominal exam: PRESENT: normal bowel sounds, soft. ABSENT: distended, guarding, mass, organolmegaly, rebound, tenderness Extremities exam: PRESENT: full ROM. ABSENT: calf tenderness, clubbing, pedal edema Neurological exam: PRESENT: alert, awake, oriented to person, oriented to place, oriented to time, oriented to situation, CN II-XII grossly intact. ABSENT: motor sensory deficit Psychiatric exam: PRESENT: appropriate affect, normal mood. ABSENT: homicidal ideation, suicidal ideation Results Laboratory Results: 10/02/18 05:20 10/02/18 05:20 10/01/18 10/01/18 10/01/18 07:10 07:10 09:13 WBC 6.0 RBC 2.21 L Hgb 7.3 L Hct 21.8 L MCV 98 H MCH 33.1 MCHC 33.7 RDW 22.2 H Plt Count 94 L Seg Neutrophils % 69.0 Lymphocytes % 22.4 Monocytes % 5.7 Eosinophils % 2.4 Basophils % 0.5 Absolute Neutrophils 4.2 Absolute Lymphocytes 1.4 Absolute Monocytes 0.3 Absolute Eosinophils 0.1 Absolute Basophils 0.0 Sodium 136.7 L Potassium 2.4 L* Chloride 109 H Carbon Dioxide 20 L Anion Gap 8 BUN < 2 L Creatinine 0.40 L Est GFR ( Amer) > 60 Est GFR (Non-Af Amer) > 60 Glucose 83 Calcium 6.4 L* Magnesium 1.4 L Total Bilirubin 0.3 AST 69 H ALT 29 Alkaline Phosphatase 110 Total Protein 3.8 L Albumin 1.6 L Blood Type O POSITIVE Antibody Screen NEGATIVE 10/01/18 10/02/18 10/02/18 18:25 00:22 05:20 WBC 6.9 RBC 3.18 L Hgb 10.4 L D Hct 30.6 L MCV 96 MCH 32.7 MCHC 34.1 RDW 21.4 H Plt Count 80 L Seg Neutrophils % 64.6 Lymphocytes % 25.4 Monocytes % 7.7 Eosinophils % 2.0 Basophils % 0.3 Absolute Neutrophils 4.4 Absolute Lymphocytes 1.7 Absolute Monocytes 0.5 Absolute Eosinophils 0.1 Absolute Basophils 0.0 Sodium Potassium 3.8 D 3.7 Chloride Carbon Dioxide Anion Gap BUN Creatinine Est GFR ( Amer) Est GFR (Non-Af Amer) Glucose Calcium Magnesium 1.7 Total Bilirubin AST ALT Alkaline Phosphatase Total Protein Albumin Blood Type Antibody Screen 10/02/18 05:20 WBC RBC Hgb Hct MCV MCH MCHC RDW Plt Count Seg Neutrophils % Lymphocytes % Monocytes % Eosinophils % Basophils % Absolute Neutrophils Absolute Lymphocytes Absolute Monocytes Absolute Eosinophils Absolute Basophils Sodium 137.2 Potassium 3.9 Chloride 110 H Carbon Dioxide 19 L Anion Gap 8 BUN < 2 L Creatinine 0.45 L Est GFR ( Amer) > 60 Est GFR (Non-Af Amer) > 60 Glucose 81 Calcium 8.1 L Magnesium 2.1 Total Bilirubin 0.7 AST 85 H ALT 32 Alkaline Phosphatase 116 Total Protein 4.8 L Albumin 2.2 L Blood Type Antibody Screen 09/29/18 16:18 Clean Catch Midstream Urine Culture - Final Escherichia Coli 09/29/18 09/29/18 09/30/18 10:29 19:35 01:39 CK-MB (CK-2) 0.87 0.80 0.65 Troponin I < 0.012 < 0.012 < 0.012 Impressions: Abdomen/Pelvis CT 09/29/18 00:00 IMPRESSION: 1. Redemonstrated fluid attenuation lesion of the pancreatic head measuring 4 x 4 x 3.5 x 2.8 cm, highly concerning for mass. Recommend multiphasic contrast-enhanced MRI to further evaluate. 2. Diffusely thickened sigmoid colon and rectum, in keeping with infectious or inflammatory colitis. 3. Avascular necrosis of the bilateral femoral heads. 4. Hepatic steatosis. Chest X-Ray 09/29/18 13:16 IMPRESSION: NO ACUTE RADIOGRAPHIC FINDING IN THE CHEST. Abdomen MRI 09/30/18 00:00 IMPRESSION: Heterogeneous enhancing mass adjacent to the pancreatic head. More than likely this is a primary duodenum wall lesion rather than pancreatic lesion. Correlation with upper endoscopy is recommended. Chest CT 09/30/18 00:00 IMPRESSION: Basilar atelectasis. No other significant findings in the chest. Assessment and Plan - Diagnosis (1) Duodenal mass Is this a current diagnosis for this admission?: Yes Plan: 10/02/2018-initial CAT scan on admission grade as a pancreatic mass after discussion with Dr. Mendez on looking at the reports is actually duodenal mass patient is n.p.o. he is going for a EGD today for possible duodenal biopsy. Patient platelet count is 80,000 Dr. Mendez is aware of it. Because of the duodenal mass is unknown at this present point. (2) Hypokalemia Is this a current diagnosis for this admission?: Yes Plan: 09 29 2018 patient is going to be admitted to [facility] to start him on K rider 40 mg twice a day. To do the serial EKGs to look for any EKG changes. We are going to check for the urine potassium. To start him on nausea medication Zofran/Phenergan GI prophylaxis. DVT prophylaxis will be provided. Hypomagnesia Sameera will be corrected with 4 g of IV magnesium today. To put the patient on IV fluids normal saline at 75 cc/h. Patient is a full code. 09/30/2018-patient's potassium is still 2.5 we going to give 20 mEq of IV potassium 3 bags and also start him on potassium 40 mg p.o. twice a day. To recheck his potassium levels tomorrow. And is asymptomatic. Hyperkalemia may be secondary to chronic diarrhea. 10/01/2018 potassium level today is 2.4 despite IV supplementations he is going to receive a total of 160 mg of potassium today. We going to recheck the potassium this afternoon. It is tachycardic with heart rate is going up to 140s-150s with minimal activity it may be secondary to electrolyte abnormalities. 10/02/2018-patient potassium level is 3.9 he received 160 mg of IV potassium yesterday. No EKG changes. Patient heart rate is improved to 91 today. Plan is to continue IV potassium 40 mg daily. (3) Hypomagnesemia Is this a current diagnosis for this admission?: Yes Plan: 09/29/2018 admission magnesium level is 0.9. We are going to supplement with 4 g of IV magnesium today. 09/30/2018 patient is admitted with magnesium level of 0.9 he received 2 g of IV magnesium in the emergency room magnesium level today is 2.1 plan is to give p.o. magnesium 800 mg 3 times a day. 10/01/2018 magnesium level is improved to 1.4 today he received a total of 2 g of IV magnesium we plan to give 4 g of IV magnesium today. And is to recheck magnesium levels in the morning. 10/02/2018-patient's magnesium level is 2.1 today, he was given 4 g of IV magnesium yesterday it is improved from 1.4-2.1 today plan is to give 1 g of IV magnesium and daily basis. (4) Nausea & vomiting Is this a current diagnosis for this admission?: Yes Plan: 09/29/2018 patient is admitted with nausea vomiting and diarrhea may be secondary to GERD. May be secondary to acute on chronic gastritis. Plan to put him on famotidine. To give Zofran 4 mg IV every 6 as needed. Start the patient on Lomotil for loose stools. 09/30/2018-patient was admitted with nausea vomiting and diarrhea most likely secondary to gastroparesis reflux disease and inflammatory colitis. Started on IV antibiotic therapy blood cultures are requested. Found to have a pancreatic mass. No nausea no vomiting since the admission. 10/01/2018-nausea and vomitings are resolving. He is receiving Phenergan on regular basis. 10/02/2018-patient came in with nausea vomiting's abdominal discomfort most likely secondary to duodenal mass compressing the duodenum. patient getting Phenergan on regular basis. He is n.p.o. today go for EGD this morning. (5) Seizure Is this a current diagnosis for this admission?: No Plan: 09/29/2018 patient has a chronic history of seizure disorder on Keppra at home be going to resume the medication here in the hospital. 09/30/2018-patient has history of seizure disorder on Keppra plan is to continue Keppra while he was in the hospital. 10/01/2018-patient has history of seizure disorder on Keppra plan is to continue the medication during the hospital stay. 10/02/2018-patient has history of seizure disorder on Keppra plan is to continue IV medication during the hospital stay. (6) Anemia Qualifiers: Anemia type: other cause Is this a current diagnosis for this admission?: No Plan: 09/29/2018-patient has history of anemia he was transferred from here to [facility] for a GI bleed in July of this year. Hemoglobin and adm ission is 11.3. Plan to check the hemoglobin tomorrow. 09/30/2018-patient has history of chronic anemia most likely secondary to chronic gastritis. Patient hemoglobin today is 9.2 on admission it was 11.3 plan is to recheck his hemoglobin tomorrow consultation with Dr. Brandon was requested. 10/01/2018-patient has history of chronic anemia most likely secondary to chronic gastritis. On admission hemoglobin is 11.3 dropped to 7.0 today plan to do type and crossmatch and transfuse 2 units of PRBC. 10/02/2018-patient has history of anemia of chronic disease most likely secondary to Chronic gastritis. His hemoglobin dropped to 7.0 received 2 units of PRBC yesterday hemoglobin improved to 10.4 today. She does not duodenal mass going for EGD and possible biopsy today to determine whether there is a benign or malignant lesion. (7) Hyponatremia Is this a current diagnosis for this admission?: Yes Plan: 09/29/2018 serum sodium level is 134 hyponatremia may be secondary to nausea and vomitings. 09/30/2018 patient serum M level is at 134.8 hyponatremia may be secondary to poor oral intake associated with nausea and vomitings. 10/01/2018-serum sodium level today is 136.7 hyponatremia due to poor oral intake is resolving. 10/02/2018-patient's serum sodium level is 137 today hyponatremia is resolved. (8) Hypertension Is this a current diagnosis for this admission?: No Plan: 09/29/2018 patient is given the history of hypertension his latest blood pressure is 96/72. Antihypertensive will be on hold. To start on normal saline at 75 cc/h. 09/30/2018 patient has history of hypertension blood pressure medications on hold blood pressure today is 105/78 plan is to continue to closely monitor his blood pressures. 10/01/2018-patient has history of hypertension blood pressure today is 107/74 on the softer side antihypertensives are on hold. Plan to check the blood pressures every shift. 10/02/2018-patient has history of hypertension antihypertensives are on hold blood pressure today is 105/78. Patient is asymptomatic. Plan is to continue the present management. (9) Colitis Is this a current diagnosis for this admission?: Yes Plan: 09/30/2018 CT scan shows patient might have colitis possible inflammatory/infectious colitis consultation with surgery was done. Started on IV antibiotics Cipro 400 mg IV daily and Flagyl for 500 mg IV 4 times daily and blood cultures are requested. Surgical consult was requested. 10/01/2018-CT scan of the abdomen indicates possible inflammatory/infectious colitis started on IV Cipro 400 mg twice a day and Flagyl 500 mg IV every 6 hours. Cultures are negative but urine culture is positive for E. coli sensitive to ciprofloxacin. 10/02/2018-CT scan shows inflammatory/infectious colitis he is on Cipro 400 mg IV twice a day Flagyl 500 mg IV every 6 hours. Urine culture is positive for E. coli sensitive to ciprofloxacin. blood Cultures after 48 hours are negative so far. (10) Pancreatic mass Is this a current diagnosis for this admission?: Yes (11) Avascular necrosis of bone of hip Is this a current diagnosis for this admission?: Yes Plan: 09/30/2018 found to have avascular necrosis of the bilateral femoral heads on CT. Cause is unknown. Consultation with Dr. Brandon was requested. 10/01/2018 CT scan of the abdomen shows avascular necrosis of the bilateral femoral heads on CT. Consultation with Dr. Brandon was requested. 10/02/2018-patient has avascular necrosis involving the bilateral femoral heads as reported on the CT scan. Because of avascular necrosis is unknown at this moment. (12) Hypoalbuminemia Is this a current diagnosis for this admission?: Yes Plan: 10/01/2018 albumin levels came back as 1.6 today. Hypoalbuminemia most likely secondary to nausea vomiting and poor oral intake. Plan to give albumin 50 g IV today. To recheck the albumin levels tomorrow. 10/02/2018 7 serum albumin levels today is 2.2 after giving up 50 g of IV albumin yesterday. Hypoalbuminemia/protein energy malnutrition most likely secondary to poor oral intake. (13) Hypocalcemia Is this a current diagnosis for this admission?: Yes Plan: 10/01/2018-serum calcium level is 6.4 today and albumin is 1.6 corrected calcium is close 8. Hypocalcemia may be secondary to poor oral intake. 10/02/2018-serum calcium level today is 8.1 with albumin level of 2.2. Corrected calcium is more than 9. Plan is to continue the present management. (14) Tobacco abuse Is this a current diagnosis for this admission?: Yes Plan: 10/02/2018-patient found to be smoking cigarettes in the hospital room. Patient was strongly advised against it. He is going to be placed on nicotine patches. - Time Time Spent with patient: 15-24 minutes Medications reviewed and adjusted accordingly: Yes Anticipated discharge: SNF
[2018-10-02] MEDS ORDERED: DIPHENHYDRAMINE HCL 50 MG/ML VIAL ONE (09:11)
[2018-10-02] MEDS ORDERED: ONDANSETRON HCL INJ/PF 4 MG/2 ML SDV ONE (09:11)
[2018-10-02] MEDS ORDERED: FLUMAZENIL INJ 0.5 MG/5 ML VIAL ONE (09:12)
[2018-10-02] MEDS ORDERED: GLUCAGON,HUMAN RECOMB 1 MG INJ ONE (09:12)
[2018-10-02] MEDS ORDERED: EPINEPHRINE INJ 1 MG/10 ML DISP.SYRIN ONE (09:12)
[2018-10-02] MEDS ORDERED: NALOXONE HCL INJ/PF 0.4 MG/1 ML SDV ONE (09:12)
[2018-10-02] MEDS: MIDAZOLAM 2 MG/2 ML INJ ONE ×5 (09:36→09:44)
[2018-10-02] MEDS: FENTANYL CITRATE INJ/PF 100 MCG/2 ML AMPUL ONE ×5 (09:38→09:46)
--- NOTE | 2018-10-02 10:17 | Operative Report ---
Nonrecallable Operative Report DATE OF SURGERY: 10/02/18 PREOPERATIVE DIAGNOSIS: duodenal obstruction POSTOPERATIVE DIAGNOSIS: duodenal obstruction OPERATION: esophagogastroduodenoscopy SURGEON: TIA DE OLIVEIRA ANESTHESIA: Moderate Sedation COMPLICATIONS: none ESTIMATED BLOOD LOSS: 0 INTRAOPERATIVE FINDINGS: incomplete exam secondary to pyloric swelling. could not intubate the pylorus.
[2018-10-02] MEDS: FAMOTIDINE INJ/PF 20 MG/2 ML SDV IV SCH ×2 (11:02→21:35)
[2018-10-02] MEDS: LISINOPRIL 10 MG TABLET PO SCH (11:02)
[2018-10-02] MEDS: CIPROFLOXACIN 400 MG/D5W RTU 400 MG/200 ML RTUPB IV SCH ×2 (11:03→21:35)
[2018-10-02] MEDS: POTASSIUM CHLORIDE 10 MEQ CAPSULE.ER PO SCH ×2 (11:03→21:35)
[2018-10-02] MEDS: LEVETIRACETAM 500 MG TABLET PO SCH ×2 (11:03→21:35)
[2018-10-02] MEDS: MAGNESIUM OXIDE 400 MG TABLET PO SCH ×3 (11:03→18:42)
[2018-10-02] MEDS: CHOLECALCIFEROL (D3) 1,000 UNIT TABLET PO SCH (11:03)
[2018-10-02] MEDS: NICOTINE 14 MG/24 HR PATCH.TD24 TD SCH (11:05)
--- NOTE | 2018-10-02 14:02 | PDOC PROGRESS REPORT ---
Subjective Progress Note for:: 10/02/18 Subjective:: Patient is quite upset today, he would like to go home. He states that he has been here for several days and they have done nothing. He still cannot swallow well and is still having some nausea. However, he is on full liquid diet and is drinking during my conversation. He states that they transferred him to [place] earlier this month but they couldn't help him either. Nurses report that EGD was attempted earlier this morning, but scope could not be passed through Pyloric valve to the duodenum. Plan is to try again tomorrow to access the duodenum to obtain biopsies. Reason For Visit: HYPOKALEMIA Physical Exam Vital Signs: Temp Pulse Resp BP Pulse Ox 97.7 F 77 16 146/99 H 100 10/02/18 11:34 10/02/18 11:34 10/02/18 11:34 10/02/18 11:34 10/02/18 11:34 Intake & Output 10/01/18 10/02/18 10/03/18 06:59 06:59 06:59 Intake Total 5302 5264 600 Output Total 900 Balance 5302 4364 600 Weight 75.8 kg 78.7 kg General appearance: PRESENT: well-developed, well-nourished Head exam: PRESENT: normocephalic Respiratory exam: PRESENT: unlabored GI/Abdominal exam: PRESENT: other - appears to be eating/drinking without dif ficulty currently. Extremities exam: ABSENT: pedal edema Neurological exam: PRESENT: alert, awake Psychiatric exam: PRESENT: appropriate affect Skin exam: PRESENT: normal color Results Laboratory Results: 10/02/18 05:20 10/02/18 05:20 10/01/18 10/01/18 10/02/18 09:13 18:25 00:22 WBC RBC Hgb Hct MCV MCH MCHC RDW Plt Count Seg Neutrophils % Lymphocytes % Monocytes % Eosinophils % Basophils % Absolute Neutrophils Absolute Lymphocytes Absolute Monocytes Absolute Eosinophils Absolute Basophils Sodium Potassium 3.8 D 3.7 Chloride Carbon Dioxide Anion Gap BUN Creatinine Est GFR ( Amer) Est GFR (Non-Af Amer) Glucose Calcium Magnesium 1.7 Total Bilirubin AST ALT Alkaline Phosphatase Total Protein Albumin Blood Type O POSITIVE Antibody Screen NEGATIVE 10/02/18 10/02/18 05:20 05:20 WBC 6.9 RBC 3.18 L Hgb 10.4 L D Hct 30.6 L MCV 96 MCH 32.7 MCHC 34.1 RDW 21.4 H Plt Count 80 L Seg Neutrophils % 64.6 Lymphocytes % 25.4 Monocytes % 7.7 Eosinophils % 2.0 Basophils % 0.3 Absolute Neutrophils 4.4 Absolute Lymphocytes 1.7 Absolute Monocytes 0.5 Absolute Eosinophils 0.1 Absolute Basophils 0.0 Sodium 137.2 Potassium 3.9 Chloride 110 H Carbon Dioxide 19 L Anion Gap 8 BUN < 2 L Creatinine 0.45 L Est GFR ( Amer) > 60 Est GFR (Non-Af Amer) > 60 Glucose 81 Calcium 8.1 L Magnesium 2.1 Total Bilirubin 0.7 AST 85 H ALT 32 Alkaline Phosphatase 116 Total Protein 4.8 L Albumin 2.2 L Blood Type Antibody Screen 09/29/18 09/29/18 09/30/18 10:29 19:35 01:39 CK-MB (CK-2) 0.87 0.80 0.65 Troponin I < 0.012 < 0.012 < 0.012 Impressions: Abdomen/Pelvis CT 09/29/18 00:00 IMPRESSION: 1. Redemonstrated fluid attenuation lesion of the pancreatic head measuring 4 x 4 x 3.5 x 2.8 cm, highly concerning for mass. Recommend multiphasic contrast-enhanced MRI to further evaluate. 2. Diffusely thickened sigmoid colon and rectum, in keeping with infectious or inflammatory colitis. 3. Avascular necrosis of the bilateral femoral heads. 4. Hepatic steatosis. Chest X-Ray 09/29/18 13:16 IMPRESSION: NO ACUTE RADIOGRAPHIC FINDING IN THE CHEST. Abdomen MRI 09/30/18 00:00 IMPRESSION: Heterogeneous enhancing mass adjacent to the pancreatic head. More than likely this is a primary duodenum wall lesion rather than pancreatic lesion. Correlation with upper endoscopy is recommended. Chest CT 09/30/18 00:00 IMPRESSION: Basilar atelectasis. No other significant findings in the chest. Assessment & Plan - Diagnosis (1) Duodenal mass Is this a current diagnosis for this admission?: Yes Plan: Await biopsy. I have explained to the patient that no treatment can be started until we know exactly what is causing the mass/blockage. I again explained the plan to repeat the procedure tomorrow. CEA and CA 19-9 are elevated, mildly. (2) Anemia Qualifiers: Anemia type: other cause Is this a current diagnosis for this admission?: Yes Plan: Improved after 2 units pRBCs. Continue to monitor. I will also check iron, B12, Ferritin. - Plan Summary Plan Summary: Dr. Brandon to return tomorrow. Please call if needed.
[2018-10-02 14:17] LABS: ABSOLUTE RETICS # 0.035 10^6/uL (0.028-0.122); RETICULOCYTE COUNT (AUTO) 1.08 % (0.66-2.85)
[2018-10-02 14:24] LABS: IRON(TIBC) 28.1 ug/dL (49-181)
[2018-10-02 15:29] LABS: FOLATE 2.72 ng/mL (>2.76)
[2018-10-02] MEDS: NORMAL SALINE 1000 ML 1,000 ML IV PRN (23:42)
--- NOTE | 2018-10-03 03:24 | OPERATIVE REPORT E ---
Operative Report NAME: CIERA OVIEDO : 1970 AGE: 48Y DATE OF SURGERY: 10/02/2018 ROOM: 302 PREOPERATIVE DIAGNOSES: 1. DUODENAL OBSTRUCTION. 2. DUODENAL MASS. POSTOPERATIVE DIAGNOSES: 1. DUODENAL OBSTRUCTION. 2. DUODENAL MASS. OPERATION: Esophagogastroduodenoscopy. SURGEON: TIA DE OLIVEIRA M.D. PROCEDURE: The patient was brought to the endoscopy suite awake and alert, in stable condition. Given IV sedation. Appropriate time-out was obtained and we used the Olympus gastroscope, passed it easily into the mouth, past the posterior pharynx into the proximal esophagus, then into the stomach. The stomach appeared to be dilated with a moderate-size hiatal hernia and prominent gastric rugae. Upon passing the scope down into the antrum, the pylorus was identified. It was swollen and with protruding mucosa from the duodenum into the stomach. After multiple attempts, we were unable to intubate the pylorus to gain access to the duodenum for a biopsy. We tried manipulating the patient on the gurney, lying him supine and then in a left lateral decubitus position, but after multiple attempts we were really unable to intubate the pylorus. The scope was then slowly withdrawn without a biopsy. An attempt will be made for a gastroenterology consult for a repeat endoscopy in order to obtain biopsies of the duodenum. Estimated blood loss was negligible. The patient was monitored in recovery postop. DICTATING PHYSICIAN: TIA DE OLIVEIRA M.D. [id number] PHY#: [id number] ID: [id number] JOB#: [id number] ACCT: [id number] cc:TIA DE OLIVEIRA M.D. >
[2018-10-03 04:18] LABS: ABSOLUTE EOSINOPHILS # (AUTO) 0.2 10^3/uL (0.0-0.6); ABSOLUTE LYMPHOCYTES (AUTO) 2.1 10^3/uL (0.5-4.7); ABSOLUTE MONOCYTES (AUTO) 0.7 10^3/uL (0.1-1.4); ABSOLUTE NEUT (AUTO) 6.2 10^3/uL (1.7-8.2); BASOPHILS % (AUTO) 0.4 % (0-2); EOSINOPHILS % (AUTO) 1.7 % (0-6); HEMATOCRIT 31.8 % (37.9-51.0); HEMOGLOBIN 10.8 g/dL (13.5-17.0); LYMPHOCYTES % (AUTO) 22.8 % (13-45); MEAN CORPUSCULAR HEMOGLOBIN 32.8 pg (27.0-33.4); MEAN CORPUSCULAR VOLUME 96 fl (80-97); MONOCYTES % (AUTO) 7.2 % (3-13); RED CELL DISTRIBUTION WIDTH 21.1 % (11.5-14.0); SEGMENTED NEUTROPHILS % (AUTO) 67.9 % (42-78); TOTAL CELLS COUNTED % (AUTO) 100 %; WHITE BLOOD COUNT 9.2 10^3/uL (4.0-10.5)
[2018-10-03 04:32] LABS: PLATELET COUNT 74 10^3/uL (150-450)
[2018-10-03 04:43] LABS: ALANINE AMINOTRANSFERASE 31 U/L (21-72); ALBUMIN 2.1 g/dL (3.5-5.0); ALKALINE PHOSPHATASE 117 U/L (38-126); ANION GAP 8 (5-19); ASPARTATE AMINO TRANSFERASE 65 U/L (17-59); BILIRUBIN,DIRECT 0.4 mg/dL (0.0-0.4); BILIRUBIN,TOTAL 0.6 mg/dL (0.2-1.3); CALCIUM 8.3 mg/dL (8.4-10.2); CARBON DIOXIDE 20 mmol/L (22-30); CHLORIDE 109 mmol/L (98-107); GLUCOSE 81 mg/dL (75-110); POTASSIUM 3.9 mmol/L (3.6-5.0); SODIUM 136.6 mmol/L (137-145); TOTAL PROTEIN 4.7 g/dL (6.3-8.2)
[2018-10-03 04:46] LABS: BLOOD UREA NITROGEN < 2 mg/dL (7-20)
[2018-10-03] MEDS: METRONIDAZOLE 500 MG/NS RTU 500 MG/100 ML RTUPB IV SCH ×3 (06:01→17:42)
--- NOTE | 2018-10-03 07:52 | PDOC PROGRESS REPORT ---
Subjective Progress Note for:: 10/03/18 Subjective:: EGD attempted yesterday but duodenal mass could not be accessed. Plan for repeat procedure this PM by Dr. Montgomery. I Discussed his case with both docs this am. Dr. Montgomery said that pt can have clear liquid diet until 1pm. Dr. Mendez notes that if this procedure is non diagnostic, he can take pt for more definitive procedure laparoscopically. Reason For Visit: HYPOKALEMIA Physical Exam Vital Signs: Temp Pulse Resp BP Pulse Ox 98.2 F 83 20 129/86 H 100 10/03/18 04:16 10/03/18 04:16 10/03/18 04:16 10/03/18 04:16 10/03/18 04:16 Intake & Output 10/02/18 10/03/18 10/04/18 06:59 06:59 06:59 Intake Total 5264 3608 100 Output Total 900 600 Balance 4364 3008 100 Weight 78.7 kg 80.4 kg General appearance: PRESENT: no acute distress, well-developed, well-nourished Head exam: PRESENT: atraumatic, normocephalic Eye exam: PRESENT: conjunctiva pink, EOMI, PERRLA. ABSENT: scleral icterus Ear exam: PRESENT: normal external ear exam Mouth exam: PRESENT: moist, tongue midline Neck exam: ABSENT: carotid bruit, JVD, lymphadenopathy, thyromegaly Respiratory exam: PRESENT: clear to auscultation sulaiman. ABSENT: rales, rhonchi, wheezes Cardiovascular exam: PRESENT: RRR. ABSENT: diastolic murmur, rubs, systolic murmur Pulses: PRESENT: normal dorsalis pedis pul Vascular exam: PRESENT: normal capillary refill GI/Abdominal exam: PRESENT: normal bowel sounds, soft. ABSENT: distended, guarding, mass, organolmegaly, rebound, tenderness Rectal exam: PRESENT: deferred Extremities exam: PRESENT: full ROM. ABSENT: calf tenderness, clubbing, pedal edema Neurological exam: PRESENT: alert, awake, oriented to person, oriented to place, oriented to time, oriented to situation, CN II-XII grossly intact. ABSENT: motor sensory deficit Psychiatric exam: PRESENT: appropriate affect, normal mood. ABSENT: homicidal ideation, suicidal ideation Skin exam: PRESENT: dry, intact, warm. ABSENT: cyanosis, rash Results Laboratory Results: 10/03/18 03:25 10/03/18 03:25 10/02/18 10/02/18 10/03/18 05:20 05:20 03:25 WBC 9.2 RBC 3.30 L Hgb 10.8 L Hct 31.8 L MCV 96 MCH 32.8 MCHC 34.0 RDW 21.1 H Plt Count 74 L Seg Neutrophils % 67.9 Lymphocytes % 22.8 Monocytes % 7.2 Eosinophils % 1.7 Basophils % 0.4 Absolute Neutrophils 6.2 Absolute Lymphocytes 2.1 Absolute Monocytes 0.7 Absolute Eosinophils 0.2 Absolute Basophils 0.0 Retic Count (auto) 1.08 Absolute Retic 0.035 Sodium Potassium Chloride Carbon Dioxide Anion Gap BUN Creatinine Est GFR ( Amer) Est GFR (Non-Af Amer) Glucose Calcium Magnesium Iron 28.1 L TIBC 156 L % Saturation 18 Ferritin 1910.00 H Total Bilirubin AST ALT Alkaline Phosphatase Total Protein Albumin Vitamin B12 728.0 Folate 2.72 L 10/03/18 03:25 WBC RBC Hgb Hct MCV MCH MCHC RDW Plt Count Seg Neutrophils % Lymphocytes % Monocytes % Eosinophils % Basophils % Absolute Neutrophils Absolute Lymphocytes Absolute Monocytes Absolute Eosinophils Absolute Basophils Retic Count (auto) Absolute Retic Sodium 136.6 L Potassium 3.9 Chloride 109 H Carbon Dioxide 20 L Anion Gap 8 BUN < 2 L Creatinine 0.44 L Est GFR ( Amer) > 60 Est GFR (Non-Af Amer) > 60 Glucose 81 Calcium 8.3 L Magnesium 1.4 L Iron TIBC % Saturation Ferritin Total Bilirubin 0.6 AST 65 H ALT 31 Alkaline Phosphatase 117 Total Protein 4.7 L Albumin 2.1 L Vitamin B12 Folate 09/29/18 09/29/18 09/30/18 10:29 19:35 01:39 CK-MB (CK-2) 0.87 0.80 0.65 Troponin I < 0.012 < 0.012 < 0.012 Impressions: Abdomen/Pelvis CT 09/29/18 00:00 IMPRESSION: 1. Redemonstrated fluid attenuation lesion of the pancreatic head measuring 4 x 4 x 3.5 x 2.8 cm, highly concerning for mass. Recommend multiphasic contrast-enhanced MRI to further evaluate. 2. Diffusely thickened sigmoid colon and rectum, in keeping with infectious or inflammatory colitis. 3. Avascular necrosis of the bilateral femoral heads. 4. Hepatic steatosis. Chest X-Ray 09/29/18 13:16 IMPRESSION: NO ACUTE RADIOGRAPHIC FINDING IN THE CHEST. Abdomen MRI 09/30/18 00:00 IMPRESSION: Heterogeneous enhancing mass adjacent to the pancreatic head. More than likely this is a primary duodenum wall lesion rather than pancreatic lesion. Correlation with upper endoscopy is recommended. Chest CT 09/30/18 00:00 IMPRESSION: Basilar atelectasis. No other significant findings in the chest. Assessment & Plan - Diagnosis (1) Duodenal mass Is this a current diagnosis for this admission?: Yes Plan: Worrisome for primary duodenal cancer, planned for repeat EGD by Dr. Montgomery this PM. If that is non diagnostic, Dr. Mendez will plan for more definitive procedure thereafter. D/w pt extensively this am who agrees to follow this approach. Spent >35 min in discussion w/ pt. - Time Time Spent with patient: 35 or more minutes - Inpatient Certification Based on my medical assessment, after consideration of the patient's comorbidities, presenting symptoms, or acuity I expect that the services needed warrant INPATIENT care.: Yes I certify that my determination is in accordance with my understanding of Medicare's requirements for reasonable and necessary INPATIENT services [42 CFR 412.3e].: Yes Medical Necessity: Need For IV Fluids, Need for Surgery, Risk of Complication if Not Cared For in Hospital
--- NOTE | 2018-10-03 08:41 | PDOC PROGRESS REPORT ---
Subjective Progress Note for:: 10/03/18 Subjective:: 48-year-old male admitted for nausea and vomitings diarrhea hypokalemia and hypomagnesemia. CT scan of the abdomen pelvis was done yesterday with contrast found to have a pancreatic mass, inflammatory colitis, avascular necrosis of the bilateral femoral heads. Consultation with the surgeon, consultation with Dr. Brandon was requested. Plan is to do the MRI of the abdomen with contrast. Started on IV antibiotic therapy. Blood cultures are already requested. Patient is afebrile T-max is 98.3 no acute events in the last 24 hours. Potassium is still 2.5 which is going to be supplemented. 10/01/2018-no acute events in the last 24 hours. Patient is afebrile. Albumin came back as 1.6, magnesium is 1.4, potassium is 2.4, hemoglobin is 7.0. Dr. Mendez actually plan to do the EGD today and the biopsy of the duodenal mass. he reviewed the CAT scan with me he thinks it is a duodenal mass not a pancreatic mass and wants to do the biopsy tomorrow. Patient unfortunately eat breakfast so he will be on clear liquids from today and before from midnight NPO and EGD tomorrow. In the meantime will supplement the electrolyte abnormalities. Patient is comfortably in the bed denies any complaints. 10/02/2018-no acute events in the last 24 hours. Patient is afebrile. Potassium level came up to 3.9. Magnesium is 2.1. Albumin is improved to 2.2. Hem oglobin is 10.4. pt Is n.p.o. for EGD under biopsy of the duodenal mass. Patient's platelet count is dropped to 80,000 due to unknown reasons discussed with Dr. Mendez. 10/03/2018-EGD was attempted yesterday Dr. Mendez told me it is unsuccessful is unable to pass the scope into the duodenum because of the narrowing of the lumen his recommendation is to get in touch with Dr. MARTE for EGD again today. Dr. Brandon spoke to Dr. Mendez and Dr. Marte patient is going for EGD this afternoon. If the EGD is nondiagnostic then the possibility is laparoscopic procedure by Dr. Mendez. Serum magnesium level is 1.4 which is going to be supplemented with 4 g of IV magnesium. pt Is on clear liquids for the EGD this evening. Reason For Visit: HYPOKALEMIA Physical Exam Vital Signs: Temp Pulse Resp BP Pulse Ox 98.0 F 83 16 109/70 100 10/03/18 07:14 10/03/18 07:14 10/03/18 07:14 10/03/18 07:14 10/03/18 07:14 Intake & Output 10/02/18 10/03/18 10/04/18 06:59 06:59 06:59 Intake Total 5264 3608 100 Output Total 900 600 Balance 4364 3008 100 Weight 78.7 kg 80.4 kg General appearance: PRESENT: mild distress Head exam: PRESENT: atraumatic Eye exam: PRESENT: PERRLA Neck exam: ABSENT: carotid bruit, JVD, lymphadenopathy, thyromegaly Respiratory exam: PRESENT: clear to auscultation sulaiman. ABSENT: rales, rhonchi, wheezes Cardiovascular exam: PRESENT: RRR. ABSENT: diastolic murmur, rubs, systolic murmur GI/Abdominal exam: PRESENT: normal bowel sounds, soft. ABSENT: distended, gu arding, mass, organolmegaly, rebound, tenderness Extremities exam: PRESENT: full ROM. ABSENT: calf tenderness, clubbing, pedal edema Neurological exam: PRESENT: alert, awake, oriented to person, oriented to place, oriented to time, oriented to situation, CN II-XII grossly intact. ABSENT: motor sensory deficit Psychiatric exam: PRESENT: appropriate affect, normal mood. ABSENT: homicidal ideation, suicidal ideation Results Laboratory Results: 10/03/18 03:25 10/03/18 03:25 10/02/18 10/02/18 10/03/18 05:20 05:20 03:25 WBC 9.2 RBC 3.30 L Hgb 10.8 L Hct 31.8 L MCV 96 MCH 32.8 MCHC 34.0 RDW 21.1 H Plt Count 74 L Seg Neutrophils % 67.9 Lymphocytes % 22.8 Monocytes % 7.2 Eosinophils % 1.7 Basophils % 0.4 Absolute Neutrophils 6.2 Absolute Lymphocytes 2.1 Absolute Monocytes 0.7 Absolute Eosinophils 0.2 Absolute Basophils 0.0 Retic Count (auto) 1.08 Absolute Retic 0.035 Sodium Potassium Chloride Carbon Dioxide Anion Gap BUN Creatinine Est GFR ( Amer) Est GFR (Non-Af Amer) Glucose Calcium Magnesium Iron 28.1 L TIBC 156 L % Saturation 18 Ferritin 1910.00 H Total Bilirubin AST ALT Alkaline Phosphatase Total Protein Albumin Vitamin B12 728.0 Folate 2.72 L 10/03/18 03:25 WBC RBC Hgb Hct MCV MCH MCHC RDW Plt Count Seg Neutrophils % Lymphocytes % Monocytes % Eosinophils % Basophils % Absolute Neutrophils Absolute Lymphocytes Absolute Monocytes Absolute Eosinophils Absolute Basophils Retic Count (auto) Absolute Retic Sodium 136.6 L Potassium 3.9 Chloride 109 H Carbon Dioxide 20 L Anion Gap 8 BUN < 2 L Creatinine 0.44 L Est GFR ( Amer) > 60 Est GFR (Non-Af Amer) > 60 Glucose 81 Calcium 8.3 L Magnesium 1.4 L Iron TIBC % Saturation Ferritin Total Bilirubin 0.6 AST 65 H ALT 31 Alkaline Phosphatase 117 Total Protein 4.7 L Albumin 2.1 L Vitamin B12 Folate 09/29/18 09/29/18 09/30/18 10:29 19:35 01:39 CK-MB (CK-2) 0.87 0.80 0.65 Troponin I < 0.012 < 0.012 < 0.012 Impressions: Abdomen/Pelvis CT 09/29/18 00:00 IMPRESSION: 1. Redemonstrated fluid attenuation lesion of the pancreatic head measuring 4 x 4 x 3.5 x 2.8 cm, highly concerning for mass. Recommend multiphasic contrast-enhanced MRI to further evaluate. 2. Diffusely thickened sigmoid colon and rectum, in keeping with infectious or inflammatory colitis. 3. Avascular necrosis of the bilateral femoral heads. 4. Hepatic steatosis. Chest X-Ray 09/29/18 13:16 IMPRESSION: NO ACUTE RADIOGRAPHIC FINDING IN THE CHEST. Abdomen MRI 09/30/18 00:00 IMPRESSION: Heterogeneous enhancing mass adjacent to the pancreatic head. More than likely this is a primary duodenum wall lesion rather than pancreatic lesion. Correlation with upper endoscopy is recommended. Chest CT 09/30/18 00:00 IMPRESSION: Basilar atelectasis. No other significant findings in the chest. Assessment and Plan - Diagnosis (1) Duodenal mass Is this a current diagnosis for this admission?: Yes Plan: 10/02/2018-initial CAT scan on admission grade as a pancreatic mass after discuss ion with Dr. Mendez on looking at the reports is actually duodenal mass patient is n.p.o. he is going for a EGD today for possible duodenal biopsy. Patient platelet count is 80,000 Dr. Mendez is aware of it. Because of the duodenal mass is unknown at this present point. 09/05/2018-patient has a duodenal mass he is going to EGD by Dr. marte this afternoon. We are going to try to get medical records from [facility] today. Patient denies any complaints. He is on clear liquids this morning. oncology on board. Surgical team is on board. (2) Hypokalemia Is this a current diagnosis for this admission?: Yes Plan: 09 29 2018 patient is going to be admitted to [facility] to start him on K rider 40 mg twice a day. To do the serial EKGs to look for any EKG changes. We are going to check for the urine potassium. To start him on nausea medication Zofran/Phenergan GI prophylaxis. DVT prophylaxis will be provided. Hypomagnesia Sameera will be corrected with 4 g of IV magnesium today. To put the patient on IV fluids normal saline at 75 cc/h. Patient is a full code. 09/30/2018-patient's potassium is still 2.5 we going to give 20 mEq of IV potassium 3 bags and also start him on potassium 40 mg p.o. twice a day. To recheck his potassium levels tomorrow. And is asymptomatic. Hyperkalemia may be secondary to chronic diarrhea. 10/01/2018 potassium level today is 2.4 despite IV supplementations he is going to receive a total of 160 mg of potassium today. We going to recheck the potassium this afternoon. It is tachycardic with heart rate is going up to 140s-150s with minimal activity it may be secondary to electrolyte abnormalities. 10/02/2018-patient potassium level is 3.9 he received 160 mg of IV potassium yesterday. No EKG changes. Patient heart rate is improved to 91 today. Plan is to continue IV potassium 40 mg daily. 10/03/2018 serum potassium level today is 3.9 stable. Hypokalemia secondary to poor oral intake is resolved. (3) Hypomagnesemia Is this a current diagnosis for this admission?: Yes Plan: 09/29/2018 admission magnesium level is 0.9. We are going to supplement with 4 g of IV magnesium today. 09/30/2018 patient is admitted with magnesium level of 0.9 he received 2 g of IV magnesium in the emergency room magnesium level today is 2.1 plan is to give p.o. magnesium 800 mg 3 times a day. 10/01/2018 magnesium level is improved to 1.4 today he received a total of 2 g of IV magnesium we plan to give 4 g of IV magnesium today. And is to recheck magnesium levels in the morning. 10/02/2018-patient's magnesium level is 2.1 today, he was given 4 g of IV magnesium yesterday it is improved from 1.4-2.1 today plan is to give 1 g of IV magnesium and daily basis. 10/03/2018 magnesium level today is 1.4. to give 4 g of IV magnesium today. (4) Nausea & vomiting Is this a current diagnosis for this admission?: Yes Plan: 09/29/2018 patient is admitted with nausea vomiting and diarrhea may be secondary to GERD. May be secondary to acute on chronic gastritis. Plan to put him on famotidine. To give Zofran 4 mg IV every 6 as needed. Start the patient on Lomotil for loose stools. 09/30/2018-patient was admitted with nausea vomiting and diarrhea most likely secondary to gastroparesis reflux disease and inflammatory colitis. Started on IV antibiotic therapy blood cultures are requested. Found to have a pancreatic mass. No nausea no vomiting since the admission. 10/01/2018-nausea and vomitings are resolving. He is receiving Phenergan on regular basis. 10/02/2018-patient came in with nausea vomiting's abdominal discomfort most lik aimee secondary to duodenal mass compressing the duodenum. patient getting Phenergan on regular basis. He is n.p.o. today go for EGD this morning. 10/03/2018-patient is admitted with abdominal discomfort nausea and vomitings nausea and vomitings most likely due to duodenal mass compressing the duodenal lumen. The symptoms are resolved he is on as needed Phenergan. (5) Seizure Is this a current diagnosis for this admission?: No Plan: 09/29/2018 patient has a chronic history of seizure disorder on Keppra at home be going to resume the medication here in the hospital. 09/30/2018-patient has history of seizure disorder on Keppra plan is to continue Keppra while he was in the hospital. 10/01/2018-patient has history of seizure disorder on Keppra plan is to continue the medication during the hospital stay. 10/02/2018-patient has history of seizure disorder on Keppra plan is to continue IV medication during the hospital stay. 09/05/2018 patient is on Keppra for seizure activity no seizures are noticed during the hospital stay. Patient is on Keppra 500 mg p.o. twice a day plan is to continue the present management. Keppra level is undetectable be going to give 1 g of IV Keppra today. (6) Anemia Qualifiers: Anemia type: other cause Is this a current diagnosis for this admission?: Yes Plan: 09/29/2018-patient has history of anemia he was transferred from here to [facility] for a GI bleed in July of this year. Hemoglobin and admission is 11.3. Plan to check the hemoglobin tomorrow. 09/30/2018-patient has history of chronic anemia most likely secondary to chronic gastritis. Patient hemoglobin today is 9.2 on admission it was 11.3 plan is to recheck his hemoglobin tomorrow consultation with Dr. Brandon was requested. 10/01/2018-patient has history of chronic anemia most likely secondary to chronic gastritis. On admission hemoglobin is 11.3 dropped to 7.0 today plan to do type and crossmatch and transfuse 2 units of PRBC. 10/02/2018-patient has history of anemia of chronic disease most likely secondary to Chronic gastritis. His hemoglobin dropped to 7.0 received 2 units of PRBC yesterday hemoglobin improved to 10.4 today. She does not duodenal mass going for EGD and possible biopsy today to determine whether there is a benign or malignant lesion. 10/03/2018 patient has history of anemia of chronic disease most likely secondary to chronic gastritis he received 2 units of blood transfusion hemoglobin is stable now 10.8. He has previous history of upper GI bleed. (7) Hyponatremia Is this a current diagnosis for this admission?: Yes Plan: 09/29/2018 serum sodium level is 134 hyponatremia may be secondary to nausea and vomitings. 09/30/2018 patient serum M level is at 134.8 hyponatremia may be secondary to poor oral intake associated with nausea and vomitings. 10/01/2018-serum sodium level today is 136.7 hyponatremia due to poor oral intake is resolving. 10/02/2018-patient's serum sodium level is 137 today hyponatremia is resolved. 10/03/2018-patient's serum potassium is 136 today hyponatremia secondary to poor oral intake is resolved. (8) Hypertension Is this a current diagnosis for this admission?: No Plan: 09/29/2018 patient is given the history of hypertension his latest blood pressure is 96/72. Antihypertensive will be on hold. To start on normal saline at 75 cc/h. 09/30/2018 patient has history of hypertension blood pressure medications on hold blood pressure today is 105/78 plan is to continue to closely monitor his blood pressures. 10/01/2018-patient has history of hypertension blood pressure today is 107/74 on the softer side antihypertensives are on hold. Plan to check the blood pressures every shift. 10/02/2018-patient has history of hypertension antihypertensives are on hold blood pressure today is 105/78. Patient is asymptomatic. Plan is to continue the present management. 10/03/2018 patient has history of hypertension blood pressures are relatively controlled during the hospital stay latest blood pressure is 129/86 with pulse rate is 83. plan is to continue the present management. (9) Colitis Is this a current diagnosis for this admission?: Yes Plan: 09/30/2018 CT scan shows patient might have colitis possible inflammatory/infect ious colitis consultation with surgery was done. Started on IV antibiotics Cipro 400 mg IV daily and Flagyl for 500 mg IV 4 times daily and blood cultures are requested. Surgical consult was requested. 10/01/2018-CT scan of the abdomen indicates possible inflammatory/infectious colitis started on IV Cipro 400 mg twice a day and Flagyl 500 mg IV every 6 hours. Cultures are negative but urine culture is positive for E. coli sensitive to ciprofloxacin. 10/02/2018-CT scan shows inflammatory/infectious colitis he is on Cipro 400 mg IV twice a day Flagyl 500 mg IV every 6 hours. Urine culture is positive for E. coli sensitive to ciprofloxacin. blood Cultures after 48 hours are negative so far. 10/03/2018 CT scan of the abdomen shows colitis presently on Flagyl and ciprofloxacin patient is afebrile. Cultures are negative urine culture showing E. coli sensitivity to ciprofloxacin. He is to continue the present management patient denies any abdominal pain denies any blood in the stool. (10) Pancreatic mass Is this a current diagnosis for this admission?: Yes (11) Avascular necrosis of bone of hip Is this a current diagnosis for this admission?: Yes (12) Hypoalbuminemia Is this a current diagnosis for this admission?: Yes Plan: 10/01/2018 albumin levels came back as 1.6 today. Hypoalbuminemia most likely secondary to nausea vomiting and poor oral intake. Plan to give albumin 50 g IV today. To recheck the albumin levels tomorrow. 10/02/2018 7 serum albumin levels today is 2.2 after giving up 50 g of IV albumin yesterday. Hypoalbuminemia/protein energy malnutrition most likely secondary to poor oral intake. 10/03/2018-hypoalbuminemia most likely secondary to poor oral intake he received 50 g of IV albumin during the hospital stay. Serum albumin level today is 2.1. Dietary consult was requested. (13) Hypocalcemia Is this a current diagnosis for this admission?: Yes Plan: 10/01/2018-serum calcium level is 6.4 today and albumin is 1.6 corrected calcium is close 8. Hypocalcemia may be secondary to poor oral intake. 10/02/2018-serum calcium level today is 8.1 with albumin level of 2.2. Corrected calcium is more than 9. Plan is to continue the present management. 10/03/2018 serum calcium level is 8.3 with albumin of 2.1 corrected calcium is close to 9. Plan is to continue the present management. (14) Tobacco abuse Is this a current diagnosis for this admission?: Yes Plan: 10/02/2018-patient found to be smoking cigarettes in the hospital room. Patient was strongly advised against it. He is going to be placed on nicotine patches. 10/03/2018-patient is on nicotine patch chronic history of smoking again smoking counseling was provided for more than 10 minutes. Strongly advised to quit smoking. - Time Time Spent with patient: 15-24 minutes Smoking Cessation Education: over 10 minutes Medications reviewed and adjusted accordingly: Yes Anticipated discharge: [facility]
[2018-10-03] MEDS ORDERED: MAGNESIUM SULFATE 4 GM/100 ML RTUPB IV ONE (09:00)
[2018-10-03] MEDS: LEVETIRACETAM 1000 MG/NACL-ISO 1,000 MG/100 ML RTUPB IV SCH ×2 (10:48→21:42)
[2018-10-03] MEDS: LEVETIRACETAM 500 MG TABLET PO SCH ×2 (11:07→21:41)
[2018-10-03] MEDS: CIPROFLOXACIN 400 MG/D5W RTU 400 MG/200 ML RTUPB IV SCH ×2 (11:10→21:41)
[2018-10-03] MEDS: FAMOTIDINE INJ/PF 20 MG/2 ML SDV IV SCH ×2 (11:11→21:42)
[2018-10-03] MEDS: MAGNESIUM OXIDE 400 MG TABLET PO SCH ×3 (11:19→17:37)
[2018-10-03] MEDS: LISINOPRIL 10 MG TABLET PO SCH (11:19)
[2018-10-03] MEDS: CHOLECALCIFEROL (D3) 1,000 UNIT TABLET PO SCH (11:19)
[2018-10-03] MEDS: POTASSIUM CHLORIDE 10 MEQ CAPSULE.ER PO SCH ×2 (11:19→21:41)
[2018-10-03] MEDS: NICOTINE 14 MG/24 HR PATCH.TD24 TD SCH (11:20)
--- NOTE | 2018-10-03 11:26 | PDOC PROGRESS REPORT ---
Subjective Subjective:: Patient tolerated clear liquids; anticipates upper endoscopy by Dr. Montgomery later today. Reason For Visit: HYPOKALEMIA Physical Exam Vital Signs: Temp Pulse Resp BP Pulse Ox 98.0 F 83 16 109/70 100 10/03/18 07:14 10/03/18 07:14 10/03/18 07:14 10/03/18 07:14 10/03/18 07:14 Intake & Output 10/02/18 10/03/18 10/04/18 06:59 06:59 06:59 Intake Total 5264 3608 200 Output Total 900 600 Balance 4364 3008 200 Weight 78.7 kg 80.4 kg General appearance: PRESENT: no acute distress GI/Abdominal exam: PRESENT: other - Abdomen benign, no peritoneal signs mildly distended. Results Laboratory Results: 10/03/18 03:25 10/03/18 03:25 10/02/18 10/02/18 10/03/18 05:20 05:20 03:25 WBC 9.2 RBC 3.30 L Hgb 10.8 L Hct 31.8 L MCV 96 MCH 32.8 MCHC 34.0 RDW 21.1 H Plt Count 74 L Seg Neutrophils % 67.9 Lymphocytes % 22.8 Monocytes % 7.2 Eosinophils % 1.7 Basophils % 0.4 Absolute Neutrophils 6.2 Absolute Lymphocytes 2.1 Absolute Monocytes 0.7 Absolute Eosinophils 0.2 Absolute Basophils 0.0 Retic Count (auto) 1.08 Absolute Retic 0.035 Sodium Potassium Chloride Carbon Dioxide Anion Gap BUN Creatinine Est GFR ( Amer) Est GFR (Non-Af Amer) Glucose Calcium Magnesium Iron 28.1 L TIBC 156 L % Saturation 18 Ferritin 1910.00 H Total Bilirubin AST ALT Alkaline Phosphatase Total Protein Albumin Vitamin B12 728.0 Folate 2.72 L 10/03/18 03:25 WBC RBC Hgb Hct MCV MCH MCHC RDW Plt Count Seg Neutrophils % Lymphocytes % Monocytes % Eosinophils % Basophils % Absolute Neutrophils Absolute Lymphocytes Absolute Monocytes Absolute Eosinophils Absolute Basophils Retic Count (auto) Absolute Retic Sodium 136.6 L Potassium 3.9 Chloride 109 H Carbon Dioxide 20 L Anion Gap 8 BUN < 2 L Creatinine 0.44 L Est GFR ( Amer) > 60 Est GFR (Non-Af Amer) > 60 Glucose 81 Calcium 8.3 L Magnesium 1.4 L Iron TIBC % Saturation Ferritin Total Bilirubin 0.6 AST 65 H ALT 31 Alkaline Phosphatase 117 Total Protein 4.7 L Albumin 2.1 L Vitamin B12 Folate 09/29/18 09/29/18 09/30/18 10:29 19:35 01:39 CK-MB (CK-2) 0.87 0.80 0.65 Troponin I < 0.012 < 0.012 < 0.012 Impressions: Abdomen/Pelvis CT 09/29/18 00:00 IMPRESSION: 1. Redemonstrated fluid attenuation lesion of the pancreatic head measuring 4 x 4 x 3.5 x 2.8 cm, highly concerning for mass. Recommend multiphasic contrast-enhanced MRI to further evaluate. 2. Diffusely thickened sigmoid colon and rectum, in keeping with infectious or inflammatory colitis. 3. Avascular necrosis of the bilateral femoral heads. 4. Hepatic steatosis. Chest X-Ray 09/29/18 13:16 IMPRESSION: NO ACUTE RADIOGRAPHIC FINDING IN THE CHEST. Abdomen MRI 09/30/18 00:00 IMPRESSION: Heterogeneous enhancing mass adjacent to the pancreatic head. More than likely this is a primary duodenum wall lesion rather than pancreatic lesion. Correlation with upper endoscopy is recommended. Chest CT 09/30/18 00:00 IMPRESSION: Basilar atelectasis. No other significant findings in the chest. Assessment & Plan - Diagnosis (1) Gastric outlet obstruction Is this a current diagnosis for this admission?: Yes Plan: Impression: Chronic, previously undiagnosed gastric outlet obstruction likely due to obstruction at the second portion of the duodenum. Unsuccessful intubation of the pylorus during upper endoscopy this weekend. Clinically suspect duodenal or pancreatic malignancy. Plan: 1. Dr. Montgomery gastro enterologist , to make a second attempt upper endoscopy with cannulation of the pylorus and duodenum, with possible biopsies. 2.We will continue to follow patient with you.
[2018-10-03] MEDS: NORMAL SALINE 1000 ML 1,000 ML IV PRN ×2 (14:08→21:43)
[2018-10-03] MEDS ORDERED: FENTANYL CITRATE INJ/PF 100 MCG/2 ML AMPUL ONE (17:50)
[2018-10-03] MEDS ORDERED: MIDAZOLAM 2 MG/2 ML INJ ONE (17:50)
[2018-10-03] MEDS ORDERED: ONDANSETRON HCL INJ/PF 4 MG/2 ML SDV ONE (17:50)
[2018-10-03] MEDS ORDERED: DIPHENHYDRAMINE HCL 50 MG/ML VIAL ONE (17:50)
[2018-10-03] MEDS ORDERED: NALOXONE HCL INJ/PF 0.4 MG/1 ML SDV ONE (17:50)
[2018-10-03] MEDS ORDERED: GLUCAGON,HUMAN RECOMB 1 MG INJ ONE (17:51)
[2018-10-03] MEDS ORDERED: FLUMAZENIL INJ 0.5 MG/5 ML VIAL ONE (17:51)
[2018-10-03] MEDS ORDERED: EPINEPHRINE INJ 1 MG/10 ML DISP.SYRIN ONE (17:51)
[2018-10-03] MEDS: MIDAZOLAM 2 MG/2 ML INJ ONE ×2 (19:35→19:41)
[2018-10-03] MEDS: FENTANYL CITRATE INJ/PF 100 MCG/2 ML AMPUL ONE (19:40)
--- NOTE | 2018-10-03 20:16 | PDOC CONSULTATION ---
Consultation Consult Date: 10/02/18 History of Present Illness Admission Date/PCP: 09/29/18 13:02 SHEILA SILVESTRE PA-C History of Present Illness: CIERA OVIEDO is a 48 year old male patient was admitted on 09/30/2018 with nausea vomiting and diarrhea. Consultation was requested for a repeat EGD after an unsuccessful EGD yesterday when the duodenum could not be intubated. This was performed for a mass identified in the duodenal area. I reviewed patient's records from this admission and also from July of this year. He was admitted to the hospital in July with vomiting for about a week with abdominal pain. At that time he was hyponatremic and hypokalemic. He had a CT of the abdomen with IV and oral contrast in July that showed a 4 x 4 x 7 cm mass around the head of the pancreas and duodenum. He has some thickening of the wall of the gastric antrum but no definite evidence of bowel obstruction was identified. He was then transferred to [facility] for further management. He was kept in [facility] for about 4 days during which time he had an EGD, colonoscopy, and endoscopic ultrasound with biopsy of lymph nodes. He also had a CAT scan at [facility] that showed the lesion to be a 3.8 x 3.1 cm cystic mass. His EGD showed a 3-4 cm antrum mass versus mucosal thickening from which biopsy was taken. Colonoscopy showed a small polyp and diverticulosis. Endoscopic ultrasound showed a 5 cm mass extending from the ampulla sonographically involving all the layers of the duodenal wall and the periduodenal tissue. It was contiguous with a periduodenal 3 cm cystic lesion. The lesion is not thought to involve the pancreatic head. Gastrohepatic and celiac lymph nodes were biopsied. Biopsy from the duodenum during his EGD showed no significant pathology. Gastric biopsy of the antrum only showed foveolar hyperplasia. Pathology of the lymph node biopsy was unremarkable and flow cytometry of the lymph node was negative for lymphoma. Patient was supposed to follow-up with a dispersion mixer in [place]. According to the patient he was able to eat whatever he wanted for about 5 days after discharge from [facility] on 08/02/2018. Since then he has been having issues with nausea and vomiting usually postprandial. He does better with liquids and pudding-like foods. He only has abdominal pain when he has been throwing up a lot. He used to drink alcohol on weekends until about 6 months ago and now he only drinks on rare occasions. He has no previous history of pancreatitis. His most recent CT on 09/29/2018 shows a 4 x 4 x 3.5 cm lesion as previously identified in addition to steatosis and bilateral avascular necrosis of the femoral heads. An MRI performed on 09/30/2018 showed an enhancing mass a djacent to the pancreatic head most likely from the duodenal wall rather than the pancreas. His CT of his abdomen was normal in June 2015 Past Medical History Cardiac Medical History: Reports: Hyperlipidema, Hypertension EENT Medical History: Reports: None Neurological Medical History: Reports: Seizures Malignancy Medical History: Reports: None GI Medical History: Reports: None, Gastroesophageal Reflux Disease Musculoskeltal Medical History: Reports: None Psychiatric Medical History: Reports: Depression Past Surgical History Past Surgical History: Reports: Tonsillectomy Social History Smoking Status: Current Some Day Smoker Cigarettes Packs Per Day: 5 Number of Years Smokin Last Time Smoked: this morning Frequency of Alcohol Use: Occasional Hx Recreational Drug Use: No Drugs: None Hx Prescription Drug Abuse: No - Advance Directive Resuscitation Status: Full Code Family History Family History: CVA, DM, Hyperlipidemia, Hypertension Parental Family History Reviewed: No Children Family History Reviewed: NA Sibling(s) Family History Reviewed.: NA Medication/Allergy Home Medications: Amlodipine Besylate [Norvasc 10 mg Tablet] 10 mg PO DAILY 09/17/18 Levetiracetam [Keppra 500 mg Tablet] 500 mg PO Q12 09/17/18 Lisinopril [Prinivil 10 mg Tablet] 20 mg PO DAILY 09/17/18 Pantoprazole Sodium [Protonix] 40 mg PO DAILY 09/17/18 Potassium Chloride 20 meq PO DAILY #30 tablet.er 09/19/18 Allergies/Adverse Reactions: No Known Allergies Allergy (Unverified 09/29/18 09:07) Review of Systems All systems: reviewed and no additional remarkable complaints except as stated Physical Exam Vital Signs: Temp Pulse Resp BP Pulse Ox 97.9 F 95 18 141/108 H 95 10/03/18 15:11 10/03/18 20:00 10/03/18 20:00 10/03/18 20:00 10/03/18 20:00 Intake & Output 10/02/18 10/03/18 10/04/18 06:59 06:59 06:59 Intake Total 5264 3608 2676 Output Total 900 600 350 Balance 4364 3008 2326 Weight 78.7 kg 80.4 kg Exam: General: Patient is alert and looks well. HEENT: There is no pallor or jaundice. PERRLA. Oropharynx normal Respiratory: No chest deformity. No respiratory distress. Chest wall palpitation was unremarkable. Breath sounds were normal Cardiovascular: Heart sounds 1 and 2 normal with no murmurs. Abdominal: Not distended. Soft and nontender. Liver and spleen not palpable. No ascites demonstrated. Bowel sounds active. Rectal examination was deferred. Extremities: No edema Neurological: Alert and oriented x4. Grossly nonfocal. Normal speech Skin: No significant rash Psychological: Normal affect Results Laboratory Results: 10/03/18 03:25 10/03/18 03:25 10/03/18 10/03/18 03:25 03:25 WBC 9.2 RBC 3.30 L Hgb 10.8 L Hct 31.8 L MCV 96 MCH 32.8 MCHC 34.0 RDW 21.1 H Plt Count 74 L Seg Neutrophils % 67.9 Lymphocytes % 22.8 Monocytes % 7.2 Eosinophils % 1.7 Basophils % 0.4 Absolute Neutrophils 6.2 Absolute Lymphocytes 2.1 Absolute Monocytes 0.7 Absolute Eosinophils 0.2 Absolute Basophils 0.0 Sodium 136.6 L Potassium 3.9 Chloride 109 H Carbon Dioxide 20 L Anion Gap 8 BUN < 2 L Creatinine 0.44 L Est GFR ( Amer) > 60 Est GFR (Non-Af Amer) > 60 Glucose 81 Calcium 8.3 L Magnesium 1.4 L Total Bilirubin 0.6 AST 65 H ALT 31 Alkaline Phosphatase 117 Total Protein 4.7 L Albumin 2.1 L 09/29/18 09/29/18 09/30/18 10:29 19:35 01:39 CK-MB (CK-2) 0.87 0.80 0.65 Troponin I < 0.012 < 0.012 < 0.012 Impressions: Abdomen/Pelvis CT 09/29/18 00:00 IMPRESSION: 1. Redemonstrated fluid attenuation lesion of the pancreatic head measuring 4 x 4 x 3.5 x 2.8 cm, highly concerning for mass. Recommend multiphasic contrast-enhanced MRI to further evaluate. 2. Diffusely thickened sigmoid colon and rectum, in keeping with infectious or inflammatory colitis. 3. Avascular necrosis of the bilateral femoral heads. 4. Hepatic steatosis. Chest X-Ray 09/29/18 13:16 IMPRESSION: NO ACUTE RADIOGRAPHIC FINDING IN THE CHEST. Abdomen MRI 09/30/18 00:00 IMPRESSION: Heterogeneous enhancing mass adjacent to the pancreatic head. More than likely this is a primary duodenum wall lesion rather than pancreatic lesion. Correlation with upper endoscopy is recommended. Chest CT 09/30/18 00:00 IMPRESSION: Basilar atelectasis. No other significant findings in the chest. Assessment & Plan - Diagnosis (1) Duodenal mass Is this a current diagnosis for this admission?: Yes Plan: Patient has had a lesion around his duodenum at least since July of this year. It was actually larger in July when it measured 4 x 4 x 7 cm by CAT scan performed at [facility] though a CAT scan performed at [facility] in July showed it to be a 3.8 cm lesion. Now it measures 4 x 4 cm. He is symptomatic from gastric outlet obstruction though he tends to tolerate liquids better. Previous endoscopic ultrasound was not diagnostic though only lymph nodes were biopsied. His previous EGD in July also suggested mucosal abnormality in the duodenum though biopsy was unremarkable. A repeat EGD with biopsy will be needed now. He will need definite management for the cystic lesion especially with continued symptoms over the last few months. He does have a solid component to the lesion as shown on the endoscopic ultrasound contiguous with a 3 cm cyst. He likely needs biopsy of the lesion itself before considering surgery. (2) Abnormal finding on GI tract imaging Is this a current diagnosis for this admission?: Yes (4) Nausea & vomiting Is this a current diagnosis for this admission?: Yes
--- NOTE | 2018-10-03 20:24 | Operative Report ---
Operative Report DATE OF SURGERY: 10/03/18 Operative Report: Pre-op diagnosis: Abnormal CT and MRI of the duodenum. Post-op diagnosis: 1. Gastric antral sessile polyp 2. Extrinsic duodenal lesion with mild stenoses at the duodenal bulb 3. Normal duodenal mucosa Surgery: Esophagogastroduodenoscopy with biopsy Medications: Versed 3mg Fentanyl 100mcg IV push Tissue removed: Antral biopsy for pathology Procedure: After informed consent obtained from patient, the throat was sprayed with Hurricane and conscious sedation was achieved. The upper endoscope was inserted into the esophagus under direct vision and advanced into the stomach. The duodenum was entered and examined to the second part. Endoscope was then slowly pulled out of the patient as the mucosa was examined into details. Patient tolerated procedure well. Findings Esophagus: Normal Antrum: Sessile 2-2.5 cm polyp in the prepyloric antrum. Biopsy was taken. Body: Normal Fundus: Normal Duodenum first part: No mucosal abnormality identified but there appeared to be an extrinsic compression between the first and second part of duodenum. There was only minimal stenoses with no difficulty in passing the endoscope. Duodenum second part: Normal Plan: Await pathology. Suggests repeat endoscopic ultrasound with biopsy of the lesion. I also suggest upper GI and small bowel series to rule out any evidence for a more distal obstruction. Previous biopsy of the antral lesion in July was unremarkable. Keep patient on pured diet OPERATION: . INTRAOPERATIVE FINDINGS: incomplete exam secondary to pyloric swelling. could not intubate the pylorus.
[2018-10-04] MEDS: METRONIDAZOLE 500 MG/NS RTU 500 MG/100 ML RTUPB IV SCH ×3 (00:58→15:20)
[2018-10-04 05:22] LABS: ABSOLUTE EOSINOPHILS # (AUTO) 0.1 10^3/uL (0.0-0.6); ABSOLUTE LYMPHOCYTES (AUTO) 1.3 10^3/uL (0.5-4.7); ABSOLUTE MONOCYTES (AUTO) 1.1 10^3/uL (0.1-1.4); ABSOLUTE NEUT (AUTO) 8.3 10^3/uL (1.7-8.2); BASOPHILS % (AUTO) 0.1 % (0-2); EOSINOPHILS % (AUTO) 1.1 % (0-6); HEMATOCRIT 32.9 % (37.9-51.0); HEMOGLOBIN 11.2 g/dL (13.5-17.0); LYMPHOCYTES % (AUTO) 12.1 % (13-45); MEAN CORPUSCULAR HEMOGLOBIN 32.7 pg (27.0-33.4); MEAN CORPUSCULAR VOLUME 96 fl (80-97); PLATELET COUNT 110 10^3/uL (150-450); RED BLOOD COUNT 3.42 10^6/uL (4.35-5.55); RED CELL DISTRIBUTION WIDTH 22.1 % (11.5-14.0); SEGMENTED NEUTROPHILS % (AUTO) 76.7 % (42-78); TOTAL CELLS COUNTED % (AUTO) 100 %; WHITE BLOOD COUNT 10.8 10^3/uL (4.0-10.5)
[2018-10-04 05:45] LABS: ALANINE AMINOTRANSFERASE 25 U/L (21-72); ALBUMIN 2.1 g/dL (3.5-5.0); ALKALINE PHOSPHATASE 116 U/L (38-126); ANION GAP 8 (5-19); ASPARTATE AMINO TRANSFERASE 47 U/L (17-59); BILIRUBIN,DIRECT 0.3 mg/dL (0.0-0.4); BILIRUBIN,TOTAL 0.5 mg/dL (0.2-1.3); CALCIUM 8.2 mg/dL (8.4-10.2); CARBON DIOXIDE 20 mmol/L (22-30); CHLORIDE 108 mmol/L (98-107); GLUCOSE 89 mg/dL (75-110); POTASSIUM 3.9 mmol/L (3.6-5.0); SODIUM 136.1 mmol/L (137-145); TOTAL PROTEIN 4.6 g/dL (6.3-8.2)
[2018-10-04 05:48] LABS: BLOOD UREA NITROGEN < 2 mg/dL (7-20)
--- NOTE | 2018-10-04 08:22 | PDOC PROGRESS REPORT ---
Subjective Progress Note for:: 10/04/18 Subjective:: Reviewed endoscopy by Dr. Montgomery and also reviewed records that just came in today from [facility]. As noted previously he was transferred to [facility]. But per the patient he did not remember anything that has gone on there. In fact did have full workup there also with EGD and then followed by EUS. On endoscopic ultrasound there was a 2 cm antral polyp, and this antral polyp now looks like it was removed by Dr. Montgomery on endoscopy that was done yesterday, th ere was a 5 cm carpeting mass extending proximally from the ampulla involving all layers of the duodenal wall extending into the periduodenal tissue, there was also a gastrohepatic and celiac node biopsy biopsy of all these areas were negative for malignancy. Ultimately gastroenterology felt that it was related to a pancreatitis type issue. He apparently actually saw the marine cargo surveyor as an outpatient after the hospitalization. He is doing a little bit better now, he is planned for a small bowel series to ensure that liquids are at least passing appropriately, contrast did pass on the oral contrasted CT so he should be okay with liquids and pured possibly diet. Reason For Visit: HYPOKALEMIA Physical Exam Vital Signs: Temp Pulse Resp BP Pulse Ox 98.5 F 100 20 138/94 H 99 10/04/18 03:31 10/04/18 03:31 10/04/18 03:31 10/04/18 03:31 10/04/18 03:31 Intake & Output 10/03/18 10/04/18 10/05/18 06:59 06:59 06:59 Intake Total 3608 3883 Output Total 600 750 Balance 3008 3133 Weight 80.4 kg 81.2 kg General appearance: PRESENT: no acute distress, well-developed, well-nourished Head exam: PRESENT: atraumatic, normocephalic Eye exam: PRESENT: conjunctiva pink, EOMI, PERRLA. ABSENT: scleral icterus Ear exam: PRESENT: normal external ear exam Mouth exam: PRESENT: moist, tongue midline Neck exam: ABSENT: carotid bruit, JVD, lymphadenopathy, thyromegaly Respiratory exam: PRESENT: clear to auscultation sulaiman. ABSENT: rales, rhonchi, wheezes Cardiovascular exam: PRESENT: RRR. ABSENT: diastolic murmur, rubs, systolic murmur Pulses: PRESENT: normal dorsalis pedis pul Vascular exam: PRESENT: normal capillary refill GI/Abdominal exam: PRESENT: normal bowel sounds, soft. ABSENT: distended, guarding, mass, organolmegaly, rebound, tenderness Rectal exam: PRESENT: deferred Extremities exam: PRESENT: full ROM. ABSENT: calf tenderness, clubbing, pedal edema Neurological exam: PRESENT: alert, awake, oriented to person, oriented to place, oriented to time, oriented to situation, CN II-XII grossly intact. ABSENT: motor sensory deficit Psychiatric exam: PRESENT: appropriate affect, normal mood. ABSENT: homicidal ideation, suicidal ideation Skin exam: PRESENT: dry, intact, warm. ABSENT: cyanosis, rash Results Laboratory Results: 10/04/18 04:20 10/04/18 04:20 10/04/18 10/04/18 04:20 04:20 WBC 10.8 H RBC 3.42 L Hgb 11.2 L Hct 32.9 L MCV 96 MCH 32.7 MCHC 34.0 RDW 22.1 H Plt Count 110 L Seg Neutrophils % 76.7 Lymphocytes % 12.1 L Monocytes % 10.0 Eosinophils % 1.1 Basophils % 0.1 Absolute Neutrophils 8.3 H Absolute Lymphocytes 1.3 Absolute Monocytes 1.1 Absolute Eosinophils 0.1 Absolute Basophils 0.0 Sodium 136.1 L Potassium 3.9 Chloride 108 H Carbon Dioxide 20 L Anion Gap 8 BUN < 2 L Creatinine 0.44 L Est GFR ( Amer) > 60 Est GFR (Non-Af Amer) > 60 Glucose 89 Calcium 8.2 L Magnesium 1.4 L Total Bilirubin 0.5 AST 47 ALT 25 Alkaline Phosphatase 116 Total Protein 4.6 L Albumin 2.1 L 09/29/18 09/29/18 09/30/18 10:29 19:35 01:39 CK-MB (CK-2) 0.87 0.80 0.65 Troponin I < 0.012 < 0.012 < 0.012 Impressions: Abdomen/Pelvis CT 09/29/18 00:00 IMPRESSION: 1. Redemonstrated fluid attenuation lesion of the pancreatic head measuring 4 x 4 x 3.5 x 2.8 cm, highly concerning for mass. Recommend multiphasic contrast-enhanced MRI to further evaluate. 2. Diffusely thickened sigmoid colon and rectum, in keeping with infectious or inflammatory colitis. 3. Avascular necrosis of the bilateral femoral heads. 4. Hepatic steatosis. Chest X-Ray 09/29/18 13:16 IMPRESSION: NO ACUTE RADIOGRAPHIC FINDING IN THE CHEST. Abdomen MRI 09/30/18 00:00 IMPRESSION: Heterogeneous enhancing mass adjacent to the pancreatic head. More than likely this is a primary duodenum wall lesion rather than pancreatic lesion. Correlation with upper endoscopy is recommended. Chest CT 09/30/18 00:00 IMPRESSION: Basilar atelectasis. No other significant findings in the chest. Assessment & Plan - Diagnosis (1) Duodenal mass Is this a current diagnosis for this admission?: Yes Plan: Not cancer related, probably inflammation related from chronic pancreatitis. We will sign off, patient will see Dr. Mendez as an outpatient, thank you for the opportunity to assist in this patient care please call with any questions. Today spent 45 minutes in discussion and coordination of care. - Time Time Spent with patient: 35 or more minutes
[2018-10-04] MEDS ORDERED: PROMETHAZINE HCL INJ 25 MG/1 ML VIAL IV PRN (09:16)
[2018-10-04] MEDS: FAMOTIDINE INJ/PF 20 MG/2 ML SDV IV SCH (12:33)
[2018-10-04] MEDS: POTASSIUM CHLORIDE 10 MEQ CAPSULE.ER PO SCH (12:34)
[2018-10-04] MEDS: CHOLECALCIFEROL (D3) 1,000 UNIT TABLET PO SCH (12:34)
[2018-10-04] MEDS: LISINOPRIL 10 MG TABLET PO SCH (12:34)
[2018-10-04] MEDS: MAGNESIUM OXIDE 400 MG TABLET PO SCH ×2 (12:34→15:07)
[2018-10-04] MEDS: LEVETIRACETAM 500 MG TABLET PO SCH (12:34)
[2018-10-04] MEDS: NICOTINE 14 MG/24 HR PATCH.TD24 TD SCH (12:35)
[2018-10-04] MEDS: CIPROFLOXACIN 400 MG/D5W RTU 400 MG/200 ML RTUPB IV SCH ×2 (12:35→15:05)
[2018-10-04] MEDS ORDERED: MAGNESIUM SULFATE/D5W 1 GM/100 ML RTUPB IV ONE ×3 (13:15→15:45)
--- NOTE | 2018-10-04 16:17 | RADIOLOGY REPORT (SQ) ---
EXAM DESCRIPTION: UPPER GI/SM BOWEL COMPLETED DATE/TIME: 10/04/2018 11:41 am REASON FOR STUDY: vomiting COMPARISON: CT ABDOMEN PELVIS 09/29/2018. After I TECHNIQUE: Under fluoroscopic guidance, patient ingested effervescent granules followed by thick an d thin barium. Fluoroscopic spot images and routine radiographic images acquired and stored on PACS . Following evaluation of esophagus and stomach, additional barium administered with serial delayed ab dominal radiographs until colonic identification. Fluoroscopic images recorded of the terminal ileu m. 12 MM BARIUM TABLET GIVEN: The patient swallowed a 12 mm barium tab which passed easily through the e sophagus and into the stomach without delay. FLUOROSCOPY TIME: 4.1 minutes 19 images saved to PACS. LIMITATIONS: None. FINDINGS: NEUROMUSCULAR COORDINATION OF SWALLOW: Normal. No aspiration. ESOPHAGEAL MOTILITY: Normal peristalsis. No esophageal spasm. ESOPHAGEAL MUCOSA: Normal mucosa without masses or ulceration. GASTRO-ESOPHAGEAL JUNCTION: No hiatal hernia or reflux. STOMACH: Normal without masses or ulcerations. GASTRIC OUTLET: No delay in emptying. Normal pylorus. DUODENAL BULB: Normal distention. DUODENUM: Mucosa normal. No malrotation. There is a small collection of barium arising from the 2nd portion of the duodenum which may represent duodenal diverticulum or ulcerating mass. PROXIMAL SMALL BOWEL: Normal as visualized. JEJUNUM: Normal mucosal pattern. No dilatation, segmentation, strictures or masses. ILEUM: Normal mucosal pattern. No dilatation, segmentation, strictures or masses. TERMINAL ILEUM AND ILEO-CECAL VALVE: Normal mucosal pattern without cobble-stoning or stricture. Nor mal compression. PROXIMAL COLON: Incompletely imaged. No abnormality. NON-GI TRACT STRUCTURES: No significant finding. OTHER: Normal small bowel transit time. IMPRESSION: SMALL COLLECTION OF BARIUM ARISING FROM 2ND PORTION OF DUODENUM WHICH MAY REPRESENT DUOD ENAL DIVERTICULUM VERSUS ULCERATING MASS. REMAINDER STUDY UNREMARKABLE. COMMENT: NONE Quality ID [id number]: Final reports for procedures using fluoroscopy that document radiation exposure mayuri carly, or exposure time and number of fluorographic images (if radiation exposure indices are not avail able) TECHNICAL DOCUMENTATION: JOB ID: [id number] [employer]- All Rights Reserved Reading location - IP/workstation name: [email or web address] [id number]
[2018-10-04 16:35] VITALS: BP 139/97
--- NOTE | 2018-10-05 16:46 | PDOC DISCHARGE SUMMARY ---
General - Admit/Disc Date/PCP Admission Date/Primary Care Provider: 09/29/18 13:02 SHEILA SILVESTRE PA-C Discharge Date: 10/04/18 - Discharge Diagnosis (1) Hypomagnesemia Is this a current diagnosis for this admission?: Yes (2) Hypokalemia Is this a current diagnosis for this admission?: Yes (3) History of ETOH abuse Is this a current diagnosis for this admission?: Yes (4) Chronic pancreatitis Is this a current diagnosis for this admission?: Yes - Additional Information Resuscitation Status: Full Code Discharge Diet: As Tolerated Prescriptions: Ciprofloxacin HCl [Cipro 500 mg Tablet] 500 mg PO BID 2 Days #4 tablet Magnesium Oxide [Mag-Ox 400 mg Tablet] 800 mg PO TID #15 tablet Metronidazole [Flagyl 500 mg Tablet] 500 mg PO TID 2 Days #6 tablet Home Medications: Amlodipine Besylate [Norvasc 10 mg Tablet] 10 mg PO DAILY 09/17/18 Levetiracetam [Keppra 500 mg Tablet] 500 mg PO Q12 09/17/18 Lisinopril [Prinivil 10 mg Tablet] 20 mg PO DAILY 09/17/18 Pantoprazole Sodium [Protonix] 40 mg PO DAILY 09/17/18 Potassium Chloride 20 meq PO DAILY #30 tablet.er 09/19/18 Ciprofloxacin HCl [Cipro 500 mg Tablet] 500 mg PO BID 2 Days #4 tablet 10/04/18 Magnesium Oxide [Mag-Ox 400 mg Tablet] 800 mg PO TID #15 tablet 10/04/18 Metronidazole [Flagyl 500 mg Tablet] 500 mg PO TID 2 Days #6 tablet 10/04/18 History of Present Illness History of Present Illness: Admitting hospitalist's H&P: CIERA OVIEDO is a 48 year old male the past medical history of hypertension, seizure disorder/hyperlipidemia, gastroesophageal reflux disease and history of GI bleed in July came to the emergency room with complaints of nausea vomiting's and diarrhea for the last several days. Is vomiting everything is unable to keep anything down except for occasional Gatorade and vomitus looks like yellowish mucus according to the patient denies any chest pain shortness of breath denies any dizzy spells denies any lightheadedness. He is also complaining of diarrhea everything he is taking in coming out right away denies any blood in the stool. No fevers and headaches. In the ER potassium is found to be 2.3 and magnesium is 0.9 medical consult was called for admission. Hospital Course Hospital Course: This is a 48 yr old male with a PMH of HTN, history of upper GI bleed, seizure disorder, hyperlipidemia and GERD who was readmitted due to recurrence of multiple episodes of nausea, vomiting and diarrhea and subsequently noted to be hypokalemic and hypomagnesemic. He was started on IV fluids, Flagyl and ciprofloxacin for his colitis and was also started on potassium and magnesium replacements. He had a CT scan which showed a possible pancreatic head mass as well as changes consistent with colitis/sigmoiditis. Surgery was consulted for EGD. First EGD was difficult and unsuccessful hence gI was consulted by surgery when GI service was available after a few days. Dr. Montgomery did attempt an EGD. Again, the endoscopic study was incomplete secondary to pyloric swelling and inability to intubate the pylorus. Only notable was a gastric antral sessile polyp with extrinsic duodenal lesion with mild stenoses at the duodenal bulb. Records were requested from [facility] as patient was apparently transferred there earlier this year in July for similar issues. Appears, patient had an EGD and EUS done at [facility]. He was kept in [facility] for about 4 days during which time he had an EGD, colonoscopy, and endoscopic ultrasound with biopsy of lymph nodes. He also had a CAT scan at [facility] that showed the lesion to be a 3.8 x 3.1 cm cystic mass. His EGD showed a 3-4 cm antrum mass versus mucosal thickening from which biopsy was taken. Colonoscopy showed a small polyp and diverticulosis. Endoscopic ultrasound showed a 5 cm mass extending from the ampulla sonograp hically involving all the layers of the duodenal wall and the periduodenal tissue. It was contiguous with a periduodenal 3 cm cystic lesion. The lesion is not thought to involve the pancreatic head. Gastrohepatic and celiac lymph nodes were biopsied. Biopsy from the duodenum during his EGD showed no significant pathology. Gastric biopsy of the antrum only showed foveolar hyperplasia. Pathology of the lymph node biopsy was unremarkable and flow cytometry of the lymph node was negative for lymphoma. Biopsy of all these areas were negative for malignancy. Ultimately gastroenterology deemed the lesion is a pancreatitis-type issue. Oncology was also consulted for further opinion. Records from [facility] were also reviewed. Patient did improve and he started tolerating clear liquid. This was advanced to pureed diet which he tolerated well with no issues. His hypkalemia and hypomagenesemia were also corrected. Surgery, GI and oncology recommend close outpatient follow up to see if patient continues to tolerate pureed diet well. Physical Exam Vital Signs: Temp Pulse Resp BP Pulse Ox 98.1 F 85 16 139/97 H 98 10/04/18 16:24 10/04/18 16:24 10/04/18 16:24 10/04/18 16:24 10/04/18 16:24 Intake & Output 10/04/18 10/05/18 10/06/18 06:59 06:59 06:59 Intake Total 3883 984 Output Total 750 Balance 3133 984 Weight 179 lb 0.246 oz General appearance: PRESENT: no acute distress, well-developed, well-nourished Head exam: PRESENT: atraumatic, normocephalic Eye exam: PRESENT: conjunctiva pink, EOMI, PERRLA. ABSENT: scleral icterus Ear exam: PRESENT: normal external ear exam Mouth exam: PRESENT: moist, tongue midline Neck exam: ABSENT: carotid bruit, JVD, lymphadenopathy, thyromegaly Respiratory exam: PRESENT: clear to auscultation sulaiman. ABSENT: rales, rhonchi, wheezes Cardiovascular exam: PRESENT: RRR. ABSENT: diastolic murmur, rubs, systolic murmur Pulses: PRESENT: normal dorsalis pedis pul GI/Abdominal exam: PRESENT: normal bowel sounds, soft. ABSENT: distended, guarding, mass, organolmegaly, rebound, tenderness Rectal exam: PRESENT: deferred Neurological exam: PRESENT: alert, awake, oriented to person, oriented to place, oriented to time, oriented to situation, CN II-XII grossly intact. ABSENT: motor sensory deficit Results Laboratory Results: 10/04/18 04:20 10/04/18 04:20 10/04/18 16:05 Magnesium 2.2 09/29/18 19:35 Blood Blood Culture - Final NO GROWTH IN 5 DAYS 09/29/18 14:54 Blood Blood Culture - Final NO GROWTH IN 5 DAYS 09/29/18 09/29/18 09/30/18 10:29 19:35 01:39 CK-MB (CK-2) 0.87 0.80 0.65 Troponin I < 0.012 < 0.012 < 0.012 Impressions: Abdomen/Pelvis CT 09/29/18 00:00 IMPRESSION: 1. Redemonstrated fluid attenuation lesion of the pancreatic head measuring 4 x 4 x 3.5 x 2.8 cm, highly concerning for mass. Recommend multiphasic contrast-enhanced MRI to further evaluate. 2. Diffusely thickened sigmoid colon and rectum, in keeping with infectious or inflammatory colitis. 3. Avascular necrosis of the bilateral femoral heads. 4. Hepatic steatosis. Chest X-Ray 09/29/18 13:16 IMPRESSION: NO ACUTE RADIOGRAPHIC FINDING IN THE CHEST. Abdomen MRI 09/30/18 00:00 IMPRESSION: Heterogeneous enhancing mass adjacent to the pancreatic head. More than likely this is a primary duodenum wall lesion rather than pancreatic lesion. Correlation with upper endoscopy is recommended. Chest CT 09/30/18 00:00 IMPRESSION: Basilar atelectasis. No other significant findings in the chest. Upper GI and Small Bowel X-Ray 10/04/18 07:00 IMPRESSION: SMALL COLLECTION OF BARIUM ARISING FROM 2ND PORTION OF DUODENUM WHICH MAY REPRESENT DUODENAL DIVERTICULUM VERSUS ULCERATING MASS. REMAINDER STUDY UNREMARKABLE. Qualifiers - * PATIENT BEING DISCHARGED WITH ANY OF THE FOLLOWING DIAGNOSIS: No
== END 2018-10-04 17:20 | disposition home or self-care (01) | DRG 392 ==
LOC: ER 09:05 → EH 13:02 → 3N 22:05
PROVIDERS: ADMIT Internal Medicine; ATTEND Internal Medicine
PROC: 30233N1 Transfusion of Nonautologous Red Blood Cells into Peripheral Vein, Percutaneous Approach (ICD-10-PCS; 2018-10-01)
PROC: 0DJ08ZZ Inspection of Upper Intestinal Tract, Via Natural or Artificial Opening Endoscopic (ICD-10-PCS; 2018-10-02)
PROC: 0DB78ZX Excision of Stomach, Pylorus, Via Natural or Artificial Opening Endoscopic, Diagnostic (ICD-10-PCS; 2018-10-03)
PROC: 0DB98ZX Excision of Duodenum, Via Natural or Artificial Opening Endoscopic, Diagnostic (ICD-10-PCS; principal; 2018-10-03 19:05)
DX: K52.9 Noninfective gastroenteritis and colitis, unspecified (principal); K86.1 Other chronic pancreatitis; M87.852 Other osteonecrosis, left femur; M87.851 Other osteonecrosis, right femur; K31.1 Adult hypertrophic pyloric stenosis; E87.6 Hypokalemia; E83.42 Hypomagnesemia; I10 Essential (primary) hypertension; G40.909 Epilepsy, unspecified, not intractable, without status epilepticus; E78.5 Hyperlipidemia, unspecified; K21.9 Gastro-esophageal reflux disease without esophagitis; F32.9 Major depressive disorder, single episode, unspecified; F10.11 Alcohol abuse, in remission; F17.210 Nicotine dependence, cigarettes, uncomplicated; R63.4 Abnormal weight loss; F41.9 Anxiety disorder, unspecified; B96.20 Unspecified Escherichia coli [E. coli] as the cause of diseases classified elsewhere; K29.50 Unspecified chronic gastritis without bleeding; E83.51 Hypocalcemia; K31.7 Polyp of stomach and duodenum; D64.89 Other specified anemias; Z79.899 Other long term (current) drug therapy; Z82.3 Family history of stroke; Z83.3 Family history of diabetes mellitus; Z82.49 Family history of ischemic heart disease and other diseases of the circulatory system; Z86.010 Personal history of colon polyps
CPT/HCPCS: 36415; 36430; 43235; 43239; 71045; 71260; 74177; 74183; 74249; 80053; 80061; 80177; 81001; 82378; 82553; 82607; 82728; 82746; 83036; 83540; 83550; 83690; 83735; 84132; 84443; 84484; 85025; 85045; 86301; 86850; 86900; 86901; 86920; 87040; 87086; 87088; 87186; 87804; 88305; 88342; 93005; 93010; 96361; 96365; 96368; 96375; 99285; J0171; J0744; J1200; J1610; J1953; J2250; J2310; J2405; J3010; J3475; J3480; J3490; J7030; P9016; P9047; S0028

== ENCOUNTER 2018-11-22 07:02 | Day surgery (SDC) | payer MEDICAID ==
[2018-11-22] MEDS ORDERED: DIPHENHYDRAMINE HCL 50 MG/ML VIAL ONE (07:10)
[2018-11-22] MEDS ORDERED: FENTANYL CITRATE INJ/PF 100 MCG/2 ML AMPUL ONE (07:11)
[2018-11-22] MEDS ORDERED: FLUMAZENIL INJ 0.5 MG/5 ML VIAL ONE (07:11)
[2018-11-22] MEDS ORDERED: ONDANSETRON HCL INJ/PF 4 MG/2 ML SDV ONE (07:11)
[2018-11-22] MEDS ORDERED: NALOXONE HCL INJ/PF 0.4 MG/1 ML SDV ONE (07:11)
[2018-11-22] MEDS ORDERED: EPINEPHRINE INJ 1 MG/10 ML DISP.SYRIN ONE (07:12)
[2018-11-22] MEDS ORDERED: GLUCAGON,HUMAN RECOMB 1 MG INJ ONE (07:12)
[2018-11-22] MEDS: MIDAZOLAM 2 MG/2 ML INJ ONE ×2 (08:00→08:05)
--- NOTE | 2018-11-22 08:29 | Operative Report ---
Nonrecallable Operative Report DATE OF SURGERY: 11/22/18 PREOPERATIVE DIAGNOSIS: groove pancreatitis. nausea,vomiting POSTOPERATIVE DIAGNOSIS: groove pancreatitis. nausea,vomiting OPERATION: egd SURGEON: TIA DE OLIVEIRA ANESTHESIA: Moderate Sedation TISSUE REMOVED OR ALTERED: none COMPLICATIONS: none ESTIMATED BLOOD LOSS: 0
--- NOTE | 2018-11-22 08:32 | Discharge Summary ---
Discharge Summary (SDC) - Discharge Final Diagnosis: groove pancreatitis Date of Surgery: 11/22/18 Discharge Date: 11/22/18 Condition: Fair Treatment or Instructions: stop all alcohol. Referrals: SHEILA SILVESTRE PA-C [Primary Care Provider] - Discharge Diet: As Tolerated Discharge Activity: Activity As Tolerated, Other - stop all alcohol Report the Following to Your Physician Immediately: Increase in Pain - f/u iwth me in 1mo
--- NOTE | 2018-11-22 09:09 | OPERATIVE REPORT E ---
Operative Report NAME: CIERA OVIEDO : 1970 AGE: 48Y DATE OF SURGERY: 11/22/2018 ROOM: PREOPERATIVE DIAGNOSIS: HISTORY OF GROOVE PANCREATITIS. POSTOPERATIVE DIAGNOSIS: HISTORY OF GROOVE PANCREATITIS. OPERATION: Esophagogastroduodenoscopy. SURGEON: TIA DE OLIVEIRA M.D. INDICATIONS FOR PROCEDURE: This is a 48-year-old male who is well-known to me. He has been in the hospital a number of times for inability to tolerate p.o. food secondary to nausea and vomiting. He has a significant ETOH history. He has been scoped. Patient has undergone upper endoscopy here by [facility] last month and by [facility]. He also has had a CT scan before which showed swelling of his pancreatic head and second portion of his duodenum. It was felt that this is secondary to ETOH use as patient is a chronic alcoholic and currently continues to drink although he has been admonished to abstain. He presents today for followup endoscopy and has complaints of increasing nausea and vomiting. After speaking with him and his mother, he is continuing to drink alcohol, specifically moonshine. PROCEDURE: The patient is brought to the endoscopy suite, awake, and alert in stable condition. After appropriate timeout and site verification, he was placed in the left lateral decubitus position and given IV sedation. The Olympus gastroscope was passed into his mouth, into the proximal esophagus, and then past the GE junction into the stomach, which appeared to be somewhat inflamed but no evidence of gastritis. The pylorus was also quite inflamed but we were able to intubate it and examine the duodenum which appeared to be patent without any evidence of significant swelling. As we withdrew the scope, we again examined the pyloric area. There was no ulcers or pathology other than a swollen pylorus. As we withdrew the scope, we retroflexed and examined the fundus and GE junction and that appeared to be normal. The scope was then pulled back through the GE junction into the distal esophagus. There was no evidence of a significant esophagitis. The scope was then removed. IMPRESSION: Groove pancreatitis with minimal pyloric swelling. No other pathologic findings noted in the stomach and the esophagus. Follow up will be with me in 6 to 8 weeks. Again, he is to abstain from alcohol. DICTATING PHYSICIAN: TIA DE OLIVEIRA M.D. [id number] PHY#: [id number] ID: [id number] JOB#: [id number] ACCT: [id number] cc:TIA DE OLIVEIRA M.D. >
[2018-11-22 09:22] VITALS: BP 103/69
== END 2018-11-22 09:30 | disposition home or self-care (01) ==
LOC: END 07:02
PROVIDERS: ATTEND Surgery
DX: K31.89 Other diseases of stomach and duodenum (principal); R11.2 Nausea with vomiting, unspecified; K21.9 Gastro-esophageal reflux disease without esophagitis; F43.29 Adjustment disorder with other symptoms; I10 Essential (primary) hypertension; E78.5 Hyperlipidemia, unspecified; Z87.891 Personal history of nicotine dependence; Z79.899 Other long term (current) drug therapy; Z01.818 Encounter for other preprocedural examination
CPT/HCPCS: 43235; J2250; J3010; J0171; J1200; J1610; J2310; J2405; J3490

== ENCOUNTER 2018-11-25 16:52 | Inpatient (IN) | payer MEDICAID ==
[2018-11-25] MEDS ORDERED: NORMAL SALINE 1000 ML 1,000 ML IV ONE (17:31)
--- NOTE | 2018-11-25 17:36 | ER Document Report ---
ED Medical Screen (RME) - General Chief Complaint: Leg Pain Stated Complaint: KNEE PAIN RADIATING TO CHEST Time Seen by Provider: 11/25/18 17:30 Primary Care Provider: SHEILA SILVESTRE PA-C [Primary Care Provider] - Follow up as needed Mode of Arrival: Wheelchair Information source: Patient Notes: 48-year-old male presented to ED for complaint of chest pain right knee pain nausea vomiting and diarrhea x3 days. He states he was seen recently for a procedure and has had nausea vomiting and diarrhea since then. He has not been to the ED 3 days ago as the chart stated. Patient is alert oriented respirations regular and unlabored able to answer questions appropriately. He does have a EKG that was done and pivot that shows a heart rate of 131. He is afebrile at this time. Will get labs urine chest x-ray and have patient seen by another provider. I have greeted and performed a rapid initial assessment of this patient. A comprehensive ED assessment and evaluation of the patient, analysis of test results and completion of medical decision making process will be conducted by an additional ED providers. Dictation of this chart was performed using voice recognition software; therefore, there may be some unintended grammatical errors. TRAVEL OUTSIDE OF THE [place] IN LAST 30 DAYS: No - Related Data Allergies/Adverse Reactions: No Known Allergies Allergy (Verified 11/25/18 16:53) Past Medical History - Social History Frequency of alcohol use: Occasional Drug Abuse: None - Past Medical History Cardiac Medical History: Reports: Hx Hypercholesterolemia, Hx Hypertension Denies: Hx Coronary Artery Disease, Hx Heart Attack Pulmonary Medical History: Denies: Hx Asthma, Hx Bronchitis, Hx COPD, Hx Pneumonia Neurological Medical History: Reports: Hx Seizures - LAST 11/18/18. Denies: Hx Cerebrovascular Accident Renal/ Medical History: Denies: Hx Peritoneal Dialysis GI Medical History: Reports: Hx Gastritis, Hx Gastroesophageal Reflux Disease, Hx Colonoscopy, Hx Endoscopy Musculoskeltal Medical History: Denies Hx Arthritis Psychiatric Medical History: Reports: Hx Depression Past Surgical History: Reports: Hx Tonsillectomy - Immunizations Hx Diphtheria, Pertussis, Tetanus Vaccination: Yes Physical Exam - Vital signs Vitals: Temp Pulse Resp BP Pulse Ox 98.6 F 140 H 16 100/72 95 11/25/18 17:00 11/25/18 17:00 11/25/18 17:00 11/25/18 17:00 11/25/18 17:00 Course - Vital Signs Vital signs: Temp Pulse Resp BP Pulse Ox 98.6 F 140 H 16 100/72 95 11/25/18 17:00 11/25/18 17:00 11/25/18 17:00 11/25/18 17:00 11/25/18 17:00 Doctor's Discharge - Discharge Referrals: SHEILA SILVESTRE PA-C [Primary Care Provider] - Follow up as needed
[2018-11-25 18:12] LABS: ABSOLUTE BASOPHILS # (AUTO) 0.1 10^3/uL (0.0-0.2); ABSOLUTE LYMPHOCYTES (AUTO) 2.2 10^3/uL (0.5-4.7); ABSOLUTE MONOCYTES (AUTO) 0.6 10^3/uL (0.1-1.4); ABSOLUTE NEUT (AUTO) 10.9 10^3/uL (1.7-8.2); BASOPHILS % (AUTO) 0.6 % (0-2); EOSINOPHILS % (AUTO) 0.1 % (0-6); HEMATOCRIT 35.2 % (37.9-51.0); HEMOGLOBIN 11.7 g/dL (13.5-17.0); MEAN CORPUSCULAR HEMOGLOBIN 31.6 pg (27.0-33.4); MEAN CORPUSCULAR HGB CONC 33.2 g/dL (32.0-36.0); MEAN CORPUSCULAR VOLUME 95 fl (80-97); MONOCYTES % (AUTO) 4.4 % (3-13); PLATELET COUNT 170 10^3/uL (150-450); RED CELL DISTRIBUTION WIDTH 22.5 % (11.5-14.0); SEGMENTED NEUTROPHILS % (AUTO) 78.9 % (42-78); TOTAL CELLS COUNTED % (AUTO) 100 %; WHITE BLOOD COUNT 13.8 10^3/uL (4.0-10.5)
[2018-11-25 18:32] LABS: ALANINE AMINOTRANSFERASE 30 U/L (21-72); ALBUMIN 3.3 g/dL (3.5-5.0); ALKALINE PHOSPHATASE 193 U/L (38-126); ANION GAP 19 (5-19); ASPARTATE AMINO TRANSFERASE 122 U/L (17-59); BILIRUBIN,DIRECT 0.9 mg/dL (0.0-0.4); BILIRUBIN,TOTAL 1.2 mg/dL (0.2-1.3); BLOOD UREA NITROGEN 6 mg/dL (7-20); CALCIUM 8.4 mg/dL (8.4-10.2); CARBON DIOXIDE 34 mmol/L (22-30); CHLORIDE 84 mmol/L (98-107); GLUCOSE 123 mg/dL (75-110); LIPASE 210.9 U/L (23-300); SODIUM 137.4 mmol/L (137-145); TOTAL PROTEIN 7.5 g/dL (6.3-8.2)
--- NOTE | 2018-11-25 18:33 | RADIOLOGY REPORT (SQ) ---
EXAM DESCRIPTION: KNEE RIGHT 4 VIEWS COMPLETED DATE/TIME: 11/25/2018 6:22 pm REASON FOR STUDY: right knee pain COMPARISON: None. NUMBER OF VIEWS: Four views. TECHNIQUE: AP, lateral, and both oblique radiographic images acquired of the right knee. LIMITATIONS: None. FINDINGS: MINERALIZATION: Normal. BONES: No acute fracture or dislocation. No worrisome bone lesions. JOINT: No effusion. SOFT TISSUES: No soft tissue swelling. No radio-opaque foreign body. OTHER: No other significant finding. IMPRESSION: NEGATIVE STUDY OF THE RIGHT KNEE. NO RADIOGRAPHIC EVIDENCE OF ACUTE INJURY. TECHNICAL DOCUMENTATION: JOB ID: [id number] [employer]- All Rights Reserved Reading location - IP/workstation name: [email or web address]
--- NOTE | 2018-11-25 18:34 | RADIOLOGY REPORT (SQ) ---
EXAM DESCRIPTION: CHEST 2 VIEWS COMPLETED DATE/TIME: 11/25/2018 6:22 pm REASON FOR STUDY: chest pain COMPARISON: 09/29/2018 EXAM PARAMETERS: NUMBER OF VIEWS: two views TECHNIQUE: Digital Frontal and Lateral radiographic views of the chest acquired. RADIATION DOSE: NA LIMITATIONS: none FINDINGS: LUNGS AND PLEURA: There is the suggestion of a posterior inferior infiltrate on the latera l view. It is possible this could be in the medial right base on the PA view. MEDIASTINUM AND HILAR STRUCTURES: No masses or contour abnormalities. HEART AND VASCULAR STRUCTURES: Heart normal size. No evidence for failure. BONES: No acute findings. HARDWARE: None in the chest. OTHER: No other significant finding. IMPRESSION: Cannot exclude right lower lobe pneumonia. TECHNICAL DOCUMENTATION: JOB ID: [id number] [employer]- All Rights Reserved Reading location - IP/workstation name: [email or web address]
[2018-11-25 18:41] LABS: POTASSIUM 2.1 mmol/L (3.6-5.0)
[2018-11-25 18:44] LABS: CREATINE KINASE MB 0.48 ng/mL (<4.55)
[2018-11-25 18:48] LABS: TROPONIN I < 0.012 ng/mL
[2018-11-25] MEDS ORDERED: POTASSIUM CHLORIDE 10 MEQ CAPSULE.ER PO ONE (19:10)
[2018-11-25] MEDS ORDERED: RINGERS SOLUTION,LACTATED 1,000 ML IV ONE (19:18)
[2018-11-25] MEDS ORDERED: MORPHINE SULFATE 10 MG/ML INJ IV PRN ×2 (19:21→20:42)
[2018-11-25] MEDS ORDERED: METOCLOPRAMIDE HCL INJ/PF 10 MG/2 ML SDV IV ONE (19:21)
--- NOTE | 2018-11-25 19:41 | ER Document Report ---
ED General - General Chief Complaint: Leg Pain Stated Complaint: KNEE PAIN RADIATING TO CHEST Time Seen by Provider: 11/25/18 17:30 Mode of Arrival: Wheelchair Notes: Patient is a 48-year-old male with a past medical history of chronic alcohol abuse, recurrent pancreatitis, recurrent vomiting and diarrhea with history of hypokalemia and hypomagnesemia who presents with 3 days of progressively worsening vomiting and diarrhea. The patient reports that he always has vomiting and diarrhea but that it has been much more intense in the last 3 days than normal. Regards to symptoms as being severe, constant, not improved or worsened by anything. Long-standing history of similar symptoms in the past. Has not seen his primary doctor regarding today's concerns. Has been evaluated extensively for this recurrent pathology including with endoscopy, colonoscopy, and evaluation of his pancreas. He has not had fever, or syncope. Also reports some right knee pain ever since he rolled out of bed approximately 1 week ago. This is a mild, throbbing, constant discomfort to the knee worsened by walking. Has not done anything to try to treat the knee. Has continued to be able to ambulate. No history of similar injury in the past. TRAVEL OUTSIDE OF THE [place] IN LAST 30 DAYS: No - Related Data Allergies/Adverse Reactions: No Known Allergies Allergy (Verified 11/25/18 16:53) Past Medical History - General Information source: Patient - Social History Smoking Status: Current Every Day Smoker Frequency of alcohol use: Occasional Drug Abuse: None Lives with: Family Family History: CVA, DM, Hyperlipidemia, Hypertension Patient has suicidal ideation: No Patient has homicidal ideation: No - Past Medical History Cardiac Medical History: Reports: Hx Hypercholesterolemia, Hx Hypertension Denies: Hx Coronary Artery Disease, Hx Heart Attack Pulmonary Medical History: Denies: Hx Asthma, Hx Bronchitis, Hx COPD, Hx Pneumonia Neurological Medical History: Reports: Hx Seizures - LAST 11/18/18. Denies: Hx Cerebrovascular Accident Renal/ Medical History: Denies: Hx Peritoneal Dialysis GI Medical History: Reports: Hx Gastritis, Hx Gastroesophageal Reflux Disease, Hx Colonoscopy, Hx Endoscopy Musculoskeletal Medical History: Denies Hx Arthritis Psychiatric Medical History: Reports: Hx Depression Past Surgical History: Reports: Hx Tonsillectomy - Immunizations Hx Diphtheria, Pertussis, Tetanus Vaccination: Yes Review of Systems - Review of Systems Notes: Constitutional: Negative for fever. HENT: Negative for sore throat. Eyes: Negative for visual changes. Cardiovascular: Negative for chest pain. Respiratory: Negative for shortness of breath. Gastrointestinal: Positive for intermittent abdominal pain, positive for nausea vomiting and diarrhea Genitourinary: Negative for dysuria. Musculoskeletal: Negative for back pain. Skin: Negative for rash. Neurological: Negative for headaches, weakness or numbness. 10 point ROS negative except as marked above and in HPI. Physical Exam - Vital signs Vitals: Temp Pulse Resp BP Pulse Ox 98.6 F 140 H 16 100/72 95 11/25/18 17:00 11/25/18 17:00 11/25/18 17:00 11/25/18 17:00 11/25/18 17:00 Interpretation: Hypertensive Notes: PHYSICAL EXAMINATION: GENERAL: Patient appears moderately unwell but in no acute distress HEAD: Atraumatic, normocephalic. EYES: Pupils equal round and reactive to light, extraocular movements intact, sclera anicteric, conjunctiva are normal. ENT: nares patent, oropharynx clear without exudates. Moderately dry mucous membranes. NECK: Normal range of motion, supple without lymphadenopathy LUNGS: Breath sounds clear to auscultation bilaterally and equal. No wheezes rales or rhonchi. HEART: Regular tachycardia without murmurs ABDOMEN: Soft, nontender, normoactive bowel sounds. No guarding, no rebound. No masses appreciated. EXTREMITIES: Normal range of motion, no pitting or edema. No cyanosis. NEUROLOGICAL: No focal neurological deficits. Moves all extremities spontaneously and on command. PSYCH: Somewhat lethargic but answers all questions appropriately SKIN: Warm, Dry, normal turgor, no rashes or lesions noted. Course - Re-evaluation Re-evalutation: 11/25/18 19:38 Patient presents with intractable nausea, vomiting, diarrhea, has a history of chronic pancreatitis recently diagnosed with groove pancreatitis by Dr. Mendez on the 14 of this month who returns with intractable vomiting and diarrhea. Patient has a long-standing history of the same but states it is been much worse in the last 3 days. On exam he is clinically dehydrated with very dry oral mucosa, heart rates into the 130s to 140s at time of initial presentation. His initial EKG shows depressed T waves although no QT prolongation. Potassium is concerningly low at 2.1, magnesium level is pending. IV potassium and magnesium repletion has been initiated. IV metoclopramide for nausea and vomiting. Given the extreme degree of his hypokalemia he requires hospitalization. I did discuss with Dr. Eden who is accepted the patient. In regards the patient's concern of right knee injury this was from greater than a week ago, full flexion extension of the knee is intact. There is some superficial healed abrasions over the knee itself. X-ray of the knee is unremarkable. - Vital Signs Vital signs: Temp Pulse Resp BP Pulse Ox 99.9 F 123 H 20 147/99 H 100 11/26/18 00:24 11/26/18 00:24 11/26/18 00:24 11/26/18 00:24 11/26/18 00:24 - Laboratory Result Diagrams: 11/25/18 18:00 11/25/18 18:00 Laboratory results interpreted by me: 11/25/18 11/25/18 11/25/18 18:00 18:00 18:00 WBC 13.8 H RBC 3.70 L Hgb 11.7 L Hct 35.2 L RDW 22.5 H Seg Neutrophils % 78.9 H Absolute Neutrophils 10.9 H Potassium 2.1 L* Chloride 84 L Carbon Dioxide 34 H BUN 6 L Glucose 123 H Magnesium 1.5 L Direct Bilirubin 0.9 H AST 122 H Alkaline Phosphatase 193 H Albumin 3.3 L - Diagnostic Test Radiology reviewed: Image reviewed, Reports reviewed Radiology results interpreted by me: 11/25/18 19:39 Right knee x-ray: No acute fracture or dislocation Chest x-ray: No acute infiltrate - EKG Interpretation by Me Additional EKG results interpreted by me: 11/25/18 19:41 Sinus tachycardia, rate 131. T wave depression throughout. QTC 396. Discharge - Discharge Clinical Impression: Hypokalemia, Tachycardia, History of ETOH abuse, Elevated LFTs, Vomiting and diarrhea Chronic pancreatitis Qualifiers: Pancreatitis type: unspecified pancreatitis type Qualified Code(s): K86.1 - Other chronic pancreatitis Condition: Fair Disposition: ADMITTED INPATIENT Admitting Provider: Meek (Hospitalist) Unit Admitted: [facility]
[2018-11-25] MEDS: MAGNESIUM SULFATE/D5W 1 GM/100 ML RTUPB IV SCH ×2 (19:42→19:57)
[2018-11-25] MEDS: POTASSI CL 20 MEQ/50 ML RIDER 20 MEQ/50 ML RTUPB IV SCH ×2 (20:22→22:42)
[2018-11-25] MEDS ORDERED: MAG HYDROX/AL HYDROX/SIMETH SUSP 30 ML UDCUP PO PRN (20:34)
[2018-11-25] MEDS ORDERED: LEVALBUTEROL HCL NEB 0.63 MG/3 ML AMPUL NEB PRN (20:42)
[2018-11-25] MEDS ORDERED: HYDRALAZINE HCL INJ/PF 20 MG/1 ML SDV IV PRN (20:42)
[2018-11-25] MEDS ORDERED: DIAZEPAM INJ 10 MG/2 ML DISP.SYRIN IV PRN (20:42)
[2018-11-25] MEDS ORDERED: NICOTINE 21 MG/24 HR PATCH.TD24 TD PRN (20:42)
[2018-11-25] MEDS ORDERED: ACETAMINOPHEN 650 MG SUPP.RECT PR PRN (20:42)
[2018-11-25] MEDS: PANTOPRAZOLE SODIUM 40 MG VIAL IV SCH (22:42)
[2018-11-25] MEDS: METOPROLOL TARTRATE PF/INJ 5 MG/5 ML SDV IV SCH ×2 (22:43→22:44)
[2018-11-25] MEDS: METOCLOPRAMIDE HCL INJ/PF 10 MG/2 ML SDV IV SCH (22:43)
[2018-11-25] MEDS ORDERED: LEVETIRACETAM 500 MG/NACL-ISO 500 MG/100 ML RTUPB IV ONE (22:44)
[2018-11-25] MEDS: HEPARIN SOD (PORCINE) 5,000 UNIT/ML 1 ML SYRINGE SUBCUT SCH (22:44)
--- NOTE | 2018-11-25 22:47 | PDOC H&P ---
History of Present Illness Admission Date/PCP: 11/25/18 19:48 SHEILA SILVESTRE PA-C Patient complains of: Nausea, vomiting and diarrhea History of Present Illness: CIERA MINOR is a 48 year old male who presents the emergency room with a 3- day history of intractable nausea vomiting and diarrhea. Patient admits that he has chronic pancreatitis and generally has nausea and vomiting with diarrhea on an intermittent basis. Beginning 3 days ago he developed severe nausea with severe intractable vomiting and innumerable watery sometimes explosive diarrhea stools. He has been unable to keep down oral medications, fluids or food as attempting to do so worsens his symptoms. He admits associated symptoms of generalized weakness, malaise, fatigue and palpitations (rapid heartbeat). He admits several prior similar episodes and has not identified any other aggravating or ameliorating factors for his current increase in gastrointestinal symptoms. In the emergency room he was found to have a tachycardia in the 140s and a potassium level of 2.1. He was clinically severely dehydrated and was subsequently admitted to the [facility] for further evaluation and treatment. Past Medical History Cardiac Medical History: Reports: Hyperlipidema, Hypertension Denies: Coronary Artery Disease, Myocardial Infarction Pulmonary Medical History: Denies: Asthma, Bronchitis, Chronic Obstructive Pulmonary Disease (COPD), Pneumonia EENT Medical History: Denies: Cataracts, Eyes - Prescription lenses, Ears - Hearing aids Neurological Medical History: Reports: Seizures - Last known seizure 11/18/18 Denies: Hemorrhagic CVA, Ischemic CVA Endocrine Medical History: Denies: Diabetes Mellitus Type 1, Diabetes Mellitus Type 2, Hyperthyroidism, Hypothyroidism, Obesity Renal/ Medical History: Denies: Chronic Kidney Disease, Nephrolithiasis Malignancy Medical History: Reports: None GI Medical History: Reports: Gastroesophageal Reflux Disease, Other - Chronic pancreatitis, history of upper GI bleeding Denies: Cirrhosis, Crohn's Disease, Hepatitis, Ulcerative Colitis Musculoskeltal Medical History: Denies: Arthritis, Gout Skin Medical History: Denies: Eczema, Psoriasis Psychiatric Medical History: Reports: Depression, Tobacco Dependency Denies: Alcohol Dependency, Substance Abuse Traumatic Medical History: Reports: None Hematology: Denies: Anemia, Bleeding Tendencies Infectious Medical History: Reports: None Past Surgical History Past Surgical History: Reports: Tonsillectomy Social History Information Source: Patient Lives with: Family Smoking Status: Current Every Day Smoker Frequency of Alcohol Use: Occasional Hx Recreational Drug Use: No Drugs: None Hx Prescription Drug Abuse: No - Advance Directive Resuscitation Status: Full Code Surrogate healthcare decision maker:: Marilu Minor his mother Family History Family History: CVA, DM, Hyperlipidemia, Hypertension Parental Family History Reviewed: Yes Children Family History Reviewed: No Sibling(s) Family History Reviewed.: Yes Medication/Allergy Home Medications: Amlodipine Besylate [Norvasc 10 mg Tablet] 10 mg PO DAILY 09/17/18 Levetiracetam [Keppra 500 mg Tablet] 500 mg PO Q12 09/17/18 Lisinopril [Prinivil 10 mg Tablet] 20 mg PO DAILY 09/17/18 Pantoprazole Sodium [Protonix] 40 mg PO DAILY 09/17/18 Potassium Chloride 20 meq PO DAILY #30 tablet.er 09/19/18 Allergies/Adverse Reactions: No Known Allergies Allergy (Verified 11/25/18 16:53) Review of Systems Constitutional: PRESENT: as per HPI, anorexia - Unable to eat or drink, fatigue, weakness, other - Malaise Eyes: ABSENT: visual disturbances, other - Ocular pain Ears: ABSENT: hearing changes, other - Ear pain Nose, Mouth, and Throat: ABSENT: mouth pain, sore throat Cardiovascular: PRESENT: as per HPI, palpitations - Rapid heart rate. ABSENT: chest pain, dyspnea on exertion, edema, orthropnea Respiratory: ABSENT: cough, dyspnea Gastrointestinal: PRESENT: as per HPI, diarrhea, nausea, vomiting. ABSENT: abdominal pain, constipation Genitourinary: ABSENT: dysuria, hematuria Musculoskeletal: ABSENT: back pain, joint swelling, muscle weakness Integumentary: ABSENT: pruritus, rash Neurological: PRESENT: convulsions - Had a seizure on 11/18/2018. ABSENT: confusion, focal weakness, memory loss, syncope Psychiatric: ABSENT: anxiety, depression Endocrine: ABSENT: cold intolerance, heat intolerance Hematologic/Lymphatic: ABSENT: easy bleeding, easy bruising Physical Exam Vital Signs: Temp Pulse Resp BP Pulse Ox 98.6 F 140 H 16 170/109 H 99 11/25/18 17:00 11/25/18 17:00 11/25/18 19:01 11/25/18 19:01 11/25/18 19:01 Intake & Output 11/23/18 11/24/18 11/25/18 23:59 23:59 23:59 Intake Total 1100 Balance 1100 Weight 63.1 kg General appearance: PRESENT: no acute distress, cooperative, well-developed Head exam: PRESENT: atraumatic, normocephalic Eye exam: ABSENT: conjunctival injection, nystagmus, scleral icterus Ear exam: PRESENT: normal external ear exam. ABSENT: bleeding, drainage Mouth exam: PRESENT: dry mucosa, neck supple Neck exam: ABSENT: JVD, thyromegaly, tracheal deviation Respiratory exam: PRESENT: clear to auscultation sulamian, symmetrical, unlabored Cardiovascular exam: PRESENT: RRR, tachycardia. ABSENT: clicks, gallop, rubs Pulses: PRESENT: normal radial pulses, normal dorsalis pedis pul Vascular exam: PRESENT: normal capillary refill. ABSENT: pallor GI/Abdominal exam: PRESENT: normal bowel sounds, soft, tenderness - Minimal epigastric tenderness only on deep palpation Rectal exam: PRESENT: deferred Extremities exam: ABSENT: joint swelling, pedal edema Musculoskeletal exam: PRESENT: full ROM, normal inspection Neurological exam: PRESENT: alert, oriented to person, oriented to place, oriented to time, oriented to situation, CN II-XII grossly intact. ABSENT: motor sensory deficit Psychiatric exam: PRESENT: appropriate affect, normal mood Skin exam: PRESENT: dry, intact, warm. ABSENT: jaundice, rash, urticaria Results Laboratory Results: 11/25/18 18:00 11/25/18 18:00 11/25/18 11/25/18 18:00 18:00 WBC 13.8 H RBC 3.70 L Hgb 11.7 L Hct 35.2 L MCV 95 MCH 31.6 MCHC 33.2 RDW 22.5 H Plt Count 170 Seg Neutrophils % 78.9 H Lymphocytes % 16.0 Monocytes % 4.4 Eosinophils % 0.1 Basophils % 0.6 Absolute Neutrophils 10.9 H Absolute Lymphocytes 2.2 Absolute Monocytes 0.6 Absolute Eosinophils 0.0 Absolute Basophils 0.1 Sodium 137.4 Potassium 2.1 L* Chloride 84 L Carbon Dioxide 34 H Anion Gap 19 BUN 6 L Creatinine 0.60 Est GFR ( Amer) > 60 Est GFR (Non-Af Amer) > 60 Glucose 123 H Calcium 8.4 Total Bilirubin 1.2 AST 122 H ALT 30 Alkaline Phosphatase 193 H Total Protein 7.5 Albumin 3.3 L Lipase 210.9 11/25/18 18:00 CK-MB (CK-2) 0.48 Troponin I < 0.012 Impressions: Chest X-Ray 11/25/18 17:31 IMPRESSION: Cannot exclude right lower lobe pneumonia. Knee X-Ray 11/25/18 17:34 IMPRESSION: NEGATIVE STUDY OF THE RIGHT KNEE. NO RADIOGRAPHIC EVIDENCE OF ACUTE INJURY. Assessment and Plan - Diagnosis (1) Acute on chronic pancreatitis Is this a current diagnosis for this admission?: Yes Plan: Patient be treated aggressively with IV fluid replacement and control of his associated symptoms of nausea vomiting and diarrhea. Once able to tolerate oral medications additional therapy will be employed. If patient develops significant pain from his pancreatitis he will use morphine sulfate 2 to 4 mg IV every 2 hours as needed for pain control on a sliding scale basis. A daily CBC, metabolic profile and magnesium level as well as daily amylase, lipase and liver function studies will be obtained to appropriately follow the course of the patient's disease process and properly assess therapeutic effect. (2) Hypokalemia Is this a current diagnosis for this admission?: Yes Plan: Patient be treated with IV fluids containing potassium and additional supplemental potassium given with intravenous K riders initially followed by oral potassium supplementation once he is able to tolerate oral medications. (3) Dehydration Is this a current diagnosis for this admission?: Yes Plan: Patient be treated with IV fluids utilizing balanced electrolyte solution to correct his electrolyte abnormalities. (4) Diarrhea Qualifiers: Diarrhea type: due to malabsorption Qualified Code(s): K90.9 - Intestinal malabsorption, unspecified; R19.7 - Diarrhea, unspecified Is this a current diagnosis for this admission?: Yes Plan: Patient's diarrhea will be treated by treating his underlying pancreatitis. Initially this will be done utilizing supportive measures such as IV fluids with electrolyte balance. Once patient is able to tolerate oral medications he will be started on oral pancreatic enzymes to compensate for the decreased enzymatic output due to chronic pancreatitis. (5) Nausea & vomiting Qualifiers: Vomiting type: unspecified Vomiting Intractability: intractable Qualified Code(s): R11.2 - Nausea with vomiting, unspecified Is this a current diagnosis for this admission?: Yes Plan: Patient's nausea and vomiting will be controlled utilizing intravenous Reglan is the initial agent. He will also be treated with supportive and symptomatic cares per routine. His condition will be followed with daily metabolic profiles and magnesium levels. (6) Hypertension Qualifiers: Hypertension type: essential hypertension Qualified Code(s): I10 - Essential (primary) hypertension Is this a current diagnosis for this admission?: Yes Plan: Patient's hypertension is uncontrolled since he has been unable to take his medications. His blood pressure will be controlled with one or more of the following agents: IV hydralazine, IV metoprolol, IV diltiazem or IV enalapril. He will be started back on his oral medications with appropriate adjustments once he is able to tolerate oral fluids and food. (7) Epilepsy Qualifiers: Epilepsy type: unspecified Intractability: not intractable Status epilepticus: without status epilepticus Qualified Code(s): G40.909 - Epilepsy, unspecified, not intractable, without status epilepticus Is this a current diagnosis for this admission?: Yes Plan: Patient's epilepsy will be treated with Keppra 500 mg IV every 12 hours until he is able to resume taking his oral Keppra for seizure control. (8) Tobacco dependence Is this a current diagnosis for this admission?: Yes Plan: Smoking cessation is advised and counseled briefly. A nicotine replacement patch will be available for patients use. - Time Time Spent with patient: 25-34 minutes Smoking Cessation Education: 3 to 10 minutes Medications reviewed and adjusted accordingly: Yes Anticipated discharge: Home - Inpatient Certification Based on my medical assessment, after consideration of the patient's comorbidities, presenting symptoms, or acuity I expect that the services needed warrant INPATIENT care.: Yes I certify that my determination is in accordance with my understanding of Medicare's requirements for reasonable and necessary INPATIENT services [42 CFR 412.3e].: Yes Medical Necessity: Significant Comorbidiites Make Outpatient Treatment Too Risky, Need Close Monitoring Due to Risk of Patient Decompensation, Need For IV Fluids, Need For Continuous Telemetry Monitoring, Risk of Complication if Not Cared For in Hospital, Risk of Diagnosis Which Will Require Inpatient Eval/Care/Monitoring
[2018-11-25] MEDS: LEVETIRACETAM 500 MG/NACL-ISO 500 MG/100 ML RTUPB IV SCH (22:53)
[2018-11-26] MEDS ORDERED: ENALAPRILAT DIHYDRATE INJ/PF 2.5 MG/2 ML SDV IV SCH
[2018-11-26] MEDS: METOCLOPRAMIDE HCL INJ/PF 10 MG/2 ML SDV IV SCH ×4 (00:28→19:10)
[2018-11-26] MEDS ORDERED: ENALAPRILAT DIHYDRATE INJ/PF 2.5 MG/2 ML SDV IV PRN (00:35)
[2018-11-26] MEDS: LORAZEPAM INJ 2 MG/1 ML VIAL IV PRN (01:59)
[2018-11-26] MEDS ORDERED: POTASSI CL 20 MEQ/D5LR 1L 20 MEQ/1,000 ML RTUINJ IV ONE (03:29)
[2018-11-26] MEDS: POTASSI CL 20 MEQ/D5LR 1L 20 MEQ/1,000 ML RTUINJ IV PRN ×6 (03:58→22:28)
[2018-11-26] MEDS: HEPARIN SOD (PORCINE) 5,000 UNIT/ML 1 ML SYRINGE SUBCUT SCH ×3 (05:02→21:19)
[2018-11-26 05:30] LABS: MEAN CORPUSCULAR HEMOGLOBIN 32.7 pg (27.0-33.4); MEAN CORPUSCULAR HGB CONC 34.6 g/dL (32.0-36.0); MEAN CORPUSCULAR VOLUME 94 fl (80-97); RED BLOOD COUNT 2.43 10^6/uL (4.35-5.55); RED CELL DISTRIBUTION WIDTH 21.5 % (11.5-14.0); WHITE BLOOD COUNT 10.9 10^3/uL (4.0-10.5)
[2018-11-26 05:50] LABS: ALANINE AMINOTRANSFERASE 24 U/L (21-72); ALBUMIN 2.2 g/dL (3.5-5.0); ALKALINE PHOSPHATASE 131 U/L (38-126); AMYLASE 49 U/L (30-110); ANION GAP 11 (5-19); ASPARTATE AMINO TRANSFERASE 77 U/L (17-59); BILIRUBIN,DIRECT 0.8 mg/dL (0.0-0.4); BILIRUBIN,TOTAL 1.7 mg/dL (0.2-1.3); BLOOD UREA NITROGEN 5 mg/dL (7-20); CARBON DIOXIDE 32 mmol/L (22-30); CHLORIDE 90 mmol/L (98-107); GLUCOSE 113 mg/dL (75-110); TOTAL PROTEIN 5.1 g/dL (6.3-8.2)
[2018-11-26 06:00] LABS: CALCIUM 6.8 mg/dL (8.4-10.2); POTASSIUM 2.1 mmol/L (3.6-5.0)
[2018-11-26 06:19] LABS: PLATELET COUNT 91 10^3/uL (150-450)
[2018-11-26] MEDS: MAGNESIUM SULFATE/D5W 1 GM/100 ML RTUPB IV SCH ×2 (07:51→09:15)
[2018-11-26] MEDS: LIPASE/PROTEASE/AMYLASE 1 CAP CAPSULE.DR PO SCH ×4 (07:51→16:15)
--- NOTE | 2018-11-26 08:43 | EKG REPORT ---
SEVERITY:- ABNORMAL ECG - SINUS TACHYCARDIA CONSIDER POSTERIOR INFARCT BORDERLINE T ABNORMALITIES, ANT-LAT LEADS : Confirmed by: Saleem García MD 26-Nov-2018 08:37:24
--- NOTE | 2018-11-26 08:44 | EKG REPORT ---
SEVERITY:- ABNORMAL ECG - SINUS TACHYCARDIA NONSPECIFIC ST-T CHANGES DIFFUSE, UNCHANGED FROM 09/29/18 EKG : Confirmed by: Saleem García MD 26-Nov-2018 08:38:57
--- NOTE | 2018-11-26 09:02 | PDOC PROGRESS REPORT ---
Subjective Progress Note for:: 11/26/18 Subjective:: 48 year old male who presents the emergency room with a 3-day history of intractable nausea vomiting and diarrhea. Patient admits that he has chronic pancreatitis and generally has nausea and vomiting with diarrhea on an intermittent basis. Beginning 3 days ago he developed severe nausea with severe intractable vomiting and innumerable watery sometimes explosive diarrhea stools. He has been unable to keep down oral medications, fluids or food as attempting to do so worsens his symptoms. He admits associated symptoms of generalized weakness, malaise, fatigue and palpitations (rapid heartbeat). He admits several prior similar episodes and has not identified any other aggravating or ameliorating factors for his current increase in gastrointestinal symptoms. In the emergency room he was found to have a tachycardia in the 140s and a potassium level of 2.1. He was clinically severely dehydrated and was subsequently admitted to the [facility] for further evaluation and treatment. [id number]-old male came to the emergency room with nausea vomiting and diarrhea he has history of chronic pancreatitis noncompliant with pancreatic enzyme supplementation in the emergency room found to have potassium of 2.1 and magnesium is 1.5 is getting IV potassium and IV magnesium supplementations is comfortably sleeping in the bed denies any complaints. Afebrile. No acute events since the admission. Reason For Visit: ACUTE ON CHRONIC PANCREATITIS, HYPOKALEMIA Physical Exam Vital Signs: Temp Pulse Resp BP Pulse Ox 99.2 F 120 H 16 132/89 H 98 11/26/18 04:39 11/26/18 07:00 11/26/18 05:32 11/26/18 04:39 11/26/18 05:32 Intake & Output 11/25/18 11/26/18 11/27/18 06:59 06:59 06:59 Intake Total 4300 Output Total 0 Balance 4300 Weight 66 kg General appearance: PRESENT: no acute distress Head exam: PRESENT: atraumatic Eye exam: PRESENT: PERRLA Mouth exam: PRESENT: moist, tongue midline Neck exam: ABSENT: carotid bruit, JVD, lymphadenopathy, thyromegaly Respiratory exam: PRESENT: decreased breath sounds Cardiovascular exam: PRESENT: tachycardia GI/Abdominal exam: PRESENT: normal bowel sounds, soft. ABSENT: distended, guarding, mass, organolmegaly, rebound, tenderness Rectal exam: PRESENT: deferred Extremities exam: PRESENT: full ROM. ABSENT: calf tenderness, clubbing, pedal edema Neurological exam: PRESENT: alert, awake, oriented to person, oriented to place, oriented to time, oriented to situation, CN II-XII grossly intact. ABSENT: motor sensory deficit Psychiatric exam: PRESENT: appropriate affect, normal mood. ABSENT: homicidal ideation, suicidal ideation Results Laboratory Results: 11/26/18 04:35 11/26/18 04:35 11/25/18 11/25/18 11/25/18 18:00 18:00 18:00 WBC 13.8 H RBC 3.70 L Hgb 11.7 L Hct 35.2 L MCV 95 MCH 31.6 MCHC 33.2 RDW 22.5 H Plt Count 170 Seg Neutrophils % 78.9 H Lymphocytes % 16.0 Monocytes % 4.4 Eosinophils % 0.1 Basophils % 0.6 Absolute Neutrophils 10.9 H Absolute Lymphocytes 2.2 Absolute Monocytes 0.6 Absolute Eosinophils 0.0 Absolute Basophils 0.1 Sodium 137.4 Potassium 2.1 L* Chloride 84 L Carbon Dioxide 34 H Anion Gap 19 BUN 6 L Creatinine 0.60 Est GFR ( Amer) > 60 Est GFR (Non-Af Amer) > 60 Glucose 123 H Calcium 8.4 Magnesium 1.5 L Total Bilirubin 1.2 AST 122 H ALT 30 Alkaline Phosphatase 193 H Total Protein 7.5 Albumin 3.3 L Amylase Lipase 210.9 11/26/18 11/26/18 04:35 04:35 WBC 10.9 H RBC 2.43 L Hgb 8.0 L D Hct 23.0 L MCV 94 MCH 32.7 MCHC 34.6 RDW 21.5 H Plt Count 91 L Seg Neutrophils % Lymphocytes % Monocytes % Eosinophils % Basophils % Absolute Neutrophils Absolute Lymphocytes Absolute Monocytes Absolute Eosinophils Absolute Basophils Sodium 133.0 L Potassium 2.1 L* Chloride 90 L Carbon Dioxide 32 H Anion Gap 11 BUN 5 L Creatinine 0.51 L Est GFR ( Amer) > 60 Est GFR (Non-Af Amer) > 60 Glucose 113 H Calcium 6.8 L* Magnesium 1.6 Total Bilirubin 1.7 H AST 77 H ALT 24 Alkaline Phosphatase 131 H Total Protein 5.1 L Albumin 2.2 L Amylase 49 Lipase 314.0 H 11/25/18 18:00 CK-MB (CK-2) 0.48 Troponin I < 0.012 Impressions: Chest X-Ray 11/25/18 17:31 IMPRESSION: Cannot exclude right lower lobe pneumonia. Knee X-Ray 11/25/18 17:34 IMPRESSION: NEGATIVE STUDY OF THE RIGHT KNEE. NO RADIOGRAPHIC EVIDENCE OF ACUTE INJURY. Assessment and Plan - Diagnosis (1) Acute on chronic pancreatitis Is this a current diagnosis for this admission?: Yes Plan: Patient be treated aggressively with IV fluid replacement and control of his associated symptoms of nausea vomiting and diarrhea. Once able to tolerate oral medications additional therapy will be employed. If patient develops significant pain from his pancreatitis he will use morphine sulfate 2 to 4 mg IV every 2 hours as needed for pain control on a sliding scale basis. A daily CBC, metabolic profile and magnesium level as well as daily amylase, lipase and liver function studies will be obtained to appropriately follow the course of the patient's disease process and properly assess therapeutic effect. 11/26/2018 patient has history of acute on chronic pancreatitis came in with nausea vomiting and diarrhea denies any nausea and vomiting this morning. He is receiving IV fluids with IV potassium supplementation IV magnesium supplementation plan to start on p.o. potassium 40 mg twice a day. Plan to do the daily labs today. Restarted on pancreatic enzymes. Plan to check a Daily amylase lipase and liver function test. Latest amylase is 49 and lipase is 314. Today's AST 77 ALT is 24. (2) Elevated LFTs Is this a current diagnosis for this admission?: Yes Plan: LFTs are coming down AST 77 ALT is 24. Dated LFTs most likely secondary to history of acute on chronic pancreatitis and history of alcohol use. (3) Epilepsy Qualifiers: Epilepsy type: unspecified Intractability: not intractable Status ep ilepticus: without status epilepticus Qualified Code(s): G40.909 - Epilepsy, unspecified, not intractable, without status epilepticus Is this a current diagnosis for this admission?: Yes Plan: Patient's epilepsy will be treated with Keppra 500 mg IV every 12 hours until he is able to resume taking his oral Keppra for seizure control. 11/26/2018-patient has history of seizure disorder presently on Keppra 500 mg IV every 12 hours plan is to switch the medication to p.o. from tomorrow. (4) Hypokalemia Is this a current diagnosis for this admission?: Yes Plan: Patient be treated with IV fluids containing potassium and additional spicer pplemental potassium given with intravenous K riders initially followed by oral potassium supplementation once he is able to tolerate oral medications. 11/26/2018-latest potassium is 2.1 he is receiving IV fluids with IV potassium supplementation plan to add p.o. potassium 40 mg twice a day. To recheck potassium levels tomorrow. (5) Vomiting and diarrhea Is this a current diagnosis for this admission?: Yes Plan: 11/26/2018-patient came in with complaints of nausea vomiting and diarrhea he is receiving Zofran on as needed basis and also metoclopramide patient denies any nausea vomiting this morning. No diarrhea was noticed by the nurses. Plan is to continue the present management. (6) Tachycardia Is this a current diagnosis for this admission?: Yes Plan: 11/26/2018-patient is tachycardic with heart rate close to 120 most likely secondary to hypokalemia. (7) Hypomagnesemia Is this a current diagnosis for this admission?: Yes Plan: 11/26/2018-patient's latest magnesium level is 1.6 is going to receive 2 g of IV magnesium today. Plan is to recheck the labs tomorrow. (8) Anemia Qualifiers: Anemia type: other cause Is this a current diagnosis for this admission?: Yes Plan: 11/26/2018-patient's hemoglobin is 8.0. On admission it is 11.7. Dropping hemoglobin may be secondary to IV fluids. Denies any blood in the stool. (9) Hypocalcemia Is this a current diagnosis for this admission?: Yes Plan: 11/26/2018-serum calcium 6.8 albumin is 2.2. Corrected calcium probably around 8.2. (10) Hyponatremia Is this a current diagnosis for this admission?: Yes Plan: 11/26/2018-serum sodium is 133. Most likely secondary to nausea and vomiting associated with diarrhea. Patient is receiving normal saline. Plan is to repeat the labs tomorrow. (11) Tobacco abuse Is this a current diagnosis for this admission?: Yes Plan: 11/26/2018-patient is on nicotine patch smoking counseling was provided for more than 10 minutes. - Time Time Spent with patient: 25-34 minutes Smoking Cessation Education: over 10 minutes Medications reviewed and adjusted accordingly: Yes Anticipated discharge: Home
[2018-11-26] MEDS: PANTOPRAZOLE SODIUM 40 MG VIAL IV SCH ×2 (09:15→21:24)
[2018-11-26] MEDS: LEVETIRACETAM 500 MG/NACL-ISO 500 MG/100 ML RTUPB IV SCH ×2 (10:59→21:25)
[2018-11-26] MEDS: POTASSIUM CHLORIDE 10 MEQ CAPSULE.ER PO SCH ×2 (13:01→21:25)
[2018-11-26 17:51] LABS: ABSOLUTE EOSINOPHILS # (AUTO) 0.1 10^3/uL (0.0-0.6); ABSOLUTE MONOCYTES (AUTO) 0.7 10^3/uL (0.1-1.4); ABSOLUTE NEUT (AUTO) 7.6 10^3/uL (1.7-8.2); BASOPHILS % (AUTO) 0.4 % (0-2); EOSINOPHILS % (AUTO) 0.5 % (0-6); HEMATOCRIT 28.2 % (37.9-51.0); HEMOGLOBIN 9.4 g/dL (13.5-17.0); LYMPHOCYTES % (AUTO) 26.2 % (13-45); MEAN CORPUSCULAR HGB CONC 33.2 g/dL (32.0-36.0); MEAN CORPUSCULAR VOLUME 96 fl (80-97); RED BLOOD COUNT 2.93 10^6/uL (4.35-5.55); RED CELL DISTRIBUTION WIDTH 22.2 % (11.5-14.0); SEGMENTED NEUTROPHILS % (AUTO) 66.9 % (42-78); TOTAL CELLS COUNTED % (AUTO) 100 %; WHITE BLOOD COUNT 11.3 10^3/uL (4.0-10.5)
[2018-11-26 17:57] LABS: PLATELET COUNT 91 10^3/uL (150-450)
[2018-11-26] MEDS: METOPROLOL TARTRATE PF/INJ 5 MG/5 ML SDV IV PRN (20:16)
[2018-11-27] MEDS: METOCLOPRAMIDE HCL INJ/PF 10 MG/2 ML SDV IV SCH ×4 (00:58→17:32)
[2018-11-27] MEDS: POTASSI CL 20 MEQ/D5LR 1L 20 MEQ/1,000 ML RTUINJ IV PRN ×2 (01:26→04:12)
[2018-11-27] MEDS: HEPARIN SOD (PORCINE) 5,000 UNIT/ML 1 ML SYRINGE SUBCUT SCH (05:02)
[2018-11-27] MEDS: POTASSIUM CHLORIDE 10 MEQ CAPSULE.ER PO SCH ×3 (05:46→17:33)
[2018-11-27] MEDS: METOPROLOL TARTRATE PF/INJ 5 MG/5 ML SDV IV PRN ×2 (05:46→21:45)
[2018-11-27 06:08] LABS: HEMATOCRIT 22.7 % (37.9-51.0); MEAN CORPUSCULAR HEMOGLOBIN 32.5 pg (27.0-33.4); MEAN CORPUSCULAR HGB CONC 33.8 g/dL (32.0-36.0); MEAN CORPUSCULAR VOLUME 96 fl (80-97); RED BLOOD COUNT 2.36 10^6/uL (4.35-5.55); RED CELL DISTRIBUTION WIDTH 21.8 % (11.5-14.0); WHITE BLOOD COUNT 9.3 10^3/uL (4.0-10.5)
[2018-11-27 06:28] LABS: HEMOGLOBIN 7.7 g/dL (13.5-17.0); PLATELET COUNT 60 10^3/uL (150-450)
[2018-11-27 06:31] LABS: ALANINE AMINOTRANSFERASE 18 U/L (21-72); ALKALINE PHOSPHATASE 108 U/L (38-126); ANION GAP 9 (5-19); ASPARTATE AMINO TRANSFERASE 72 U/L (17-59); BILIRUBIN,DIRECT 0.4 mg/dL (0.0-0.4); BILIRUBIN,TOTAL 0.7 mg/dL (0.2-1.3); CALCIUM 7.7 mg/dL (8.4-10.2); CARBON DIOXIDE 28 mmol/L (22-30); CHLORIDE 98 mmol/L (98-107); GLUCOSE 120 mg/dL (75-110); SODIUM 135.4 mmol/L (137-145); TOTAL PROTEIN 4.8 g/dL (6.3-8.2)
[2018-11-27 06:32] LABS: BLOOD UREA NITROGEN < 2 mg/dL (7-20)
[2018-11-27 06:33] LABS: AMYLASE < 30 U/L (30-110)
[2018-11-27 06:35] LABS: POTASSIUM 2.8 mmol/L (3.6-5.0)
[2018-11-27] MEDS: LIPASE/PROTEASE/AMYLASE 1 CAP CAPSULE.DR PO SCH ×4 (07:54→17:32)
--- NOTE | 2018-11-27 09:28 | PDOC PROGRESS REPORT ---
Subjective Progress Note for:: 11/27/18 Subjective:: 48 year old male who presents the emergency room with a 3-day history of intractable nausea vomiting and diarrhea. Patient admits that he has chronic pancreatitis and generally has nausea and vomiting with diarrhea on an intermittent basis. Beginning 3 days ago he developed severe nausea with severe intractable vomiting and innumerable watery sometimes explosive diarrhea stools. He has been unable to keep down oral medications, fluids or food as attempting to do so worsens his symptoms. He admits associated symptoms of generalized weakness, malaise, fatigue and palpitations (rapid heartbeat). He admits several prior similar episodes and has not identified any other aggravating or ameliorating factors for his current increase in gastrointestinal symptoms. In the emergency room he was found to have a tachycardia in the 140s and a potassium level of 2.1. He was clinically severely dehydrated and was subsequently admitted to the [facility] for further evaluation and treatment. [id number]-old male came to the emergency room with nausea vomiting and diarrhea he has history of chronic pancreatitis noncompliant with pancreatic enzyme supplementation in the emergency room found to have potassium of 2.1 and magnesium is 1.5 is getting IV potassium and IV magnesium supplementations is comfortably sleeping in the bed denies any complaints. Afebrile. No acute events since the admission. 11/27/2018-patient has a bloody stool yesterday hemoglobin dropped to 7.7 plan is to transfuse 1 unit of PRBC today potassium is improved to 2.8 medication was 1.3 despite receiving 2 g of IV magnesium yesterday plan to continue potassium 40 mg p.o. every 6 hours and magnesium 4 g IV 1 dose today. Patient is expressing desire to go home but I convinced him to stay in the hospital for at least another day. Reason For Visit: ACUTE ON CHRONIC PANCREATITIS, HYPOKALEMIA Physical Exam Vital Signs: Temp Pulse Resp BP Pulse Ox 98.5 F 109 H 16 130/97 H 99 11/27/18 04:17 11/27/18 07:00 11/27/18 04:17 11/27/18 04:17 11/27/18 04:17 Intake & Output 11/26/18 11/27/18 11/28/18 06:59 06:59 06:59 Intake Total 4300 8117 Output Total 0 400 Balance 4300 7717 Weight 66 kg 73.9 kg General appearance: PRESENT: no acute distress Head exam: PRESENT: atraumatic Eye exam: PRESENT: PERRLA Mouth exam: PRESENT: moist, tongue midline Teeth exam: PRESENT: poor dentation Neck exam: ABSENT: carotid bruit, JVD, lymphadenopathy, thyromegaly Respiratory exam: PRESENT: decreased breath sounds Cardiovascular exam: PRESENT: tachycardia GI/Abdominal exam: PRESENT: distended, normal bowel sounds, other - Abdomen is d istended may be secondary to ascites bowel sounds are present.. ABSENT: guarding, rebound Rectal exam: PRESENT: deferred Neurological exam: PRESENT: alert, awake, oriented to person, oriented to place, oriented to time, oriented to situation, CN II-XII grossly intact. ABSENT: motor sensory deficit Psychiatric exam: PRESENT: appropriate affect, normal mood. ABSENT: homicidal ideation, suicidal ideation Results Laboratory Results: 11/27/18 05:32 11/27/18 05:32 11/26/18 11/27/18 11/27/18 16:44 05:32 05:32 WBC 11.3 H 9.3 RBC 2.93 L 2.36 L Hgb 9.4 L 7.7 L Hct 28.2 L 22.7 L MCV 96 96 MCH 32.0 32.5 MCHC 33.2 33.8 RDW 22.2 H 21.8 H Plt Count 91 L 60 L Seg Neutrophils % 66.9 Lymphocytes % 26.2 Monocytes % 6.0 Eosinophils % 0.5 Basophils % 0.4 Absolute Neutrophils 7.6 Absolute Lymphocytes 3.0 Absolute Monocytes 0.7 Absolute Eosinophils 0.1 Absolute Basophils 0.0 Sodium 135.4 L Potassium 2.8 L* Chloride 98 Carbon Dioxide 28 Anion Gap 9 BUN < 2 L Creatinine 0.42 L Est GFR ( Amer) > 60 Est GFR (Non-Af Amer) > 60 Glucose 120 H Calcium 7.7 L Magnesium 1.3 L Total Bilirubin 0.7 AST 72 H ALT 18 L Alkaline Phosphatase 108 Total Protein 4.8 L Albumin 2.0 L Amylase < 30 L Lipase 154.0 11/25/18 18:00 CK-MB (CK-2) 0.48 Troponin I < 0.012 Impressions: Chest X-Ray 11/25/18 17:31 IMPRESSION: Cannot exclude right lower lobe pneumonia. Knee X-Ray 11/25/18 17:34 IMPRESSION: NEGATIVE STUDY OF THE RIGHT KNEE. NO RADIOGRAPHIC EVIDENCE OF ACUTE INJURY. Assessment and Plan - Diagnosis (1) Acute on chronic pancreatitis Is this a current diagnosis for this admission?: Yes Plan: Patient be treated aggressively with IV fluid replacement and control of his associated symptoms of nausea vomiting and diarrhea. Once able to tolerate oral medications additional therapy will be employed. If patient develops significant pain from his pancreatitis he will use morphine sulfate 2 to 4 mg IV every 2 hours as needed for pain control on a sliding scale basis. A daily CBC, metabolic profile and magnesium level as well as daily amylase, lipase and liver function studies will be obtained to appropriately follow the course of the patient's disease process and properly assess therapeutic effect. 11/26/2018 patient has history of acute on chronic pancreatitis came in with nausea vomiting and diarrhea denies any nausea and vomiting this morning. He is receiving IV fluids with IV potassium supplementation IV magnesium supplementation plan to start on p.o. potassium 40 mg twice a day. Plan to do the daily labs today. Restarted on pancreatic enzymes. Plan to check a Daily amylase lipase and liver function test. Latest amylase is 49 and lipase is 314. Today's AST 77 ALT is 24. 11/27/2018-no nausea no vomiting noticed. Yesterday he has a bloody stool. Hemoglobin came back 7.7. Plan is to give 1 unit PRBC today. LFTs are continued to improve. (2) Elevated LFTs Is this a current diagnosis for this admission?: Yes Plan: LFTs are coming down AST 77 ALT is 24. Dated LFTs most likely secondary to history of acute on chronic pancreatitis and history of alcohol use. 11/27/2018-AST is 72 ALT is 18 alkaline phosphatase is 108 LFTs are improving. (3) Epilepsy Qualifiers: Epilepsy type: unspecified Intractability: not intractable Status epilepticus: without status epilepticus Qualified Code(s): G40.909 - Epilepsy, unspecified, not intractable, without status epilepticus Is this a current diagnosis for this admission?: Yes Plan: Patient's epilepsy will be treated with Keppra 500 mg IV every 12 hours until he is able to resume taking his oral Keppra for seizure control. 11/26/2018-patient has history of seizure disorder presently on Keppra 500 mg IV every 12 hours plan is to switch the medication to p.o. from tomorrow. 11/26/2018-patient has history of seizure disorder presently on Keppra 500 mg every 12 hours able to tolerate the pills plan is to change the Keppra to p.o. today. (4) Hypokalemia Is this a current diagnosis for this admission?: Yes Plan: Patient be treated with IV fluids containing potassium and additional supplemental potassium given with intravenous K riders initially followed by oral potassium supplementation once he is able to tolerate oral medications. 11/26/2018-latest potassium is 2.1 he is receiving IV fluids with IV potassium supplementation plan to add p.o. potassium 40 mg twice a day. To recheck potassium levels tomorrow. 11/27/2018-patient potassium is 2.8 and he is receiving potassium 40 mg p.o. every 6 hours. Plan is to recheck the labs tomorrow. (5) Vomiting and diarrhea Is this a current diagnosis for this admission?: Yes Plan: 11/26/2018-patient came in with complaints of nausea vomiting and diarrhea he is receiving Zofran on as needed basis and also metoclopramide patient denies any nausea vomiting this morning. No diarrhea was noticed by the nurses. Plan is to continue the present management. 11/27/2018-patient admitted with nausea vomiting and diarrhea no more nausea no vomitings. Patient has a bloody stool. (6) Tachycardia Is this a current diagnosis for this admission?: Yes Plan: 11/26/2018-patient is tachycardic with heart rate close to 120 most likely secondary to hypokalemia. 11/27/2018-patient heart rate is still 117. Most likely secondary to electrolyte abnormalities. (7) Hypomagnesemia Is this a current diagnosis for this admission?: Yes Plan: 11/26/2018-patient's latest magnesium level is 1.6 is going to receive 2 g of IV magnesium today. Plan is to recheck the labs tomorrow. 10/28/2018-hypomagnesemia with magnesium level of 1.3 patient is going to receive 4 g of IV magnesium today. (8) Anemia Qualifiers: Anemia type: other cause Is this a current diagnosis for this admission?: Yes Plan: 11/26/2018-patient's hemoglobin is 8.0. On admission it is 11.7. Dropping hemoglobin may be secondary to IV fluids. Denies any blood in the stool. 11/27/2018-patient hemoglobin is 7.7 today he had a bloody stool yesterday plan to transfuse 1 unit of PRBC today. Patient has anemia of chronic disease most likely secondary to liver failure. (9) Hypocalcemia Is this a current diagnosis for this admission?: Yes Plan: 11/26/2018-serum calcium 6.8 albumin is 2.2. Corrected calcium probably around 8.2. 11/27/2018-patient serum calcium today is 7.7 and albumin is 2.0. Corrected calcium is around 8.8. (10) Hyponatremia Is this a current diagnosis for this admission?: Yes Plan: 11/26/2018-serum sodium is 133. Most likely secondary to nausea and vomiting associated with diarrhea. Patient is receiving normal saline. Plan is to repeat the labs tomorrow. 11/27/2018-patient serum sodium is 135 hyponatremia is resolved most likely secondary to cirrhosis of the liver. Patient received IV fluids during the hospital stay. (11) Tobacco abuse Is this a current diagnosis for this admission?: Yes Plan: 11/26/2018-patient is on nicotine patch smoking counseling was provided for more than 10 minutes. - Time Time Spent with patient: 15-24 minutes Smoking Cessation Education: over 10 minutes Medications reviewed and adjusted accordingly: Yes Anticipated discharge: SNF
[2018-11-27] MEDS: LEVETIRACETAM 500 MG/NACL-ISO 500 MG/100 ML RTUPB IV SCH (09:59)
[2018-11-27] MEDS: PANTOPRAZOLE SODIUM 40 MG VIAL IV SCH ×2 (10:00→21:05)
[2018-11-27] MEDS ORDERED: MAGNESIUM SULFATE 4 GM/100 ML RTUPB IV ONE (10:30)
--- NOTE | 2018-11-27 11:27 | RADIOLOGY REPORT (SQ) ---
EXAM DESCRIPTION: KUB/ABDOMEN (SINGLE VIEW) COMPLETED DATE/TIME: 11/27/2018 11:06 am REASON FOR STUDY: abd distension COMPARISON: CT dated 09/29/2018. NUMBER OF VIEWS: One view. TECHNIQUE: Supine radiographic image of the abdomen acquired. LIMITATIONS: None. FINDINGS: BOWEL GAS PATTERN: Normal bowel gas pattern. No dilated loops. CALCIFICATIONS: No suspicious calcifications. SOFT TISSUES: No gross mass or suggestion of organomegaly. HARDWARE: None in the abdomen. BONES: No acute fracture. Stable sclerotic lesion in the left iliac crest and irregular sclerosis of the femoral heads. OTHER: No other significant finding. IMPRESSION: NO RADIOGRAPHIC EVIDENCE FOR ACUTE ABDOMINAL DISEASE. THERE ARE STABLE BONY FINDINGS. PRESUMED CORTICAL BONE ISLAND IN THE LEFT ILIAC CREST. AVASCULAR NEC ROSIS OF THE RIGHT AND LEFT FEMORAL HEADS. TECHNICAL DOCUMENTATION: JOB ID: [id number] [employer]- All Rights Reserved Reading location - IP/workstation name: [email or web address]
[2018-11-27 17:43] LABS: ABSOLUTE EOSINOPHILS # (AUTO) 0.1 10^3/uL (0.0-0.6); ABSOLUTE LYMPHOCYTES (AUTO) 2.3 10^3/uL (0.5-4.7); ABSOLUTE MONOCYTES (AUTO) 0.5 10^3/uL (0.1-1.4); ABSOLUTE NEUT (AUTO) 6.1 10^3/uL (1.7-8.2); BASOPHILS % (AUTO) 0.5 % (0-2); EOSINOPHILS % (AUTO) 1.1 % (0-6); HEMATOCRIT 31.5 % (37.9-51.0); LYMPHOCYTES % (AUTO) 25.6 % (13-45); MEAN CORPUSCULAR HEMOGLOBIN 31.6 pg (27.0-33.4); MEAN CORPUSCULAR HGB CONC 33.3 g/dL (32.0-36.0); MEAN CORPUSCULAR VOLUME 95 fl (80-97); MONOCYTES % (AUTO) 5.4 % (3-13); RED BLOOD COUNT 3.32 10^6/uL (4.35-5.55); SEGMENTED NEUTROPHILS % (AUTO) 67.4 % (42-78); TOTAL CELLS COUNTED % (AUTO) 100 %; WHITE BLOOD COUNT 9.1 10^3/uL (4.0-10.5)
[2018-11-27 17:52] LABS: PLATELET COUNT 67 10^3/uL (150-450)
[2018-11-27 18:12] LABS: HEMOGLOBIN 10.5 g/dL (13.5-17.0)
[2018-11-27] MEDS: LEVETIRACETAM 500 MG TABLET PO SCH (21:05)
[2018-11-28] MEDS: METOCLOPRAMIDE HCL INJ/PF 10 MG/2 ML SDV IV SCH ×5 (00:38→23:19)
[2018-11-28] MEDS: POTASSIUM CHLORIDE 10 MEQ CAPSULE.ER PO SCH ×5 (00:38→23:20)
[2018-11-28] MEDS: LORAZEPAM INJ 2 MG/1 ML VIAL IV PRN (00:38)
[2018-11-28] MEDS ORDERED: CHLORPROMAZINE HCL INJ 25 MG/1 ML AMPULE IV PRN ×2 (02:29→09:00)
[2018-11-28] MEDS: DIAZEPAM INJ 10 MG/2 ML DISP.SYRIN IV PRN ×3 (02:49→06:33)
[2018-11-28 04:32] LABS: HEMATOCRIT 25.4 % (37.9-51.0); HEMOGLOBIN 8.7 g/dL (13.5-17.0); MEAN CORPUSCULAR HEMOGLOBIN 32.5 pg (27.0-33.4); MEAN CORPUSCULAR HGB CONC 34.4 g/dL (32.0-36.0); MEAN CORPUSCULAR VOLUME 94 fl (80-97); RED BLOOD COUNT 2.69 10^6/uL (4.35-5.55); RED CELL DISTRIBUTION WIDTH 20.7 % (11.5-14.0); WHITE BLOOD COUNT 9.5 10^3/uL (4.0-10.5)
[2018-11-28 04:37] LABS: PLATELET COUNT 51 10^3/uL (150-450)
[2018-11-28 04:54] LABS: ALANINE AMINOTRANSFERASE 37 U/L (21-72); ALBUMIN 2.1 g/dL (3.5-5.0); ALKALINE PHOSPHATASE 128 U/L (38-126); AMYLASE 31 U/L (30-110); ANION GAP 7 (5-19); ASPARTATE AMINO TRANSFERASE 153 U/L (17-59); BILIRUBIN,DIRECT 0.5 mg/dL (0.0-0.4); BILIRUBIN,TOTAL 0.9 mg/dL (0.2-1.3); CALCIUM 7.8 mg/dL (8.4-10.2); CARBON DIOXIDE 28 mmol/L (22-30); CHLORIDE 98 mmol/L (98-107); GLUCOSE 91 mg/dL (75-110); LIPASE 132.3 U/L (23-300); POTASSIUM 3.1 mmol/L (3.6-5.0); SODIUM 133.3 mmol/L (137-145); TOTAL PROTEIN 4.4 g/dL (6.3-8.2)
[2018-11-28] MEDS: DIAZEPAM 5 MG TABLET PO SCH ×4 (05:08→23:19)
[2018-11-28 05:22] LABS: BLOOD UREA NITROGEN < 2 mg/dL (7-20)
--- NOTE | 2018-11-28 08:48 | PDOC PROGRESS REPORT ---
Subjective Progress Note for:: 11/28/18 Subjective:: 48 year old male who presents the emergency room with a 3-day history of intractable nausea vomiting and diarrhea. Patient admits that he has chronic pancreatitis and generally has nausea and vomiting with diarrhea on an intermittent basis. Beginning 3 days ago he developed severe nausea with severe intractable vomiting and innumerable watery sometimes explosive diarrhea stools. He has been unable to keep down oral medications, fluids or food as attempting to do so worsens his symptoms. He admits associated symptoms of generalized weakness, malaise, fatigue and palpitations (rapid heartbeat). He admits several prior similar episodes and has not identified any other aggravating or ameliorating factors for his current increase in gastrointestinal symptoms. In the emergency room he was found to have a tachycardia in the 140s and a potassium level of 2.1. He was clinically severely dehydrated and was subsequently admitted to the [facility] for further evaluation and treatment. 11/[id number]-ixnu-old male came to the emergency room with nausea vomiting and diarrhea he has history of chronic pancreatitis noncompliant with pancreatic enzyme supplementation in the emergency room found to have potassium of 2.1 and magnesium is 1.5 is getting IV potassium and IV magnesium supplementations is comfortably sleeping in the bed denies any complaints. Afebrile. No acute events since the admission. 11/27/2018-patient has a bloody stool yesterday hemoglobin dropped to 7.7 plan is to transfuse 1 unit of PRBC today potassium is improved to 2.8 medication was 1.3 despite receiving 2 g of IV magnesium yesterday plan to continue potassium 40 mg p.o. every 6 hours and magnesium 4 g IV 1 dose today. Patient is expressing desire to go home but I convinced him to stay in the hospital for at least another day. 11/28/2018-no acute events in the last 24 hours. Patient is afebrile. Able to eat breakfast without any problems. Potassium still 3.1 which is going to be supplemented. Magnesium is 1.4 , to give 4 g of IV magnesium today. Reason For Visit: ACUTE ON CHRONIC PANCREATITIS, HYPOKALEMIA Physical Exam Vital Signs: Temp Pulse Resp BP Pulse Ox 97.4 F 115 H 20 114/86 H 100 11/28/18 04:35 11/28/18 07:00 11/28/18 04:35 11/28/18 04:35 11/28/18 04:35 Intake & Output 11/27/18 11/28/18 11/29/18 06:59 06:59 06:59 Intake Total 8117 4402 Output Total 400 Balance 7717 4402 Weight 73.9 kg 73.9 kg General appearance: PRESENT: no acute distress Head exam: PRESENT: atraumatic Eye exam: PRESENT: PERRLA Mouth exam: PRESENT: moist, tongue midline Teeth exam: PRESENT: poor dentation Neck exam: ABSENT: carotid bruit, JVD, lymphadenopathy, thyromegaly Respiratory exam: PRESENT: clear to auscultation sulaiman. ABSENT: rales, rhonchi, wheezes Cardiovascular exam: PRESENT: RRR. ABSENT: diastolic murmur, rubs, systolic murmur GI/Abdominal exam: PRESENT: distended, normal bowel sounds Rectal exam: PRESENT: deferred Extremities exam: PRESENT: full ROM. ABSENT: calf tenderness, clubbing, pedal edema Neurological exam: PRESENT: alert, awake, oriented to person, oriented to place, oriented to time, oriented to situation, CN II-XII grossly intact. ABSENT: motor sensory deficit Psychiatric exam: PRESENT: appropriate affect, normal mood. ABSENT: homicidal ideation, suicidal ideation Results Laboratory Results: 11/28/18 04:13 11/28/18 04:13 11/27/18 11/27/18 11/28/18 09:47 17:10 04:13 WBC 9.1 9.5 RBC 3.32 L 2.69 L Hgb 10.5 L D 8.7 L Hct 31.5 L 25.4 L MCV 95 94 MCH 31.6 32.5 MCHC 33.3 34.4 RDW 21.0 H 20.7 H Plt Count 67 L 51 L Seg Neutrophils % 67.4 Lymphocytes % 25.6 Monocytes % 5.4 Eosinophils % 1.1 Basophils % 0.5 Absolute Neutrophils 6.1 Absolute Lymphocytes 2.3 Absolute Monocytes 0.5 Absolute Eosinophils 0.1 Absolute Basophils 0.0 Sodium Potassium Chloride Carbon Dioxide Anion Gap BUN Creatinine Est GFR ( Amer) Est GFR (Non-Af Amer) Glucose Calcium Magnesium Total Bilirubin AST ALT Alkaline Phosphatase Total Protein Albumin Amylase Lipase Blood Type O POSITIVE Antibody Screen NEGATIVE 11/28/18 04:13 WBC RBC Hgb Hct MCV MCH MCHC RDW Plt Count Seg Neutrophils % Lymphocytes % Monocytes % Eosinophils % Basophils % Absolute Neutrophils Absolute Lymphocytes Absolute Monocytes Absolute Eosinophils Absolute Basophils Sodium 133.3 L Potassium 3.1 L Chloride 98 Carbon Dioxide 28 Anion Gap 7 BUN < 2 L Creatinine 0.43 L Est GFR ( Amer) > 60 Est GFR (Non-Af Amer) > 60 Glucose 91 Calcium 7.8 L Magnesium 1.4 L Total Bilirubin 0.9 AST 153 H ALT 37 Alkaline Phosphatase 128 H Total Protein 4.4 L Albumin 2.1 L Amylase 31 Lipase 132.3 Blood Type Antibody Screen 11/25/18 18:00 CK-MB (CK-2) 0.48 Troponin I < 0.012 Impressions: Chest X-Ray 11/25/18 17:31 IMPRESSION: Cannot exclude right lower lobe pneumonia. Knee X-Ray 11/25/18 17:34 IMPRESSION: NEGATIVE STUDY OF THE RIGHT KNEE. NO RADIOGRAPHIC EVIDENCE OF ACUTE INJURY. KUB X-Ray 11/27/18 00:00 IMPRESSION: NO RADIOGRAPHIC EVIDENCE FOR ACUTE ABDOMINAL DISEASE. THERE ARE STABLE BONY FINDINGS. PRESUMED CORTICAL BONE ISLAND IN THE LEFT ILIAC CREST. AVASCULAR NECROSIS OF THE RIGHT AND LEFT FEMORAL HEADS. Assessment and Plan - Diagnosis (1) Acute on chronic pancreatitis Is this a current diagnosis for this admission?: Yes Plan: Patient be treated aggressively with IV fluid replacement and control of his associated symptoms of nausea vomiting and diarrhea. Once able to tolerate oral medications additional therapy will be employed. If patient develops significant pain from his pancreatitis he will use morphine sulfate 2 to 4 mg IV every 2 hours as needed for pain control on a sliding scale basis. A daily CBC, metabolic profile and magnesium level as well as daily amylase, lipase and liver function studies will be obtained to appropriately follow the course of the patient's disease process and properly assess therapeutic effect. 11/26/2018 patient has history of acute on chronic pancreatitis came in with nausea vomiting and diarrhea denies any nausea and vomiting this morning. He is receiving IV fluids with IV potassium supplementation IV magnesium supplementation plan to start on p.o. potassium 40 mg twice a day. Plan to do the daily labs today. Restarted on pancreatic enzymes. Plan to check a Daily amylase lipase and liver function test. Latest amylase is 49 and lipase is 314. Today's AST 77 ALT is 24. 11/27/2018-no nausea no vomiting noticed. Yesterday he has a bloody stool. Hemoglobin came back 7.7. Plan is to give 1 unit PRBC today. LFTs are continued to improve. 11/28/2018-patient admitted with acute on chronic pancreatitis no complaints of nausea no vomiting. No diarrhea. Able to tolerate breakfast this morning. Plan is to continue potassium and IV magnesium supplementations. (2) Elevated LFTs Is this a current diagnosis for this admission?: Yes Plan: LFTs are coming down AST 77 ALT is 24. Dated LFTs most likely secondary to history of acute on chronic pancreatitis and history of alcohol use. 11/27/2018-AST is 72 ALT is 18 alkaline phosphatase is 108 LFTs are improving. (3) Epilepsy Qualifiers: Epilepsy type: unspecified Intractability: not intractable Status epilepticus: without status epilepticus Qualified Code(s): G40.909 - Epilepsy, unspecified, not intractable, without status epilepticus Is this a current diagnosis for this admission?: Yes Plan: Patient's epilepsy will be treated with Keppra 500 mg IV every 12 hours until he is able to resume taking his oral Keppra for seizure control. 11/26/2018-patient has history of seizure disorder presently on Keppra 500 mg IV every 12 hours plan is to switch the medication to p.o. from tomorrow. 11/26/2018-patient has history of seizure disorder presently on Keppra 500 mg every 12 hours able to tolerate the pills plan is to change the Keppra to p.o. today. 11/28/2018-patient has history of seizure disorder on Keppra 5 mg p.o. twice daily plan is to continue the present management. (4) Hypokalemia Is this a current diagnosis for this admission?: Yes Plan: Patient be treated with IV fluids containing potassium and additional supplemental potassium given with intravenous K riders initially followed by oral potassium supplementation once he is able to tolerate oral medications. 11/26/2018-latest potassium is 2.1 he is receiving IV fluids with IV potassium supplementation plan to add p.o. potassium 40 mg twice a day. To recheck potassium levels tomorrow. 11/27/2018-patient potassium is 2.8 and he is receiving potassium 40 mg p.o. every 6 hours. Plan is to recheck the labs tomorrow. 11/28/2018-patient serum potassium is 3.1 receiving potassium 40 mg p.o. every 6 hours. Plan is to repeat the labs tomorrow. (5) Vomiting and diarrhea Is this a current diagnosis for this admission?: Yes Plan: 11/26/2018-patient came in with complaints of nausea vomiting and diarrhea he is receiving Zofran on as needed basis and also metoclopramide patient denies any nausea vomiting this morning. No diarrhea was noticed by the nurses. Plan is to continue the present management. 11/27/2018-patient admitted with nausea vomiting and diarrhea no more nausea no vomitings. Patient has a bloody stool. (6) Tachycardia Is this a current diagnosis for this admission?: Yes Plan: 11/26/2018-patient is tachycardic with heart rate close to 120 most likely secondary to hypokalemia. 11/27/2018-patient heart rate is still 117. Most likely secondary to electrolyte abnormalities. 11/28/2018-patient is still tachycardic most likely secondary to physical inactivity and electrolyte abnormalities. (7) Hypomagnesemia Is this a current diagnosis for this admission?: Yes Plan: 11/26/2018-patient's latest magnesium level is 1.6 is going to receive 2 g of IV magnesium today. Plan is to recheck the labs tomorrow. 10/28/2018-hypomagnesemia with magnesium level of 1.3 patient is going to receive 4 g of IV magnesium today. 10/29/2018-serum magnesium level today is 1.4 to give IV magnesium 4 g today. (8) Anemia Qualifiers: Anemia type: other cause Is this a current diagnosis for this admission?: Yes Plan: 11/26/2018-patient's hemoglobin is 8.0. On admission it is 11.7. Dropping hemoglobin may be secondary to IV fluids. Denies any blood in the stool. 11/27/2018-patient hemoglobin is 7.7 today he had a bloody stool yesterday plan to transfuse 1 unit of PRBC today. Patient has anemia of chronic disease most likely secondary to liver failure. 11/28/2018-patient has history of anemia of chronic disease hemoglobin is 8.7. 1 unit of blood transfusion during the hospital stay. Plan is to continue to monitor his hemoglobin. (9) Hypocalcemia Is this a current diagnosis for this admission?: Yes Plan: 11/26/2018-serum calcium 6.8 albumin is 2.2. Corrected calcium probably around 8 .2. 11/27/2018-patient serum calcium today is 7.7 and albumin is 2.0. Corrected calcium is around 8.8. 11/28/2018-patient serum calcium level is 7.8 and serum albumin is 2.1. Corrected serum calcium is within normal levels. (10) Hyponatremia Is this a current diagnosis for this admission?: Yes Plan: 11/26/2018-serum sodium is 133. Most likely secondary to nausea and vomiting associated with diarrhea. Patient is receiving normal saline. Plan is to repeat the labs tomorrow. 11/27/2018-patient serum sodium is 135 hyponatremia is resolved most likely secondary to cirrhosis of the liver. Patient received IV fluids during the hospital stay. 11/28/2018-patient serum sodium is 133. Hyponatremia most likely secondary to liver failure. (11) Tobacco abuse Is this a current diagnosis for this admission?: Yes (12) Hypokalemia Is this a current diagnosis for this admission?: Yes Plan: 11/28/2018-patient serum potassium is 3.1. Supplement potassium 40 mg p.o. every 6 hours. And to repeat the labs tomorrow. - Time Time Spent with patient: 15-24 minutes Medications reviewed and adjusted accordingly: Yes Anticipated discharge: SNF
[2018-11-28] MEDS ORDERED: MAGNESIUM SULFATE 4 GM/100 ML RTUPB IV ONE (09:00)
[2018-11-28] MEDS: LIPASE/PROTEASE/AMYLASE 1 CAP CAPSULE.DR PO SCH ×2 (09:05→17:02)
[2018-11-28] MEDS: LEVETIRACETAM 500 MG TABLET PO SCH ×2 (09:06→21:17)
[2018-11-28] MEDS: PANTOPRAZOLE SODIUM 40 MG VIAL IV SCH (09:06)
[2018-11-28] MEDS: ATENOLOL 50 MG TABLET PO SCH ×2 (09:06→21:17)
[2018-11-29] MEDS: METOCLOPRAMIDE HCL INJ/PF 10 MG/2 ML SDV IV SCH ×4 (05:14→23:32)
[2018-11-29] MEDS: POTASSIUM CHLORIDE 10 MEQ CAPSULE.ER PO SCH ×4 (05:14→23:33)
[2018-11-29] MEDS: DIAZEPAM 5 MG TABLET PO SCH ×4 (05:14→23:32)
[2018-11-29 06:09] LABS: ABSOLUTE EOSINOPHILS # (AUTO) 0.1 10^3/uL (0.0-0.6); ABSOLUTE LYMPHOCYTES (AUTO) 2.6 10^3/uL (0.5-4.7); ABSOLUTE MONOCYTES (AUTO) 0.7 10^3/uL (0.1-1.4); ABSOLUTE NEUT (AUTO) 6.3 10^3/uL (1.7-8.2); BASOPHILS % (AUTO) 0.3 % (0-2); EOSINOPHILS % (AUTO) 0.8 % (0-6); HEMATOCRIT 27.8 % (37.9-51.0); HEMOGLOBIN 9.5 g/dL (13.5-17.0); LYMPHOCYTES % (AUTO) 26.5 % (13-45); MEAN CORPUSCULAR HEMOGLOBIN 32.5 pg (27.0-33.4); MEAN CORPUSCULAR HGB CONC 34.1 g/dL (32.0-36.0); MEAN CORPUSCULAR VOLUME 95 fl (80-97); MONOCYTES % (AUTO) 7.1 % (3-13); RED BLOOD COUNT 2.92 10^6/uL (4.35-5.55); RED CELL DISTRIBUTION WIDTH 20.7 % (11.5-14.0); SEGMENTED NEUTROPHILS % (AUTO) 65.3 % (42-78); TOTAL CELLS COUNTED % (AUTO) 100 %; WHITE BLOOD COUNT 9.7 10^3/uL (4.0-10.5)
[2018-11-29 06:23] LABS: ALANINE AMINOTRANSFERASE 35 U/L (21-72); ALBUMIN 2.1 g/dL (3.5-5.0); ALKALINE PHOSPHATASE 132 U/L (38-126); ANION GAP 7 (5-19); ASPARTATE AMINO TRANSFERASE 168 U/L (17-59); BILIRUBIN,DIRECT 0.5 mg/dL (0.0-0.4); BILIRUBIN,TOTAL 0.8 mg/dL (0.2-1.3); CALCIUM 8.1 mg/dL (8.4-10.2); CARBON DIOXIDE 29 mmol/L (22-30); CHLORIDE 101 mmol/L (98-107); GLUCOSE 78 mg/dL (75-110); POTASSIUM 4.1 mmol/L (3.6-5.0); SODIUM 137.1 mmol/L (137-145); TOTAL PROTEIN 5.2 g/dL (6.3-8.2)
[2018-11-29 06:32] LABS: BLOOD UREA NITROGEN < 2 mg/dL (7-20)
[2018-11-29 06:51] LABS: PLATELET COUNT 50 10^3/uL (150-450)
[2018-11-29] MEDS: LIPASE/PROTEASE/AMYLASE 1 CAP CAPSULE.DR PO SCH ×2 (09:42→16:25)
[2018-11-29] MEDS: LEVETIRACETAM 500 MG TABLET PO SCH ×2 (09:43→21:48)
[2018-11-29] MEDS: ATENOLOL 50 MG TABLET PO SCH ×2 (09:43→21:49)
--- NOTE | 2018-11-29 14:00 | PDOC TRANSFER SUMMARY ---
General - Admit/Disc Date/PCP Admission Date/Primary Care Provider: 11/25/18 19:48 SHEILA SILVESTRE PA-C Discharge Date: 11/29/18 - Discharge Diagnosis (1) Acute on chronic pancreatitis Is this a current diagnosis for this admission?: Yes (2) Elevated LFTs Is this a current diagnosis for this admission?: Yes (3) Epilepsy Is this a current diagnosis for this admission?: Yes (5) Hypokalemia Is this a current diagnosis for this admission?: Yes (6) Hypocalcemia Is this a current diagnosis for this admission?: Yes (8) Tobacco abuse Is this a current diagnosis for this admission?: Yes - Additional Information Resuscitation Status: Full Code Discharge Diet: As Tolerated Discharge Activity: Activity As Tolerated Home Medications: Amlodipine Besylate [Norvasc 10 mg Tablet] 10 mg PO DAILY 09/17/18 Levetiracetam [Keppra 500 mg Tablet] 500 mg PO Q12 09/17/18 Lisinopril [Prinivil 10 mg Tablet] 20 mg PO DAILY 09/17/18 Pantoprazole Sodium [Protonix] 40 mg PO DAILY 09/17/18 Potassium Chloride 20 meq PO DAILY #30 tablet.er 09/19/18 Acetaminophen [Tylenol 650 mg Supp] 650 mg AK Q4HP PRN supp.rect 11/29/18 Atenolol [Tenormin 50 mg Tablet] 50 mg PO Q12 tablet 11/29/18 Lipase/Protease/Amylase [Pancreaze-10 Capsule.] 1 cap PO BIDACBS capsule. 11/29/18 Mag Hydrox/Al Hydrox/Simeth [Maalox Plus Susp 30 Udcup] 30 ml PO Q6HP PRN udc 11/29/18 Nicotine [Nicoderm 21 mg/24 Hr Transderm Patch] 1 each TD DAILYP PRN patch.td24 11/29/18 History of Present Illness Admission Date/PCP: 11/25/18 19:48 SHEILA SILVESTRE PA-C History of Present Illness: CIERA OVIEDO is a 48 year old male Hospital Course Hospital Course: 48 year old male who presents the emergency room with a 3-day history of intractable nausea vomiting and diarrhea. Patient admits that he has chronic pancreatitis and generally has nausea and vomiting with diarrhea on an intermittent basis. Beginning 3 days ago he developed severe nausea with severe intractable vomiting and innumerable watery sometimes explosive diarrhea stools. He has been unable to keep down oral medications, fluids or food as attempting to do so worsens his symptoms. He admits associated symptoms of generalized weakness, malaise, fatigue and palpitations (rapid heartbeat). He admits s everal prior similar episodes and has not identified any other aggravating or ameliorating factors for his current increase in gastrointestinal symptoms. In the emergency room he was found to have a tachycardia in the 140s and a potassium level of 2.1. He was clinically severely dehydrated and was subsequently admitted to the [facility] for further evaluation and treatment. [id number]-[id number]-old male came to the emergency room with nausea vomiting and diarrhea he has history of chronic pancreatitis noncompliant with pancreatic enzyme supplementation in the emergency room found to have potassium of 2.1 and magnesium is 1.5 is getting IV potassium and IV magnesium supplementations is comfortably sleeping in the bed denies any complaints. Afebrile. No acute events since the admission. 11/27/2018-patient has a bloody stool yesterday hemoglobin dropped to 7.7 plan is to transfuse 1 unit of PRBC today potassium is improved to 2.8 medication was 1.3 despite receiving 2 g of IV magnesium yesterday plan to continue potassium 40 mg p.o. every 6 hours and magnesium 4 g IV 1 dose today. Patient is expressing desire to go home but I convinced him to stay in the hospital for at least another day. 11/28/2018-no acute events in the last 24 hours. Patient is afebrile. Able to eat breakfast without any problems. Potassium still 3.1 which is going to be supplemented. Magnesium is 1.4 , to give 4 g of IV magnesium today. Hospital course: (1) Acute on chronic pancreatitis Patient be treated aggressively with IV fluid replacement and control of his associated symptoms of nausea vomiting and diarrhea. Once able to tolerate oral medications additional therapy will be employed. If patient develops significant pain from his pancreatitis he will use morphine sulfate 2 to 4 mg IV every 2 hours as needed for pain control on a sliding scale basis. A daily CBC, metabolic profile and magnesium level as well as daily amylase, lipase and liver function studies will be obtained to appropriately follow the course of the patient's disease process and properly assess therapeutic effect. 11/26/2018 patient has history of acute on chronic pancreatitis came in with n ausea vomiting and diarrhea denies any nausea and vomiting this morning. He is receiving IV fluids with IV potassium supplementation IV magnesium supplementation plan to start on p.o. potassium 40 mg twice a day. Plan to do the daily labs today. Restarted on pancreatic enzymes. Plan to check a Daily amylase lipase and liver function test. Latest amylase is 49 and lipase is 314. Today's AST 77 ALT is 24. 11/27/2018-no nausea no vomiting noticed. Yesterday he has a bloody stool. Hemoglobin came back 7.7. Plan is to give 1 unit PRBC today. LFTs are continued to improve. 11/28/2018-patient admitted with acute on chronic pancreatitis no complaints of nausea no vomiting. No diarrhea. Able to tolerate breakfast this morning. Plan is to continue potassium and IV magnesium supplementations. (2) Elevated LFTs LFTs are coming down AST 77 ALT is 24. Dated LFTs most likely secondary to history of acute on chronic pancreatitis and history of alcohol use. 11/27/2018-AST is 72 ALT is 18 alkaline phosphatase is 108 LFTs are improving. (3) Epilepsy Patient's epilepsy will be treated with Keppra 500 mg IV every 12 hours until he is able to resume taking his oral Keppra for seizure control. 11/26/2018-patient has history of seizure disorder presently on Keppra 500 mg IV every 12 hours plan is to switch the medication to p.o. from tomorrow. 11/26/2018-patient has history of seizure disorder presently on Keppra 500 mg every 12 hours able to tolerate the pills plan is to change the Keppra to p.o. today. 11/28/2018-patient has history of seizure disorder on Keppra 5 mg p.o. twice daily plan is to continue the present management. (4) Hypokalemia Patient be treated with IV fluids containing potassium and additional supplemental potassium given with intravenous K riders initially followed by oral potassium supplementation once he is able to tolerate oral medications. 11/26/2018-latest potassium is 2.1 he is receiving IV fluids with IV potassium supplementation plan to add p.o. potassium 40 mg twice a day. To recheck potassium levels tomorrow. 11/27/2018-patient potassium is 2.8 and he is receiving potassium 40 mg p.o. every 6 hours. Plan is to recheck the labs tomorrow. 11/28/2018-patient serum potassium is 3.1 receiving potassium 40 mg p.o. every 6 hours. Plan is to repeat the labs tomorrow. (5) Vomiting and diarrhea 11/26/2018-patient came in with complaints of nausea vomiting and diarrhea he is receiving Zofran on as needed basis and also metoclopramide patient denies any nausea vomiting this morning. No diarrhea was noticed by the nurses. Plan is to continue the present management. 11/27/2018-patient admitted with nausea vomiting and diarrhea no more nausea no vomitings. Patient has a bloody stool. (6) Tachycardia 11/26/2018-patient is tachycardic with heart rate close to 120 most likely secondary to hypokalemia. 11/27/2018-patient heart rate is still 117. Most likely secondary to electrolyte abnormalities. 11/28/2018-patient is still tachycardic most likely secondary to physical inactivity and electrolyte abnormalities. (7) Hypomagnesemia 11/26/2018-patient's latest magnesium level is 1.6 is going to receive 2 g of IV magnesium today. Plan is to recheck the labs tomorrow. 10/28/2018-hypomagnesemia with magnesium level of 1.3 patient is going to receive 4 g of IV magnesium today. 10/29/2018-serum magnesium level today is 1.4 to give IV magnesium 4 g today. (8) Anemia 11/26/2018-patient's hemoglobin is 8.0. On admission it is 11.7. Dropping hemoglobin may be secondary to IV fluids. Denies any blood in the stool. 11/27/2018-patient hemoglobin is 7.7 today he had a bloody stool yesterday plan to transfuse 1 unit of PRBC today. Patient has anemia of chronic disease most likely secondary to liver failure. 11/28/2018-patient has history of anemia of chronic disease hemoglobin is 8.7. 1 unit of blood transfusion during the hospital stay. Plan is to continue to monitor his hemoglobin. (9) Hypocalcemia 11/26/2018-serum calcium 6.8 albumin is 2.2. Corrected calcium probably around 8.2. 11/27/2018-patient serum calcium today is 7.7 and albumin is 2.0. Corrected calcium is around 8.8. 11/28/2018-patient serum calcium level is 7.8 and serum albumin is 2.1. Corrected serum calcium is within normal levels. (10) Hyponatremia 11/26/2018-serum sodium is 133. Most likely secondary to nausea and vomiting associated with diarrhea. Patient is receiving normal saline. Plan is to repeat the labs tomorrow. 11/27/2018-patient serum sodium is 135 hyponatremia is resolved most likely secondary to cirrhosis of the liver. Patient received IV fluids during the hospital stay. 11/28/2018-patient serum sodium is 133. Hyponatremia most likely secondary to liver failure. (11) Tobacco abuse (12) Hypokalemia 11/28/2018-patient serum potassium is 3.1. Supplement potassium 40 mg p.o. every 6 hours. And to repeat the labs tomorrow. Patient is tolerating diet. Pain significantly improved and almost resolved. His electrolytes were replaced and normalized. He is stable for discharge. Was evaluated by physical therapy and SNF was recommended. Time spent on discharge 33 minutes Physical Exam Vital Signs: Temp Pulse Resp BP Pulse Ox 98.6 F 106 H 16 110/78 99 11/29/18 07:01 11/29/18 09:00 11/29/18 07:01 11/29/18 07:01 11/29/18 07:01 Intake & Output 11/28/18 11/29/18 11/30/18 06:59 06:59 06:59 Intake Total 4402 500 Output Total 375 Balance 4402 125 Weight 162 lb 14.746 oz 160 lb 4.417 oz Exam: General appearance: PRESENT: no acute distress Head exam: PRESENT: atraumatic Eye exam: PRESENT: PERRLA Mouth exam: PRESENT: moist, tongue midline Teeth exam: PRESENT: poor dentation Neck exam: ABSENT: carotid bruit, JVD, lymphadenopathy, thyromegaly Respiratory exam: PRESENT: clear to auscultation sulaiman. ABSENT: rales, rhonchi, wheezes Cardiovascular exam: PRESENT: RRR. ABSENT: diastolic murmur, rubs, systolic murmur GI/Abdominal exam: PRESENT: distended, normal bowel sounds Rectal exam: PRESENT: deferred Extremities exam: PRESENT: full ROM. ABSENT: calf tenderness, clubbing, pedal edema Neurological exam: PRESENT: alert, awake, oriented to person, oriented to place, oriented to time, oriented to situation, CN II-XII grossly intact. ABSENT: motor sensory deficit Psychiatric exam: PRESENT: appropriate affect, normal mood. ABSENT: homicidal ideation, suicidal ideation Results Laboratory Results: 11/29/18 05:13 11/29/18 05:13 11/29/18 11/29/18 05:13 05:13 WBC 9.7 RBC 2.92 L Hgb 9.5 L Hct 27.8 L MCV 95 MCH 32.5 MCHC 34.1 RDW 20.7 H Plt Count 50 L Seg Neutrophils % 65.3 Lymphocytes % 26.5 Monocytes % 7.1 Eosinophils % 0.8 Basophils % 0.3 Absolute Neutrophils 6.3 Absolute Lymphocytes 2.6 Absolute Monocytes 0.7 Absolute Eosinophils 0.1 Absolute Basophils 0.0 Sodium 137.1 Potassium 4.1 Chloride 101 Carbon Dioxide 29 Anion Gap 7 BUN < 2 L Creatinine 0.42 L Est GFR ( Amer) > 60 Est GFR (Non-Af Amer) > 60 Glucose 78 Calcium 8.1 L Magnesium 1.4 L Total Bilirubin 0.8 AST 168 H ALT 35 Alkaline Phosphatase 132 H Total Protein 5.2 L Albumin 2.1 L 11/25/18 18:00 CK-MB (CK-2) 0.48 Troponin I < 0.012 Impressions: Chest X-Ray 11/25/18 17:31 IMPRESSION: Cannot exclude right lower lobe pneumonia. Knee X-Ray 11/25/18 17:34 IMPRESSION: NEGATIVE STUDY OF THE RIGHT KNEE. NO RADIOGRAPHIC EVIDENCE OF ACUTE INJURY. KUB X-Ray 11/27/18 00:00 IMPRESSION: NO RADIOGRAPHIC EVIDENCE FOR ACUTE ABDOMINAL DISEASE. THERE ARE STABLE BONY FINDINGS. PRESUMED CORTICAL [place] IN THE LEFT ILIAC CREST. AVASCULAR NECROSIS OF THE RIGHT AND LEFT FEMORAL HEADS. Qualifiers - * PATIENT BEING DISCHARGED WITH ANY OF THE FOLLOWING DIAGNOSIS: No Acute Heart Failure Is this a Heart Failure Patient?: No
[2018-11-29] MEDS: DIAZEPAM INJ 10 MG/2 ML DISP.SYRIN IV PRN (19:22)
[2018-11-30] MEDS: DIAZEPAM INJ 10 MG/2 ML DISP.SYRIN IV PRN ×2 (01:29→17:11)
[2018-11-30] MEDS: METOCLOPRAMIDE HCL INJ/PF 10 MG/2 ML SDV IV SCH ×2 (05:12→12:43)
[2018-11-30] MEDS: POTASSIUM CHLORIDE 10 MEQ CAPSULE.ER PO SCH ×2 (05:12→12:43)
[2018-11-30] MEDS: DIAZEPAM 5 MG TABLET PO SCH ×2 (05:12→12:43)
[2018-11-30] MEDS: ATENOLOL 50 MG TABLET PO SCH (12:42)
[2018-11-30] MEDS: LEVETIRACETAM 500 MG TABLET PO SCH (12:43)
[2018-11-30] MEDS: LIPASE/PROTEASE/AMYLASE 1 CAP CAPSULE.DR PO SCH (12:50)
[2018-11-30 14:22] VITALS: BP 117/92
== END 2018-11-30 17:51 | disposition home health service (06) | DRG 439 ==
LOC: ER 16:52 → EH 19:48 → 3W 21:16
PROVIDERS: ADMIT Emergency Medicine; ATTEND Emergency Medicine
PROC: 3E0F73Z Introduction of Anti-inflammatory into Respiratory Tract, Via Natural or Artificial Opening (ICD-10-PCS; 2018-11-26)
PROC: 30233N1 Transfusion of Nonautologous Red Blood Cells into Peripheral Vein, Percutaneous Approach (ICD-10-PCS; principal; 2018-11-27)
DX: K85.90 Acute pancreatitis without necrosis or infection, unspecified (principal); E87.1 Hypo-osmolality and hyponatremia; K90.9 Intestinal malabsorption, unspecified; E46 Unspecified protein-calorie malnutrition; K86.1 Other chronic pancreatitis; E87.6 Hypokalemia; I10 Essential (primary) hypertension; G40.909 Epilepsy, unspecified, not intractable, without status epilepticus; E83.51 Hypocalcemia; E83.42 Hypomagnesemia; E78.5 Hyperlipidemia, unspecified; K21.9 Gastro-esophageal reflux disease without esophagitis; F32.9 Major depressive disorder, single episode, unspecified; D63.8 Anemia in other chronic diseases classified elsewhere; F17.200 Nicotine dependence, unspecified, uncomplicated; Z79.899 Other long term (current) drug therapy; Z82.3 Family history of stroke; Z83.3 Family history of diabetes mellitus; Z82.49 Family history of ischemic heart disease and other diseases of the circulatory system
CPT/HCPCS: 36415; 36430; 71046; 74018; 80048; 80053; 80076; 82150; 82553; 83690; 83735; 84484; 85025; 85027; 86850; 86900; 86901; 86920; 93005; 93010; 96360; 96361; 99285; J1644; J1953; J2060; J2765; J3360; J3475; J3480; J3490; J7030; J7120; P9016; S0164